=== PATIENT | female | born 1930 | race Caucasian/White ===

== ENCOUNTER 2017-06-15 00:10 | Inpatient (IN) | payer MEDICARE, OTHER ==
[2017-06-15] VITALS (23 sets, daily range): BP systolic 95–126; BP diastolic 43–71; PULSE 103–191; RESP 14–16; TEMP 97.8–99.4; O2SAT 94–100
[~2017-06-15] VITALS: Ht 177.8 cm; Wt 102.0 kg
[~2017-06-15 00:10] MED LIST: BUME1TAB PO; GABA100C4 PO; LANO0.2510 PO; LOVA40TA PO; POTA-243 PO; TAB-TAB PO; WARF5TAB PO
[2017-06-15] MEDS ORDERED: LEVOFLOXACIN 750 MG PREMIX INJ 150 ML IV ONE (00:30)
[2017-06-15] MEDS ORDERED: SODIUM CHLOR 0.9% 1000 ML INJ 1,000 ML IV SCH (00:30)
[2017-06-15] MEDS ORDERED: SODIUM CHLORIDE 0.9% FLUSH 5 ML FLUSH IV FLUSH PRN (00:30)
[2017-06-15] MEDS ORDERED: AZTREONAM INJ 2,000 MG in SODIUM CHLORIDE 0.9% INJ 100 ML IV ONE (00:30)
[2017-06-15] MEDS ORDERED: metroNIDAZOLE 500 MG INJ 100 ML IV ONE (00:30)
[2017-06-15] MEDS ORDERED: SODIUM CHLORID 0.9% 500 ML INJ 500 ML IV ONE (00:30)
[2017-06-15] MEDS ORDERED: DILTIAZEM HCL 25 MG/5 ML VIAL IV PUSH ONE (00:30)
[2017-06-15] MEDS ORDERED: SODIUM CHLORIDE 0.9% FLUSH 10 ML FLUSH IVF PRN ×3 (00:30→11:15)
[2017-06-15 00:51] LABS: AUTOMATED NEUTROPHIL # 11.2 TH/MM3 (1.8-7.7); BASOPHIL # 0.1 TH/MM3 (0-0.2); BASOPHIL % 0.4 % (0.0-2.0); EOSINOPHIL % 0.1 % (0.0-4.0); HEMATOCRIT 42.6 % (35.0-46.0); HEMO FLAGS DIFF FINAL; LYMPH % 6.1 % (9.0-44.0); LYMPHOCYTE # 0.8 TH/MM3 (1.0-4.8); MEAN CELL VOLUME 92.4 FL (80.0-100.0); MEAN CORPUSCULAR HEMOGLOBIN 28.9 PG (27.0-34.0); MEAN CORPUSCULAR HGB CONC 31.3 % (32.0-36.0); MONO % 11.2 % (0.0-8.0); NEUT % 82.2 % (16.0-70.0); PLATELET COUNT 238 TH/MM3 (150-450); RED BLOOD COUNT 4.61 MIL/MM3 (4.00-5.30); RED CELL DISTRIBUTION WIDTH 14.8 % (11.6-17.2); WHITE BLOOD COUNT 13.7 TH/MM3 (4.0-11.0)
[2017-06-15 01:01] LABS: APTT (PATIENT) 24.5 SEC (24.3-30.1); INTERNATIONAL NORMALIZED RATIO 1.2 RATIO; PROTHROMBIN TIME - PATIENT 12.8 SEC (9.8-11.6)
--- NOTE | 2017-06-15 01:05 | RADRPT ---
EXAM DATE/TIME: 06/15/2017 00:43 [place] COMPARISON: No previous studies available for comparison. INDICATIONS : Short of breath. MEDICAL HISTORY : None. SURGICAL HISTORY : CABG. ENCOUNTER: Initial ACUITY: 1 day PAIN SCORE: Non-responsive. LOCATION: Bilateral chest FINDINGS: A single portable frontal view of the chest shows an endotracheal tube with the tip 2 cm proximal to sury. The nasogastric tube in the fundus of the stomach. Bibasilar parenchymal consolidations with low lung volumes. Mild cardiomegaly. Prosthetic heart valve and median sternotomy wires. No discrete effusions. CONCLUSION: Cardiomegaly with bibasilar parenchymal consolidations in part likely due to atelectasis due to degre e of inspiration. I cannot exclude intraalveolar opacities such as early pulmonary edema. Blu Mayfield Jr., MD on June 15, 2017 at 1:02 Board Certified Radiologist. This report was verified electronically.
[2017-06-15 01:09] LABS: BLOOD, URINE NEG (NEG); COMMENT (UR) CULT NOT INDICATED; CULTURE IF INDICATED CULT NOT INDICATED; GLUCOSE,URINE NEG (NEG); HYALINE CAST, URINE 7 /lpf (RARE); KETONE, URINE NEG (NEG); MUCUS URINE FEW /lpf (OCC); NITRITE,URINE NEG (NEG); PH, URINE 5.5 (5.0-8.5); SQUAMOUS EPITHELIAL CELL URINE 1 /hpf (0-5); URINE COLOR YELLOW (YELLW/STRAW)
[2017-06-15] MEDS ORDERED: PROPOFOL 1000 MG/100 ML INJ 100 ML IV PRN (01:15)
[2017-06-15 01:16] LABS: BLOOD GAS BASE EXCESS 1.1 mmol/L (-2-2); BLOOD GAS CARBOXYHEMOGLOBIN 0.9 % (0-4); BLOOD GAS HCO3 25 mmol/L (22-26); BLOOD GAS METHEMOGLOBIN 0.7 % (0-2); BLOOD GAS O2 HGB SATURATION 98 % (90-100); BLOOD GAS PCO2 35 mmHg (38-42); BLOOD GAS PO2 429 mmHg (61-120); CRITICAL VALUE NO; OXYGEN DEVICE VENTILATOR; TEMP CORR TO 98.6
[2017-06-15 01:17] LABS: DRAW SITE RT RADIAL; FIO2 100 %; NUMBER OF ARTERIAL PUNCTURES 1; STAT YES; ULNAR PULSE PRESENT; VENT SETTINGS VAC/16/500/PEEP5
[2017-06-15 01:18] LABS: CALCIUM-PROTEIN CORRECTED 7.9 MG/DL (8.5-10.1); MAGNESIUM 2.4 MG/DL (1.5-2.5); TOTAL BILIRUBIN ADULT 0.6 MG/DL (0.2-1.0)
[2017-06-15 01:19] LABS: POTASSIUM 2.8 MEQ/L (3.5-5.1)
[2017-06-15] MEDS ORDERED: METO25TA3 PO (01:24)
[2017-06-15] MEDS ORDERED: JEVILIQ12 (01:24)
--- NOTE | 2017-06-15 01:39 | PD ---
HPI Chief Complaint: Respiratory Distress Time Seen by Provider: 00:23 Travel History International Travel<30 days: No Contact w/Intl Traveler<30days: No Traveled to known affect area: No History of Present Illness HPI 86-year-old female presents to the emergency department by EMS transport from [facility] for evaluation of respiratory distress. Patient was found by paramedics to be not responsive with low O2 saturations and poor ventilatory effort. Patient was assessed to need airway protection and respiratory support and was intubated in the field by paramedics. Patient was identified to have large amount of enteral tube feeding contents in the airway. Patient was suctioned numerous times. 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 Patient is currently on as needed Humalog sliding scale metoprolol DuoNeb treatments aspirin atorvastatin patient has been known as a high risk for aspiration. Patient reportedly today according to [facility] staff was having difficulty with breathing and then when the night nurse who had been caring for her return to work noted patient to be markedly more dyspneic and in respiratory distress. Patient reportedly has had no recent febrile illness. Unknown if patient received all of her daily medications. Per patient rehab records provided patient was hospitalized with an ischemic stroke, atrial fibrillation, started on Xarelto and subsequent small hemorrhagic stroke by MRI with discontinuation of Xarelto reportedly during admission from 05/01/17 to 06/01/17 at [facility]. [facility] Past Medical History Narrative Medical Atrial fibrillation CVA dyslipidemia hypertension CHF valvular heart disease cabg;no tobacco use; [facility] and nursing notes reviewed Neurologic: Yes (stroke with left sided weakness) ?: Not Past Surgical History Surgical History: Unable to Obtain Social History Alcohol Use: No Tobacco Use: No Substance Use: No Allergies-Medications (Allergen,Severity, Reaction): Coded Allergies: penicillin G (Unverified Allergy, Severe, 05/09/17) shellfish derived (Verified Allergy, Unknown, 06/15/17) Reported Meds & Prescriptions Reported Meds & Active Scripts Active Reported Jevity 1.5 Aden (Nutritional Supplements) 0.06 Gram-1.5 Kcal/Ml Liq Metoprolol Tartrate 25 Mg Tab 25 Mg PO BID Review of Systems ROS Limitations: Clinical Condition, Intubated, Other: (provided by rehabilitation facility medical records) Physical Exam Narrative GENERAL: Well-developed elderly female intubated and unresponsive except to painful stimuli left upper extremity and left lower extremity history of right hemiparesis status post CVA SKIN: Warm and dry. HEAD: Normocephalic. EYES: No scleral icterus. Pupils equal round reactive to light. No injection or drainage. NECK: Supple, trachea midline. No JVD or lymphadenopathy. CARDIOVASCULAR: Increased irregular irregular rate and rhythm without murmurs, gallops, or rubs. RESPIRATORY: Breath sounds equal bilaterally with ventilator assisted ventilations. No accessory muscle use. GASTROINTESTINAL: Abdomen soft, non-tender, nondistended. MUSCULOSKELETAL: No cyanosis, or edema. BACK: Nontender without obvious deformity. No CVA tenderness. Data Data Last Documented VS Vital Signs Date Time Temp Pulse Resp B/P (MAP) Pulse Ox O2 Delivery O2 Flow Rate FiO2 06/15/17 01:50 134 107/61 06/15/17 01:39 100 35 06/15/17 00:35 Ventilator 06/15/17 00:20 16 06/15/17 00:14 99.4 Orders Orders Complete Blood Count With Diff (06/15/17 00:24) Comprehensive Metabolic Panel (06/15/17:24) B-Type Natriuretic Peptide (06/15/17:24) Act Partial Throm Time (Ptt) (06/15/17:24) Prothrombin Time / Inr (Pt) (06/15/17 00:24) Magnesium (Mg) (06/15/17:24) Ckmb (Isoenzyme) Profile (06/15/17:24) Troponin I (06/15/17:24) Arterial Blood Gas (Abg) (06/15/17:24) Urinalysis - C+S If Indicated (06/15/17:24) Blood Culture (06/15/17:24) Iv Access Insert/Monitor (06/15/17:24) Electrocardiogram (06/15/17:24) Ecg Monitoring (06/15/17:24) Oximetry (06/15/17 00:24) Oxygen Administration (06/15/17:24) Chest, Single Ap (06/15/17:24) Sodium Chloride 0.9% Flush (Ns Flush) (06/15/17 00:30) Lactic Acid Sepsis Protocol (06/15/17 00:24) Sodium Chlorid 0.9% 500 Ml Inj (Ns 500 M (06/15/17 00:30) Sodium Chlor 0.9% 1000 Ml Inj (Ns 1000 M (06/15/17 00:30) Archana-Gastric Tube Insert/Mon (06/15/17 00:24) Place Ng Tube To Low Intermit (06/15/17 00:24) Urinary Catheter Insert/Apply (06/15/17 00:24) Aztreonam Inj (Azactam Inj) (06/15/17 00:30) Metronidazole 500 Mg Inj (Flagyl 500 Mg (06/15/17 00:30) Levofloxacin 750 Mg Premix Inj (Levaquin (06/15/17 00:30) Resp Ventilation- Volume (06/15/17 ) Blood Pressure (06/15/17 00:24) Vital Signs (06/15/17 00:24) Diltiazem Inj (Cardizem Inj) (06/15/17 00:30) Diltiazem Inj (Cardizem Inj) (06/15/17 00:30) Sodium Chloride 0.9% Flush (Ns Flush) (06/15/17 00:30) Propofol 1000 Mg/100 Ml Inj (Diprivan 10 (06/15/17 01:15) Neurological Rass Scale Q30MX2,Q2HX4,Q4H (06/15/17 01:09) Ct Brain W/O Iv Contrast(Rout) (06/15/17 ) Ct Abd/Pel W Iv Contrast(Rout) (06/15/17 ) Diltiazem Inj (Cardizem Inj) (06/15/17 02:00) Potassium Chlor 20 Meq Premix (Kcl 20 Me (06/15/17 02:00) Admit Order (Ed Use Only) (06/15/17 ) ^ Saline Lock (06/15/17 01:59) Resp Oxygen Akil C Titrat 1-4 L (06/15/17 ) Notify Dr: Other (06/15/17 01:59) Sodium Chloride 0.9% Flush (Ns Flush) (06/15/17 09:00) Sodium Chloride 0.9% Flush (Ns Flush) (06/15/17 02:00) Digoxin (06/15/17 00:40) Lipase (06/15/17 00:40) Ct Thorax/ Chest W Iv Contrast (06/15/17 ) Labs Laboratory Tests Test 06/15/17 00:30 06/15/17 00:40 06/15/17 00:50 06/15/17 00:55 Lactic Acid Level 1.9 mmol/L White Blood Count 13.7 TH/MM3 Red Blood Count 4.61 MIL/MM3 Hemoglobin 13.3 GM/DL Hematocrit 42.6 % Mean Corpuscular Volume 92.4 FL Mean Corpuscular Hemoglobin 28.9 PG Mean Corpuscular Hemoglobin Concent 31.3 % Red Cell Distribution Width 14.8 % Platelet Count 238 TH/MM3 Mean Platelet Volume 8.7 FL Neutrophils (%) (Auto) 82.2 % Lymphocytes (%) (Auto) 6.1 % Monocytes (%) (Auto) 11.2 % Eosinophils (%) (Auto) 0.1 % Basophils (%) (Auto) 0.4 % Neutrophils # (Auto) 11.2 TH/MM3 Lymphocytes # (Auto) 0.8 TH/MM3 Monocytes # (Auto) 1.5 TH/MM3 Eosinophils # (Auto) 0.0 TH/MM3 Basophils # (Auto) 0.1 TH/MM3 CBC Comment DIFF FINAL Differential Comment Prothrombin Time 12.8 SEC Prothromb Time International Ratio 1.2 RATIO Activated Partial Thromboplast Time 24.5 SEC Blood Urea Nitrogen 37 MG/DL Creatinine 0.79 MG/DL Random Glucose 117 MG/DL Total Protein 5.9 GM/DL Albumin 2.1 GM/DL Calcium Level 7.3 MG/DL Magnesium Level 2.4 MG/DL Alkaline Phosphatase 86 U/L Aspartate Amino Transf (AST/SGOT) 51 U/L Alanine Aminotransferase (ALT/SGPT) 33 U/L Total Bilirubin 0.6 MG/DL Sodium Level 154 MEQ/L Potassium Level 2.8 MEQ/L Chloride Level 118 MEQ/L Carbon Dioxide Level 29.0 MEQ/L Anion Gap 7 MEQ/L Estimat Glomerular Filtration Rate 69 ML/MIN Protein Corrected Calcium 7.9 MG/DL Total Creatine Kinase 54 U/L Troponin I 0.18 NG/ML B-Type Natriuretic Peptide 674 PG/ML Lipase 152 U/L Digoxin Level 0.1 NG/ML Blood Gas Puncture Site RT RADIAL Blood Gas Patient Temperature 98.6 Blood Gas HCO3 25 mmol/L Blood Gas Base Excess 1.1 mmol/L Blood Gas Oxygen Saturation 98 % Arterial Blood pH 7.46 Arterial Blood Partial Pressure CO2 35 mmHg Arterial Blood Partial Pressure O2 429 mmHg Arterial Blood Oxygen Content 19.0 Vol % Arterial Blood Carboxyhemoglobin 0.9 % Arterial Blood Methemoglobin 0.7 % Blood Gas Hemoglobin 13.0 G/DL Oxygen Delivery Device VENTILATOR Blood Gas Ventilator Setting VAC/16/500/PEEP5 Blood Gas Inspired Oxygen 100 % Urine Color YELLOW Urine Turbidity CLEAR Urine pH 5.5 Urine Specific [place] 1.018 Urine Protein TRACE mg/dL Urine Glucose (UA) NEG mg/dL Urine Ketones NEG mg/dL Urine Occult Blood NEG Urine Nitrite NEG Urine Bilirubin NEG Urine Urobilinogen LESS THAN 2.0 MG/DL Urine Leukocyte Esterase TRACE Urine RBC 3 /hpf Urine WBC 2 /hpf Urine Squamous Epithelial Cells 1 /hpf Urine Amorphous Sediment RARE Urine Hyaline Casts 7 /lpf Urine Mucus FEW /lpf Microscopic Urinalysis Comment CULT NOT INDICATED MDM Medical Decision Making Medical Screen Exam Complete: Yes Emergency Medical Condition: Yes Medical Record Reviewed: Yes Interpretation(s) Last Impressions Chest X-Ray 06/15/17 0024 Signed Impressions: Service Date/Time: May 00:43 - CONCLUSION: Cardiomegaly with bibasilar parenchymal consolidations in part likely due to atelectasis due to degree of inspiration. I cannot exclude intraalveolar opacities such as early pulmonary edema. Blu Mayfield Jr., MD CBC & BMP Diagram 06/15/17 00:40 Total Protein 5.9 L, Albumin 2.1 L, Calcium Level 7.3 *L, Magnesium Level 2.4, Alkaline Phosphatase 86, Aspartate Amino Transf (AST/SGOT) 51 H, Alanine Aminotransferase (ALT/SGPT) 33, Total Bilirubin 0.6 Vital Signs Date Time Temp Pulse Resp B/P (MAP) Pulse Ox O2 Delivery O2 Flow Rate FiO2 06/15/17 01:50 134 107/61 06/15/17 01:39 100 35 06/15/17 00:35 Ventilator 100 06/15/17 00:20 16 Ventilator 100 06/15/17 00:15 100 100 06/15/17 00:15 100 100 06/15/17 00:14 99.4 167 16 126/71 (89) 100 Differential Diagnosis Respiratory failure respiratory arrest aspiration pneumonitis pneumonia atrial fibrillation with RVR electrolyte disturbance anemia CVA Narrative Course Patient presents with IV access in place and oral intubation by EMS after being found unresponsive acute respiratory failure and ventilatory failure receiving tube feedings. To concern for aspiration as reportedly copious amounts of 2 feedings suction from patient's airway. Patient identified to be in atrial fibrillation with RVR and started on Cardizem infusion with Cardizem bolus 500 cc also normal saline. Patient started on ventilatory support assist control tidal volume 500 rate 16 fio2 100% peep 5 Patient found to be ongoing A. fib with RVR additional bolus administered and increase and Cardizem infusion ongoing IV fluid administration discontinued due to vascular congestion noted on chest x-ray Patient placed on propofol for agitation Patient's case discussed with director of bands for admission Critical Care Narrative Aggregate critical care time was 35 minutes. Time to perform other separately billable procedures was not included in the critical care time. My time did not include minutes spent treating any other patients simultaneously or on activities that did not directly contribute to the patient's treatment. The services I provided to this patient were to treat and/or prevent clinically significant deterioration that could result in: Arrhythmia, sepsis, I provided critical care services requiring my management, as noted below: Chart data review, documentation time, medication orders and management, vital sign assessments/reviewing monitor data, ordering and reviewing lab tests, ordering and interpreting/reviewing x-rays and diagnostic studies, care of the patient and discussion of the patient with the admitting physicians. Physician Communication Physician Communication discussed with Dr Johnston --will admit Diagnosis Primary Impression: Respiratory failure with hypoxia Qualified Codes: J96.01 - Acute respiratory failure with hypoxia Additional Impressions: Aspiration pneumonia Qualified Codes: J69.0 - Pneumonitis due to inhalation of food and vomit Atrial fibrillation with RVR Hypokalemia CHF (congestive heart failure) Admitting Information Admitting Physician Requests: Admit Michelle Castillo MD Jun 15, 2017 01:39
[2017-06-15] MEDS: DILTIAZEM INJ 125 MG in SODIUM CHLORIDE 0.9% INJ 100 ML IV PRN ×3 (01:50→17:36)
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
[2017-06-15] MEDS ORDERED: DILTIAZEM HCL 25 MG/5 ML VIAL IV ONE ×2 (02:00→02:15)
[2017-06-15] MEDS ORDERED: POTASSIUM CHLOR 20 MEQ PREMIX 100 ML IV SCH (02:00)
[2017-06-15 02:22] LABS: DIGOXIN 0.1 NG/ML (0.8-2.0)
[2017-06-15] MEDS ORDERED: SODIUM PHOSPHATE INJ 30 MMOL in SODIUM CHLOR 0.9% 250 ML INJ 240 ML IV PRN (03:00)
[2017-06-15] MEDS ORDERED: SODIUM CHLORIDE 0.9% FLUSH 10 ML FLUSH IV FLUSH PRN (03:00)
[2017-06-15] MEDS ORDERED: BISACODYL 10 MG SUPP RECTAL PRN (03:00)
[2017-06-15] MEDS ORDERED: POTASSIUM CHLOR 20 MEQ PREMIX 100 ML IV PRN ×2 (03:00)
[2017-06-15] MEDS ORDERED: RESP: ALBUTEROL 2.5 MG/3 ML NEB (PRN) INH (03:00)
[2017-06-15] MEDS ORDERED: MAGNESIUM OXIDE 400 MG TAB PO PRN (03:00)
[2017-06-15] MEDS ORDERED: MAGNESIUM SULFATE INJ 2 GM in SODIUM CHLORIDE 0.9% INJ 96 ML IV PRN (03:00)
[2017-06-15] MEDS ORDERED: ACETAMINOPHEN 325 MG TAB PO PRN (03:00)
[2017-06-15] MEDS ORDERED: LACTULOSE SYRUP 20 GM/30 ML CUP PO PRN (03:00)
[2017-06-15] MEDS ORDERED: CHLORHEXIDINE GLUCONATE 2 % 1 PACK (2 CLOTHS) TOP PRN (03:00)
[2017-06-15] MEDS ORDERED: POTASSIUM PHOSPHATE MONOBASIC 500 MG TAB PO/TUBE PRN (03:00)
[2017-06-15] MEDS ORDERED: MISCELLANEOUS NURSING INFORMATION XX SCH (03:00)
[2017-06-15] MEDS ORDERED: SENNOSIDES 8.6 MG TAB PO PRN (03:00)
[2017-06-15] MEDS ORDERED: POTASSIUM CHLOR 40 MEQ PREMIX 100 ML IV PRN (03:00)
[2017-06-15] MEDS ORDERED: MAGNESIUM HYDROXIDE SUSP 30 ML CUP PO PRN (03:00)
[2017-06-15] MEDS ORDERED: POTASSIUM PHOSPHATE MONOBASIC 500 MG TAB PO PRN (03:00)
[2017-06-15] MEDS ORDERED: Vancomycin Consult Pharmacy 1 EA OTHER SCH (03:00)
[2017-06-15] MEDS ORDERED: LEVOFLOXACIN 750 MG TAB PO SCH (03:00)
[2017-06-15] MEDS ORDERED: ONDANSETRON HCL 4 MG/2 ML VIAL IV PUSH PRN (03:00)
[2017-06-15] MEDS ORDERED: MAGNESIUM SULFATE INJ 4 GM in SODIUM CHLORIDE 0.9% INJ 92 ML IV PRN (03:00)
[2017-06-15] MEDS ORDERED: METOCLOPRAMIDE HCL 10 MG/2 ML VIAL IV PUSH SCH (03:00)
[2017-06-15] MEDS ORDERED: POTASSIUM PHOSPHATE INJ 30 MMOL in SODIUM CHLOR 0.9% 250 ML INJ 250 ML IV PRN (03:00)
[2017-06-15] MEDS ORDERED: POTASSIUM CHLORIDE 25 MEQ EFFERVESCENT TAB PO PRN (03:00)
[2017-06-15] MEDS ORDERED: metroNIDAZOLE 500 MG INJ 100 ML IV SCH (03:00)
[2017-06-15] MEDS: RESP: ALBUTEROL 2.5 MG/IPRATROPIUM 0.5 MG NEB (SCH) INH ×4 (03:20→21:56)
[2017-06-15] MEDS: CHLORHEXIDINE GLUCONATE 2 % 1 PACK (2 CLOTHS) TOP SCH (04:00)
[2017-06-15] MEDS ORDERED: VANCOMYCIN 1,500 MG/NS 500 ML IV ONE ×2 (04:00)
[2017-06-15] MEDS ORDERED: IOHEXOL 350 MG/ML 10 ML VIAL (for RAD DIAG) IVCONTRAST ONE (04:31)
--- NOTE | 2017-06-15 05:07 | RADRPT ---
EXAM DATE/TIME: 06/15/2017 04:26 [facility] COMPARISON: No previous studies available for comparison. INDICATIONS : Altered mental status. RADIATION DOSE: 50.18 CTDIvol (mGy) ; Tabletop CT Head MEDICAL HISTORY : Cardiovascular disease. Cerebrovascular disease. Hypertension. SURGICAL HISTORY : CABG ENCOUNTER: Initial ACUITY: 1 day PAIN SCALE: Non-responsive LOCATION: cranial TECHNIQUE: Multiple contiguous axial images were obtained of the head. Using automated exposure control and adj ustment of the mA and/or kV according to patient size, radiation dose was kept as low as reasonably a chievable to obtain optimal diagnostic quality images. DICOM format image data is available electro nically for review and comparison. FINDINGS: CEREBRUM: Atrophy. Periventricular low attenuation changes asymmetric involving the left cerebral hemisphere. A pat of encephalomalacia involving the right frontal lobe. The ventricles are normal for age. No evid ence of midline shift, mass lesion, hemorrhage or acute infarction. No extra-axial fluid collections are seen. POSTERIOR FOSSA: The cerebellum and brainstem are intact. The 4th ventricle is midline. The cerebellopontine angle i s unremarkable. EXTRACRANIAL: The visualized portion of the orbits is intact. SKULL: The calvaria is intact. No evidence of skull fracture. CONCLUSION: 1. No acute intracranial abnormality. 2. Chronic small vessel ischemic change more pronounced on the left. 3. Right frontal lobe encephalomalacia. 4. Atrophy Blu Mayfield Jr., MD on June 15, 2017 at 5:04 Board Certified Radiologist. This report was verified electronically.
--- NOTE | 2017-06-15 05:15 | RADRPT ---
EXAM DATE/TIME: 06/15/2017 04:30 [facility] COMPARISON: No previous studies available for comparison. INDICATIONS : Abdomen pain with vomiting. IV CONTRAST: 95 cc Omnipaque 350 (iohexol) IV ; Cumulative dose for multiple exams. ORAL CONTRAST: No oral contrast ingested. RADIATION DOSE: 18.53 CTDIvol (mGy) ; Combined studies - Thorax/Abdomen/Pelvis MEDICAL HISTORY : Cardiovascular disease. Cerebrovascular disease. Hypertension. SURGICAL HISTORY : CABG ENCOUNTER: Initial ACUITY: 1 day PAIN SCALE: Non-responsive LOCATION: abdomen TECHNIQUE: Volumetric scanning of the abdomen and pelvis was performed. Using automated exposure control and ad justment of the mA and/or kV according to patient size, radiation dose was kept as low as reasonably achievable to obtain optimal diagnostic quality images. DICOM format image data is available electro nically for review and comparison. FINDINGS: LOWER LUNGS: See the CT of the thorax dictated separately. LIVER: Homogeneous density. 2 small hepatic cysts observed. There is no dilation of the biliary tree. No s everal small rim calcified gallstones. The gallbladder is well distended but no gallbladder wall thic kening or pericholecystic fluid. The stones are within the fundus. SPLEEN: There is an abnormal appearance to the spleen. An area of poor enhancement is seen within the most ce phalad portion of the spleen. There is mild stranding of the adjacent fat. No discrete hematoma. PANCREAS: Within normal limits. KIDNEYS: Normal in size and shape. There is no mass, stone or hydronephrosis. Small right-sided cortical cyst s. ADRENAL GLANDS: There is a 1.7 cm right adrenal gland nodule. The left adrenal gland is unremarkable. I am unable to gain in accurate Hounsfield unit on the nodule due to streak artifact from contrast within the adjace nt IVC. VASCULAR: There is no aortic aneurysm. BOWEL/MESENTERY: Significant stool burden is seen throughout a mildly distended colon. The cecum reaches a maximum mirtha meter of 8 cm. Small bowel and stomach are unremarkable. The stomach is decompressed. A gastrostomy t ube is noted. No free air or free fluid. A few scattered colonic diverticuli. ABDOMINAL WALL: Within normal limits. RETROPERITONEUM: There is no lymphadenopathy. BLADDER: Totally decompressed and a Camilo balloon present. REPRODUCTIVE: Within normal limits. INGUINAL: There is no lymphadenopathy or hernia. MUSCULOSKELETAL: Within normal limits for patient age. CONCLUSION: 1. Area of poor enhancement involving the spleen as detailed above. Differential diagnostic considera tions would include an area of splenic infarction or in the right clinical setting splenic laceration . No intraperitoneal hematoma seen. 2. Constipation with distended colon. 3. Cholelithiasis. 4. 1.7 cm right adrenal gland nodule that cannot be further characterized on this study. Blu Mayfield Jr., MD on June 15, 2017 at 5:06 Board Certified Radiologist. This report was verified electronically.
--- NOTE | 2017-06-15 05:19 | RADRPT ---
EXAM DATE/TIME: 06/15/2017 04:30 [facility] COMPARISON: No previous studies available for comparison. INDICATIONS : Evaluate for pneumonia. IV CONTRAST: 95 cc Omnipaque 350 (iohexol) IV ; Cumulative dose for multiple exams. RADIATION DOSE: 18.53 CTDIvol (mGy) ; Combined studies - Thorax/Abdomen/Pelvis MEDICAL HISTORY : Cerebrovascular disease. Cardiovascular disease Hypertension. SURGICAL HISTORY : CABG ENCOUNTER: Initial ACUITY: 1 day PAIN SCALE: Non-responsive LOCATION: chest TECHNIQUE: Volumetric scanning of the chest was performed. Using automated exposure control and adjustment of t he mA and/or kV according to patient size, radiation dose was kept as low as reasonably achievable to obtain optimal diagnostic quality images. DICOM format image data is available electronically for review and comparison. Follow-up recommendations for detected pulmonary nodules are based at a minimum on nodule size and pa tient risk factors according to Fleischner Society Guidelines. FINDINGS: LUNGS: Bibasilar areas of consolidation. Remaining lungs are clear. Minimal linear atelectasis within the palma perior segment left lower lobe. Endotracheal tube observed. PLEURA: There is no pleural thickening or pleural effusion. MEDIASTINUM: The heart is significantly enlarged. 2 focal rounded areas of filling defect involving the right atri um measuring 1.9 and 1.7 cm respectively. No pericardial effusion. Streak artifact involving the tric uspid valve and mitral valve consistent with prostheses.. AXILLAE: Within normal limits. No lymphadenopathy. SKELETAL: Within normal limits for patient age. MISCELLANEOUS: See the CT of the abdomen and pelvis reported separately. CONCLUSION: 1. 2 focal rounded filling defects involving an enlarged right atrium. I'm concerned this represents mural thrombus. 2. Significant cardiomegaly. 3. Bibasilar infiltrates. Blu Mayfield Jr., MD on June 15, 2017 at 5:14 Board Certified Radiologist. This report was verified electronically.
[2017-06-15] MEDS ORDERED: DIGOXIN 0.5 MG/2 ML VIAL IV PUSH ONE (07:15)
[2017-06-15] MEDS ORDERED: CHLORHEXIDINE 0.12% (ORAL KIT) 15 ML CUP MT SCH (08:00)
[2017-06-15] MEDS: DIGOXIN 0.5 MG/2 ML VIAL IV PUSH SCH ×2 (08:00→13:07)
[2017-06-15] MEDS ORDERED: HEPARIN-D5W 25,000 U/250 ML 250 ML IV PRN (08:15)
[2017-06-15] MEDS: NYSTATIN SUSP 500,000 U/5 ML CUP OROPHARYNG SCH ×4 (08:17→22:24)
[2017-06-15] MEDS: metroNIDAZOLE 500 MG INJ 100 ML IV SCH ×2 (08:17→16:43)
[2017-06-15] MEDS: DIGOXIN 0.125 MG TAB OG-TUBE SCH (08:18)
[2017-06-15] MEDS: SODIUM CHLORIDE 0.9% FLUSH 10 ML FLUSH IV FLUSH SCH ×2 (08:20→22:24)
[2017-06-15 08:57] LABS: HEMATOCRIT 40.4 % (35.0-46.0); REVIEW FLAG FINAL
[2017-06-15] MEDS ORDERED: FAMOTIDINE 20 MG/2 ML VIAL IV PUSH SCH (09:00)
[2017-06-15] MEDS ORDERED: DOCUSATE SODIUM 50 MG/SENNA 8.6 MG TAB PO SCH (09:00)
[2017-06-15] MEDS ORDERED: SODIUM CHLORIDE 0.9% FLUSH 10 ML FLUSH IV FLUSH SCH (09:00)
--- NOTE | 2017-06-15 09:11 | MB ---
cc: ALEXIS PEDROZA DATE OF CONSULTATION 06/15/2017 DATE OF 1930 REASON FOR CONSULTATION Atrial fibrillation, recommendations regarding anticoagulation. HISTORY OF PRESENT ILLNESS The patient is intubated and sedated. History is obtained from her to some degree and from medical records, as well as from Dr. Marilee Johnston. The patient is a 86-year-old white female with a history of multiple medical problems including chronic atrial fibrillation, mitral valve disease status post mitral valve repair about two years ago, hypertension, hyperlipidemia, CVAs, who was brought to the hospital with increasing respiratory distress. She was subsequently intubated and placed on mechanical ventilation. Here in hospital, she has had elevated heart rates. According to the patient's , she has had no definite recent complaints of chest pain, dizziness or palpitations. PAST MEDICAL HISTORY 1. Chronic atrial fibrillation 2. Previous congestive heart failure due to her valvular heart disease. 3. 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 4. Essential tremor 5. Hyperlipidemia 6. Mitral regurgitation, severe, status post repair 05/13/15. 7. History of tricuspid regurgitation apparently also status post repair 05/13/15 CARDIAC MEDICATIONS At home: 1. Metoprolol 50 mg b.i.d. 2. Atorvastatin 40 mg q.h.s. 3. Aspirin 81 mg daily. ALLERGIES PENICILLIN AND SHELLFISH FAMILY HISTORY Noncontributory SOCIAL HISTORY The patient has never smoked cigarettes. There is no history of alcohol abuse. REVIEW OF SYSTEMS As in the history of present illness otherwise currently unobtainable. PHYSICAL EXAM VITAL SIGNS: Blood pressure 86/50 with a pulse of 160, respirations 20. GENERAL: She is a well-developed, well-nourished white female currently intubated and sedated. HEENT: On examination, jugular venous pressure is normal. NECK: Carotid pulses are 2+ bilaterally and without bruits. CHEST: Examination of the chest reveals clear lung cruz anteriorly. CARDIAC: On cardiac examination, she has a tachycardiac irregular rhythm without definite S3 or murmur. ABDOMEN: On abdominal examination, she has a soft abdomen. Bowel sounds are present. There is no definite hepatosplenomegaly. EXTREMITIES: Examination of extremities reveals no clubbing, cyanosis or edema. Chest x-ray shows cardiomegaly with bibasilar parenchymal consolidations in part due to atelectasis. LABORATORY DATA Includes WBC 13.7, hemoglobin 13.3, platelets 238. Potassium 2.8, BUN 37, creatinine 0.79, CK 54, troponin 0.18. Brain natriuretic peptide level is 674. EKG shows atrial fibrillation with a rapid ventricular response, diffuse nonspecific ST and T-wave abnormalities. IMPRESSION Hypotension, atrial fibrillation with a rapid ventricular response, respiratory failure in this 86-year-old white female with a history of chronic atrial fibrillation, history of CVAs, the most recent last month, history of mitral valve and tricuspid repair, hypertension, hyperlipidemia. At this time, her heart rates remain elevated. Her blood pressure is too low to initiate beta ruthann or calcium channel ruthann therapy. Overall, there is no definite evidence for acute coronary syndrome. I doubt the slightly elevated troponin level is due to unstable angina. Her heart catheterization about two years ago reportedly showed normal coronary arteries. Her respiratory failure may be multifactorial in origin, including congestive heart failure as well as aspiration. She did have an echo about a year ago showing normal left ventricular and valvular function. With respect to her thromboembolic risk, I would agree that it is high in light of her advanced age, history of strokes, history of congestive heart failure, hypertension. There is also worrisome findings suggestive of right atrial thrombus on her chest CT. Echo is pending. RECOMMENDATIONS 1. Agree with the approach of doing an MRI of her head and initiating Eliquis only if no active hemorrhaging is demonstrated. Eliquis is somewhat off label in this situation as she does have a history of valvular disease. However, according to the family, when she was on warfarin in the past, she had very poorly controlled INR's. 2. Agree with the digoxin; consider intravenous amiodarone for heart rate control. 3. We will try to review her recent [facility] records. MD BHAVIK Leo/MARIA TERESA /8:39 AM /8:52 AM POLLY
[2017-06-15] MEDS ORDERED: PHENYLEPHRINE HCL 10 MG/ML VIAL ONE (09:38)
[2017-06-15] MEDS ORDERED: TERBUTALINE INJ 1 MG/ML AMP SQ PRN ×2 (10:00→11:00)
[2017-06-15] MEDS ORDERED: PHENYLEPHRINE 40 MG in D5W 500 ML IV PRN (10:00)
[2017-06-15 10:12] LABS: HEMATOCRIT 40.4 % (35.0-46.0); MEAN CELL VOLUME 92.7 FL (80.0-100.0); MEAN CORPUSCULAR HEMOGLOBIN 29.8 PG (27.0-34.0); MEAN CORPUSCULAR HGB CONC 32.1 % (32.0-36.0); PLATELET COUNT 206 TH/MM3 (150-450); RED BLOOD COUNT 4.27 MIL/MM3 (4.00-5.30); REVIEW FLAG FINAL; WHITE BLOOD COUNT 12.3 TH/MM3 (4.0-11.0)
--- NOTE | 2017-06-15 11:09 | PD.PROCEDR ---
Central Line Procedure REASON FOR PROCEDURE Central venous access PROCEDURE PERFORMED Central line placement: Right IJ CONSENT Informed consent for procedure was obtained from Darin and son enzo. The risks and benefits of the procedure were discussed to include but limited to bleeding, clot formation, infection, and even . ANESTHESIA Local injection of 1% Lidocaine DESCRIPTION OF THE PROCEDURE The patient was placed in supine, mild Trendelenburg position. The area was exposed and cleansed with ChloraPrep, times two. Large sterile drape was used to cover the patient, with the site exposed, under sterile conditions including cap, face mask, sterile gown, and sterile gloves. On single attempt, the introducer needle was inserted with negative pressure in syringe and venous flash was obtained. The guide wire was then advanced without any restriction and the needle was removed. The dilator was used without any complications. Using Seldinger technique the 5 lm catheter was advanced over the guide wire to a depth of 16 centimeters. The guide wire was removed. All ports were aspirated with dark venous blood return and flushed easily with sterile saline. All ports were capped. Antibiotic disc was placed around central line at puncture site. The central line was secured to the skin with two interrupted 2.0 silk sutures. The area was bandaged with sterile see-through central line bandage. RADIOLOGICAL DATA Ultrasound guidance was used to locate right internal jugular vein. Doppler/ color flow was used to confirm venous flow. COMPLICATIONS: No apparent complications ESTIMATED BLOOD LOSS: Less than 1 cc. Harman Manning MD Jun 15, 2017 10:53
--- NOTE | 2017-06-15 11:09 | PD.PROCEDR ---
Procedure Note Procedure DATE: 06/15/2017 PROCEDURE: Left femoral arterial catheter placement INDICATION:hemodynamic access. Patient acutely hypotensive on vasopressors DETAILS OF PROCEDURE The patient was placed in supine position. The skin was cleansed with Chloraprep. Additional barrier precautions included large sterile drape, sterile gloves, sterile gown, face mask, and hat. 1% lidocaine was used for local anesthesia. Under direct ultrasound guidance and on the initial attempt, the left femoral artery was accessed with an introducer needle. The guide wire was advanced. Using Seldinger technique 20 gauge arterial catheter was placed. The guide wire was removed. The catheter was connected to a transducer line and flushed with saline. The video monitor displayed normal arterial wave forms. The catheter was secured with 2-0 silk. A sterile dressing with antibiotic disc was applied. Please note on initial attempt, the right femoral artery was accessed with an introducer needle and the guidewire was advanced. However upon removing the introducer needle, the end of the guidewire frayed was unable to place arterial catheter over the frayed guidewire. Procedure was stopped him a guidewire removed and direct pressure placed for 5 minutes. No gross hematoma noted. ESTIMATED BLOOD LOSS: minimal COMPLICATIONS: None Harman Manning MD Jun 15, 2017 10:55
[2017-06-15 11:32] LABS: BLOOD GAS BASE EXCESS -0.4 mmol/L (-2-2); BLOOD GAS CARBOXYHEMOGLOBIN 1.4 % (0-4); BLOOD GAS HCO3 23 mmol/L (22-26); BLOOD GAS METHEMOGLOBIN 0.9 % (0-2); BLOOD GAS O2 HGB SATURATION 96 % (90-100); BLOOD GAS OXYGEN CONTENT 16.6 Vol % (12.0-20.0); BLOOD GAS PCO2 32 mmHg (38-42); BLOOD GAS PO2 103 mmHg (61-120); BLOOD GAS TOTAL HGB 12.2 G/DL (12.0-16.0); TEMP CORR TO 98.6
[2017-06-15 11:33] LABS: CRITICAL VALUE NO; DRAW SITE ART LINE; FIO2 35 %; OXYGEN DEVICE VENTILATOR; STAT NO
--- NOTE | 2017-06-15 11:47 | RADRPT ---
EXAM DATE/TIME: 06/15/2017 11:14 [facility] COMPARISON: CHEST SINGLE AP, June 15, 2017, 0:43. INDICATIONS : Central line placement. MEDICAL HISTORY : Cerebrovascular disease. Cardiovascular disease. Hypertension. SURGICAL HISTORY : CABG. ENCOUNTER: Initial ACUITY: 1 day PAIN SCORE: Non-responsive. LOCATION: Bilateral chest FINDINGS: A single view of the chest demonstrates endotracheal tube tip in good position. NG tip in stomach. Ri ght central line in superior vena cava. Previous median sternotomy with mitral and pulmonic valve denise deonte. Global cardiomegaly. Basilar airspace disease. No pneumothorax. CONCLUSION: 1. Pacer right central line with tip in superior vena cava. No pneumothorax. Delonte Roland MD on June 15, 2017 at 11:44 Board Certified Radiologist. This report was verified electronically.
[2017-06-15 11:55] LABS: HEMATOCRIT 38.7 % (35.0-46.0); MEAN CELL VOLUME 92.2 FL (80.0-100.0); MEAN CORPUSCULAR HEMOGLOBIN 28.7 PG (27.0-34.0); MEAN CORPUSCULAR HGB CONC 31.1 % (32.0-36.0); PLATELET COUNT 246 TH/MM3 (150-450); RED CELL DISTRIBUTION WIDTH 14.7 % (11.6-17.2); REVIEW FLAG FINAL; WHITE BLOOD COUNT 15.1 TH/MM3 (4.0-11.0)
[2017-06-15 12:01] LABS: BICARBONATE 28.1 MEQ/L (21.0-32.0); MAGNESIUM 2.3 MG/DL (1.5-2.5)
[2017-06-15] MEDS: 1/2 NS + KCL 20 MEQ INJ 1,000 ML IV SCH (12:05)
[2017-06-15] MEDS: AZTREONAM INJ 2,000 MG in SODIUM CHLORIDE 0.9% INJ 100 ML IV SCH ×2 (12:08→17:36)
[2017-06-15 12:09] LABS: APTT (PATIENT) 27.5 SEC (24.3-30.1); INTERNATIONAL NORMALIZED RATIO 1.2 RATIO; PROTHROMBIN TIME - PATIENT 13.2 SEC (9.8-11.6)
[2017-06-15 12:10] LABS: FREE T4 1.82 NG/DL (0.76-1.46)
[2017-06-15] MEDS: PRAVASTATIN SOD 40 MG TAB OG-TUBE SCH (12:45)
[2017-06-15] MEDS: ESMOLOL DRIP INJ PREMIX 250 ML IV PRN ×2 (12:48→19:40)
[2017-06-15] MEDS: ARTIFICIAL TEARS OPTH SOLN 15 ML BTL EACH EYE SCH ×2 (13:06→22:00)
--- NOTE | 2017-06-15 14:21 | PD.CONS ---
Consult Service Palliative Care Consult Requested By Dr Johnston . Primary Care Physician Chema Soria MD Reason for Consultation a. To assist with evaluation and management of symptoms including: Dyspnea, dysphagia, pain b. To assist medical decision maker(s) with: better understanding of current medical conditions; weighing benefits/burdens of medical treatment options; making medical treatment decisions. HPI History of Present Illness 86-year-old patient presented to the ED 06/15/17, via EMS from her nursing facility, for respiratory distress. Patient was found to be nonresponsive with low O2 sats and poor ventilatory effort. She apparently was felt to need airway protection per EMS and was intubated in the field. Patient also reported to have a large amount of enteral tube feeding in the airway. Required repeated suctioning. Patient with known history left MCA stroke, right -sided residual deficits, A. fib RVR, hyperlipidemia, CHF, valvular heart disease. She is also reported to have UTIs, PEG tube dependent. Nursing staff at facility reported dyspnea, respiratory distress. No recent fevers reported. Per rehabilitation records patient had recent hospitalization with ischemic stroke and atrial fibrillation, had been started on Xarelto but then had a subsequent small hemorrhage per MRI thus Xarelto was discontinued during admission 05/01/17 through 06/01/17 at [facility]. * CXR in the ED= "Cardiomegaly with bibasilar parenchymal consolidations in part likely due to atelectasis due to degree of inspiration. I cannot exclude intraalveolar opacities such as early pulmonary edema." EKG noted for atrial fibrillation with RVR, started on Cardizem, IV fluids. On mechanical vent. Started on propofol for agitation. Lactic acid 1.9. WBC 13.7. BUN 37/ creatinine 0.79. Albumin 2.1 sodium 154, potassium 2.8. Admitted for further evaluation and management. UA negative. * Patient was planned for follow-up outpatient CT brain, had not yet obtained, CT brain here with no evidence of new hemorrhage finding, follow-up MRI to be obtained. Patient high risk for recurrent stroke/thromboembolism. 2-D echo pending. CT abdomen pelvis pending, some concern for splenic infarct. Villareal cultures pending. UA negativerecent treatment for UTI with Cipro 06/01 through . Broad-spectrum antibiotics continued vancomycin, Flagyl, Levaquin, aztreonam. Critical care notes discussion with patient regarding CODE STATUS, he elected to continue full code, was considering DNR status based on patient wishes however wishes to involve their adult children who are expected to arrive at a later time. He indicated that they had previously elected DNR after her first stroke but changed their mind when they saw some improvement. He reported lack of improvement with rehabilitation efforts, quality of life poor, primarily bed bound and with little communication ability, apparently the communication had gotten less over the prior weeks and days. * Cardiology consulted: Notes patient with no evidence for ACS, not likely elevated troponin level is secondary to unstable angina Catrina heart catheter about 2 years prior reported to show normal coronary arteries. Respiratory failure likely multifactorial including CHF and aspiration echo about one year ago showed normal left ventricular and valvular function. Also notes high thromboembolic risk, worrisome finding suggestive of right atrial thrombus in her chest CT, echo pending. Recommends proceed with MRI brain initiating eliquis if no active hemorrhage. Continue digoxin, consider amiodarone for rate control. Obtain recent [place] hospital records. * Palliative care was consulted to assist with clarification of goals of treatment Patient seen in room with nurse at bedside, as well as several family members. Met with family at length following physical exam. Patient is minimally responsive to exam, critically ill-appearing. Discussed with nurse, critical care. . Function/Cognitive Trajectory Patient with significant residual secondary to recent MCA stroke, most recently resided at [facility] dependent for care, dependent on tube feeding. Minimally communicative, minimally verbal. Nonambulatory. Prior to stroke in April of this year lived at home with fairly independent and semi-active. Review of Systems ROS Limitations: Clinical Condition, Intubated (intubated, sedated on mechanical vent) Respiratory: COMPLAINS OF: Shortness of breath (per EMS) Past Family Social History Coded Allergies: penicillin G (Unverified Allergy, Severe, 05/09/17) shellfish derived (Verified Allergy, Unknown, 06/15/17) Past Medical History Atrial fibrillation CVA Dyslipidemia Hypertension CHF Valvular heart disease Diabetes Nodular basal cell carcinoma face (May have underwent XRT?) . Past Surgical History Cardiac catheterization 09/11/14normal coronaries (Dr. Mahoney) Biopsy right denominational skin cancer Biopsy right nasal labial fold for basal cell carcinoma Bilateral cataract surgery section 3 Tonsillectomy Arthroscopy of knee Mitral valve replacement . Reported Medications Aspirin 81 mg daily Atorvastatin 40 mg by mouth daily Metoprolol 50 mg by mouth twice a day Cipro 500 mg per G-tube every 12 hours since 06/01/17 through 06/11/17 DuoNeb every 6 hours as needed Insulin sliding scale Nystatin 5 ML's 4 times a day started 06/02/17 Enteral feeds Jevity 1.5 55 mL per hour 20 hours . Current Medications Medications (Trade) Dose Ordered Sig/Kayla Route Start Time Stop Time Status Last Admin Diltiazem HCl 125 mg/Sodium Chloride 125 ml @ 5 mls/hr TITRATE PRN IV 06/15/17 00:30 06/15/17 10:53 Potassium Chloride 100 ml @ 50 mls/hr Q2H PRN IV 06/15/17 03:00 Potassium Chloride 100 ml @ 50 mls/hr Q2H PRN IV 06/15/17 03:00 (K-Lyte Cl Eff) 50 meq UNSCH PRN PO 06/15/17 03:00 Potassium Chloride 100 ml @ 25 mls/hr UNSCH PRN IV 06/15/17 03:00 Potassium Chloride 100 ml @ 50 mls/hr Q2H PRN IV 06/15/17 03:00 Magnesium Sulfate 4 gm/Sodium Chloride 100 ml @ 50 mls/hr UNSCH PRN IV 06/15/17 03:00 (Mag-Ox) 800 mg UNSCH PRN PO 06/15/17 03:00 Magnesium Sulfate 2 gm/Sodium Chloride 100 ml @ 50 mls/hr UNSCH PRN IV 06/15/17 03:00 (K-Phos) 2,000 mg Q4H PRN PO 06/15/17 03:00 Sodium Phosphate 30 mmol/Sodium Chloride 250 ml @ 42 mls/hr UNSCH PRN IV 06/15/17 03:00 (K-Phos) 2,000 mg UNSCH PRN PO/TUBE 06/15/17 03:00 Potassium Phosphate 30 mmol/ Sodium Chloride 260 ml @ 42 mls/hr UNSCH PRN IV 06/15/17 03:00 (Mycostatin Liq) 5 ml QID OROPHARYNG 06/15/17 09:00 06/15/17 13:06 Aztreonam 2000 mg/ Sodium Chloride 100 ml @ 200 mls/hr Q8H IV 06/15/17 10:00 06/15/17 12:08 Pharmacy Profile Note 0 ml @ 0 mls/hr UNSCH OTHER 06/15/17 03:00 Metronidazole 100 ml @ 100 mls/hr Q8H IV 06/15/17 09:00 06/15/17 08:17 (Levaquin) 750 mg Q24H PO 06/16/17 06:00 (NS Flush) 2 ml UNSCH PRN IV FLUSH 06/15/17 03:00 (NS Flush) 2 ml BID IV FLUSH 06/15/17 09:00 06/15/17 08:20 (Zofran Inj) 4 mg Q6H PRN IV PUSH 06/15/17 03:00 (Duoneb Neb) 1 ampule Q6HR NEB INH 06/15/17 04:00 06/15/17 08:37 (Albuterol Neb) 2.5 mg Q2HR NEB PRN INH 06/15/17 03:00 Miscellaneous Information 1 Q361D XX 06/15/17 03:00 06/15/17 03:00 (Chlorhexidine 2% Cloth) 3 pack Taper DAILY@04 TOP 06/15/17 04:00 06/11/18 03:59 06/15/17 04:00 (Chlorhexidine 2% Cloth) 3 pack UNSCH PRN TOP 06/15/17 03:00 (Milk Of Magnesia Liq) 30 ml Q12H PRN PO 06/15/17 03:00 (Senokot) 17.2 mg Q12H PRN PO 06/15/17 03:00 (Dulcolax Supp) 10 mg DAILY PRN RECTAL 06/15/17 03:00 (Lactulose Liq) 30 ml DAILY PRN PO 06/15/17 03:00 (Lanoxin Inj) 0.125 mg Q6H IV PUSH 06/15/17 08:00 06/15/17 14:01 06/15/17 13:07 (Lanoxin) 0.125 mg DAILY OG-TUBE 06/15/17 09:00 Heparin Sodium/ Dextrose 250 ml @ 14.31 mls/ hr TITRATE PRN IV 06/15/17 08:15 06/15/17 13:11 (Brethine Inj) 1 mg UNSCH PRN SQ 06/15/17 10:00 Vancomycin HCl 1500 mg/Sodium Chloride 515 ml @ 250 mls/hr Q24H IV 06/16/17 08:00 Miscellaneous Information SPECIFIC LAB TO BE DRAWN:VANCOMYCIN TROUGH DATE TO... ONCE ONCE .XX 06/18/17 07:45 06/18/17 07:46 Phenylephrine HCl 160 mg/Dextrose 500 ml @ 7.5 mls/hr TITRATE PRN IV 06/15/17 11:00 (Brethine Inj) 1 mg UNSCH PRN SQ 06/15/17 11:00 (Colace Liq) 100 mg Q12HR OG-TUBE 06/15/17 21:00 (Senna Liq) 8.8 mg BID OG-TUBE 06/15/17 21:00 (Miralax) 17 gm BID OG-TUBE 06/15/17 21:00 Potassium Chloride/Sodium Chloride 1,000 ml @ 84 mls/hr [id number] IV 06/15/17 11:15 06/15/17 12:05 Esmolol HCl/ Sodium Chloride 250 ml @ 23.85 mls/ hr TITRATE PRN IV 06/15/17 11:15 06/15/17 12:48 (NS Flush) DAILY IVF 06/16/17 09:00 (NS Flush) UNSCH PRN IVF 06/15/17 11:15 (Pravachol) 40 mg DAILY OG-TUBE 06/15/17 12:45 (Peridex 0.12% Liq) 15 ml BID@08,20 MT 06/15/17 20:00 Propofol 100 ml @ 2.385 mls/ hr TITRATE PRN IV 06/15/17 11:45 Fentanyl Citrate 250 ml @ 5 mls/hr TITRATE PRN IV 06/15/17 11:45 (Tylenol 650 Mg/ 20 ml Liq) 650 mg Q6H PRN OG-TUBE 06/15/17 11:45 (Prevacid Odt) 30 mg DAILY NG 06/16/17 09:00 (Tears Naturale Opth Soln) 1 drop Q8HR EACH EYE 06/15/17 14:00 Potassium Phosphate 15 mmol/ Sodium Chloride 155 ml @ 38.75 mls/ hr ONCE ONCE IV 06/15/17 15:00 06/15/17 18:59 Family History 2 sisters with colon cancer, no other cancers in the family. Substance Use Tobacco: Nonsmoker Alcohol: None Prescription med abuse: None Illicits: None . Psychosocial History , most recently resided at [facility] following month long hospital course at [facility]. Retired, has 3 adult children who live out of the area. Patient resides in [place] during the winter and [place] during the summer. 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 Retired since the . Spiritual/Cultural Factors Baptistsupported by adult specialist known to family, also appreciative of hospital relay man Living Will: Completed, but not made available Health Care Surrogate: Completed, but not made available Documented care wishes: Living will has standard inverted detail if terminal or end-stage or persistent vegetative condition would not want heroic or artificial measures including no artificial feeding and would want comfort measures only for a peaceful . Ethical and Legal Issues Patient currently intubated and unable to participate in medical decision making. Patient has living will which designates as primary healthcare surrogate, son as a secondary if unable to serve. I reviewed this document with the family on their iPad device however was unable available for print at this time. . Physical Exam Vital Signs Date Time Temp Pulse Resp B/P (MAP) Pulse Ox O2 Delivery O2 Flow Rate FiO2 06/15/17 12:48 151 110/54 06/15/17 12:20 100 35 06/15/17 10:53 144 123/66 06/15/17 09:38 163 72/53 06/15/17 08:35 100 35 06/15/17 05:38 99 35 06/15/17 05:31 06/15/17 04:55 98.6 170 16 110/52 (71) 100 06/15/17 04:10 100 100 06/15/17 03:21 100 35 06/15/17 03:16 124 120/74 06/15/17 02:22 124 16 98/55 (69) 97 Ventilator 06/15/17 02:15 148 16 101/55 (70) 97 Ventilator 06/15/17 01:50 134 107/61 06/15/17 01:39 100 35 06/15/17 00:35 Ventilator 100 06/15/17 00:20 16 Ventilator 100 06/15/17 00:15 100 100 06/15/17 00:15 100 100 06/15/17 00:14 99.4 167 16 126/71 (89) 100 06/15/17 06/16/17 19:00 07:00 Intake Total 600 ml Balance 600 ml Intake IV Total 600 ml Exam CONSTITUTIONAL/GENERAL: This is an adequately nourished patient, critically ill in ICU TUBES/LINES/DRAINS: ET tube, OG tube, PEG tube, Camilo catheter, bilateral wrist restraints, arterial line, central line SKIN: No jaundice, rashes, or lesions. Ecchymoses on upper extremities. No wounds seen anteriorly. Skin temperature appropriate. Not diaphoretic. HEAD: Atraumatic. Normocephalic. EYES: Does not open eyes, pupils 3 mm with sluggish reaction to light.No scleral icterus. No injection or drainage. Fundi not examined. ENT: Nose without bleeding or purulent drainage. Unable to visualize oropharynx due to ET tube, OG tube NECK: Trachea midline. Supple, nontender. No palpable thyroid enlargement or nodularity. CARDIOVASCULAR: Irregular rate and rhythm, atrial fibrillation observed on bedside monitor rate 110-140s . Pedal pulses are faint, feet are cold and delayed cap refill, bluish coloration to toes.. RESPIRATORY/CHEST: Symmetric, unlabored respirations on mech vent. some scattered rhonchi, decreased air movement GASTROINTESTINAL: Abdomen soft, obese, nondistended. No palpable masses. Bowel sounds hypoactive. OG to sx, mod amt brownish drainage. GENITOURINARY: Without palpable bladder distension. Camilo catheter in place. MUSCULOSKELETAL: Extremities without clubbing, cyanosis. + peripheral edema. No joint tenderness or effusion noted. + feet cool, blue NEUROLOGICAL: Sedated on mechanical vent, some withdrawal type movement to stimuli and feet, no movement on upper extremities to pain. No eye opening to stimuli. PSYCHIATRIC: No obvious anxiety/depression--limited assessment due to clinical condition, on some sedation. Diagnostic Tests Laboratory Laboratory Tests Test 06/15/17 00:30 06/15/17 00:40 06/15/17 00:50 06/15/17 00:55 Lactic Acid Level 1.9 mmol/L (0.4-2.0) White Blood Count 13.7 TH/MM3 (4.0-11.0) Red Blood Count 4.61 MIL/MM3 (4.00-5.30) Hemoglobin 13.3 GM/DL (11.6-15.3) Hematocrit 42.6 % (35.0-46.0) Mean Corpuscular Volume 92.4 FL (80.0-100.0) Mean Corpuscular Hemoglobin 28.9 PG (27.0-34.0) Mean Corpuscular Hemoglobin Concent 31.3 % (32.0-36.0) Red Cell Distribution Width 14.8 % (11.6-17.2) Platelet Count 238 TH/MM3 (150-450) Mean Platelet Volume 8.7 FL (7.0-11.0) Neutrophils (%) (Auto) 82.2 % (16.0-70.0) Lymphocytes (%) (Auto) 6.1 % (9.0-44.0) Monocytes (%) (Auto) 11.2 % (0.0-8.0) Eosinophils (%) (Auto) 0.1 % (0.0-4.0) Basophils (%) (Auto) 0.4 % (0.0-2.0) Neutrophils # (Auto) 11.2 TH/MM3 (1.8-7.7) Lymphocytes # (Auto) 0.8 TH/MM3 (1.0-4.8) Monocytes # (Auto) 1.5 TH/MM3 (0-0.9) Eosinophils # (Auto) 0.0 TH/MM3 (0-0.4) Basophils # (Auto) 0.1 TH/MM3 (0-0.2) CBC Comment DIFF FINAL Differential Comment Prothrombin Time 12.8 SEC (9.8-11.6) Prothromb Time International Ratio 1.2 RATIO Activated Partial Thromboplast Time 24.5 SEC (24.3-30.1) Blood Urea Nitrogen 37 MG/DL (7-18) Creatinine 0.79 MG/DL (0.50-1.00) Random Glucose 117 MG/DL (74-106) Total Protein 5.9 GM/DL (6.4-8.2) Albumin 2.1 GM/DL (3.4-5.0) Calcium Level 7.3 MG/DL (8.5-10.1) Magnesium Level 2.4 MG/DL (1.5-2.5) Alkaline Phosphatase 86 U/L (45-117) Aspartate Amino Transf (AST/SGOT) 51 U/L (15-37) Alanine Aminotransferase (ALT/SGPT) 33 U/L (10-53) Total Bilirubin 0.6 MG/DL (0.2-1.0) Sodium Level 154 MEQ/L (136-145) Potassium Level 2.8 MEQ/L (3.5-5.1) Chloride Level 118 MEQ/L (98-107) Carbon Dioxide Level 29.0 MEQ/L (21.0-32.0) Anion Gap 7 MEQ/L (5-15) Estimat Glomerular Filtration Rate 69 ML/MIN (>89) Protein Corrected Calcium 7.9 MG/DL (8.5-10.1) Total Creatine Kinase 54 U/L (26-192) Troponin I 0.18 NG/ML (0.02-0.05) B-Type Natriuretic Peptide 674 PG/ML (0-100) Lipase 152 U/L (73-393) Digoxin Level 0.1 NG/ML (0.8-2.0) Blood Gas Puncture Site RT RADIAL Blood Gas Patient Temperature 98.6 Blood Gas HCO3 25 mmol/L (22-26) Blood Gas Base Excess 1.1 mmol/L (-2-2) Blood Gas Oxygen Saturation 98 % (90-100) Arterial Blood pH 7.46 (7.380-7.420) Arterial Blood Partial Pressure CO2 35 mmHg (38-42) Arterial Blood Partial Pressure O2 429 mmHg (61-120) Arterial Blood Oxygen Content 19.0 Vol % (12.0-20.0) Arterial Blood Carboxyhemoglobin 0.9 % (0-4) Arterial Blood Methemoglobin 0.7 % (0-2) Blood Gas Hemoglobin 13.0 G/DL (12.0-16.0) Oxygen Delivery Device VENTILATOR Blood Gas Ventilator Setting VAC/16/500/PEEP5 Blood Gas Inspired Oxygen 100 % Urine Color YELLOW (YELLW/STRAW) Urine Turbidity CLEAR (CLEAR) Urine pH 5.5 (5.0-8.5) Urine Specific [place] 1.018 (1.002-1.035) Urine Protein TRACE mg/dL (NEG-TRACE) Urine Glucose (UA) NEG mg/dL (NEG) Urine Ketones NEG mg/dL (NEG) Urine Occult Blood NEG (NEG) Urine Nitrite NEG (NEG) Urine Bilirubin NEG (NEG) Urine Urobilinogen LESS THAN 2.0 MG/DL (LESS Urine Leukocyte Esterase TRACE (NEG) Urine RBC 3 /hpf (0-3) Urine WBC 2 /hpf (0-5) Urine Squamous Epithelial Cells 1 /hpf (0-5) Urine Amorphous Sediment RARE Urine Hyaline Casts 7 /lpf (RARE) Urine Mucus FEW /lpf (OCC) Microscopic Urinalysis Comment CULT NOT INDICATED Test 06/15/17 05:00 06/15/17 07:30 06/15/17 11:20 06/15/17 11:24 Nasal Screen MRSA (PCR) MRSA NOT DETECTED (NOT White Blood Count 12.3 TH/MM3 (4.0-11.0) 15.1 TH/MM3 (4.0-11.0) Red Blood Count 4.27 MIL/MM3 (4.00-5.30) 4.20 MIL/MM3 (4.00-5.30) Hemoglobin 12.4 GM/DL (11.6-15.3) 12.0 GM/DL (11.6-15.3) Hematocrit 40.4 % (35.0-46.0) 38.7 % (35.0-46.0) Mean Corpuscular Volume 92.7 FL (80.0-100.0) 92.2 FL (80.0-100.0) Mean Corpuscular Hemoglobin 29.8 PG (27.0-34.0) 28.7 PG (27.0-34.0) Mean Corpuscular Hemoglobin Concent 32.1 % (32.0-36.0) 31.1 % (32.0-36.0) Red Cell Distribution Width 15.0 % (11.6-17.2) 14.7 % (11.6-17.2) Platelet Count 206 TH/MM3 (150-450) 246 TH/MM3 (150-450) Mean Platelet Volume 9.2 FL (7.0-11.0) 8.6 FL (7.0-11.0) Troponin I 0.13 NG/ML (0.02-0.05) Prothrombin Time 13.2 SEC (9.8-11.6) Prothromb Time International Ratio 1.2 RATIO Activated Partial Thromboplast Time 27.5 SEC (24.3-30.1) Fibrinogen 420 mg/dL (227-377) Blood Urea Nitrogen 30 MG/DL (7-18) Creatinine 0.64 MG/DL (0.50-1.00) Random Glucose 122 MG/DL (74-106) Calcium Level 7.6 MG/DL (8.5-10.1) Phosphorus Level 2.2 MG/DL (2.5-4.9) Magnesium Level 2.3 MG/DL (1.5-2.5) Sodium Level 154 MEQ/L (136-145) Potassium Level 3.0 MEQ/L (3.5-5.1) Chloride Level 120 MEQ/L (98-107) Carbon Dioxide Level 28.1 MEQ/L (21.0-32.0) Anion Gap 6 MEQ/L (5-15) Estimat Glomerular Filtration Rate 88 ML/MIN (>89) Lactic Acid Level 1.5 mmol/L (0.4-2.0) Total Creatine Kinase 49 U/L (26-192) Free Thyroxine 1.82 NG/DL (0.76-1.46) Thyroid Stimulating Hormone 3rd Gen 0.546 uIU/ML (0.358-3.740) Blood Gas Puncture Site ART LINE Blood Gas Patient Temperature 98.6 Blood Gas HCO3 23 mmol/L (22-26) Blood Gas Base Excess -0.4 mmol/L (-2-2) Blood Gas Oxygen Saturation 96 % (90-100) Arterial Blood pH 7.47 (7.380-7.420) Arterial Blood Partial Pressure CO2 32 mmHg (38-42) Arterial Blood Partial Pressure O2 103 mmHg (61-120) Arterial Blood Oxygen Content 16.6 Vol % (12.0-20.0) Arterial Blood Carboxyhemoglobin 1.4 % (0-4) Arterial Blood Methemoglobin 0.9 % (0-2) Blood Gas Hemoglobin 12.2 G/DL (12.0-16.0) Oxygen Delivery Device VENTILATOR Blood Gas Ventilator Setting AC,16,450,PEEP5 Blood Gas Inspired Oxygen 35 % Test 06/15/17 13:20 Result Diagram: 06/15/17 1120 06/15/17 1120 Microbiology Microbiology Date/Time Source Procedure Growth Status 06/15/17 00:40 Blood Peripheral Aerobic Blood Culture Pending Received 06/15/17 00:40 Blood Peripheral Anaerobic Blood Culture Pending Received 06/15/17 00:25 Blood Peripheral Aerobic Blood Culture Pending Received 06/15/17 00:25 Blood Peripheral Anaerobic Blood Culture Pending Received Imaging Last Impressions Chest X-Ray 06/15/17 1105 Signed Impressions: Service Date/Time: May 11:14 - CONCLUSION: 1. Pacer right central line with tip in superior vena cava. No pneumothorax. Delonte Roland MD Head CT 06/15/17 0000 Signed Impressions: Service Date/Time: May 04:26 - CONCLUSION: 1. No acute intracranial abnormality. 2. Chronic small vessel ischemic change more pronounced on the left. 3. Right frontal lobe encephalomalacia. 4. Atrophy Blu Mayfield Jr., MD Chest CT 06/15/17 0000 Signed Impressions: Service Date/Time: May 04:30 - CONCLUSION: 1. 2 focal rounded filling defects involving an enlarged right atrium. I'm concerned this represents mural thrombus. 2. Significant cardiomegaly. 3. Bibasilar infiltrates. Blu Mayfield Jr., MD Abdomen/Pelvis CT 06/15/17 0000 Signed Impressions: Service Date/Time: May 04:30 - CONCLUSION: 1. Area of poor enhancement involving the spleen as detailed above. Differential diagnostic considerations would include an area of splenic infarction or in the right clinical setting splenic laceration. No intraperitoneal hematoma seen. 2. Constipation with distended colon. 3. Cholelithiasis. 4. 1.7 cm right adrenal gland nodule that cannot be further characterized on this study. Blu Mayfield Jr., MD Procedures 06/15/17 central line placement right IJ 06/05/17 femoral arterial line placement left . 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 Family Conference Time (mins): 45 (minutes) Family Conference Location: Consult Room Issues Discussed: Met with family, discussion included the following: * Palliative care role, purpose, approach * Additional medical, psychosocial, and spiritual history * Patients general health, functional status, and cognitive changes in the months leading up to the current hospitalization * Patient/family understanding of the current medical problems * Patient/family understanding of prognosis * Patients goals of care as best understood from advance directives and/or conversations and/or values * Current medical treatment options and benefits/burdens of those options * Legal decision makers/advance directives--have advance directives available for review on iPad device however unable to print these at this time * CODE STATUS-family considering DNR but for now full code * Likely scenarios comparing ongoing aggressive care with a transition to comfort measures only * Questions answered to the best of my ability * Palliative care contact information provided Met with family much review of conditions, prior hospitalization and functional status post stroke. She had not been doing very well in rehabilitation in terms of regaining functional status. Family is concerned that the patient will not recover to the level of functional status before most recent stroke, much review of critical condition which will certainly worsen underlying debilitated status for most recent CVA. Much review of ongoing risks related to critical illness in the ICU setting. Assessment and Plan Disease Oriented Problem List: (1) Hypokalemia (2) Aspiration pneumonia (3) Respiratory failure with hypoxia (4) History of stroke (5) Moderate protein malnutrition (6) Atrial fibrillation with RVR Symptom Scale: (1) Dyspnea (2) Encephalopathy (3) Pain (4) Dysphagia Pertinent Non-Medical Issues Psychosocial:, most recently resided at [facility] following month long hospital course at [facility]. Retired, has 3 adult children who live out of the area. Patient resides in [place] during the winter and [place] during the summer. 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 Retired since the . Spiritual:Yazdanism supported by adult specialist known to family, also appreciative of hospital relay man Legal:Patient currently intubated and unable to participate in medical decision making. Patient has living will which designates as primary healthcare surrogate, son as a secondary if unable to serve. I reviewed this document with the family on their iPad device however was unable available for print at this time. Ethical issues impacting care: Important Contacts Spouse Jorge Alberto Basilio [phone] Terrance Praful [phone] / [phone] . Prognosis This patient was admitted for acute respiratory distress, respiratory failure. She recently had prolonged hospitalization for significant MCA stroke with resulting deficits and dysphagia. She has had A. fib with RVR, which has been difficult to control in the ICU setting. She remains high risk for further complications and setbacks, and possible . She does survive current acute hospitalization she will likely remain dependent and require long-term care. Code Status: Full Code Plan * Legal decision maker:Patient currently intubated and unable to participate in medical decision making. Patient has living will which designates as primary healthcare surrogate, son as a secondary if unable to serve. I reviewed this document with the family on their iPad device however was unable available for print at this time. * Goals: For right now family wishes to continue aggressive treatments, considering DNR status. * CODE STATUS: Full code * SYMPTOMS: --Dyspnea-emergently intubated for respiratory distress by EMS; suspected aspiration pneumonia, currently breathing comfortable on mechanical vent, light sedation Diprivan-no recommendations at this time --Dysphagia-patient with recent MCA stroke, status post PEG placement at another facility, noted as aspiration risk per rehabilitation documentation. Suspected aspiration pneumonia. Currently with OG tube to suction, PEG clamped. Expected to remain at risk for aspiration secondary to dysphagia. --Pain-no reported pain syndromes per family, potential sources would include bedbound status, recent invasive procedures; currently appears comfortable will continue to evaluate --Encephalopathy-multifactorial: status post recent CVA, now with acute respiratory failure, A. fib RVR * Palliative care will continue to follow during hospital course as condition evolves, to assist patient/decision-maker with understanding of medical conditions, weighing benefits/burdens of treatment options, for clarification of goals of treatment. Additionally will assist with any symptoms of palliative concern Time Spent Total Floor Time (mins): 60 Thank you for the opportunity to participate in the care of Ms. Basilio. Attestation To help prompt me to consider important information that might be impacting today's encounter and assessment, information from prior notes written by myself or my colleagues may have been "brought forward" into today's note. My signature on this note, however, is an attestation that I personally performed the exam, history, and/or decision-making noted today, and, unless otherwise indicated, the interactions with patient, family, and staff as well as the review of records all occurred today. I also attest that the listed assessment and stated plan reflect my best clinical judgment today based on the combination of historical information, prior notes, and today's exam/ interactions. When time spent is documented, it refers only to time spent today by the signer, or if indicated, combined time spent today by collaborating physician/nurse practitioner. Rut Abel Jun 15, 2017 14:21
[2017-06-15] MEDS: PHENYLEPHRINE INJ 160 MG in DEXTROSE 5% IN WATE 500 ML INJ 484 ML IV PRN ×2 (14:54)
[2017-06-15] MEDS ORDERED: POTASSIUM PHOSPHATE INJ 15 MMOL in SODIUM CHLORIDE 0.9% INJ 150 ML IV ONE (15:00)
[2017-06-15] MEDS: POTASSIUM CHLOR 20 MEQ PREMIX 100 ML IV SCH ×2 (16:44→18:28)
--- NOTE | 2017-06-15 17:13 | EKG ---
Date Performed: 06/15/2017 Time Performed: 00:17:46 PTAGE: 86 years EKG: ATRIAL FIBRILLATION WITH RAPID VENTRICULAR RESPONSE WITH ABERRANT CONDUCTION OR VENTRICULAR PREMATURE COMPLEXES BORDERLINE RIGHT AXIS DEVIATION SEPTAL MYOCARDIAL INFARCTION ABNORMAL ECG Compar ed to prior tracing no significant change DOCTOR: Calderon Thornton Interpretating Date/Time 06/15/2017 17:12:15
--- NOTE | 2017-06-15 17:24 | ECHRPT ---
Indication: CONCLUSIONS The left ventricular systolic function is mildly reduced with an estimated ejection fraction in the range of 45- 50%. Normal left ventricular size. Wall thickness is normal. No regional wall motion abnormalities are present. The left atrial size is severely dilated. The right atrial size is severely dilated. Mitral valve annuloplasty ring is present. Moderate thickening of the mitral valve leaflets. Wdxd-ch-lourxalb mitral valve regurgitation. Diffuse calcification of the aortic valve. Ufoe-as-coyvgolc aortic valve regurgitation. No aortic valve stenosis. Aortic valve area is 1.4 cm. Aortic valve mean gradient is 9 mmHg. There is trace tricuspid valve regurgitation. The estimated pulmonary arterial pressure is 41.8 mmHg. The inferior vena cava is dilated. BP: / HR: Rhythm: Sinus MEASUREMENTS (Male / Female) Normal Values Technical Quality:Fair 2D ECHO LV Diastolic Diameter PLAX 5.2 cm 4.2 - 5.9 / 3.9 - 5.3 cm LV Systolic Diameter PLAX 4.0 cm IVS Diastolic Thickness 1.0 cm 0.6 - 1.0 / 0.6 - 0.9 cm LVPW Diastolic Thickness 1.0 cm 0.6 - 1.0 / 0.6 - 0.9 cm LV Relative Wall Thickness 0.4 RV Internal Dim ED PLAX 2.4 cm LVOT Diameter 1.9 cm LA Systolic Diameter LX 6.0 cm 3.0 - 4.0 / 2.7 - 3.8 cm LV Ejection Fraction MOD 4C 46.4 % LV Ejection Fraction 4C AL 46.8 % LA Volume Index 76.7 cm/m 16 - 28 cm/m M-MODE Aortic Root Diameter MM 2.9 cm LA Systolic Diameter MM 6.3 cm LA Ao Ratio MM 2.2 AV Cusp Separation MM 1.7 cm DOPPLER AV Peak Velocity 212.0 cm/s AV Peak Gradient 18.0 mmHg AV Mean Gradient 9.0 mmHg AV Velocity Time Integral 30.7 cm AI Peak Velocity 428.0 cm/s AI Peak Gradient 73.3 mmHg AI Pressure Half Time 249.0 ms LVOT Peak Velocity 95.7 cm/s LVOT Peak Gradient 3.7 mmHg LVOT Velocity Time Integral 14.8 cm AV Area Cont Eq vti 1.4 cm AV Area Cont Eq pk 1.3 cm MV Area PHT 5.5 cm TR Peak Velocity 282.0 cm/s TR Peak Gradient 31.8 mmHg Right Atrial Pressure 10.0 mmHg Pulmonary Artery Systolic Pressu 41.8 mmHg Right Ventricular Systolic Press 41.8 mmHg PV Peak Velocity 109.0 cm/s PV Peak Gradient 4.8 mmHg FINDINGS LEFT VENTRICLE The left ventricular systolic function is mildly reduced with an estimated ejection fraction in the range of 45- 50%. Normal left ventricular size. Wall thickness is normal. No regional wall motion abnormalities are present. RIGHT VENTRICLE Normal right ventricular size and systolic function. LEFT ATRIUM The left atrial size is severely dilated. RIGHT ATRIUM The right atrial size is severely dilated. ATRIAL SEPTUM Normal atrial septal thickness without atrial level shunting by limited color doppler interrogation. AORTA The aortic root and proximal ascending aorta are normal in size on limited imaging. MITRAL VALVE Mitral valve annuloplasty ring is present. Moderate thickening of the mitral valve leaflets. Bmia-lv-njukggfx mitral valve regurgitation. AORTIC VALVE Diffuse calcification of the aortic valve. Skpl-ix-okoyhhpa aortic valve regurgitation. No aortic valve stenosis. Aortic valve area is 1.4 cm. Aortic valve mean gradient is 9 mmHg. TRICUSPID VALVE There is trace tricuspid valve regurgitation. The estimated pulmonary arterial pressure is 41.8 mmHg. PULMONARY VALVE No pulmonary valve regurgitation or stenosis. VESSELS The inferior vena cava is dilated. PERICARDIUM No pericardial effusion. Siva Poole MD, FACC (Electronically Signed) Final Date:15 June 2017 17:23
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
[2017-06-15] MEDS: PROPOFOL 1000 MG/100 ML INJ 100 ML IV PRN (17:36)
--- NOTE | 2017-06-15 18:41 | MG ---
cc: LINDA DELA CRUZ MD Lab No: Date: 06/15/17 Age: 86 Sex: F Race: REQUESTING PHYSICIAN Dr. Manning. An EEG was obtained on this 86-year-old patient being evaluated for apparent left hemisphere stroke. The patient is sedated, intubated. MEDICATIONS Propofol Diltiazem Digoxin. Albuterol Vanco. Metronidazole. The EEG shows a mixture of rhythms including some alpha activity, some beta rhythms as well as theta and delta activity. There is probably some attenuation on the left hemisphere rhythms and probably slower rhythms on the left. There are no paroxysmal discharge. Hyperventilation was not performed. Photic stimulation disclosed no change. INTERPRETATION Abnormal EEG because of bilateral abnormalities including slowing and probable slower rhythms on the left with attenuation. The findings suggest bilateral abnormalities, possibly worse on the left. No ictal/paroxysmal discharge present. Linda Dela Cruz MD [facility] /6:20 PM /6:35 PM
--- NOTE | 2017-06-15 21:18 | RADRPT ---
EXAM DATE/TIME: 06/15/2017 20:50 [facility] COMPARISON: CT BRAIN W/O CONTRAST, June 15, 2017, 4:26. INDICATIONS : Stroke. MEDICAL HISTORY : None. SURGICAL HISTORY : section. Tonsillectomy. Heart valve replacement. G-tube placement. ENCOUNTER: Subsequent ACUITY: 1 day PAIN SCORE: Nonresponsive. LOCATION: cranial TECHNIQUE: Multiplanar, multisequence MRI of the brain was performed without contrast. FINDINGS: CEREBRUM: The ventricles are normal for age. No evidence of midline shift, mass lesion, hemorrhage or acute in farction. No extraaxial fluid collections are seen. The pituitary gland and suprasellar cistern are normal in configuration. Old right posterior frontal lobe infarct. WHITE MATTER: No significant signal abnormalities are seen in the white matter. POSTERIOR FOSSA: The cerebellum and brainstem are intact. The 4th ventricle is midline. The cerebellopontine angle is unremarkable. The cerebellar tonsils are normal in position. DIFFUSION IMAGING: Multiple areas of restricted diffusion are seen of the brain compatible with subacute infarcts. These measure approximately 17 x 52 mm in the left periventricular white matter, 19 x 32 mm of the left te mporal lobe, 16 mm of the left parietal lobe and a cluster of subcentimeter subcortical infarcts of t he right parietal lobe. There is an old infarct of the right frontal lobe. EXTRACRANIAL: The visualized portions of the orbits and paranasal sinuses are unremarkable. CONCLUSION: 1. Multiple subacute infarcts are demonstrated. Please see above. 2. There is an old infarct posteriorly of the right frontal lobe as well. 3. No mass, mass effect or midline shift. No bleed. Darin Preston MD on June 15, 2017 at 21:13 Board Certified Radiologist. This report was verified electronically.
[2017-06-15 21:51] LABS: APTT (PATIENT) 65.7 SEC (24.3-30.1)
[2017-06-15 22:16] LABS: HEMATOCRIT 36.9 % (35.0-46.0); REVIEW FLAG FINAL
[2017-06-15] MEDS: SENNOSIDES SYRUP 8.8 MG/5 ML CUP OG-TUBE SCH (22:24)
[2017-06-15] MEDS: DOCUSATE SODIUM 100 MG/10 ML UDC OG-TUBE SCH (22:24)
[2017-06-15] MEDS: POLYETHYLENE GLYCOL 17 GM PKG OG-TUBE SCH (22:24)
[2017-06-15] MEDS: CHLORHEXIDINE 0.12% (ORAL KIT) 15 ML CUP MT SCH (22:26)
[2017-06-16] VITALS (19 sets, daily range): BP systolic 88–116; BP diastolic 44–72; PULSE 72–110; RESP 14–16; TEMP 97.1–98.1; O2SAT 97–100
[2017-06-16] MEDS: ESMOLOL DRIP INJ PREMIX 250 ML IV PRN ×2 (00:30→14:38)
[2017-06-16] MEDS: 1/2 NS + KCL 20 MEQ INJ 1,000 ML IV SCH (00:31)
[2017-06-16] MEDS: metroNIDAZOLE 500 MG INJ 100 ML IV SCH ×3 (00:31→17:33)
[2017-06-16] MEDS: AZTREONAM INJ 2,000 MG in SODIUM CHLORIDE 0.9% INJ 100 ML IV SCH ×3 (01:58→17:55)
[2017-06-16] MEDS: PROPOFOL 1000 MG/100 ML INJ 100 ML IV PRN ×3 (01:58→17:58)
[2017-06-16] MEDS: RESP: ALBUTEROL 2.5 MG/IPRATROPIUM 0.5 MG NEB (SCH) INH ×4 (03:18→20:28)
[2017-06-16] MEDS: CHLORHEXIDINE GLUCONATE 2 % 1 PACK (2 CLOTHS) TOP SCH (04:00)
[2017-06-16 05:33] LABS: AUTOMATED NEUTROPHIL # 10.7 TH/MM3 (1.8-7.7); BASOPHIL # 0.1 TH/MM3 (0-0.2); BASOPHIL % 0.5 % (0.0-2.0); EOSINOPHIL # 0.6 TH/MM3 (0-0.4); EOSINOPHIL % 4.1 % (0.0-4.0); HEMATOCRIT 37.1 % (35.0-46.0); HEMO FLAGS DIFF FINAL; LYMPH % 8.7 % (9.0-44.0); LYMPHOCYTE # 1.2 TH/MM3 (1.0-4.8); MEAN CELL VOLUME 91.9 FL (80.0-100.0); MEAN CORPUSCULAR HEMOGLOBIN 29.1 PG (27.0-34.0); MEAN CORPUSCULAR HGB CONC 31.7 % (32.0-36.0); MONO % 9.5 % (0.0-8.0); NEUT % 77.2 % (16.0-70.0); PLATELET COUNT 251 TH/MM3 (150-450); RED BLOOD COUNT 4.04 MIL/MM3 (4.00-5.30); RED CELL DISTRIBUTION WIDTH 14.9 % (11.6-17.2); WHITE BLOOD COUNT 13.8 TH/MM3 (4.0-11.0)
[2017-06-16] MEDS: ARTIFICIAL TEARS OPTH SOLN 15 ML BTL EACH EYE SCH ×3 (05:38→20:17)
[2017-06-16 05:44] LABS: APTT (PATIENT) 144.5 SEC (24.3-30.1)
[2017-06-16 05:54] LABS: ANION GAP 8 MEQ/L (5-15); AST (GOT) 34 U/L (15-37); BICARBONATE 21.8 MEQ/L (21.0-32.0); BLOOD UREA NITROGEN 21 MG/DL (7-18); CHLORIDE 118 MEQ/L (98-107); GLOMERULAR FILTRATION RATE 148 ML/MIN (>89); POTASSIUM 3.3 MEQ/L (3.5-5.1); SODIUM (NA) 148 MEQ/L (136-145)
[2017-06-16 05:56] LABS: ALT (GPT) 24 U/L (10-53)
[2017-06-16 06:09] LABS: ALKALINE PHOSPHATASE 91 U/L (45-117); DIGOXIN 0.8 NG/ML (0.8-2.0); TOTAL BILIRUBIN ADULT 0.7 MG/DL (0.2-1.0)
[2017-06-16] MEDS: LEVOFLOXACIN 750 MG TAB PO SCH (06:14)
[2017-06-16] MEDS: POTASSIUM CHLOR 40 MEQ PREMIX 100 ML IV PRN (06:14)
--- NOTE | 2017-06-16 07:10 | RADRPT ---
EXAM DATE/TIME: 06/16/2017 04:23 [facility] COMPARISON: CHEST SINGLE AP, June 15, 2017, 11:14. INDICATIONS : Evaluate for respiratory failure. MEDICAL HISTORY : Cerebrovascular disease. Cardiovascular disease. Hypertension. SURGICAL HISTORY : CABG. ENCOUNTER: Subsequent ACUITY: 2 days PAIN SCORE: Non-responsive. LOCATION: chest FINDINGS: Endotracheal tube tip is at the level of the sury. Gastric tube tip and side-port project within t he stomach. Right internal jugular catheter tip in the distal superior vena cava. There is consolid ation in the left mid and lower lung with loss of delineation of the entire left hemidiaphragm, sligh tly more prominent than on prior exam. No focal infiltrates seen on the right. CONCLUSION: ET tube tip is at the level of the sury and needs to be withdrawn 2.5 cm. Blu Chilel MD on June 16, 2017 at 7:07 Board Certified Radiologist. This report was verified electronically.
[2017-06-16 08:34] LABS: APTT (PATIENT) 49.2 SEC (24.3-30.1)
[2017-06-16] MEDS: POTASSIUM CHLOR 40 MEQ PREMIX 100 ML IV ONE ×2 (09:00→09:34)
[2017-06-16] MEDS ORDERED: MINERAL OIL LIQUID 30 ML CUP PO ONE (09:00)
[2017-06-16] MEDS ORDERED: METHYLNALTREXONE BROMIDE 12 MG/0.6 ML VIAL SQ ONE (09:00)
--- NOTE | 2017-06-16 09:06 | PD.CARD.PN ---
Subjective Subjective Remarks Intubated. Sedated. Objective Medications Item Value Date Time Pravastatin Sodium 40 mg 06/15/17 1245 (Pravachol) DAILY/OG-TUBE Esmolol HCl/ 250 ml @ 23.85 mls/hr 06/15/17 1115 Sodium Chloride TITRATE PRN/IV 06/16/17 0030 Digoxin 0.125 mg 06/15/17 0900 (Lanoxin) DAILY/OG-TUBE Heparin Sodium/ 250 ml @ 14.31 mls/hr 06/15/17 0815 Dextrose TITRATE PRN/IV 06/15/17 1311 Diltiazem HCl 125 125 ml @ 5 mls/hr 06/15/17 0030 mg/Sodium Chloride TITRATE PRN/IV 06/15/17 1736 Vital Signs / I&O Vital Signs Date Time Temp Pulse Resp B/P (MAP) Pulse Ox O2 Delivery O2 Flow Rate FiO2 06/16/17 07:39 100 35 06/16/17 06:00 110 06/16/17 04:55 99 35 06/16/17 04:00 98.1 104 14 93/44 (60) 97 109/51 (70) 06/16/17 04:00 104 06/16/17 04:00 35 06/16/17 02:00 105 06/16/17 01:17 100 35 06/16/17 00:30 125 104/44 06/16/17 00:00 108 06/16/17 00:00 97.8 108 14 100 108/50 (69) 06/16/17 00:00 35 06/15/17 22:00 108 06/15/17 22:00 108 14 100 100/51 (67) 06/15/17 21:55 100 35 06/15/17 20:45 100 100 06/15/17 20:00 97.8 103 14 100 95/43 (60) 06/15/17 20:00 103 06/15/17 20:00 35 06/15/17 19:50 98 35 06/15/17 19:40 92 104/52 06/15/17 18:00 107 06/15/17 17:36 160 102/45 06/15/17 16:00 121 06/15/17 16:00 98.0 120 14 110/47 (68) 100 06/15/17 16:00 35 06/15/17 15:55 128 114/45 06/15/17 14:54 162 116/48 06/15/17 14:28 100 35 06/15/17 14:00 121 06/15/17 12:48 151 110/54 06/15/17 12:20 100 35 06/15/17 12:00 35 06/15/17 12:00 98.0 142 14 105/46 (65) 94 06/15/17 12:00 142 06/15/17 10:53 144 123/66 06/15/17 10:00 191 06/15/17 09:38 163 72/53 I/O 06/15/17 06/15/17 06/15/17 06/16/17 06/16/17 06/16/17 07:00 15:00 23:00 07:00 15:00 23:00 Intake Total 1700 ml 600 ml 1206 ml 1550 ml Output Total 1270 ml 550 ml Balance 1700 ml 600 ml -64 ml 1000 ml Intake IV Total 1700 ml 600 ml 1206 ml 1550 ml Output Urine Total 1250 ml 550 ml Gastric Drainage Total 20 ml # Bowel Movements 1 1 Physical Exam GENERAL: Well developed, well nourished. Intubated. Sedated. HEENT: Jugular venous pressure is normal. CHEST: Lungs clear to auscultation anteriorly. CARDIAC: Tachycardic irregular rhythm without S3 or murmur. ABDOMEN: Soft, nontender, no hepatosplenomegaly. Bowel sounds present. EXTREMITIES: SCD's in place. Laboratory Laboratory Tests Test 06/15/17 11:20 06/15/17 11:24 06/15/17 13:20 06/15/17 21:23 White Blood Count 15.1 TH/MM3 Red Blood Count 4.20 MIL/MM3 Hemoglobin 12.0 GM/DL Hematocrit 38.7 % Mean Corpuscular Volume 92.2 FL Mean Corpuscular Hemoglobin 28.7 PG Mean Corpuscular Hemoglobin Concent 31.1 % Red Cell Distribution Width 14.7 % Platelet Count 246 TH/MM3 Mean Platelet Volume 8.6 FL Prothrombin Time 13.2 SEC Prothromb Time International Ratio 1.2 RATIO Activated Partial Thromboplast Time 27.5 SEC 65.7 SEC Fibrinogen 420 mg/dL Blood Urea Nitrogen 30 MG/DL Creatinine 0.64 MG/DL Random Glucose 122 MG/DL Calcium Level 7.6 MG/DL Phosphorus Level 2.2 MG/DL Magnesium Level 2.3 MG/DL Sodium Level 154 MEQ/L Potassium Level 3.0 MEQ/L Chloride Level 120 MEQ/L Carbon Dioxide Level 28.1 MEQ/L Anion Gap 6 MEQ/L Estimat Glomerular Filtration Rate 88 ML/MIN Lactic Acid Level 1.5 mmol/L Total Creatine Kinase 49 U/L Free Thyroxine 1.82 NG/DL Thyroid Stimulating Hormone 3rd Gen 0.546 uIU/ML Blood Gas Puncture Site ART LINE Blood Gas Patient Temperature 98.6 Blood Gas HCO3 23 mmol/L Blood Gas Base Excess -0.4 mmol/L Blood Gas Oxygen Saturation 96 % Arterial Blood pH 7.47 Arterial Blood Partial Pressure CO2 32 mmHg Arterial Blood Partial Pressure O2 103 mmHg Arterial Blood Oxygen Content 16.6 Vol % Arterial Blood Carboxyhemoglobin 1.4 % Arterial Blood Methemoglobin 0.9 % Blood Gas Hemoglobin 12.2 G/DL Oxygen Delivery Device VENTILATOR Blood Gas Ventilator Setting AC,16,450,PEEP5 Blood Gas Inspired Oxygen 35 % Ammonia 27 MCMOL/L Troponin I 0.11 NG/ML Test 06/15/17 21:46 06/16/17 05:00 06/16/17 08:00 Hemoglobin 11.7 GM/DL 11.8 GM/DL Hematocrit 36.9 % 37.1 % Potassium Level 3.5 MEQ/L 3.3 MEQ/L Lactic Acid Level 1.0 mmol/L 1.0 mmol/L White Blood Count 13.8 TH/MM3 Red Blood Count 4.04 MIL/MM3 Mean Corpuscular Volume 91.9 FL Mean Corpuscular Hemoglobin 29.1 PG Mean Corpuscular Hemoglobin Concent 31.7 % Red Cell Distribution Width 14.9 % Platelet Count 251 TH/MM3 Mean Platelet Volume 8.4 FL Neutrophils (%) (Auto) 77.2 % Lymphocytes (%) (Auto) 8.7 % Monocytes (%) (Auto) 9.5 % Eosinophils (%) (Auto) 4.1 % Basophils (%) (Auto) 0.5 % Neutrophils # (Auto) 10.7 TH/MM3 Lymphocytes # (Auto) 1.2 TH/MM3 Monocytes # (Auto) 1.3 TH/MM3 Eosinophils # (Auto) 0.6 TH/MM3 Basophils # (Auto) 0.1 TH/MM3 CBC Comment DIFF FINAL Differential Comment Activated Partial Thromboplast Time 144.5 SEC 49.2 SEC Blood Urea Nitrogen 21 MG/DL Creatinine 0.41 MG/DL Random Glucose 106 MG/DL Total Protein 5.2 GM/DL Albumin 1.9 GM/DL Calcium Level 7.6 MG/DL Phosphorus Level 2.1 MG/DL Magnesium Level 2.0 MG/DL Alkaline Phosphatase 91 U/L Aspartate Amino Transf (AST/SGOT) 34 U/L Alanine Aminotransferase (ALT/SGPT) 24 U/L Total Bilirubin 0.7 MG/DL Sodium Level 148 MEQ/L Chloride Level 118 MEQ/L Carbon Dioxide Level 21.8 MEQ/L Anion Gap 8 MEQ/L Estimat Glomerular Filtration Rate 148 ML/MIN Digoxin Level 0.8 NG/ML Imaging Last 48 hours Impressions Chest X-Ray 06/16/17 0000 Signed Impressions: Service Date/Time: Friday, June 16, 2017 04:23 - CONCLUSION: ET tube tip is at the level of the sury and needs to be withdrawn 2.5 cm. Blu Chilel MD Chest X-Ray 06/15/17 1105 Signed Impressions: Service Date/Time: May 11:14 - CONCLUSION: 1. Pacer right central line with tip in superior vena cava. No pneumothorax. Delonte Roland MD Chest X-Ray 06/15/17 0024 Signed Impressions: Service Date/Time: May 00:43 - CONCLUSION: Cardiomegaly with bibasilar parenchymal consolidations in part likely due to atelectasis due to degree of inspiration. I cannot exclude intraalveolar opacities such as early pulmonary edema. Blu Mayfield Jr., MD Head CT 06/15/17 0000 Signed Impressions: Service Date/Time: May 04:26 - CONCLUSION: 1. No acute intracranial abnormality. 2. Chronic small vessel ischemic change more pronounced on the left. 3. Right frontal lobe encephalomalacia. 4. Atrophy Blu Mayfield Jr., MD Chest CT 06/15/17 0000 Signed Impressions: Service Date/Time: May 04:30 - CONCLUSION: 1. 2 focal rounded filling defects involving an enlarged right atrium. I'm concerned this represents mural thrombus. 2. Significant cardiomegaly. 3. Bibasilar infiltrates. Blu Mayfield Jr., MD Brain MRI 06/15/17 0000 Signed Impressions: Service Date/Time: May 20:50 - CONCLUSION: 1. Multiple subacute infarcts are demonstrated. Please see above. 2. There is an old infarct posteriorly of the right frontal lobe as well. 3. No mass, mass effect or midline shift. No bleed. Darin Preston MD Abdomen/Pelvis CT 06/15/17 0000 Signed Impressions: Service Date/Time: May 04:30 - CONCLUSION: 1. Area of poor enhancement involving the spleen as detailed above. Differential diagnostic considerations would include an area of splenic infarction or in the right clinical setting splenic laceration. No intraperitoneal hematoma seen. 2. Constipation with distended colon. 3. Cholelithiasis. 4. 1.7 cm right adrenal gland nodule that cannot be further characterized on this study. Blu Mayfield Jr., MD Assessment and Plan Problem List: (1) Chronic atrial fibrillation ICD Codes: I48.2 - Chronic atrial fibrillation Status: Chronic Plan: HR's overall better today, still mildly tachycardic. Thromboembolic risk is very high. Suspect her recent CVA's are cardioembolic in etiology. Patient also with evidence for thrombi in right atrium by chest CT. REC continue heparin drip; to eventually start Eliquis if no signs of bleeding on heparin. Patient apparently with labile INR's when on warfarin in the past continue IV Cardizem as BP's tolerate, continue digoxin will have coverage see patient PRN over the weekend (2) H/O mitral valve repair ICD Codes: Z98.890 - Other specified postprocedural states Status: Chronic Plan: Reportedly mild to moderate mitral regurgitation by echo yesterday. No mitral stenosis. (3) Respiratory failure with hypoxia ICD Codes: J96.91 - Respiratory failure, unspecified with hypoxia Status: Acute Plan: Possible component of CHF for her respiratory failure but likely more pulmonary in origin. EF reportedly 45-50% by echo yesterday. Rec continued ventilatory support, antibiotics. Code Status alternative code Problem Qualifiers (1) Respiratory failure with hypoxia: Qualified Codes: J96.01 - Acute respiratory failure with hypoxia Naseem Pierce MD Jun 16, 2017 09:06
--- NOTE | 2017-06-16 09:21 | HHI.CCPN ---
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 She was discharged from [facility] and transferred to [facility] and rehabilitation 06/01/17. She reportedly had rhonchi, cough, and respiratory distress early this morning and there was concern for aspiration. Chest x-ray had been obtained and there were small bibasilar densities that were felt to be consistent with atelectasis. When the night worker nurse came in she noted that patient had significantly worsening congestion and increased work of breathing. EVAC was summoned and when EVAC arrived she was reportedly GCS 7 ([id number]) and was intubated at the scene after administration of Ativan 4 mg IV and Etomidate 20 mg IV. Upon intubation EVAC reportedly suctioned out large amount of secretions that looked like Jevity tube feeds from the ETT. Jevity tube feeds were running via PEG and these were placed on hold per EVAC. Upon arrival she was in atrial fibrillation with RVR with rate in the 160s. She was given cardizem 20 mg IV and started on cardizem drip at 5 mg/hr. with white blood cell count 13.7. She was normotensive blood pressure 120-140 systolic. Temperature 99.4. She is hypernatremic with sodium of 154, potassium 2.8. Protein corrected calcium 7.9. Magnesium is normal. Troponin is 0.18, BNP 674. Lactic acid is 1.9 She received 2.5 L of fluid in the emergency department. Chest x-ray demonstrates endotracheal tube approximately 1.8 cm above the sury. OG tube is in place in the stomach. There is left basilar opacity, right basilar atelectasis. Patient is intubated and remainder review of systems cannot be obtained. Aztreonam, metronidazole, levofloxacin were ordered per ED. Blood cultures have been obtained. No noted diarrhea. Unknown if patient had experienced vomiting 06/15 : Discussed with Jorge Alberto at bedside. Request alternate CODE STATUS. ACLS drugs and intubation only. Currently on esmolol and Cardizem drips for rate control. Phenylephrine drip initiated due to hypotension. Patient does withdrawal to left upper extremity and actually made attempt to self extubate with left upper extremity while placing central line while hypotensive. Moving bilateral lower extremities spontaneously. Plan is MRI brain if able/stable overnight otherwise will repeat CT head in a.m. 06/16 Echocardiogram still not read as of 0. Heparin drip initiated due to likely mural thrombus and high risk of CVA. Initial CT brain 06/15 showed no signs of acute hemorrhage. Discussed and reviewed chart records with Dr. Johnston. Subjective 06/16: Afebrile. MRI brain results as below. Heparin drip currently on hold secondary to elevated PTT. Tube feeding to be initiated today. Remains on Cardizem, esmolol in phenylephrine drips Objective Vital Signs Date Time Temp Pulse Resp B/P (MAP) Pulse Ox O2 Delivery O2 Flow Rate FiO2 06/16/17 07:39 100 35 06/16/17 06:00 110 06/16/17 04:00 98.1 14 93/44 (60) 109/51 (70) 06/15/17 02:22 Ventilator Intake and Output 06/16/17 06/16/17 06/17/17 08:00 16:00 00:00 Intake Total 1550 ml Output Total 550 ml Balance 1000 ml Result Diagram: 06/16/17 0500 06/16/17 0500 Other Results Microbiology Date/Time Source Procedure Growth Status 06/15/17 00:40 Blood Peripheral Aerobic Blood Culture Pending Received 06/15/17 00:40 Blood Peripheral Anaerobic Blood Culture Pending Received 06/16/17 04:50 Stool Stool Stool Occult Blood (KAYLAN) - Final HEMOCCULT NEGATIVE Complete 06/16/17 03:45 Sputum Endotracheal Gram Stain Pending Received 06/16/17 03:45 Sputum Endotracheal Sputum Culture Pending Received Imaging Last Impressions Chest X-Ray 06/16/17 0000 Signed Impressions: Service Date/Time: Friday, June 16, 2017 04:23 - CONCLUSION: ET tube tip is at the level of the sury and needs to be withdrawn 2.5 cm. Blu Chilel MD Head CT 06/15/17 0000 Signed Impressions: Service Date/Time: May 04:26 - CONCLUSION: 1. No acute intracranial abnormality. 2. Chronic small vessel ischemic change more pronounced on the left. 3. Right frontal lobe encephalomalacia. 4. Atrophy Blu Mayfield Jr., MD Chest CT 06/15/17 0000 Signed Impressions: Service Date/Time: May 04:30 - CONCLUSION: 1. 2 focal rounded filling defects involving an enlarged right atrium. I'm concerned this represents mural thrombus. 2. Significant cardiomegaly. 3. Bibasilar infiltrates. Blu Mayfield Jr., MD Brain MRI 06/15/17 Signed Impressions: Service Date/Time: May 20:50 - CONCLUSION: 1. Multiple subacute infarcts are demonstrated. Please see above. 2. There is an old infarct posteriorly of the right frontal lobe as well. 3. No mass, mass effect or midline shift. No bleed. Darin Preston MD Abdomen/Pelvis CT 06/15/17 Signed Impressions: Service Date/Time: May 04:30 - CONCLUSION: 1. Area of poor enhancement involving the spleen as detailed above. Differential diagnostic considerations would include an area of splenic infarction or in the right clinical setting splenic laceration. No intraperitoneal hematoma seen. 2. Constipation with distended colon. 3. Cholelithiasis. 4. 1.7 cm right adrenal gland nodule that cannot be further characterized on this study. Blu Mayfield Jr., MD Objective Remarks GENERAL: 86-year-old female, critically ill currently orotracheally intubated SKIN: Warm and dry. Great toes bilaterally are currently dusky HEAD: Atraumatic. Normocephalic. EYES: Pupils round, 3 to 4 mm and sluggishly reactive bilaterally. No scleral icterus. No injection or drainage. ENT: No nasal bleeding or discharge. Mucous membranes moist and pink oropharynx without erythema. Thrush noted NECK: Trachea midline. No JVD. Right IJ 5 lm catheter is clean dry and intact CARDIOVASCULAR: Prior sternotomy scar noted. Well-healed. IRR. S1, S2 no S4. Without murmur RESPIRATORY: Coarse rhonchi appreciated bilaterally. Symmetrical excursion. GASTROINTESTINAL: Abdomen soft. PEG tube in place with no drainage. No appreciable tenderness. : Camilo in place with yellow urine output. MUSCULOSKELETAL: Right upper extremity edema noted NEUROLOGICAL: Spontaneous movement left upper extremity off sedation in attempt to self extubate on sedation vacation again today. Hand does move purposefully towards ET tube. Moving bilateral lower extremities left greater than right. Minimal movement right upper extremity with noxious stimulation. Positive gag. Positive corneal reflex. Urinary Catheter: Yes Assessment to: Continue Camilo insert reason: Prolonged Immobilization Vascular Central Line Catheter: Yes Assessment to: Continue Date of Insertion: Jun 15, 2017 Line: Central Venous Catheter Side: Right Location: Internal, Jugular A/P Assessment and Plan NEURO/Psych: Recent history of L MCA stroke 05/21/17 -left periventricular white matter, left temporal, left parietal and right parietal Residual R hemiparesis, dysphagia, inability to ambulate. R frontal encephalomalacia Patient had "small hemorrhagic conversion" noted on MRI at outside hospital. Neurology consulted on 06/[address] on 06/07 and if no worsening hemorrhage, can start Eliquis and d/c ASA. MRI brain 06/15 revealed old right frontal posterior infarct, subacute left parametric white matter 17 x 52 mm, left temporal 19 x 32 mm, left parietal 16 mm and cluster right parietal areas of subacute EEG 06/15 revealed bilateral abnormalities slowing rhythms more left. No ictal/ discharge is noted Currently on propofol at 25 mics grams per kilogram per minute/fentanyl drips 25 mics grams an hour for sedation/analgesia while intubated Goal of RA SS -2. Daily sedation vacation RESP: Acute respiratory failure Acute Aspiration Pneumonia PRVC 14/500/09/29/39 Ventilator bundle Albuterol/operative aerosols every 4 hours with albuterol aerosols every [address] thorax 06/15- bibasilar opacities. ?R atrial mural thrombus. Chest x-ray/ revealed need to retract ET tube 2 centimeters. Recheck chest x- ray in a.m. CV: Atrial fibrillation with [id number] ?Right Atrial thrombus - not documented on 2-D echocardiogram H/o mitral valve replacement Hyperlipidemia Started on cardizem drip in the ED and initially had improved rate control. Currently at 10 mg an hour Now persistent RVR in 160s. Adding digoxin with level currently 0.8 Added esmolol drip due to persistent tachycardia. Start on Cardizem 30 no grams 4 times a day and metoprolol 12.5 every 8 hours in attempt to wean off drip see below On phenylephrine drip 50 g per minute to maintain MAP greater than equal to 65 2-D echocardiogram revealed the left ventricular systolic function is mildly reduced with an estimated ejection fraction in the range of 45- 50%. Normal left ventricular size. Wall thickness is normal. No regional wall motion abnormalities are present. The left atrial size is severely dilated. The right atrial size is severely dilated. Mitral valve annuloplasty ring is present. Moderate thickening of the mitral valve leaflets. [id number] mitral valve regurgitation. Diffuse calcification of the aortic valve. Mild-to- moderate aortic valve regurgitation. No aortic valve stenosis. Aortic valve area is 1.4cm. Aortic valve mean gradient is 9 mmHg. There is trace tricuspid valve regurgitation. The estimated pulmonary arterial pressure is 41.8 mmHg. The inferior vena cava is dilated. Patient is known to Dr. Gama. Dr. Pierce covering and case was discussed with him. Hold ASA. Continue atorvastatin 40 mg by mouth daily for dyslipidemia GI: Constipation Cholelithiasis Splenic infarct Chronic moderate protein energy malnutrition Hypoalbuminemia Start trickle feeds vital 1.5 goal 45 cc an hour PEG in place. CT abd/pelvis revealed spleen abnormalities suggest splenic infarct. Laceration felt to be less likely. No hematoma. No recent mechanism for injury reported. Docusate sodium/Senokot/MiraLAX twice a day for bowel regimen Mineral oil, lactulose every 6-hours and Relistor will milligrams subcutaneous 1 today Check KUB FEN/RENAL: Acute hypernatremia Hypokalemia Hypophosphatemia Received 2.5 L NS in the ED. Currently on one quarter normal saline with 20 mEq KCl at 100 cc an hour Repeat potassium at 1600 PM. Magnesium currently normal ICU left leg protocol initiated. Receiving potassium phosphorus 30 mmol and KCl 40 mEq 1. ID: Aspiration pneumonia Thrush Blood cultures have been sent. Send. sputum cultures. Received aztreonam, metronidazole, levofloxacin in the ED 06/14. Vancomycin added due to MRSA risk ECF Has been on Nystatin for thrush since 06/02/17. We'll resume with stop date 5 days UA negative Blood cultures 2 pending Sputum pending HEME: Leukocytosis No acute evidence of bleeding. Initiating heparin anticoagulation due to Afib. Previously on Apixaban ENDO: Monitor bedside glucose and initiate insulin sliding scale if needed. TSH 0.546. T4 slightly elevated at 1.8 PROPH: Heparin drip will provide DVT prophylaxis. Lansoprazole for stress ulcer prophylaxis. ACCESS: Right IJ 5 lm catheter day #2 Discussed with Jorge Alberto and son Terrance. Alternate code status. Intubation and ACLS drugs only. No shock. No CPR. Harman Manning MD Jun 16, 2017 09:21
[2017-06-16] MEDS ORDERED: PILL SPLITTER OTHER PRN (09:30)
[2017-06-16] MEDS: DOCUSATE SODIUM 100 MG/10 ML UDC OG-TUBE SCH ×2 (09:35→20:16)
[2017-06-16] MEDS: CHLORHEXIDINE 0.12% (ORAL KIT) 15 ML CUP MT SCH ×2 (09:35→20:16)
[2017-06-16] MEDS: NYSTATIN SUSP 500,000 U/5 ML CUP OROPHARYNG SCH ×4 (09:35→20:17)
[2017-06-16] MEDS: LACTULOSE SYRUP 20 GM/30 ML CUP PO SCH ×4 (09:35→20:16)
[2017-06-16] MEDS: POLYETHYLENE GLYCOL 17 GM PKG OG-TUBE SCH ×2 (09:36→20:16)
[2017-06-16] MEDS: SENNOSIDES SYRUP 8.8 MG/5 ML CUP OG-TUBE SCH ×2 (09:36→20:17)
[2017-06-16] MEDS: PRAVASTATIN SOD 40 MG TAB OG-TUBE SCH (09:36)
[2017-06-16] MEDS: LANSOPRAZOLE SOLUTAB 30 MG TAB NG SCH (09:36)
[2017-06-16] MEDS: DIGOXIN 0.125 MG TAB OG-TUBE SCH (09:36)
[2017-06-16] MEDS ORDERED: GLUCAGON 1 MG/ML VIAL OTHER PRN (09:45)
[2017-06-16] MEDS ORDERED: DEXTROSE 50% IN WATER 50 ML VIAL(D50) IV PUSH PRN (09:45)
--- NOTE | 2017-06-16 10:27 | RADRPT ---
EXAM DATE/TIME: 06/16/2017 09:26 [place] COMPARISON: CT ABDOMEN & PELVIS W CONTRAST, June 15, 2017, 4:30. INDICATIONS : Constipation. MEDICAL HISTORY : Cerebrovascular disease. Cardiovascular disease. Hypertension. SURGICAL HISTORY : CABG. ENCOUNTER: Initial ACUITY: 2 days PAIN SCORE: Non-responsive. LOCATION: Bilateral abdomen FINDINGS: Nasogastric tube is in place in the stomach. There is evidence of prior median sternotomy with probab le mitral valve prosthesis in place and there is parenchymal consolidation infiltrate or atelectasis in left lower lobe retrocardiac region. Intra-abdominal contents are negative with air in the colon a nd no distention of colon or small bowel with a moderate amount of fecal material in the rectal sigmo id region. CONCLUSION: Benign abdomen. Nasogastric tube in the stomach. Shoaib Pastor MD on June 16, 2017 at 10:24 Board Certified Radiologist. This report was verified electronically.
[2017-06-16] MEDS: VANCOMYCIN INJ 1,500 MG in SODIUM CHLORID 0.9% 500 ML INJ 500 ML IV SCH (10:38)
[2017-06-16] MEDS: POTASSIUM CHLORIDE INJ 20 MEQ, SODIUM CHLORIDE 23.4% INJ 38.5 MEQ in WATER STERILE FOR ... IV SCH ×2 (10:38→20:41)
[2017-06-16] MEDS: SODIUM CHLORIDE 0.9% FLUSH 10 ML FLUSH IV FLUSH SCH ×2 (10:39→20:16)
[2017-06-16] MEDS: SODIUM CHLORIDE 0.9% FLUSH 10 ML FLUSH IVF SCH (10:39)
[2017-06-16] MEDS ORDERED: POTASSIUM PHOSPHATE INJ 30 MMOL in SODIUM CHLOR 0.9% 250 ML INJ 250 ML IV ONE (11:00)
[2017-06-16] MEDS: METOPROLOL TARTRATE 25 MG TAB PO SCH ×2 (11:15→17:54)
[2017-06-16] MEDS: DILTIAZEM INJ 125 MG in SODIUM CHLORIDE 0.9% INJ 100 ML IV PRN (11:16)
--- NOTE | 2017-06-16 11:50 | HHI.HCPN ---
Reason for visit a. To assist with evaluation and management of symptoms including: Dyspnea, dysphagia, pain b. To assist medical decision maker(s) with: better understanding of current medical conditions; weighing benefits/burdens of medical treatment options; making medical treatment decisions. Subjective/Interval History Patient seen today to follow-up on comfort, goals with family. Patient remains in the ICU, critically ill. Still on Cardizem, esmolol, phenylephrine drips. Lopressor via PEG has been added to assist with weaning off esmolol. Heart rate better controlled today low 100s to 90s. MRI completed yesterday notes multiple subacute, old infarcts no mass effect or mass identified. CXR today with some consolidation left mid and lower lobes. Tube feeds begun today. BUN trending down 21. WBC 13.8, remains on Vanco, Levaquin, aztreonam Blood culture 06/15= gram-positive cocci. Patient seen in room with , daughter, 1 son at bedside. They indicate they were able to speak with Dr. Manning earlier today and received update then. Again reviewed conditions, treatments in place or adjusted today, patient heart rate improved today overall condition remains guarded she still remains at risk for potential complications/setbacks. They confirm alternative CODE STATUS. Goals remain aggressive short of that to try to help her get through current acute illness. All questions answered, they are appreciative of update. They verify they have palliative contact information. d/w primary RN . Family/friend interactions *See above . Advance Directives Living Will: Completed, but not made available Health Care Surrogate: Completed, but not made available Advance Directive Specifics Documented care wishes: Living will has standard inverted detail if terminal or end-stage or persistent vegetative condition would not want heroic or artificial measures including no artificial feeding and would want comfort measures only for a peaceful . Objective Vital Signs Date Time Temp Pulse Resp B/P (MAP) Pulse Ox O2 Delivery O2 Flow Rate FiO2 06/16/17 11:16 96 115/69 06/16/17 08:00 97.6 92 14 116/62 (80) 98 06/16/17 08:00 95 06/16/17 07:39 100 35 06/16/17 06:00 110 06/16/17 04:55 99 35 06/16/17 04:00 98.1 104 14 93/44 (60) 97 109/51 (70) 06/16/17 04:00 104 06/16/17 04:00 35 06/16/17 02:00 105 06/16/17 01:17 100 35 06/16/17 00:30 125 104/44 06/16/17 00:00 108 06/16/17 00:00 97.8 108 14 100 108/50 (69) 06/16/17 00:00 35 06/15/17 22:00 108 06/15/17 22:00 108 14 100 100/51 (67) 06/15/17 21:55 100 35 06/15/17 20:45 100 100 06/15/17 20:00 97.8 103 14 100 95/43 (60) 06/15/17 20:00 103 06/15/17 20:00 35 06/15/17 19:50 98 35 06/15/17 19:40 92 104/52 06/15/17 18:00 107 06/15/17 17:36 160 102/45 06/15/17 16:00 121 06/15/17 16:00 98.0 120 14 110/47 (68) 100 06/15/17 16:00 35 06/15/17 15:55 128 114/45 06/15/17 14:54 162 116/48 06/15/17 14:28 100 35 06/15/17 14:00 121 06/15/17 12:48 151 110/54 06/15/17 12:20 100 35 06/15/17 12:00 35 06/15/17 12:00 98.0 142 14 105/46 (65) 94 06/15/17 12:00 142 Intake & Output 06/16/17 06/16/17 07:00 19:00 Intake Total 1800 ml 562 ml Output Total 550 ml Balance 1250 ml 562 ml Intake IV Total 1800 ml 562 ml Output Urine Total 550 ml # Bowel Movements 1 Physical Exam CONSTITUTIONAL/GENERAL: This is an adequately nourished patient, critically ill in ICU TUBES/LINES/DRAINS: ET tube, OG tube, PEG tube, Camilo catheter, bilateral wrist restraints, arterial line, central line, peripheral IVs upper extremities SKIN: No jaundice, rashes, or lesions. Ecchymoses on upper extremities. No wounds seen anteriorly. Skin temperature appropriate. Not diaphoretic. CARDIOVASCULAR: Irregular rate and rhythm, atrial fibrillation observed on bedside monitor rate 90-110s . Pedal pulses are faint, feet coloration normal in temperature warm her today. RESPIRATORY/CHEST: Symmetric, unlabored respirations on mech vent. some scattered rhonchi, decreased air movement GASTROINTESTINAL: Abdomen soft, obese, nondistended. No palpable masses. Bowel sounds hypoactive. OG clamped. Tube feeding in infusing via PEG. GENITOURINARY: Without palpable bladder distension. Camilo catheter in place clear dark yellow urine. MUSCULOSKELETAL: Extremities without clubbing, cyanosis. + peripheral edema. No joint tenderness or effusion noted. NEUROLOGICAL: Sedated on mechanical vent, some withdrawal type movement to stimuli and feet, no movement on upper extremities to pain. No eye opening to stimuli. PSYCHIATRIC: No obvious anxiety/depression--limited assessment due to clinical condition, on some sedation. Diagnostic Tests Laboratory Laboratory Tests Test 06/15/17 00:30 06/15/17 00:40 06/15/17 00:50 06/15/17 00:55 Lactic Acid Level 1.9 mmol/L (0.4-2.0) White Blood Count 13.7 TH/MM3 (4.0-11.0) Red Blood Count 4.61 MIL/MM3 (4.00-5.30) Hemoglobin 13.3 GM/DL (11.6-15.3) Hematocrit 42.6 % (35.0-46.0) Mean Corpuscular Volume 92.4 FL (80.0-100.0) Mean Corpuscular Hemoglobin 28.9 PG (27.0-34.0) Mean Corpuscular Hemoglobin Concent 31.3 % (32.0-36.0) Red Cell Distribution Width 14.8 % (11.6-17.2) Platelet Count 238 TH/MM3 (150-450) Mean Platelet Volume 8.7 FL (7.0-11.0) Neutrophils (%) (Auto) 82.2 % (16.0-70.0) Lymphocytes (%) (Auto) 6.1 % (9.0-44.0) Monocytes (%) (Auto) 11.2 % (0.0-8.0) Eosinophils (%) (Auto) 0.1 % (0.0-4.0) Basophils (%) (Auto) 0.4 % (0.0-2.0) Neutrophils # (Auto) 11.2 TH/MM3 (1.8-7.7) Lymphocytes # (Auto) 0.8 TH/MM3 (1.0-4.8) Monocytes # (Auto) 1.5 TH/MM3 (0-0.9) Eosinophils # (Auto) 0.0 TH/MM3 (0-0.4) Basophils # (Auto) 0.1 TH/MM3 (0-0.2) CBC Comment DIFF FINAL Differential Comment Prothrombin Time 12.8 SEC (9.8-11.6) Prothromb Time International Ratio 1.2 RATIO Activated Partial Thromboplast Time 24.5 SEC (24.3-30.1) Blood Urea Nitrogen 37 MG/DL (7-18) Creatinine 0.79 MG/DL (0.50-1.00) Random Glucose 117 MG/DL (74-106) Total Protein 5.9 GM/DL (6.4-8.2) Albumin 2.1 GM/DL (3.4-5.0) Calcium Level 7.3 MG/DL (8.5-10.1) Magnesium Level 2.4 MG/DL (1.5-2.5) Alkaline Phosphatase 86 U/L (45-117) Aspartate Amino Transf (AST/SGOT) 51 U/L (15-37) Alanine Aminotransferase (ALT/SGPT) 33 U/L (10-53) Total Bilirubin 0.6 MG/DL (0.2-1.0) Sodium Level 154 MEQ/L (136-145) Potassium Level 2.8 MEQ/L (3.5-5.1) Chloride Level 118 MEQ/L (98-107) Carbon Dioxide Level 29.0 MEQ/L (21.0-32.0) Anion Gap 7 MEQ/L (5-15) Estimat Glomerular Filtration Rate 69 ML/MIN (>89) Protein Corrected Calcium 7.9 MG/DL (8.5-10.1) Total Creatine Kinase 54 U/L (26-192) Troponin I 0.18 NG/ML (0.02-0.05) B-Type Natriuretic Peptide 674 PG/ML (0-100) Lipase 152 U/L (73-393) Digoxin Level 0.1 NG/ML (0.8-2.0) Blood Gas Puncture Site RT RADIAL Blood Gas Patient Temperature 98.6 Blood Gas HCO3 25 mmol/L (22-26) Blood Gas Base Excess 1.1 mmol/L (-2-2) Blood Gas Oxygen Saturation 98 % (90-100) Arterial Blood pH 7.46 (7.380-7.420) Arterial Blood Partial Pressure CO2 35 mmHg (38-42) Arterial Blood Partial Pressure O2 429 mmHg (61-120) Arterial Blood Oxygen Content 19.0 Vol % (12.0-20.0) Arterial Blood Carboxyhemoglobin 0.9 % (0-4) Arterial Blood Methemoglobin 0.7 % (0-2) Blood Gas Hemoglobin 13.0 G/DL (12.0-16.0) Oxygen Delivery Device VENTILATOR Blood Gas Ventilator Setting VAC/16/500/PEEP5 Blood Gas Inspired Oxygen 100 % Urine Color YELLOW (YELLW/STRAW) Urine Turbidity CLEAR (CLEAR) Urine pH 5.5 (5.0-8.5) Urine Specific Friona 1.018 (1.002-1.035) Urine Protein TRACE mg/dL (NEG-TRACE) Urine Glucose (UA) NEG mg/dL (NEG) Urine Ketones NEG mg/dL (NEG) Urine Occult Blood NEG (NEG) Urine Nitrite NEG (NEG) Urine Bilirubin NEG (NEG) Urine Urobilinogen LESS THAN 2.0 MG/DL (LESS Urine Leukocyte Esterase TRACE (NEG) Urine RBC 3 /hpf (0-3) Urine WBC 2 /hpf (0-5) Urine Squamous Epithelial Cells 1 /hpf (0-5) Urine Amorphous Sediment RARE Urine Hyaline Casts 7 /lpf (RARE) Urine Mucus FEW /lpf (OCC) Microscopic Urinalysis Comment CULT NOT INDICATED Test 06/15/17 05:00 06/15/17 07:30 06/15/17 11:20 06/15/17 11:24 Nasal Screen MRSA (PCR) MRSA NOT DETECTED (NOT White Blood Count 12.3 TH/MM3 (4.0-11.0) 15.1 TH/MM3 (4.0-11.0) Red Blood Count 4.27 MIL/MM3 (4.00-5.30) 4.20 MIL/MM3 (4.00-5.30) Hemoglobin 12.4 GM/DL (11.6-15.3) 12.0 GM/DL (11.6-15.3) Hematocrit 40.4 % (35.0-46.0) 38.7 % (35.0-46.0) Mean Corpuscular Volume 92.7 FL (80.0-100.0) 92.2 FL (80.0-100.0) Mean Corpuscular Hemoglobin 29.8 PG (27.0-34.0) 28.7 PG (27.0-34.0) Mean Corpuscular Hemoglobin Concent 32.1 % (32.0-36.0) 31.1 % (32.0-36.0) Red Cell Distribution Width 15.0 % (11.6-17.2) 14.7 % (11.6-17.2) Platelet Count 206 TH/MM3 (150-450) 246 TH/MM3 (150-450) Mean Platelet Volume 9.2 FL (7.0-11.0) 8.6 FL (7.0-11.0) Troponin I 0.13 NG/ML (0.02-0.05) Prothrombin Time 13.2 SEC (9.8-11.6) Prothromb Time International Ratio 1.2 RATIO Activated Partial Thromboplast Time 27.5 SEC (24.3-30.1) Fibrinogen 420 mg/dL (227-377) Blood Urea Nitrogen 30 MG/DL (7-18) Creatinine 0.64 MG/DL (0.50-1.00) Random Glucose 122 MG/DL (74-106) Calcium Level 7.6 MG/DL (8.5-10.1) Phosphorus Level 2.2 MG/DL (2.5-4.9) Magnesium Level 2.3 MG/DL (1.5-2.5) Sodium Level 154 MEQ/L (136-145) Potassium Level 3.0 MEQ/L (3.5-5.1) Chloride Level 120 MEQ/L (98-107) Carbon Dioxide Level 28.1 MEQ/L (21.0-32.0) Anion Gap 6 MEQ/L (5-15) Estimat Glomerular Filtration Rate 88 ML/MIN (>89) Lactic Acid Level 1.5 mmol/L (0.4-2.0) Total Creatine Kinase 49 U/L (26-192) Free Thyroxine 1.82 NG/DL (0.76-1.46) Thyroid Stimulating Hormone 3rd Gen 0.546 uIU/ML (0.358-3.740) Blood Gas Puncture Site ART LINE Blood Gas Patient Temperature 98.6 Blood Gas HCO3 23 mmol/L (22-26) Blood Gas Base Excess -0.4 mmol/L (-2-2) Blood Gas Oxygen Saturation 96 % (90-100) Arterial Blood pH 7.47 (7.380-7.420) Arterial Blood Partial Pressure CO2 32 mmHg (38-42) Arterial Blood Partial Pressure O2 103 mmHg (61-120) Arterial Blood Oxygen Content 16.6 Vol % (12.0-20.0) Arterial Blood Carboxyhemoglobin 1.4 % (0-4) Arterial Blood Methemoglobin 0.9 % (0-2) Blood Gas Hemoglobin 12.2 G/DL (12.0-16.0) Oxygen Delivery Device VENTILATOR Blood Gas Ventilator Setting AC,16,450,PEEP5 Blood Gas Inspired Oxygen 35 % Test 06/15/17 13:20 06/15/17 21:23 06/15/17 21:46 06/16/17 05:00 Ammonia 27 MCMOL/L (11-32) Troponin I 0.11 NG/ML (0.02-0.05) Activated Partial Thromboplast Time 65.7 SEC (24.3-30.1) 144.5 SEC (24.3-30.1) Hemoglobin 11.7 GM/DL (11.6-15.3) 11.8 GM/DL (11.6-15.3) Hematocrit 36.9 % (35.0-46.0) 37.1 % (35.0-46.0) Potassium Level 3.5 MEQ/L (3.5-5.1) 3.3 MEQ/L (3.5-5.1) Lactic Acid Level 1.0 mmol/L (0.4-2.0) 1.0 mmol/L (0.4-2.0) White Blood Count 13.8 TH/MM3 (4.0-11.0) Red Blood Count 4.04 MIL/MM3 (4.00-5.30) Mean Corpuscular Volume 91.9 FL (80.0-100.0) Mean Corpuscular Hemoglobin 29.1 PG (27.0-34.0) Mean Corpuscular Hemoglobin Concent 31.7 % (32.0-36.0) Red Cell Distribution Width 14.9 % (11.6-17.2) Platelet Count 251 TH/MM3 (150-450) Mean Platelet Volume 8.4 FL (7.0-11.0) Neutrophils (%) (Auto) 77.2 % (16.0-70.0) Lymphocytes (%) (Auto) 8.7 % (9.0-44.0) Monocytes (%) (Auto) 9.5 % (0.0-8.0) Eosinophils (%) (Auto) 4.1 % (0.0-4.0) Basophils (%) (Auto) 0.5 % (0.0-2.0) Neutrophils # (Auto) 10.7 TH/MM3 (1.8-7.7) Lymphocytes # (Auto) 1.2 TH/MM3 (1.0-4.8) Monocytes # (Auto) 1.3 TH/MM3 (0-0.9) Eosinophils # (Auto) 0.6 TH/MM3 (0-0.4) Basophils # (Auto) 0.1 TH/MM3 (0-0.2) CBC Comment DIFF FINAL Differential Comment Blood Urea Nitrogen 21 MG/DL (7-18) Creatinine 0.41 MG/DL (0.50-1.00) Random Glucose 106 MG/DL (74-106) Total Protein 5.2 GM/DL (6.4-8.2) Albumin 1.9 GM/DL (3.4-5.0) Calcium Level 7.6 MG/DL (8.5-10.1) Phosphorus Level 2.1 MG/DL (2.5-4.9) Magnesium Level 2.0 MG/DL (1.5-2.5) Alkaline Phosphatase 91 U/L (45-117) Aspartate Amino Transf (AST/SGOT) 34 U/L (15-37) Alanine Aminotransferase (ALT/SGPT) 24 U/L (10-53) Total Bilirubin 0.7 MG/DL (0.2-1.0) Sodium Level 148 MEQ/L (136-145) Chloride Level 118 MEQ/L (98-107) Carbon Dioxide Level 21.8 MEQ/L (21.0-32.0) Anion Gap 8 MEQ/L (5-15) Estimat Glomerular Filtration Rate 148 ML/MIN (>89) Digoxin Level 0.8 NG/ML (0.8-2.0) Test 06/16/17 08:00 Activated Partial Thromboplast Time 49.2 SEC (24.3-30.1) Result Diagram: 06/16/17 0500 06/16/17 0500 Microbiology Microbiology Date/Time Source Procedure Growth Status 06/15/17 00:40 Blood Peripheral Aerobic Blood Culture - Preliminary Gram Positive Cocci Resulted 06/15/17 00:40 Anaerobic Blood Culture - Preliminary Gram Positive Cocci Resulted 06/15/17 00:25 Blood Peripheral Aerobic Blood Culture - Preliminary Gram Positive Cocci Resulted 06/15/17 00:25 Anaerobic Blood Culture - Preliminary Gram Positive Cocci Resulted 06/16/17 04:50 Stool Stool Stool Occult Blood (KAYLAN) - Final HEMOCCULT NEGATIVE Complete 06/16/17 03:45 Sputum Endotracheal Gram Stain - Final Resulted 06/16/17 03:45 Sputum Endotracheal Sputum Culture Pending Resulted 06/16/17 03:30 Nasal Aspirate Influenza Types A,B Antigen (KAYLAN) - Final NEGATIVE FOR FLU A AND B ANTIGEN.... Complete Procedures 06/15/17 central line placement right IJ 06/05/17 femoral arterial line placement left . Assessment and Plan Disease Oriented Problem List: (1) Hypokalemia (2) Aspiration pneumonia (3) Respiratory failure with hypoxia (4) History of stroke (5) Moderate protein malnutrition (6) Atrial fibrillation with RVR Symptom Scale: (1) Dyspnea (2) Encephalopathy (3) Pain (4) Dysphagia Pertinent Non-Medical Issues Psychosocial:, most recently resided at [facility] following month long hospital course at [facility]. Retired, has 3 adult children who live out of the area. Patient resides in [place] during the winter and [place] during the summer. 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 Retired since the . Spiritual:Jainism supported by companion known to family, also appreciative of hospital electrolysist Legal:Patient currently intubated and unable to participate in medical decision making. Patient has living will which designates as primary healthcare surrogate, son as a secondary if unable to serve. I reviewed this document with the family on their iPad device however was unable available for print at this time. Ethical issues impacting care: Important Contacts Spouse Jorge Alberto Basilio [phone] Terrance Basilio [phone] / [phone] Son Jorge Alberto Basilio Daughter Sandhya . Prognosis This patient was admitted for acute respiratory distress, respiratory failure. She recently had prolonged hospitalization for significant MCA stroke with resulting deficits and dysphagia. She has had A. fib with RVR, which has been difficult to control in the ICU setting. She remains high risk for further complications and setbacks, and possible . She does survive current acute hospitalization she will likely remain dependent and require long-term care. Code Status: Alternative Code (intubation, acls drugs only) Plan * Legal decision maker:Patient currently intubated and unable to participate in medical decision making. Patient has living will which designates as primary healthcare surrogate, son as a secondary if unable to serve. I reviewed this document with the family on their iPad device however was unable available for print at this time. * Goals: For right now family wishes to continue aggressive treatments, short of alternative code (intubation and ACLS meds only). They are hopeful patient can recover from current acute illness. * CODE STATUS: alt code, intubation/acls drugs only * SYMPTOMS: --Dyspnea-emergently intubated for respiratory distress by EMS; suspected aspiration pneumonia, currently breathing comfortable on mechanical vent, light sedation Diprivan-no recommendations at this time --Dysphagia-patient with recent MCA stroke, status post PEG placement at another facility, noted as aspiration risk per rehabilitation documentation. + aspiration pneumonia. The G-tube clamped, tube feeding started via PEG. Expected to remain at risk for aspiration secondary to dysphagia. --Pain-no reported pain syndromes per family, potential sources would include bedbound status, recent invasive procedures; currently appears comfortable will continue to evaluate --Encephalopathy-multifactorial: status post recent CVA, now with acute respiratory failure, A. fib RVR * Palliative care will continue to follow during hospital course as condition evolves, to assist patient/decision-maker with understanding of medical conditions, weighing benefits/burdens of treatment options, for clarification of goals of treatment. Additionally will assist with any symptoms of palliative concern Attestation To help prompt me to consider important information that might be impacting today's encounter and assessment, information from prior notes written by myself or my colleagues may have been "brought forward" into today's note. My signature on this note, however, is an attestation that I personally performed the exam, history, and/or decision-making noted today, and, unless otherwise indicated, the interactions with patient, family, and staff as well as the review of records all occurred today. I also attest that the listed assessment and stated plan reflect my best clinical judgment today based on the combination of historical information, prior notes, and today's exam/ interactions. When time spent is documented, it refers only to time spent today by the signer, or if indicated, combined time spent today by collaborating physician/nurse practitioner. Rut Abel Jun 16, 2017 11:50
--- NOTE | 2017-06-16 11:53 | RADRPT ---
EXAM DATE/TIME: 06/16/2017 11:00 [facility] COMPARISON: No previous studies available for comparison. INDICATIONS : Right arm swelling. MEDICAL HISTORY : Stroke. Left sided weakness. Dyspnea. Right arm swelling. SURGICAL HISTORY : None. ENCOUNTER: Initial ACUITY: 1 day PAIN SCORE: Non-responsive LOCATION: Right arm. FINDINGS: There is spontaneous flow documented in the brachial, basilic, cephalic, axillary, and subclavian vei ns. The vessels are compressible and augmentation response is documented. No filling defects are se en. The flow is phasic with respiration. Direction of flow in the jugular vein is caudal. CONCLUSION: Normal examination. No evidence of DVT Shoaib Pastor MD on June 16, 2017 at 11:51 Board Certified Radiologist. This report was verified electronically.
[2017-06-16] MEDS: INSULIN NovoLIN REGULAR SUPPLEMENTAL SCALE SQ SCH ×3 (12:00→23:03)
[2017-06-16] MEDS: DILTIAZEM HCL 30 MG TAB PO SCH ×3 (12:07→22:58)
[2017-06-16] MEDS: HEPARIN-D5W 25,000 U/250 ML 250 ML IV PRN (13:41)
--- NOTE | 2017-06-16 13:54 | PD.ID.CON ---
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 aspiration. Her resp issues were getting progessively woprsde over a day and EVAC was summoned and she was intubated at the scene Upon intubation EVAC reportedly suctioned out large amount of secretions that looked like tube feeds from the ETT. Pt has low grade fevers on presentation; her BP was low and she was started on pressors, she also has Afib with RVR She was started on broad spectrum abx and her blood clx are growintg GPC @ 1 day in all 4 bottles, one set was identified as coagulase negatve staph AT present pt remains intubated and on vent and on low dose of neeosynephrine Pt is unable to provide history history was obtained form the chart nad nursing staff Review of Systems ROS Limitations: Clinical Condition, Intubated, Altered Mental Status Past Family Social History Allergies: Coded Allergies: penicillin G (Unverified Allergy, Severe, 05/09/17) shellfish derived (Verified Allergy, Unknown, 06/15/17) Past Medical History Acute ischemic left MCA stroke 05/21/17. Anticoagulation was held at admission. She experience hemorrhagic conversion. Was discharged on ASA. Hypertension Hyperlipidemia Shingles Recent UTI for which she has been on Cipro Severe mitral regurgitation now status post mitral valve replacement Chronic kidney disease Multiple Basal cell carcinoma of face Records outside hospital states she has a history of CHF, not otherwise specified Thrush Past Surgical History Cardiac catheterization 09/11/14normal coronaries (Dr. Mahoney) Biopsy right religious skin cancer Biopsy right nasal labial fold for basal cell carcinoma Bilateral cataract surgery section 3 Tonsillectomy Arthroscopy of knee Mitral valve replacement Active Ordered Medications Medications where reviewed in EMR Antibiotics Include: vanco azactam levaquine flagyl Family History Unable to obtain secondary to patient's clinical condition Social History She presents to [facility] from [facility] and [facility]. Unable to take any po. Unable to ambulate or stand for transfers. Physical Exam Vital Signs Vital Signs Date Time Temp Pulse Resp B/P (MAP) Pulse Ox O2 Delivery O2 Flow Rate FiO2 06/16/17 12:00 35 06/16/17 12:00 97.6 92 14 108/58 (75) 100 105/46 (65) 06/16/17 12:00 77 06/16/17 11:42 100 35 06/16/17 11:16 96 115/69 06/16/17 10:00 95 06/16/17 08:00 97.6 92 14 116/62 (80) 98 06/16/17 08:00 95 06/16/17 08:00 35 06/16/17 07:39 100 35 06/16/17 06:00 110 06/16/17 04:55 99 35 06/16/17 04:00 98.1 104 14 93/44 (60) 97 109/51 (70) 06/16/17 04:00 104 06/16/17 04:00 35 06/16/17 02:00 105 06/16/17 01:17 100 35 06/16/17 00:30 125 104/44 06/16/17 00:00 108 06/16/17 00:00 97.8 108 14 100 108/50 (69) 06/16/17 00:00 35 06/15/17 22:00 108 06/15/17 22:00 108 14 100 100/51 (67) 06/15/17 21:55 100 35 06/15/17 20:45 100 100 06/15/17 20:00 97.8 103 14 100 95/43 (60) 06/15/17 20:00 103 06/15/17 20:00 35 06/15/17 19:50 98 35 06/15/17 19:40 92 104/52 06/15/17 18:00 107 06/15/17 17:36 160 102/45 06/15/17 16:00 121 06/15/17 16:00 98.0 120 14 110/47 (68) 100 06/15/17 16:00 35 06/15/17 15:55 128 114/45 06/15/17 14:54 162 116/48 06/15/17 14:28 100 35 06/15/17 14:00 121 Physical Exam CONSTITUTIONAL/GENERAL: This is an adequately nourished patient, in no apparent distress. TUBES/LINES/DRAINS: SKIN: No jaundice, rashes, or lesions. Skin temperature appropriate. Not diaphoretic. HEAD: Atraumatic. Normocephalic. EYES: Pupils equal and round and reactive. No scleral icterus. No injection or drainage. Fundi not examined. ENT: Hearing not tested. Nose without bleeding or purulent drainage. Visible oral mucosae dryish without visible erythema, exudates, masses, or lesions. Dentition in fair condition Orally intubated NECK: Trachea midline. Supple, nontender. CARDIOVASCULAR: Irregular rate and rhythm without murmurs, gallops, or rubs. No JVD. Signs of poor perfusion with delayed refill RESPIRATORY/CHEST: Symmetric, unlabored respirations. Rhonchi to auscultation. Breath sounds equal bilaterally. No wheezes, rales, or rhonchi. GASTROINTESTINAL: Abdomen soft, no rewaction to plapation, moderately distended. No hepato-splenomegaly, or palpable masses. No guarding. Bowel sounds diminished PEG in place LUQ GENITOURINARY: Without palpable bladder distension. Camilo catheter in place with small amount of dark urine MUSCULOSKELETAL: Extremities without clubbing,, or edema. + cyanosis No joint tenderness or effusion noted. No calf tenderness. + mottling of feet LYMPHATICS: No palpable cervical or supraclavicular adenopathy. NEUROLOGICAL: Sedated, unresponsive PSYCHIATRIC: unable to assess Laboratory Laboratory Tests Test 06/15/17 21:23 06/15/17 21:46 06/16/17 05:00 06/16/17 08:00 Activated Partial Thromboplast Time 65.7 144.5 49.2 Hemoglobin 11.7 11.8 Hematocrit 36.9 37.1 Potassium Level 3.5 3.3 Lactic Acid Level 1.0 1.0 White Blood Count 13.8 Red Blood Count 4.04 Mean Corpuscular Volume 91.9 Mean Corpuscular Hemoglobin 29.1 Mean Corpuscular Hemoglobin Concent 31.7 Red Cell Distribution Width 14.9 Platelet Count 251 Mean Platelet Volume 8.4 Neutrophils (%) (Auto) 77.2 Lymphocytes (%) (Auto) 8.7 Monocytes (%) (Auto) 9.5 Eosinophils (%) (Auto) 4.1 Basophils (%) (Auto) 0.5 Neutrophils # (Auto) 10.7 Lymphocytes # (Auto) 1.2 Monocytes # (Auto) 1.3 Eosinophils # (Auto) 0.6 Basophils # (Auto) 0.1 CBC Comment DIFF FINAL Differential Comment Blood Urea Nitrogen 21 Creatinine 0.41 Random Glucose 106 Total Protein 5.2 Albumin 1.9 Calcium Level 7.6 Phosphorus Level 2.1 Magnesium Level 2.0 Alkaline Phosphatase 91 Aspartate Amino Transf (AST/SGOT) 34 Alanine Aminotransferase (ALT/SGPT) 24 Total Bilirubin 0.7 Sodium Level 148 Chloride Level 118 Carbon Dioxide Level 21.8 Anion Gap 8 Estimat Glomerular Filtration Rate 148 Digoxin Level 0.8 Date/Time Source Procedure Growth Status 06/16/17 12:48 Blood Peripheral Aerobic Blood Culture Pending Received 06/16/17 12:48 Blood Peripheral Anaerobic Blood Culture Pending Received 06/16/17 04:50 Stool Stool Stool Occult Blood (KAYLAN) - Final HEMOCCULT NEGATIVE Complete 06/16/17 03:45 Sputum Endotracheal Gram Stain - Final Resulted 06/16/17 03:45 Sputum Endotracheal Sputum Culture Pending Resulted Result Diagram: 06/16/17 0500 06/16/17 0500 Imaging Last Impressions Upper Extremity Ultrasound 06/16/17 0000 Signed Impressions: Service Date/Time: Friday, June 16, 2017 11:00 - CONCLUSION: Normal examination. No evidence of DVT Shoaib Pastor MD Chest X-Ray 06/16/17 0000 Signed Impressions: Service Date/Time: Friday, June 16, 2017 04:23 - CONCLUSION: ET tube tip is at the level of the sury and needs to be withdrawn 2.5 cm. Blu Chilel MD Abdomen X-Ray 06/16/17 0000 Signed Impressions: Service Date/Time: Friday, June 16, 2017 09:26 - CONCLUSION: Benign abdomen. Nasogastric tube in the stomach. Shoaib Pastor MD Head CT 06/15/17 0000 Signed Impressions: Service Date/Time: May 04:26 - CONCLUSION: 1. No acute intracranial abnormality. 2. Chronic small vessel ischemic change more pronounced on the left. 3. Right frontal lobe encephalomalacia. 4. Atrophy Blu Mayfield Jr., MD Chest CT 06/15/17 0000 Signed Impressions: Service Date/Time: May 04:30 - CONCLUSION: 1. 2 focal rounded filling defects involving an enlarged right atrium. I'm concerned this represents mural thrombus. 2. Significant cardiomegaly. 3. Bibasilar infiltrates. Blu Mayfield Jr., MD Brain MRI 06/15/17 0000 Signed Impressions: Service Date/Time: May 20:50 - CONCLUSION: 1. Multiple subacute infarcts are demonstrated. Please see above. 2. There is an old infarct posteriorly of the right frontal lobe as well. 3. No mass, mass effect or midline shift. No bleed. Darin Preston MD Abdomen/Pelvis CT 06/15/17 0000 Signed Impressions: Service Date/Time: May 04:30 - CONCLUSION: 1. Area of poor enhancement involving the spleen as detailed above. Differential diagnostic considerations would include an area of splenic infarction or in the right clinical setting splenic laceration. No intraperitoneal hematoma seen. 2. Constipation with distended colon. 3. Cholelithiasis. 4. 1.7 cm right adrenal gland nodule that cannot be further characterized on this study. Blu Mayfield Jr., MD Assessment and Plan Assessment and Plan Critically ill, unstable Acute VDRF ARF Aspiration pneumonia vs pneumonitis High grade presumably caog neg staph bacteremia in the settings of mitral valve replacement pcn ALLERGY CONT vancomycin cont azactam, levaquin, azithro fu blood clx untill final will need repat blood clx sputum clx 2 D echo Discussed Condition With Chantal Silva MD Jun 16, 2017 13:54
[2017-06-16 16:43] LABS: APTT (PATIENT) 63.9 SEC (24.3-30.1)
[2017-06-16 23:14] LABS: APTT (PATIENT) 72.3 SEC (24.3-30.1)
[2017-06-17] VITALS (18 sets, daily range): BP systolic 85–136; BP diastolic 42–72; PULSE 65–138; RESP 16–31; TEMP 97.2–98.7; O2SAT 88–100
[2017-06-17] MEDS: METOPROLOL TARTRATE 25 MG TAB PO SCH ×3 (00:20→17:06)
[2017-06-17] MEDS: metroNIDAZOLE 500 MG INJ 100 ML IV SCH ×3 (00:20→17:26)
[2017-06-17] MEDS: CHLORHEXIDINE GLUCONATE 2 % 1 PACK (2 CLOTHS) TOP SCH (00:28)
[2017-06-17] MEDS: PROPOFOL 1000 MG/100 ML INJ 100 ML IV PRN ×3 (01:15→18:35)
[2017-06-17] MEDS: AZTREONAM INJ 2,000 MG in SODIUM CHLORIDE 0.9% INJ 100 ML IV SCH ×3 (01:16→17:07)
[2017-06-17] MEDS: RESP: ALBUTEROL 2.5 MG/IPRATROPIUM 0.5 MG NEB (SCH) INH ×4 (03:37→19:59)
[2017-06-17] MEDS: DILTIAZEM HCL 30 MG TAB PO SCH ×3 (05:15→17:06)
[2017-06-17] MEDS: LEVOFLOXACIN 750 MG TAB PO SCH (05:15)
[2017-06-17] MEDS: ARTIFICIAL TEARS OPTH SOLN 15 ML BTL EACH EYE SCH ×3 (05:15→21:27)
[2017-06-17] MEDS: INSULIN NovoLIN REGULAR SUPPLEMENTAL SCALE SQ SCH ×3 (05:28→18:00)
[2017-06-17 05:56] LABS: AUTOMATED NEUTROPHIL # 10.9 TH/MM3 (1.8-7.7); BASOPHIL # 0.1 TH/MM3 (0-0.2); BASOPHIL % 0.4 % (0.0-2.0); EOSINOPHIL # 0.6 TH/MM3 (0-0.4); EOSINOPHIL % 4.1 % (0.0-4.0); HEMATOCRIT 38.7 % (35.0-46.0); HEMO FLAGS DIFF FINAL; LYMPH % 6.7 % (9.0-44.0); LYMPHOCYTE # 0.9 TH/MM3 (1.0-4.8); MEAN CELL VOLUME 91.8 FL (80.0-100.0); MEAN CORPUSCULAR HGB CONC 31.6 % (32.0-36.0); MONO % 7.6 % (0.0-8.0); NEUT % 81.2 % (16.0-70.0); PLATELET COUNT 220 TH/MM3 (150-450); RED BLOOD COUNT 4.22 MIL/MM3 (4.00-5.30); RED CELL DISTRIBUTION WIDTH 15.1 % (11.6-17.2); WHITE BLOOD COUNT 13.5 TH/MM3 (4.0-11.0)
[2017-06-17 05:58] LABS: ANION GAP 7 MEQ/L (5-15); AST (GOT) 29 U/L (15-37); BICARBONATE 20.6 MEQ/L (21.0-32.0); BLOOD UREA NITROGEN 24 MG/DL (7-18); CHLORIDE 117 MEQ/L (98-107); GLOMERULAR FILTRATION RATE 82 ML/MIN (>89); POTASSIUM 4.9 MEQ/L (3.5-5.1); SODIUM (NA) 145 MEQ/L (136-145)
[2017-06-17 06:12] LABS: ALT (GPT) 20 U/L (10-53)
[2017-06-17 06:19] LABS: ALKALINE PHOSPHATASE 96 U/L (45-117); TOTAL BILIRUBIN ADULT 0.5 MG/DL (0.2-1.0)
--- NOTE | 2017-06-17 06:38 | RADRPT ---
EXAM DATE/TIME: 06/17/2017 04:16 [place] COMPARISON: CHEST SINGLE AP, June 16, 2017, 4:23. INDICATIONS : Shortness of breath, possible pulmonary disease. MEDICAL HISTORY : Cerebrovascular disease. Cardiovascular disease. Hypertension. SURGICAL HISTORY : CABG. ENCOUNTER: Subsequent ACUITY: 3 days PAIN SCORE: Non-responsive. LOCATION: Bilateral chest FINDINGS: Patient is rotated towards the right. ET tube tip 2.4 cm above the sury. The right IJ catheter ti p in the mid superior vena cava. Gastric tube tip and side-port within the stomach. Persisting cons olidation left lower lung with loss of delineation left hemidiaphragm. Patchy infiltrate right infra hilar region stable from prior. CONCLUSION: Persistent left lower lung consolidation and patchy infiltrates in the medial right lower lung. Blu Chilel MD on June 17, 2017 at 6:25 Board Certified Radiologist. This report was verified electronically.
[2017-06-17] MEDS: POTASSIUM CHLORIDE INJ 20 MEQ, SODIUM CHLORIDE 23.4% INJ 38.5 MEQ in WATER STERILE FOR ... IV SCH ×3 (08:08→18:34)
[2017-06-17] MEDS: DIGOXIN 0.125 MG TAB OG-TUBE SCH (08:22)
[2017-06-17] MEDS: LANSOPRAZOLE SOLUTAB 30 MG TAB NG SCH (08:22)
[2017-06-17] MEDS: LACTULOSE SYRUP 20 GM/30 ML CUP PO SCH ×4 (08:23→20:19)
[2017-06-17] MEDS: SENNOSIDES SYRUP 8.8 MG/5 ML CUP OG-TUBE SCH ×2 (08:24→20:20)
[2017-06-17] MEDS: DOCUSATE SODIUM 100 MG/10 ML UDC OG-TUBE SCH ×2 (08:24→20:20)
[2017-06-17] MEDS: NYSTATIN SUSP 500,000 U/5 ML CUP OROPHARYNG SCH ×4 (08:24→20:19)
[2017-06-17] MEDS: POLYETHYLENE GLYCOL 17 GM PKG OG-TUBE SCH ×2 (08:24→20:20)
[2017-06-17] MEDS: VANCOMYCIN INJ 1,500 MG in SODIUM CHLORID 0.9% 500 ML INJ 500 ML IV SCH (08:24)
[2017-06-17] MEDS: PRAVASTATIN SOD 40 MG TAB OG-TUBE SCH (08:24)
[2017-06-17] MEDS: CHLORHEXIDINE 0.12% (ORAL KIT) 15 ML CUP MT SCH ×2 (08:25→20:19)
[2017-06-17] MEDS: SODIUM CHLORIDE 0.9% FLUSH 10 ML FLUSH IV FLUSH SCH ×2 (08:26→20:20)
[2017-06-17] MEDS: SODIUM CHLORIDE 0.9% FLUSH 10 ML FLUSH IVF SCH (08:51)
--- NOTE | 2017-06-17 09:50 | HHI.CCPN ---
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 She was discharged from [facility] and transferred to [facility] 06/01/17. She reportedly had rhonchi, cough, and respiratory distress early this morning and there was concern for aspiration. Chest x-ray had been obtained and there were small bibasilar densities that were felt to be consistent with atelectasis. When the overnight houseperson nurse came in she noted that patient had significantly worsening congestion and increased work of breathing. EVAC was summoned and when EVAC arrived she was reportedly GCS 7 ([id number]) and was intubated at the scene after administration of Ativan 4 mg IV and Etomidate 20 mg IV. Upon intubation EVAC reportedly suctioned out large amount of secretions that looked like Jevity tube feeds from the ETT. Jevity tube feeds were running via PEG and these were placed on hold per EVAC. Upon arrival she was in atrial fibrillation with RVR with rate in the 160s. She was given cardizem 20 mg IV and started on cardizem drip at 5 mg/hr. with white blood cell count 13.7. She was normotensive blood pressure 120-140 systolic. Temperature 99.4. She is hypernatremic with sodium of 154, potassium 2.8. Protein corrected calcium 7.9. Magnesium is normal. Troponin is 0.18, BNP 674. Lactic acid is 1.9 She received 2.5 L of fluid in the emergency department. Chest x-ray demonstrates endotracheal tube approximately 1.8 cm above the sury. OG tube is in place in the stomach. There is left basilar opacity, right basilar atelectasis. Patient is intubated and remainder review of systems cannot be obtained. Aztreonam, metronidazole, levofloxacin were ordered per ED. Blood cultures have been obtained. No noted diarrhea. Unknown if patient had experienced vomiting 06/15 : Discussed with Jorge Alberto at bedside. Request alternate CODE STATUS. ACLS drugs and intubation only. Currently on esmolol and Cardizem drips for rate control. Phenylephrine drip initiated due to hypotension. Patient does withdrawal to left upper extremity and actually made attempt to self extubate with left upper extremity while placing central line while hypotensive. Moving bilateral lower extremities spontaneously. Plan is MRI brain if able/stable overnight otherwise will repeat CT head in a.m. 06/16 Echocardiogram still not read as of 1719. Heparin drip initiated due to likely mural thrombus and high risk of CVA. Initial CT brain 06/15 showed no signs of acute hemorrhage. Discussed and reviewed chart records with Dr. Johnston. 06/16: Afebrile. MRI brain results as below. Heparin drip currently on hold secondary to elevated PTT. Tube feeding to be initiated today. Remains on Cardizem, esmolol in phenylephrine drips Subjective 06/17: Afebrile. Off the diltiazem, esmolol and phenylephrine drips. Currently on propofol drip at 20 mics grams per kilo per minute. Attempt sedation vacation today. No bowel movement. Tube feeds currently at 30 cc an hour Objective Vital Signs Date Time Temp Pulse Resp B/P (MAP) Pulse Ox O2 Delivery O2 Flow Rate FiO2 06/17/17 07:37 100 35 06/17/17 06:00 66 06/17/17 04:00 97.9 21 93/54 (67) 127/62 (83) 06/15/17 02:22 Ventilator Intake and Output 06/17/17 06/17/17 06/18/17 08:00 16:00 00:00 Output Total 500 ml Balance -500 ml Result Diagram: 06/17/17 0500 06/17/17 0500 Other Results Microbiology Date/Time Source Procedure Growth Status 06/16/17 12:48 Blood Peripheral Aerobic Blood Culture Pending Received 06/16/17 12:48 Blood Peripheral Anaerobic Blood Culture Pending Received 06/16/17 04:50 Stool Stool Stool Occult Blood (KAYLAN) - Final HEMOCCULT NEGATIVE Complete 06/16/17 03:45 Sputum Endotracheal Gram Stain - Final Resulted 06/16/17 03:45 Sputum Endotracheal Sputum Culture Pending Resulted Imaging Last Impressions Chest X-Ray 06/17/17 0600 Signed Impressions: Service Date/Time: Saturday, June 17, 2017 04:16 - CONCLUSION: Persistent left lower lung consolidation and patchy infiltrates in the medial right lower lung. Blu Chilel MD Upper Extremity Ultrasound 06/16/17 0000 Signed Impressions: Service Date/Time: Friday, June 16, 2017 11:00 - CONCLUSION: Normal examination. No evidence of DVT Shoaib Pastor MD Abdomen X-Ray 06/16/17 Signed Impressions: Service Date/Time: Friday, June 16, 2017 09:26 - CONCLUSION: Benign abdomen. Nasogastric tube in the stomach. Shoaib Pastor MD Head CT 06/15/17 Signed Impressions: Service Date/Time: May 04:26 - CONCLUSION: 1. No acute intracranial abnormality. 2. Chronic small vessel ischemic change more pronounced on the left. 3. Right frontal lobe encephalomalacia. 4. Atrophy Blu Mayfield Jr., MD Chest CT 06/15/17 Signed Impressions: Service Date/Time: May 04:30 - CONCLUSION: 1. 2 focal rounded filling defects involving an enlarged right atrium. I'm concerned this represents mural thrombus. 2. Significant cardiomegaly. 3. Bibasilar infiltrates. Blu Mayfield Jr., MD Brain MRI 06/15/17 Signed Impressions: Service Date/Time: May 20:50 - CONCLUSION: 1. Multiple subacute infarcts are demonstrated. Please see above. 2. There is an old infarct posteriorly of the right frontal lobe as well. 3. No mass, mass effect or midline shift. No bleed. Darin Preston MD Abdomen/Pelvis CT 06/15/17 Signed Impressions: Service Date/Time: May 04:30 - CONCLUSION: 1. Area of poor enhancement involving the spleen as detailed above. Differential diagnostic considerations would include an area of splenic infarction or in the right clinical setting splenic laceration. No intraperitoneal hematoma seen. 2. Constipation with distended colon. 3. Cholelithiasis. 4. 1.7 cm right adrenal gland nodule that cannot be further characterized on this study. Blu Mayfield Jr., MD Objective Remarks GENERAL: 86-year-old female, critically ill currently orotracheally intubated SKIN: Warm and dry. Great toes bilaterally are currently dusky HEAD: Atraumatic. Normocephalic. EYES: Pupils round, 3 to 4 mm and sluggishly reactive bilaterally. No scleral icterus. No injection or drainage. ENT: No nasal bleeding or discharge. Mucous membranes moist and pink oropharynx without erythema. Thrush noted NECK: Trachea midline. No JVD. Right IJ 5 lm catheter is clean dry and intact CARDIOVASCULAR: Prior sternotomy scar noted. Well-healed. Tachycardia, IR. S1 , S2 no S4. Without murmur RESPIRATORY: Coarse rhonchi appreciated bilaterally. Symmetrical excursion. GASTROINTESTINAL: Abdomen soft. PEG tube in place without erythema/skin breakdown. No tenderness to palpation : Camilo in place with yellow urine output. MUSCULOSKELETAL: Right upper extremity edema noted NEUROLOGICAL: Spontaneous movement left upper extremity off sedation in attempt to self extubate on sedation vacation again today. Hand does move purposefully towards ET tube. Moving bilateral lower extremities left greater than right. Minimal movement right upper extremity with noxious stimulation. Positive gag. Positive corneal reflex. Urinary Catheter: Yes Assessment to: Continue Camilo insert reason: Prolonged Immobilization Vascular Central Line Catheter: Yes Assessment to: Continue Date of Insertion: Jun 15, 2017 Line: Central Venous Catheter Side: Right Location: Internal, Jugular A/P Problem List: (1) Hypokalemia ICD Code: E87.6 - Hypokalemia Status: Acute (2) Aspiration pneumonia ICD Code: J69.0 - Pneumonitis due to inhalation of food and vomit Status: Acute (3) Respiratory failure with hypoxia ICD Code: J96.91 - Respiratory failure, unspecified with hypoxia Status: Acute (4) Dysphagia ICD Code: R13.10 - Dysphagia, unspecified Status: Chronic (5) Respiratory failure, acute ICD Code: J96.00 - Acute respiratory failure, unspecified whether with hypoxia or hypercapnia (6) History of stroke ICD Code: Z86.73 - Personal history of transient ischemic attack (TIA), and cerebral infarction without residual deficits (7) Moderate protein malnutrition ICD Code: E44.0 - Moderate protein-calorie malnutrition Status: Chronic Assessment and Plan NEURO/Psych: Recent history of L MCA stroke 05/21/17 -left periventricular white matter, left temporal, left parietal and right parietal Residual R hemiparesis, dysphagia, inability to ambulate. R frontal encephalomalacia Patient had "small hemorrhagic conversion" noted on MRI at outside hospital. Neurology consulted on 06/[address] on 06/07 and if no worsening hemorrhage, can start Eliquis and d/c ASA. MRI brain 06/15 revealed old right frontal posterior infarct, subacute left parametric white matter 17 x 52 mm, left temporal 19 x 32 mm, left parietal 16 mm and cluster right parietal areas of subacute EEG 06/15 revealed bilateral abnormalities slowing rhythms more left. No ictal/ discharge is noted Currently on propofol at 20 mics grams per kilogram per minute/fentanyl drips 100 mics grams an hour for sedation/analgesia while intubated Goal of RA SS -2. Daily sedation vacation RESP: Acute respiratory failure Acute Aspiration Pneumonia PRVC 14/500/09/29/39 Ventilator bundle Albuterol/operative aerosols every 4 hours with albuterol aerosols every 2 hours as needed Dyspnea CT thorax 06/15- bibasilar opacities. ?R atrial mural thrombus. Chest x-ray 06/17 revealed right greater than left lower lobe infiltrates. CV: Atrial fibrillation with [id number] ?Right Atrial thrombus - not documented on 2-D echocardiogram H/o mitral valve replacement Hyperlipidemia Start on diltiazem 30 mg 4 times a day and metoprolol 12.5 every 8 hours On digoxin 0.125 mg by PEG daily. Recheck digoxin level in AM. Will restart esmolol drip for heart rate continues to rise and increase Cardizem Currently off phenylephrine drip with goal maintain MAP greater than equal to 65 2-D echocardiogram revealed the left ventricular systolic function is mildly reduced with an estimated ejection fraction in the range of 45- 50%. Normal left ventricular size. Wall thickness is normal. No regional wall motion abnormalities are present. The left atrial size is severely dilated. The right atrial size is severely dilated. Mitral valve annuloplasty ring is present. Moderate thickening of the mitral valve leaflets. [id number] mitral valve regurgitation. Diffuse calcification of the aortic valve. Mild-to- moderate aortic valve regurgitation. No aortic valve stenosis. Aortic valve area is 1.4cm. Aortic valve mean gradient is 9 mmHg. There is trace tricuspid valve regurgitation. The estimated pulmonary arterial pressure is 41.8 mmHg. The inferior vena cava is dilated. Patient is known to Dr. Gama. Dr. Stan osorio and case was discussed with him. Hold ASA. Continue atorvastatin 40 mg by mouth daily for dyslipidemia GI: Constipation Cholelithiasis Splenic infarct Chronic moderate protein energy malnutrition Hypoalbuminemia Start trickle feeds vital 1.5 goal 45 cc an hour. Currently at 30 cc an hour PEG in place. CT abd/pelvis revealed spleen abnormalities suggest splenic infarct. Laceration felt to be less likely. No hematoma. No recent mechanism for injury reported. Docusate sodium/Senokot/MiraLAX twice a day and lactulose every 6 hours for bowel regimen Mag citrate 3 mg 1 now and and [id number] milligrams subcutaneous 1 today KUB 06/16 revealed benign abdomen FEN/RENAL: Currently on one quarter normal saline with 20 mEq KCl at 100 cc an hour Add free water 1 cc every 8 hours ICU electrolyte protocol initiated. ID: Aspiration pneumonia Thrush REM positive cocci bacteremia Blood cultures have been sent. Send. sputum cultures. Received aztreonam, metronidazole, levofloxacin in the ED 06/14. Vancomycin added due to MRSA risk ECF and current gram-positive cocci in blood Has been on Nystatin for thrush since 06/02/17. We'll resume with stop date 5 days UA negative Blood cultures 2 06/15 with gram-positive cocci. Repeat 06/16 pending Influenza negative Sputum 06/15 negative Infectious disease following HEME: Leukocytosis No acute evidence of bleeding. Continue heparin anticoagulation due to Afib. Previously on Apixaban ENDO: Monitor bedside glucose and initiate insulin sliding scale if needed. TSH 0.546. T4 slightly elevated at 1.8 PROPH: Heparin drip will provide DVT prophylaxis. Lansoprazole for stress ulcer prophylaxis. ACCESS: Right IJ 5 lm catheter day #3 Right femoral arterial line day #3 Discussed with Jorge Alberto and son Terrance plan of care 06/17. Continue Alternate code status. Intubation and ACLS drugs only. No shock. No CPR. Problem Qualifiers (1) Respiratory failure with hypoxia: Qualified Codes: J96.01 - Acute respiratory failure with hypoxia Harman Manning MD Jun 17, 2017 09:50
[2017-06-17] MEDS ORDERED: LACTATED RINGER'S 1000 ML INJ 1,000 ML IV ONE (10:00)
[2017-06-17] MEDS: ALBUMIN HUMAN 25% 25 GM/100 ML BAGP IV SCH ×2 (10:30→23:21)
[2017-06-17] MEDS ORDERED: MAGNESIUM CITRATE SOLN 300 ML BTL PO ONE (10:30)
[2017-06-17] MEDS ORDERED: METHYLNALTREXONE BROMIDE 12 MG/0.6 ML VIAL SQ ONE (10:30)
[2017-06-17] MEDS: HEPARIN-D5W 25,000 U/250 ML 250 ML IV PRN (13:39)
[2017-06-17] MEDS: FREE WATER G-TUBE SCH ×2 (14:00→21:27)
[2017-06-17 15:04] LABS: APTT (PATIENT) 71.7 SEC (24.3-30.1)
--- NOTE | 2017-06-17 21:53 | HHI.IDPN ---
Subjective Subjective Remarks delaeyed entry Pt was seen today around 1600 remains on vent more alert follows commands growing MRSA in sputum 2 D echo w/o vegetation Antibiotics vancomycin azacam levaquine flagyl Allergies: Coded Allergies: penicillin G (Unverified Allergy, Severe, 05/09/17) shellfish derived (Verified Allergy, Unknown, 06/15/17) Objective . Vital Signs Date Time Temp Pulse Resp B/P (MAP) Pulse Ox O2 Delivery O2 Flow Rate FiO2 06/17/17 20:00 99 35 06/17/17 18:00 135 06/17/17 17:47 99 35 06/17/17 16:00 138 06/17/17 16:00 98.7 138 31 97/62 (74) 116/72 (87) 06/17/17 16:00 35 06/17/17 15:38 35 06/17/17 15:34 100 35 06/17/17 15:32 100 35 06/17/17 14:00 96 06/17/17 12:00 98.0 113 23 85/54 (64) 100 133/65 (87) 06/17/17 12:00 113 06/17/17 12:00 35 06/17/17 10:00 131 06/17/17 08:00 35 06/17/17 08:00 115 06/17/17 08:00 97.7 115 17 101/42 (61) 98 97/47 (64) 06/17/17 07:37 100 35 06/17/17 06:00 66 06/17/17 04:00 65 06/17/17 04:00 35 06/17/17 04:00 97.9 99 21 93/54 (67) 88 127/62 (83) 06/17/17 03:37 99 35 06/17/17 02:00 86 06/17/17 01:26 100 35 06/17/17 00:00 35 06/17/17 00:00 98.3 89 16 90/45 (60) 99 06/17/17 00:00 89 06/16/17 22:35 100 35 06/16/17 22:00 92 06/17/17 06/17/17 06/18/17 15:00 23:00 07:00 Intake Total 1000 ml 777 ml Output Total 575 ml Balance 1000 ml 202 ml Intake IV Total 1000 ml Tube Feeding 417 ml Tube Irrigant 360 ml Output Urine Total 575 ml . Laboratory Tests Test 06/16/17 05:00 06/17/17 05:00 White Blood Count 13.8 TH/MM3 13.5 TH/MM3 Red Blood Count 4.04 MIL/MM3 4.22 MIL/MM3 Hemoglobin 11.8 GM/DL 12.2 GM/DL Hematocrit 37.1 % 38.7 % Mean Corpuscular Volume 91.9 FL 91.8 FL Mean Corpuscular Hemoglobin 29.1 PG 29.0 PG Mean Corpuscular Hemoglobin Concent 31.7 % 31.6 % Red Cell Distribution Width 14.9 % 15.1 % Platelet Count 251 TH/MM3 220 TH/MM3 Mean Platelet Volume 8.4 FL 9.2 FL Neutrophils (%) (Auto) 77.2 % 81.2 % Lymphocytes (%) (Auto) 8.7 % 6.7 % Monocytes (%) (Auto) 9.5 % 7.6 % Eosinophils (%) (Auto) 4.1 % 4.1 % Basophils (%) (Auto) 0.5 % 0.4 % Neutrophils # (Auto) 10.7 TH/MM3 10.9 TH/MM3 Lymphocytes # (Auto) 1.2 TH/MM3 0.9 TH/MM3 Monocytes # (Auto) 1.3 TH/MM3 1.0 TH/MM3 Eosinophils # (Auto) 0.6 TH/MM3 0.6 TH/MM3 Basophils # (Auto) 0.1 TH/MM3 0.1 TH/MM3 CBC Comment DIFF FINAL DIFF FINAL Differential Comment Laboratory Tests Test 06/16/17 05:00 06/16/17 22:00 06/17/17 05:00 Blood Urea Nitrogen 21 MG/DL 24 MG/DL Creatinine 0.41 MG/DL 0.68 MG/DL Random Glucose 106 MG/DL 135 MG/DL Total Protein 5.2 GM/DL 5.6 GM/DL Albumin 1.9 GM/DL 2.1 GM/DL Calcium Level 7.6 MG/DL 7.7 MG/DL Phosphorus Level 2.1 MG/DL 3.4 MG/DL Magnesium Level 2.0 MG/DL 2.0 MG/DL Alkaline Phosphatase 91 U/L 96 U/L Aspartate Amino Transf (AST/SGOT) 34 U/L 29 U/L Alanine Aminotransferase (ALT/SGPT) 24 U/L 20 U/L Total Bilirubin 0.7 MG/DL 0.5 MG/DL Sodium Level 148 MEQ/L 145 MEQ/L Potassium Level 3.3 MEQ/L 5.3 MEQ/L 4.9 MEQ/L Chloride Level 118 MEQ/L 117 MEQ/L Carbon Dioxide Level 21.8 MEQ/L 20.6 MEQ/L Anion Gap 8 MEQ/L 7 MEQ/L Estimat Glomerular Filtration Rate 148 ML/MIN 82 ML/MIN Lactic Acid Level 1.0 mmol/L Microbiology Date/Time Source Procedure Growth Status 06/16/17 12:48 Blood Peripheral Aerobic Blood Culture - Preliminary NO GROWTH IN 1 DAY Resulted 06/16/17 12:48 Blood Peripheral Anaerobic Blood Culture - Preliminary NO GROWTH IN 1 DAY Resulted 06/16/17 11:40 Blood Peripheral Aerobic Blood Culture - Preliminary NO GROWTH IN 1 DAY Resulted 06/16/17 11:40 Blood Peripheral Anaerobic Blood Culture - Preliminary NO GROWTH IN 1 DAY Resulted 06/15/17 00:40 Blood Peripheral Aerobic Blood Culture - Final Staph Sp Coagulase Negative Complete 06/15/17 00:40 Anaerobic Blood Culture - Final Staph Sp Coagulase Negative Complete 06/15/17 00:25 Blood Peripheral Aerobic Blood Culture - Final Staph Sp Coagulase Negative Complete 06/15/17 00:25 Anaerobic Blood Culture - Final Staph Sp Coagulase Negative Complete 06/16/17 04:50 Stool Stool Stool Occult Blood (KAYLAN) - Final HEMOCCULT NEGATIVE Complete 06/16/17 03:45 Sputum Endotracheal Gram Stain - Final Resulted 06/16/17 03:45 Sputum Culture - Preliminary S. Aureus Mrsa Resulted 06/16/17 03:30 Nasal Aspirate Influenza Types A,B Antigen (KAYLAN) - Final NEGATIVE FOR FLU A AND B ANTIGEN.... Complete Imaging Last Impressions Chest X-Ray 06/17/17 0600 Signed Impressions: Service Date/Time: Saturday, June 17, 2017 04:16 - CONCLUSION: Persistent left lower lung consolidation and patchy infiltrates in the medial right lower lung. Blu Chilel MD Upper Extremity Ultrasound 06/16/17 0000 Signed Impressions: Service Date/Time: Friday, June 16, 2017 11:00 - CONCLUSION: Normal examination. No evidence of DVT Shoaib Pastor MD Abdomen X-Ray 06/16/17 0000 Signed Impressions: Service Date/Time: Friday, June 16, 2017 09:26 - CONCLUSION: Benign abdomen. Nasogastric tube in the stomach. Shoaib Pastor MD Head CT 06/15/17 Signed Impressions: Service Date/Time: May 04:26 - CONCLUSION: 1. No acute intracranial abnormality. 2. Chronic small vessel ischemic change more pronounced on the left. 3. Right frontal lobe encephalomalacia. 4. Atrophy Blu Mayfield Jr., MD Chest CT 06/15/17 Signed Impressions: Service Date/Time: May 04:30 - CONCLUSION: 1. 2 focal rounded filling defects involving an enlarged right atrium. I'm concerned this represents mural thrombus. 2. Significant cardiomegaly. 3. Bibasilar infiltrates. Blu Mayfield Jr., MD Brain MRI 06/15/17 Signed Impressions: Service Date/Time: May 20:50 - CONCLUSION: 1. Multiple subacute infarcts are demonstrated. Please see above. 2. There is an old infarct posteriorly of the right frontal lobe as well. 3. No mass, mass effect or midline shift. No bleed. Darin Preston MD Abdomen/Pelvis CT 06/15/17 Signed Impressions: Service Date/Time: May 04:30 - CONCLUSION: 1. Area of poor enhancement involving the spleen as detailed above. Differential diagnostic considerations would include an area of splenic infarction or in the right clinical setting splenic laceration. No intraperitoneal hematoma seen. 2. Constipation with distended colon. 3. Cholelithiasis. 4. 1.7 cm right adrenal gland nodule that cannot be further characterized on this study. Blu Mayfield Jr., MD Physical Exam CONSTITUTIONAL/GENERAL: This is an adequately nourished patient, in no apparent distress. TUBES/LINES/DRAINS: SKIN: No jaundice, rashes, or lesions. Skin temperature appropriate. Not diaphoretic. EYES: Pupils equal and round and reactive. No scleral icterus. No injection or drainage. Fundi not examined. ENT: Hearing OK. Nose without bleeding or purulent drainage. Visible oral mucosae dryish without visible erythema, exudates, masses, or lesions. Dentition in fair condition Orally intubated CARDIOVASCULAR: Irregular rate and rhythm without murmurs, gallops, or rubs. No JVD. Signs of poor perfusion with delayed refill RESPIRATORY/CHEST: Symmetric, unlabored respirations. Rhonchi to auscultation. Breath sounds equal bilaterally. No wheezes, rales, or rhonchi. GASTROINTESTINAL: Abdomen soft, no re action to palpation, moderately distended. No hepato-splenomegaly, or palpable masses. No guarding. Bowel sounds diminished PEG in place LUQ GENITOURINARY: Without palpable bladder distension. Camilo catheter in place with small amount of dark urine MUSCULOSKELETAL: Extremities without clubbing,, or edema. + cyanosis No joint tenderness or effusion noted. No calf tenderness. + mottling of feet LYMPHATICS: No palpable cervical or supraclavicular adenopathy. NEUROLOGICAL: Sedated, + responsive PSYCHIATRIC: unable to assess Assessment & Plan Remarks Critically ill, unstable Acute VDRF ARF Aspiration pneumonia vs pneumonitis High grade presumably coag neg staph bacteremia in the settings of mitral valve repair with ring - however, different morphology is present 2 D echo negative - repeat BC negative so far pcn ALLERGY CONT dc vancomycin start zyvox po cont azactam, levaquin, flagyl fu blood clx untill final fu repeat blood clx sputum clx 2 D echo Chantal Garnica MD Jun 17, 2017 21:53
[2017-06-17] MEDS: LINEZOLID 600 MG PREMIX 300 ML IV SCH (22:21)
[2017-06-18] VITALS (18 sets, daily range): BP systolic 90–148; BP diastolic 31–98; PULSE 80–113; RESP 14–23; TEMP 96.5–97.1; O2SAT 94–100
[2017-06-18] MEDS: DILTIAZEM HCL 30 MG TAB PO SCH ×4 (00:21→17:28)
[2017-06-18] MEDS: INSULIN NovoLIN REGULAR SUPPLEMENTAL SCALE SQ SCH ×4 (00:22→18:00)
[2017-06-18] MEDS: PROPOFOL 1000 MG/100 ML INJ 100 ML IV PRN ×4 (00:52→18:56)
[2017-06-18] MEDS: metroNIDAZOLE 500 MG INJ 100 ML IV SCH ×2 (00:53→08:22)
[2017-06-18] MEDS ORDERED: DILTIAZEM HCL 25 MG/5 ML VIAL IV PUSH ONE (01:45)
[2017-06-18] MEDS: AZTREONAM INJ 2,000 MG in SODIUM CHLORIDE 0.9% INJ 100 ML IV SCH ×3 (02:13→18:00)
[2017-06-18] MEDS: METOPROLOL TARTRATE 25 MG TAB PO SCH ×3 (02:35→17:28)
[2017-06-18] MEDS: RESP: ALBUTEROL 2.5 MG/IPRATROPIUM 0.5 MG NEB (SCH) INH ×4 (02:43→22:38)
[2017-06-18 03:39] LABS: APTT (PATIENT) 83.3 SEC (24.3-30.1); AUTOMATED NEUTROPHIL # 10.6 TH/MM3 (1.8-7.7); BASOPHIL % 0.2 % (0.0-2.0); EOSINOPHIL # 0.3 TH/MM3 (0-0.4); EOSINOPHIL % 2.4 % (0.0-4.0); HEMATOCRIT 33.5 % (35.0-46.0); HEMO FLAGS DIFF FINAL; LYMPH % 5.5 % (9.0-44.0); LYMPHOCYTE # 0.7 TH/MM3 (1.0-4.8); MEAN CELL VOLUME 91.3 FL (80.0-100.0); MEAN CORPUSCULAR HEMOGLOBIN 28.3 PG (27.0-34.0); MONO % 6.2 % (0.0-8.0); NEUT % 85.7 % (16.0-70.0); PLATELET COUNT 221 TH/MM3 (150-450); RED BLOOD COUNT 3.67 MIL/MM3 (4.00-5.30); WHITE BLOOD COUNT 12.4 TH/MM3 (4.0-11.0)
[2017-06-18 03:52] LABS: BICARBONATE 18.1 MEQ/L (21.0-32.0); POTASSIUM 4.1 MEQ/L (3.5-5.1)
[2017-06-18 03:58] LABS: CALCIUM-PROTEIN CORRECTED 8.3 MG/DL (8.5-10.1); TOTAL BILIRUBIN ADULT 0.5 MG/DL (0.2-1.0)
[2017-06-18] MEDS: CHLORHEXIDINE GLUCONATE 2 % 1 PACK (2 CLOTHS) TOP SCH (04:00)
[2017-06-18] MEDS ORDERED: SODIUM PHOSPHATE INJ 30 MMOL in SODIUM CHLOR 0.9% 250 ML INJ 250 ML IV ONE ×2 (04:15→08:00)
[2017-06-18] MEDS: ARTIFICIAL TEARS OPTH SOLN 15 ML BTL EACH EYE SCH ×3 (05:37→22:05)
[2017-06-18] MEDS: FREE WATER G-TUBE SCH ×3 (05:37→22:06)
[2017-06-18] MEDS: LEVOFLOXACIN 750 MG TAB PO SCH (05:37)
--- NOTE | 2017-06-18 05:37 | RADRPT ---
EXAM DATE/TIME: 06/18/2017 04:46 [place] COMPARISON: ABDOMEN KUB ONLY, June 16, 2017, 9:26. INDICATIONS : Abdominal pain. MEDICAL HISTORY : Cerebrovascular disease. Cardiovascular disease. Hypertension. SURGICAL HISTORY : CABG. ENCOUNTER: Subsequent ACUITY: 4 - 6 days PAIN SCORE: Non-responsive. LOCATION: Bilateral Abdomen FINDINGS: There is a prominent amount of gas throughout the colon with the cecum measuring 11.5 cm in width. N o gas-distended loops of small bowel seen. There is some stool seen in the rectum. CONCLUSION: Interval development of gaseous distention of the colon. Blu Chilel MD on June 18, 2017 at 5:33 Board Certified Radiologist. This report was verified electronically.
[2017-06-18 06:17] LABS: BLOOD GAS BASE EXCESS -9.8 mmol/L (-2-2); BLOOD GAS CARBOXYHEMOGLOBIN 1.2 % (0-4); BLOOD GAS HCO3 14 mmol/L (22-26); BLOOD GAS METHEMOGLOBIN 1.1 % (0-2); BLOOD GAS O2 HGB SATURATION 95 % (90-100); BLOOD GAS OXYGEN CONTENT 14.4 Vol % (12.0-20.0); BLOOD GAS PCO2 23 mmHg (38-42); BLOOD GAS PO2 91 mmHg (61-120); BLOOD GAS TOTAL HGB 10.7 G/DL (12.0-16.0); TEMP CORR TO 98.6
[2017-06-18 06:20] LABS: CRITICAL VALUE YES; OXYGEN DEVICE VENT
[2017-06-18 06:21] LABS: DRAW SITE ART LINE; FIO2 35 %; STAT YES; VENT SETTINGS COMMENTS
--- NOTE | 2017-06-18 06:43 | HHI.CCPN ---
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 She was discharged from [facility] and transferred to [facility] and rehabilitation 06/01/17. She reportedly had rhonchi, cough, and respiratory distress early this morning and there was concern for aspiration. Chest x-ray had been obtained and there were small bibasilar densities that were felt to be consistent with atelectasis. When the restaurant shift leader nurse came in she noted that patient had significantly worsening congestion and increased work of breathing. EVAC was summoned and when EVAC arrived she was reportedly GCS 7 ([id number]) and was intubated at the scene after administration of Ativan 4 mg IV and Etomidate 20 mg IV. Upon intubation EVAC reportedly suctioned out large amount of secretions that looked like Jevity tube feeds from the ETT. Jevity tube feeds were running via PEG and these were placed on hold per EVAC. Upon arrival she was in atrial fibrillation with RVR with rate in the 160s. She was given cardizem 20 mg IV and started on cardizem drip at 5 mg/hr. with white blood cell count 13.7. She was normotensive blood pressure 120-140 systolic. Temperature 99.4. She is hypernatremic with sodium of 154, potassium 2.8. Protein corrected calcium 7.9. Magnesium is normal. Troponin is 0.18, BNP 674. Lactic acid is 1.9 She received 2.5 L of fluid in the emergency department. Chest x-ray demonstrates endotracheal tube approximately 1.8 cm above the sury. OG tube is in place in the stomach. There is left basilar opacity, right basilar atelectasis. Patient is intubated and remainder review of systems cannot be obtained. Aztreonam, metronidazole, levofloxacin were ordered per ED. Blood cultures have been obtained. No noted diarrhea. Unknown if patient had experienced vomiting 06/15 : Discussed with Jorge Alberto at bedside. Request alternate CODE STATUS. ACLS drugs and intubation only. Currently on esmolol and Cardizem drips for rate control. Phenylephrine drip initiated due to hypotension. Patient does withdrawal to left upper extremity and actually made attempt to self extubate with left upper extremity while placing central line while hypotensive. Moving bilateral lower extremities spontaneously. Plan is MRI brain if able/stable overnight otherwise will repeat CT head in a.m. 06/16 Echocardiogram still not read as of 1719. Heparin drip initiated due to likely mural thrombus and high risk of CVA. Initial CT brain 06/15 showed no signs of acute hemorrhage. Discussed and reviewed chart records with Dr. Johnston. 06/16: Afebrile. MRI brain results as below. Heparin drip currently on hold secondary to elevated PTT. Tube feeding to be initiated today. Remains on Cardizem, esmolol in phenylephrine drips Subjective 06/17: Afebrile. Off the diltiazem, esmolol and phenylephrine drips. Currently on propofol drip at 20 mics grams per kilo per minute. Attempt sedation vacation today. No bowel movement. Tube feeds currently at 30 cc an hour Objective Vital Signs Date Time Temp Pulse Resp B/P (MAP) Pulse Ox O2 Delivery O2 Flow Rate FiO2 06/18/17 04:03 99 35 06/18/17 04:00 90 06/18/17 04:00 96.7 22 97/62 (74) 148/75 (99) 06/15/17 02:22 Ventilator Intake and Output 06/18/17 06/18/17 06/19/17 08:00 16:00 00:00 Intake Total 400 ml Balance 400 ml Result Diagram: 06/18/17 0230 06/18/17 0230 Other Results Microbiology Date/Time Source Procedure Growth Status 06/16/17 04:50 Stool Stool Stool Occult Blood (KAYLAN) - Final HEMOCCULT NEGATIVE Complete 06/16/17 03:30 Nasal Aspirate Influenza Types A,B Antigen (KAYLAN) - Final NEGATIVE FOR FLU A AND B ANTIGEN.... Complete Laboratory Tests Test 06/18/17 05:59 Blood Gas Puncture Site ART LINE Blood Gas Patient Temperature 98.6 Blood Gas HCO3 14 mmol/L (22-26) Blood Gas Base Excess -9.8 mmol/L (-2-2) Blood Gas Oxygen Saturation 95 % (90-100) Arterial Blood pH 7.40 (7.380-7.420) Arterial Blood Partial Pressure CO2 23 mmHg (38-42) Arterial Blood Partial Pressure O2 91 mmHg (61-120) Arterial Blood Oxygen Content 14.4 Vol % (12.0-20.0) Arterial Blood Carboxyhemoglobin 1.2 % (0-4) Arterial Blood Methemoglobin 1.1 % (0-2) Blood Gas Hemoglobin 10.7 G/DL (12.0-16.0) Oxygen Delivery Device VENT Blood Gas Ventilator Setting COMMENTS Blood Gas Inspired Oxygen 35 % Imaging Last Impressions Chest X-Ray 06/17/17 0600 Signed Impressions: Service Date/Time: Saturday, June 17, 2017 04:16 - CONCLUSION: Persistent left lower lung consolidation and patchy infiltrates in the medial right lower lung. Blu Chilel MD Upper Extremity Ultrasound 06/16/17 0000 Signed Impressions: Service Date/Time: Friday, June 16, 2017 11:00 - CONCLUSION: Normal examination. No evidence of DVT Shoaib Pastor MD Abdomen X-Ray 06/16/17 0000 Signed Impressions: Service Date/Time: Friday, June 16, 2017 09:26 - CONCLUSION: Benign abdomen. Nasogastric tube in the stomach. Shoaib Pastor MD Head CT 06/15/17 0000 Signed Impressions: Service Date/Time: May 04:26 - CONCLUSION: 1. No acute intracranial abnormality. 2. Chronic small vessel ischemic change more pronounced on the left. 3. Right frontal lobe encephalomalacia. 4. Atrophy Blu Mayfield Jr., MD Chest CT 06/15/17 0000 Signed Impressions: Service Date/Time: May 04:30 - CONCLUSION: 1. 2 focal rounded filling defects involving an enlarged right atrium. I'm concerned this represents mural thrombus. 2. Significant cardiomegaly. 3. Bibasilar infiltrates. Blu Mayfield Jr., MD Brain MRI 06/15/17 0000 Signed Impressions: Service Date/Time: May 20:50 - CONCLUSION: 1. Multiple subacute infarcts are demonstrated. Please see above. 2. There is an old infarct posteriorly of the right frontal lobe as well. 3. No mass, mass effect or midline shift. No bleed. Darin Preston MD Abdomen/Pelvis CT 06/15/17 0000 Signed Impressions: Service Date/Time: May 04:30 - CONCLUSION: 1. Area of poor enhancement involving the spleen as detailed above. Differential diagnostic considerations would include an area of splenic infarction or in the right clinical setting splenic laceration. No intraperitoneal hematoma seen. 2. Constipation with distended colon. 3. Cholelithiasis. 4. 1.7 cm right adrenal gland nodule that cannot be further characterized on this study. Blu Mayfield Jr., MD Objective Remarks GENERAL: 86-year-old female, critically ill currently orotracheally intubated SKIN: Warm and dry. Great toes bilaterally are currently dusky HEAD: Atraumatic. Normocephalic. EYES: Pupils round, 3 to 4 mm and sluggishly reactive bilaterally. No scleral icterus. No injection or drainage. ENT: No nasal bleeding or discharge. Mucous membranes moist and pink oropharynx without erythema. Thrush noted NECK: Trachea midline. No JVD. Right IJ 5 lm catheter is clean dry and intact CARDIOVASCULAR: Prior sternotomy scar noted. Well-healed. Tachycardia, IR. S1 , S2 no S4. Without murmur RESPIRATORY: Coarse rhonchi appreciated bilaterally. Symmetrical excursion. GASTROINTESTINAL: Abdomen soft. PEG tube in place without erythema/skin breakdown. No tenderness to palpation : Camilo in place with yellow urine output. MUSCULOSKELETAL: Right upper extremity edema noted NEUROLOGICAL: Spontaneous movement left upper extremity off sedation in attempt to self extubate on sedation vacation again today. Hand does move purposefully towards ET tube. Moving bilateral lower extremities left greater than right. Minimal movement right upper extremity with noxious stimulation. Positive gag. Positive corneal reflex. Date of Insertion: Jun 15, 2017 Line: Central Venous Catheter Side: Right Location: Internal, Jugular A/P Problem List: (1) Hypokalemia ICD Code: E87.6 - Hypokalemia Status: Acute (2) Aspiration pneumonia ICD Code: J69.0 - Pneumonitis due to inhalation of food and vomit Status: Acute (3) Respiratory failure with hypoxia ICD Code: J96.91 - Respiratory failure, unspecified with hypoxia Status: Acute (4) Dysphagia ICD Code: R13.10 - Dysphagia, unspecified Status: Chronic (5) Respiratory failure, acute ICD Code: J96.00 - Acute respiratory failure, unspecified whether with hypoxia or hypercapnia (6) History of stroke ICD Code: Z86.73 - Personal history of transient ischemic attack (TIA), and cerebral infarction without residual deficits (7) Moderate protein malnutrition ICD Code: E44.0 - Moderate protein-calorie malnutrition Status: Chronic Assessment and Plan NEURO/Psych: Recent history of L MCA stroke 05/21/17 -left periventricular white matter, left temporal, left parietal and right parietal Residual R hemiparesis, dysphagia, inability to ambulate. R frontal encephalomalacia Patient had "small hemorrhagic conversion" noted on MRI at outside hospital. Neurology consulted on 06/[address] on 06/07 and if no worsening hemorrhage, can start Eliquis and d/c ASA. MRI brain 06/15 revealed old right frontal posterior infarct, subacute left parametric white matter 17 x 52 mm, left temporal 19 x 32 mm, left parietal 16 mm and cluster right parietal areas of subacute EEG 06/15 revealed bilateral abnormalities slowing rhythms more left. No ictal/ discharge is noted Currently on propofol at 20 mics grams per kilogram per minute/fentanyl drips 100 mics grams an hour for sedation/analgesia while intubated Goal of RA SS -2. Daily sedation vacation RESP: Acute respiratory failure Acute Aspiration Pneumonia PRVC 14/500/09/29/39 Ventilator bundle Albuterol/operative aerosols every 4 hours with albuterol aerosols every 2 hours as needed Dyspnea CT thorax 06/15- bibasilar opacities. ?R atrial mural thrombus. Chest x-ray 06/17 revealed right greater than left lower lobe infiltrates. CV: Atrial fibrillation with [id number] ?Right Atrial thrombus - not documented on 2-D echocardiogram H/o mitral valve replacement Hyperlipidemia Start on diltiazem 30 mg 4 times a day and metoprolol 12.5 every 8 hours On digoxin 0.125 mg by PEG daily. Recheck digoxin level in AM. Will restart esmolol drip for heart rate continues to rise and increase Cardizem Currently off phenylephrine drip with goal maintain MAP greater than equal to 65 2-D echocardiogram revealed the left ventricular systolic function is mildly reduced with an estimated ejection fraction in the range of 45- 50%. Normal left ventricular size. Wall thickness is normal. No regional wall motion abnormalities are present. The left atrial size is severely dilated. The right atrial size is severely dilated. Mitral valve annuloplasty ring is present. Moderate thickening of the mitral valve leaflets. [id number] mitral valve regurgitation. Diffuse calcification of the aortic valve. Mild-to- moderate aortic valve regurgitation. No aortic valve stenosis. Aortic valve area is 1.4cm. Aortic valve mean gradient is 9 mmHg. There is trace tricuspid valve regurgitation. The estimated pulmonary arterial pressure is 41.8 mmHg. The inferior vena cava is dilated. Patient is known to Dr. Gama. Dr. Stan osorio and case was discussed with him. Hold ASA. Continue atorvastatin 40 mg by mouth daily for dyslipidemia GI: Constipation Cholelithiasis Splenic infarct Chronic moderate protein energy malnutrition Hypoalbuminemia Start trickle feeds vital 1.5 goal 45 cc an hour. Currently at 30 cc an hour PEG in place. CT abd/pelvis revealed spleen abnormalities suggest splenic infarct. Laceration felt to be less likely. No hematoma. No recent mechanism for injury reported. Docusate sodium/Senokot/MiraLAX twice a day and lactulose every 6 hours for bowel regimen Mag citrate 3 mg 1 now and and [id number] milligrams subcutaneous 1 today KUB 06/16 revealed benign abdomen FEN/RENAL: Currently on one quarter normal saline with 20 mEq KCl at 100 cc an hour Add free water 1 cc every 8 hours ICU electrolyte protocol initiated. ID: Aspiration pneumonia Thrush REM positive cocci bacteremia Blood cultures have been sent. Send. sputum cultures. Received aztreonam, metronidazole, levofloxacin in the ED 06/14. Vancomycin added due to MRSA risk ECF and current gram-positive cocci in blood Has been on Nystatin for thrush since 06/02/17. We'll resume with stop date 5 days UA negative Blood cultures 2 06/15 with gram-positive cocci. Repeat 06/16 pending Influenza negative Sputum 06/15 negative Infectious disease following HEME: Leukocytosis No acute evidence of bleeding. Continue heparin anticoagulation due to Afib. Previously on Apixaban ENDO: Monitor bedside glucose and initiate insulin sliding scale if needed. TSH 0.546. T4 slightly elevated at 1.8 PROPH: Heparin drip will provide DVT prophylaxis. Lansoprazole for stress ulcer prophylaxis. ACCESS: Right IJ 5 lm catheter day #3 Right femoral arterial line day #3 Discussed with Jorge Alberto and son Terrance plan of care 06/17. Continue Alternate code status. Intubation and ACLS drugs only. No shock. No CPR. Problem Qualifiers (1) Respiratory failure with hypoxia: Qualified Codes: J96.01 - Acute respiratory failure with hypoxia Harman Manning MD Jun 18, 2017 06:43
[2017-06-18] MEDS: PANTOPRAZOLE SODIUM 40 MG VIAL IV PUSH SCH ×2 (06:53→17:28)
[2017-06-18] MEDS ORDERED: PHARMACY ORDERED LAB ONE (07:45)
[2017-06-18] MEDS ORDERED: LACTATED RINGER'S 1000 ML INJ 1,000 ML IV ONE (08:00)
--- NOTE | 2017-06-18 08:11 | HHI.CCPN ---
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 She was discharged from [facility] and transferred to [facility] 06/01/17. She reportedly had rhonchi, cough, and respiratory distress early this morning and there was concern for aspiration. Chest x-ray had been obtained and there were small bibasilar densities that were felt to be consistent with atelectasis. When the night clerk auditor nurse came in she noted that patient had significantly worsening congestion and increased work of breathing. EVAC was summoned and when EVAC arrived she was reportedly GCS 7 ([id number]) and was intubated at the scene after administration of Ativan 4 mg IV and Etomidate 20 mg IV. Upon intubation EVAC reportedly suctioned out large amount of secretions that looked like Jevity tube feeds from the ETT. Jevity tube feeds were running via PEG and these were placed on hold per EVAC. Upon arrival she was in atrial fibrillation with RVR with rate in the 160s. She was given cardizem 20 mg IV and started on cardizem drip at 5 mg/hr. with white blood cell count 13.7. She was normotensive blood pressure 120-140 systolic. Temperature 99.4. She is hypernatremic with sodium of 154, potassium 2.8. Protein corrected calcium 7.9. Magnesium is normal. Troponin is 0.18, BNP 674. Lactic acid is 1.9 She received 2.5 L of fluid in the emergency department. Chest x-ray demonstrates endotracheal tube approximately 1.8 cm above the sury. OG tube is in place in the stomach. There is left basilar opacity, right basilar atelectasis. Patient is intubated and remainder review of systems cannot be obtained. Aztreonam, metronidazole, levofloxacin were ordered per ED. Blood cultures have been obtained. No noted diarrhea. Unknown if patient had experienced vomiting 06/15 : Discussed with Jorge Alberto at bedside. Request alternate CODE STATUS. ACLS drugs and intubation only. Currently on esmolol and Cardizem drips for rate control. Phenylephrine drip initiated due to hypotension. Patient does withdrawal to left upper extremity and actually made attempt to self extubate with left upper extremity while placing central line while hypotensive. Moving bilateral lower extremities spontaneously. Plan is MRI brain if able/stable overnight otherwise will repeat CT head in a.m. 06/16 Echocardiogram still not read as of 1719. Heparin drip initiated due to likely mural thrombus and high risk of CVA. Initial CT brain 06/15 showed no signs of acute hemorrhage. Discussed and reviewed chart records with Dr. Johnston. 06/16: Afebrile. MRI brain results as below. Heparin drip currently on hold secondary to elevated PTT. Tube feeding to be initiated today. Remains on Cardizem, esmolol in phenylephrine drips 06/17: Afebrile. Off the diltiazem, esmolol and phenylephrine drips. Currently on propofol drip at 20 mics grams per kilo per minute. Attempt sedation vacation today. No bowel movement. Tube feeds currently at 30 cc an hour Subjective 06/18: Afebrile. A. fib with RVR overnight restarted on diltiazem drip currently at 5 mg an hour. Per report 1 large bloody bowel movement currently brown in color. KUB revealed abdominal distention with cecum at 11.[address] evidence/pelvis pending. Heparin discontinued. Noted thrombus in right atrium. On echocardiogram. Not on vasopressors. Objective Vital Signs Date Time Temp Pulse Resp B/P (MAP) Pulse Ox O2 Delivery O2 Flow Rate FiO2 06/18/17 06:00 88 06/18/17 04:03 99 35 06/18/17 04:00 96.7 22 97/62 (74) 148/75 (99) 06/15/17 02:22 Ventilator Intake and Output 06/18/17 06/18/17 06/19/17 08:00 16:00 00:00 Intake Total 1135 ml Output Total 600 ml Balance 535 ml Result Diagram: 06/18/17 0230 06/18/17 0230 Other Results Microbiology Date/Time Source Procedure Growth Status 06/16/17 12:48 Blood Peripheral Aerobic Blood Culture - Preliminary NO GROWTH IN 1 DAY Resulted 06/16/17 12:48 Blood Peripheral Anaerobic Blood Culture - Preliminary NO GROWTH IN 1 DAY Resulted 06/16/17 04:50 Stool Stool Stool Occult Blood (KAYLAN) - Final HEMOCCULT NEGATIVE Complete 06/16/17 03:45 Sputum Endotracheal Gram Stain - Final Resulted 06/16/17 03:45 Sputum Culture - Preliminary S. Aureus Mrsa Resulted Imaging Last Impressions Abdomen X-Ray 06/18/17 0000 Signed Impressions: Service Date/Time: Sunday, June 18, 2017 04:46 - CONCLUSION: Interval development of gaseous distention of the colon. Blu Chilel MD Chest X-Ray 06/17/17 0600 Signed Impressions: Service Date/Time: Saturday, June 17, 2017 04:16 - CONCLUSION: Persistent left lower lung consolidation and patchy infiltrates in the medial right lower lung. Blu Chilel MD Upper Extremity Ultrasound 06/16/17 0000 Signed Impressions: Service Date/Time: Friday, June 16, 2017 11:00 - CONCLUSION: Normal examination. No evidence of DVT Shoaib Pastor MD Head CT 06/15/17 0000 Signed Impressions: Service Date/Time: May 04:26 - CONCLUSION: 1. No acute intracranial abnormality. 2. Chronic small vessel ischemic change more pronounced on the left. 3. Right frontal lobe encephalomalacia. 4. Atrophy Blu Mayfield Jr., MD Chest CT 06/15/17 0000 Signed Impressions: Service Date/Time: May 04:30 - CONCLUSION: 1. 2 focal rounded filling defects involving an enlarged right atrium. I'm concerned this represents mural thrombus. 2. Significant cardiomegaly. 3. Bibasilar infiltrates. Blu Mayfield Jr., MD Brain MRI 06/15/17 0000 Signed Impressions: Service Date/Time: May 20:50 - CONCLUSION: 1. Multiple subacute infarcts are demonstrated. Please see above. 2. There is an old infarct posteriorly of the right frontal lobe as well. 3. No mass, mass effect or midline shift. No bleed. Darin Preston MD Abdomen/Pelvis CT 06/15/17 0000 Signed Impressions: Service Date/Time: May 04:30 - CONCLUSION: 1. Area of poor enhancement involving the spleen as detailed above. Differential diagnostic considerations would include an area of splenic infarction or in the right clinical setting splenic laceration. No intraperitoneal hematoma seen. 2. Constipation with distended colon. 3. Cholelithiasis. 4. 1.7 cm right adrenal gland nodule that cannot be further characterized on this study. Blu Mayfield Jr., MD Objective Remarks GENERAL: 86-year-old female, critically ill currently orotracheally intubated SKIN: Warm and dry. Great toes bilaterally are currently dusky HEAD: Atraumatic. Normocephalic. EYES: Pupils round, 3 to 4 mm and sluggishly reactive bilaterally. No scleral icterus. No injection or drainage. ENT: No nasal bleeding or discharge. Mucous membranes moist and pink oropharynx without erythema. Thrush noted NECK: Trachea midline. No JVD. Right IJ 5 lm catheter is clean dry and intact CARDIOVASCULAR: Prior sternotomy scar noted. Well-healed. Tachycardia, IR. S1 , S2 no S4. Without murmur RESPIRATORY: Coarse rhonchi appreciated bilaterally. Symmetrical excursion. GASTROINTESTINAL: Abdomen more formed today. Hyperactive bowel sounds are appreciated. No high-pitched sounds appreciated. PEG tube in place without erythema/skin breakdown currently drainage of gastric contents : Camilo in place with yellow urine output. MUSCULOSKELETAL: Right upper extremity edema noted NEUROLOGICAL: No facial droop noted. Again squeezes with left hand to command. Moving bilateral lower extremities left greater than right. Minimal movement right upper extremity with noxious stimulation. Positive gag. Positive corneal reflex. Urinary Catheter: Yes Assessment to: Continue Camilo insert reason: Prolonged Immobilization Vascular Central Line Catheter: Yes Assessment to: Continue Date of Insertion: Jun 15, 2017 Line: Central Venous Catheter Side: Right Location: Internal, Jugular A/P Problem List: (1) Hypokalemia ICD Code: E87.6 - Hypokalemia Status: Acute (2) Aspiration pneumonia ICD Code: J69.0 - Pneumonitis due to inhalation of food and vomit Status: Acute (3) Respiratory failure with hypoxia ICD Code: J96.91 - Respiratory failure, unspecified with hypoxia Status: Acute (4) Dysphagia ICD Code: R13.10 - Dysphagia, unspecified Status: Chronic (5) Respiratory failure, acute ICD Code: J96.00 - Acute respiratory failure, unspecified whether with hypoxia or hypercapnia (6) History of stroke ICD Code: Z86.73 - Personal history of transient ischemic attack (TIA), and cerebral infarction without residual deficits (7) Moderate protein malnutrition ICD Code: E44.0 - Moderate protein-calorie malnutrition Status: Chronic Assessment and Plan NEURO/Psych: Recent history of L MCA stroke 05/21/17 -left periventricular white matter, left temporal, left parietal and right parietal Residual R hemiparesis, dysphagia, inability to ambulate. R frontal encephalomalacia Patient had "small hemorrhagic conversion" noted on MRI at outside hospital. Neurology consulted on 06/[address] on 06/07 and if no worsening hemorrhage, can start Eliquis and d/c ASA. MRI brain 06/15 revealed old right frontal posterior infarct, subacute left parametric white matter 17 x 52 mm, left temporal 19 x 32 mm, left parietal 16 mm and cluster right parietal areas of subacute EEG 06/15 revealed bilateral abnormalities slowing rhythms more left. No ictal/ discharge is noted Currently on propofol at 25 mics grams per kilogram per minute Goal of RA SS -2. Daily sedation vacation RESP: Acute respiratory failure Acute Aspiration Pneumonia [facility] /09/29/34 Ventilator bundle Albuterol/ipratropium aerosols every 4 hours with albuterol aerosols every 2 hours as needed Dyspnea CT thorax 06/15- bibasilar opacities. ?R atrial mural thrombus. Chest x-ray 06/17 revealed right greater than left lower lobe infiltrates. CV: Atrial fibrillation with [id number] ?Right Atrial thrombus - not documented on 2-D echocardiogram H/o mitral valve replacement Hyperlipidemia Yesterday initiated on diltiazem 30 mg 4 times a day and metoprolol 12.5 every 8 hours On digoxin 0.125 mg by PEG daily. Recheck digoxin level in AM. Currently 1.0 Currently on diltiazem drip at 5 mg an hour due to nothing by mouth status. Switch digoxin 0.125 mg IV daily. 2-D echocardiogram revealed the left ventricular systolic function is mildly reduced with an estimated ejection fraction in the range of 45- 50%. Normal left ventricular size. Wall thickness is normal. No regional wall motion abnormalities are present. The left atrial size is severely dilated. The right atrial size is severely dilated. Mitral valve annuloplasty ring is present. Moderate thickening of the mitral valve leaflets. [id number] mitral valve regurgitation. Diffuse calcification of the aortic valve. Mild-to- moderate aortic valve regurgitation. No aortic valve stenosis. Aortic valve area is 1.4cm. Aortic valve mean gradient is 9 mmHg. There is trace tricuspid valve regurgitation. The estimated pulmonary arterial pressure is 41.8 mmHg. Echocardiogram 06/18 revealed 1.35 x 1.38 cm right atrial thrombus/mass Holding heparin drip currently secondary to possible GI bleed last need for colonoscopy Hold ASA. Continue atorvastatin 40 mg by mouth daily for dyslipidemia when able to take medications by PEG GI: Constipation Cholelithiasis Splenic infarct Chronic moderate protein energy malnutrition Hypoalbuminemia Start trickle feeds vital 1.5 goal 45 cc an hour. Currently at 30 cc an hour PEG in place. CT abd/pelvis revealed spleen abnormalities suggest splenic infarct. Laceration felt to be less likely. No hematoma. No recent mechanism for injury reported. Docusate sodium/Senokot/MiraLAX twice a day and lactulose every 6 hours for bowel regimen KUB 06/18 revealed gaseous distention of the colon cecum 11.[address] abdomen/pelvis pending Plan for GI consult for possible decompression of the colon FEN/RENAL: Hypophosphatemia Switch to D5 1 half normal saline with 20 kcl at 100 cc an hour hOlding free water every 8 hours ICU electrolyte protocol initiated. 30 mmol sodium phosphate IV 1 now. Recheck in a.m. ID: Aspiration pneumonia Thrush Coag negative staph bacteremia MRSA sputum positive Blood cultures have been sent. Send. sputum cultures. Received aztreonam, metronidazole, levofloxacin in the ED 06/14. Vancomycin added due to MRSA risk ECF and current gram-positive cocci in blood Has been on Nystatin for thrush since 06/02/17. We'll resume with stop date 5 days UA negative Blood cultures 2 06/15 with CONS. Repeat 06/16 no growth Influenza negative Sputum 06/16 MRSA Infectious disease following Preliminary read of echocardiogram revealed no vegetation on mitral valve HEME: Leukocytosis Normocytic anemia Possible melanotic stool this a.m. but currently brown Hemoglobin 06/16 negative. Currently holding heparin anticoagulation due to Afib. Previously on Apixaban ENDO: Monitor bedside glucose and initiate insulin sliding scale if needed. TSH 0.546. T4 slightly elevated at 1.8 PROPH: Heparin drip will provide DVT prophylaxis when able to resume currently on hold Pantoprazole 40 mg IV twice a day for stress ulcer prophylaxis. ACCESS: Right IJ 5 lm catheter day #4 Right femoral arterial line day #4 Discussed with son Terrance plan of care 06/18. Continue Alternate code status. Intubation and ACLS drugs only. No shock. No CPR. Problem Qualifiers (1) Respiratory failure with hypoxia: Qualified Codes: J96.01 - Acute respiratory failure with hypoxia Harman Manning MD Jun 18, 2017 08:11
[2017-06-18] MEDS: SENNOSIDES SYRUP 8.8 MG/5 ML CUP OG-TUBE SCH ×2 (09:00→21:00)
[2017-06-18] MEDS: DOCUSATE SODIUM 100 MG/10 ML UDC OG-TUBE SCH (09:00)
[2017-06-18] MEDS ORDERED: SODIUM BICARBONATE 8.4% INJ 150 MEQ in DEXTROSE 5% IN WATE 1000ML INJ 1,000 ML IV SCH ×2 (09:00)
[2017-06-18] MEDS: PRAVASTATIN SOD 40 MG TAB OG-TUBE SCH (09:00)
[2017-06-18] MEDS: POLYETHYLENE GLYCOL 17 GM PKG OG-TUBE SCH (09:00)
[2017-06-18] MEDS: LACTULOSE SYRUP 20 GM/30 ML CUP PO SCH ×2 (09:00→12:18)
[2017-06-18] MEDS: NYSTATIN SUSP 500,000 U/5 ML CUP OROPHARYNG SCH ×4 (09:00→22:05)
[2017-06-18] MEDS: DILTIAZEM INJ 125 MG in SODIUM CHLORIDE 0.9% INJ 100 ML IV PRN ×2 (09:39→18:55)
[2017-06-18] MEDS: SODIUM CHLORIDE 0.9% FLUSH 10 ML FLUSH IV FLUSH SCH ×2 (09:40→22:03)
[2017-06-18] MEDS: SODIUM CHLORIDE 0.9% FLUSH 10 ML FLUSH IVF SCH (09:40)
[2017-06-18] MEDS: DIGOXIN 0.5 MG/2 ML VIAL IV PUSH SCH (09:53)
[2017-06-18] MEDS ORDERED: IOHEXOL 350 MG/ML 10 ML VIAL (for RAD DIAG) IV PUSH ONE (09:54)
[2017-06-18 10:04] LABS: BLOOD GAS BASE EXCESS -9.9 mmol/L (-2-2); BLOOD GAS CARBOXYHEMOGLOBIN 1.1 % (0-4); BLOOD GAS HCO3 14 mmol/L (22-26); BLOOD GAS METHEMOGLOBIN 1.1 % (0-2); BLOOD GAS O2 HGB SATURATION 98 % (90-100); BLOOD GAS OXYGEN CONTENT 14.6 Vol % (12.0-20.0); BLOOD GAS PCO2 24 mmHg (38-42); BLOOD GAS PO2 271 mmHg (61-120); BLOOD GAS TOTAL HGB 10.1 G/DL (12.0-16.0); TEMP CORR TO 98.6
[2017-06-18 10:05] LABS: CRITICAL VALUE YES; DRAW SITE ART LINE; FIO2 100 %; OXYGEN DEVICE VENTILATOR; STAT NO; VENT SETTINGS PRVC/14/500/IT 1.0
--- NOTE | 2017-06-18 11:09 | RADRPT ---
EXAM DATE/TIME: 06/18/2017 10:29 [place] COMPARISON: CT THORAX W CONTRAST, June 15, 2017, 4:30. CT ABDOMEN & PELVIS W CONTRAST, June 15, 2017, 4:30. INDICATIONS : Abdomen pain. IV CONTRAST: 100 cc Omnipaque 350 (iohexol) IV ORAL CONTRAST: No oral contrast ingested. RADIATION DOSE: 9.96 CTDIvol (mGy) MEDICAL HISTORY : Stroke. SURGICAL HISTORY : None. ENCOUNTER: Initial ACUITY: 1 day PAIN SCALE: 5/10 LOCATION: Bilateral abdomen. TECHNIQUE: Volumetric scanning of the abdomen and pelvis was performed. Using automated exposure control and ad justment of the mA and/or kV according to patient size, radiation dose was kept as low as reasonably achievable to obtain optimal diagnostic quality images. DICOM format image data is available electro nically for review and comparison. FINDINGS: LOWER LUNGS: The heart is enlarged with prior tricuspid and mitral valvar placement. There are 2 nodular mass like areas within the right atrium measuring up to 2.1 cm, stable from the prior study. Trace bilateral p leural fluid is present with volume loss in both lower lobes. LIVER: Liver demonstrates a morphology suspicious for cirrhosis with caudate lobe hypertrophy. There are 2 l ow-density lesions in the liver measuring up to 16 mm and both have density measurements characterist ic of cysts. Multiple stones in the gallbladder. No gallbladder wall thickening is present. There is no dilation of the biliary tree. SPLEEN: The spleen is normal in size but there are areas of hypoenhancement that are somewhat wedge-shaped at the superior aspect. PANCREAS: Within normal limits. KIDNEYS: Normal in size and shape. There are low density lesions within the kidneys measuring up to 2 cm and the right kidney. These have density measurements consistent with cysts. Some of the subcentimeter le sions are too small to characterize. There is an area of hypoenhancement in the lower pole the right kidney. No hydronephrosis is present. ADRENAL GLANDS: There is a stable right adrenal gland mass measuring 14 mm with Hounsfield measurements of 45. Left a drenal gland is normal. VASCULAR: There is no aortic aneurysm. There is moderate atherosclerotic disease of the aorta. A left groin a f emoral arterial line is present. BOWEL/MESENTERY: Gastric tube is present within the distal gastric body. Small bowel and colon demonstrate no acute fi nding. There is a small amount of fluid throughout the small intestine. There is small volume of free fluid in the abdomen and pelvis. There is no free intraperitoneal air. ABDOMINAL WALL: There is anasarca. RETROPERITONEUM: There is no lymphadenopathy. BLADDER: Urinary bladder is decompressed with a Camilo catheter present. REPRODUCTIVE: Within normal limits. INGUINAL: There is no lymphadenopathy or hernia. MUSCULOSKELETAL: There are degenerative changes of the spine but no acute abnormality is seen. CONCLUSION: 1. Persistent wedge-shaped areas of hypoenhancement within the spleen likely representing infarcts. T here is questionable area of hypoenhancement the lower pole the right kidney as well which could also represent infarct. Suggest attention to these a followup imaging. 2. There is a small volume of free fluid in the abdomen and pelvis along with a trace bilateral pleur al fluid effusions and anasarca. 3. Cardiomegaly with 2 stable nodular areas in the right atrium representing either thrombus or mass. These measure up to 2 cm. 4. Otherwise, as above. Darin Pederson MD on June 18, 2017 at 10:57 Board Certified Radiologist. This report was verified electronically.
[2017-06-18] MEDS: ALBUMIN HUMAN 25% 25 GM/100 ML BAGP IV SCH ×2 (11:58→23:26)
[2017-06-18] MEDS: LINEZOLID 600 MG PREMIX 300 ML IV SCH (11:59)
[2017-06-18 12:31] LABS: AMYLASE 14 U/L (25-115)
[2017-06-18 13:09] LABS: AUTOMATED NEUTROPHIL # 8.4 TH/MM3 (1.8-7.7); BASOPHIL % 0.2 % (0.0-2.0); EOSINOPHIL # 0.4 TH/MM3 (0-0.4); EOSINOPHIL % 3.6 % (0.0-4.0); HEMATOCRIT 29.5 % (35.0-46.0); HEMO FLAGS DIFF FINAL; LYMPH % 5.9 % (9.0-44.0); LYMPHOCYTE # 0.6 TH/MM3 (1.0-4.8); MEAN CELL VOLUME 90.4 FL (80.0-100.0); MEAN CORPUSCULAR HGB CONC 32.1 % (32.0-36.0); MONO % 5.4 % (0.0-8.0); NEUT % 84.9 % (16.0-70.0); PLATELET COUNT 182 TH/MM3 (150-450); RED BLOOD COUNT 3.26 MIL/MM3 (4.00-5.30); RED CELL DISTRIBUTION WIDTH 14.6 % (11.6-17.2); WHITE BLOOD COUNT 9.9 TH/MM3 (4.0-11.0)
--- NOTE | 2017-06-18 13:11 | HHI.IDPN ---
Subjective Subjective Remarks events noted + GI bleeding today remains on vent more + blood clx (staph epi) Antibiotics vancomycin azacam levaquine flagyl Allergies: Coded Allergies: penicillin G (Unverified Allergy, Severe, 05/09/17) shellfish derived (Verified Allergy, Unknown, 06/15/17) Objective . Vital Signs Date Time Temp Pulse Resp B/P (MAP) Pulse Ox O2 Delivery O2 Flow Rate FiO2 06/18/17 11:12 100 100 06/18/17 09:45 100 50 06/18/17 09:39 96 126/63 06/18/17 06:00 88 06/18/17 04:03 99 35 06/18/17 04:00 90 06/18/17 04:00 35 06/18/17 04:00 96.7 90 22 97/62 (74) 94 148/75 (99) 06/18/17 02:00 113 06/18/17 01:50 143 113/58 06/18/17 00:05 100 35 06/18/17 00:00 97.1 113 23 100 143/68 (93) 06/18/17 00:00 35 06/18/17 00:00 113 06/17/17 22:00 130 06/17/17 20:00 99 35 06/17/17 20:00 138 06/17/17 20:00 97.2 138 20 130/49 (76) 99 136/67 (90) 06/17/17 20:00 35 06/17/17 18:00 135 06/17/17 17:47 99 35 06/17/17 16:00 138 06/17/17 16:00 98.7 138 31 97/62 (74) 116/72 (87) 06/17/17 16:00 35 06/17/17 15:38 35 06/17/17 15:34 100 35 06/17/17 15:32 100 35 06/17/17 14:00 96 06/18/17 06/18/17 06/19/17 15:00 23:00 07:00 Intake Total 1925 ml Balance 1925 ml Intake IV Total 1925 ml . Laboratory Tests Test 06/17/17 05:00 06/18/17 02:30 White Blood Count 13.5 TH/MM3 12.4 TH/MM3 Red Blood Count 4.22 MIL/MM3 3.67 MIL/MM3 Hemoglobin 12.2 GM/DL 10.4 GM/DL Hematocrit 38.7 % 33.5 % Mean Corpuscular Volume 91.8 FL 91.3 FL Mean Corpuscular Hemoglobin 29.0 PG 28.3 PG Mean Corpuscular Hemoglobin Concent 31.6 % 31.0 % Red Cell Distribution Width 15.1 % 15.0 % Platelet Count 220 TH/MM3 221 TH/MM3 Mean Platelet Volume 9.2 FL 8.9 FL Neutrophils (%) (Auto) 81.2 % 85.7 % Lymphocytes (%) (Auto) 6.7 % 5.5 % Monocytes (%) (Auto) 7.6 % 6.2 % Eosinophils (%) (Auto) 4.1 % 2.4 % Basophils (%) (Auto) 0.4 % 0.2 % Neutrophils # (Auto) 10.9 TH/MM3 10.6 TH/MM3 Lymphocytes # (Auto) 0.9 TH/MM3 0.7 TH/MM3 Monocytes # (Auto) 1.0 TH/MM3 0.8 TH/MM3 Eosinophils # (Auto) 0.6 TH/MM3 0.3 TH/MM3 Basophils # (Auto) 0.1 TH/MM3 0.0 TH/MM3 CBC Comment DIFF FINAL DIFF FINAL Differential Comment Laboratory Tests Test 06/16/17 22:00 06/17/17 05:00 06/18/17 02:30 06/18/17 12:43 Potassium Level 5.3 MEQ/L 4.9 MEQ/L 4.1 MEQ/L Blood Urea Nitrogen 24 MG/DL 17 MG/DL Creatinine 0.68 MG/DL 0.57 MG/DL Random Glucose 135 MG/DL 144 MG/DL Total Protein 5.6 GM/DL 5.5 GM/DL Albumin 2.1 GM/DL 2.6 GM/DL Calcium Level 7.7 MG/DL 7.4 MG/DL Phosphorus Level 3.4 MG/DL 1.8 MG/DL Magnesium Level 2.0 MG/DL 2.0 MG/DL Alkaline Phosphatase 96 U/L 80 U/L Aspartate Amino Transf (AST/SGOT) 29 U/L 19 U/L Alanine Aminotransferase (ALT/SGPT) 20 U/L 17 U/L Total Bilirubin 0.5 MG/DL 0.5 MG/DL Sodium Level 145 MEQ/L 141 MEQ/L Chloride Level 117 MEQ/L 114 MEQ/L Carbon Dioxide Level 20.6 MEQ/L 18.1 MEQ/L Anion Gap 7 MEQ/L 9 MEQ/L Estimat Glomerular Filtration Rate 82 ML/MIN 101 ML/MIN Protein Corrected Calcium 8.3 MG/DL Amylase Level 14 U/L Lipase 65 U/L Microbiology Date/Time Source Procedure Growth Status 06/16/17 12:48 Blood Peripheral Aerobic Blood Culture - Preliminary NO GROWTH IN 2 DAYS Resulted 06/16/17 12:48 Blood Peripheral Anaerobic Blood Culture - Preliminary NO GROWTH IN 2 DAYS Resulted 06/16/17 11:40 Blood Peripheral Aerobic Blood Culture - Preliminary Staphylococcus Epidermidis Resulted 06/16/17 11:40 Blood Peripheral Anaerobic Blood Culture - Preliminary NO GROWTH IN 2 DAYS Resulted 06/18/17 04:06 Stool Stool Stool Occult Blood (KAYLAN) - Final HEMOCCULT POSITIVE Complete 06/16/17 04:50 Stool Stool Stool Occult Blood (KAYLAN) - Final HEMOCCULT NEGATIVE Complete 06/16/17 03:45 Sputum Endotracheal Gram Stain - Final Complete 06/16/17 03:45 Sputum Culture - Final S. Aureus Mrsa Complete 06/16/17 03:30 Nasal Aspirate Influenza Types A,B Antigen (KAYLAN) - Final NEGATIVE FOR FLU A AND B ANTIGEN.... Complete Imaging Last Impressions Abdomen/Pelvis CT 06/18/17 0000 Signed Impressions: Service Date/Time: Sunday, June 18, 2017 10:29 - CONCLUSION: 1. Persistent wedge-shaped areas of hypoenhancement within the spleen likely representing infarcts. There is questionable area of hypoenhancement the lower pole the right kidney as well which could also represent infarct. Suggest attention to these a followup imaging. 2. There is a small volume of free fluid in the abdomen and pelvis along with a trace bilateral pleural fluid effusions and anasarca. 3. Cardiomegaly with 2 stable nodular areas in the right atrium representing either thrombus or mass. These measure up to 2 cm. 4. Otherwise, as above. Darin Pederson MD Abdomen X-Ray 06/18/17 0000 Signed Impressions: Service Date/Time: Sunday, June 18, 2017 04:46 - CONCLUSION: Interval development of gaseous distention of the colon. Blu Chilel MD Chest X-Ray 06/17/17 0600 Signed Impressions: Service Date/Time: Saturday, June 17, 2017 04:16 - CONCLUSION: Persistent left lower lung consolidation and patchy infiltrates in the medial right lower lung. Blu Chilel MD Upper Extremity Ultrasound 06/16/17 0000 Signed Impressions: Service Date/Time: Friday, June 16, 2017 11:00 - CONCLUSION: Normal examination. No evidence of DVT Shoaib Pastor MD Head CT 06/15/17 0000 Signed Impressions: Service Date/Time: May 04:26 - CONCLUSION: 1. No acute intracranial abnormality. 2. Chronic small vessel ischemic change more pronounced on the left. 3. Right frontal lobe encephalomalacia. 4. Atrophy Blu Mayfield Jr., MD Chest CT 06/15/17 Signed Impressions: Service Date/Time: May 04:30 - CONCLUSION: 1. 2 focal rounded filling defects involving an enlarged right atrium. I'm concerned this represents mural thrombus. 2. Significant cardiomegaly. 3. Bibasilar infiltrates. Blu Mayfield Jr., MD Brain MRI 06/15/17 Signed Impressions: Service Date/Time: May 20:50 - CONCLUSION: 1. Multiple subacute infarcts are demonstrated. Please see above. 2. There is an old infarct posteriorly of the right frontal lobe as well. 3. No mass, mass effect or midline shift. No bleed. Darin Preston MD Physical Exam CONSTITUTIONAL/GENERAL: This is an adequately nourished patient, in no apparent distress. TUBES/LINES/DRAINS: SKIN: No jaundice, rashes, or lesions. Skin temperature appropriate. Not diaphoretic. EYES: Pupils equal and round and reactive. No scleral icterus. No injection or drainage. Fundi not examined. ENT: Visible oral mucosae moist Dentition in fair condition Orally intubated CARDIOVASCULAR: Irregular rate and rhythm without murmurs, gallops, or rubs. No JVD. Signs of poor perfusion with delayed refill RESPIRATORY/CHEST: Symmetric, unlabored respirations. Rhonchi to auscultation. Breath sounds equal bilaterally. No wheezes, rales, or rhonchi. GASTROINTESTINAL: Abdomen soft, no re action to palpation, moderately distended. . Bowel sounds diminished PEG in place LUQ GENITOURINARY: Without palpable bladder distension. Camilo catheter in place with cloudy chyna urine MUSCULOSKELETAL: Extremities without clubbing,, or edema. + cyanosis No joint tenderness or effusion noted. No calf tenderness. + mottling of feet LYMPHATICS: No palpable cervical or supraclavicular adenopathy. NEUROLOGICAL: Sedated, unresponsive PSYCHIATRIC: unable to assess Assessment & Plan Remarks Critically ill, unstable Acute VDRF ARF- resolved Aspiration pneumonia vs pneumonitis High grade presumably coag neg staph bacteremia in the settings of mitral valve repair with ring - however, different morphology is present - splenic infacts is a concern for underlying L sided endocarditis 2 D echo negative - repeat BC negative so far pcn ALLERGY CONT start vancomycin dc zyvox po cont azactam for now : dc if urine negative dc levaquin, flagyl again repeat blood clx fu repeat blood clx chk urine clx consider ALVIN if she is a candidate: will need ALVIN for abx treatment decisions (duration and nephrotoxicity is a concern) If confirmed or highly probable endocarditis will have to use PVE Rx (vanc+ gent + rif) kayley rodriguez @ b/s Chantal [address]rell Dr, RN, MD Jun 18, 2017 13:11
[2017-06-18 13:15] LABS: APTT (PATIENT) 60.2 SEC (24.3-30.1); INTERNATIONAL NORMALIZED RATIO 1.2 RATIO; PROTHROMBIN TIME - PATIENT 13.6 SEC (9.8-11.6)
[2017-06-18] MEDS ORDERED: Vancomycin Consult Pharmacy 1 EA OTHER PRN (13:15)
--- NOTE | 2017-06-18 14:35 | ECHRPT ---
Indication: vegetation CONCLUSIONS Limited echo, please see full echo 06-15-17 There is an apparent thrombus noted in the right atrial cavity. (1.5cm x 1.5cm), much better visual ized this study but probably present prior study as well. The right atrial size is severely dilated. No obvoius vegetation seen. LVEF estimated at 40-45%% BP: 148 / 75 HR: 99 Rhythm: Sinus Technical Quality:Good FINDINGS RIGHT ATRIUM There is an apparent thrombus noted in the right atrial cavity. (1.5cm x 1.5cm) The right atrial size is severely dilated. Robin Gama MD (Electronically Signed) Final Date:18 June 2017 14:34
[2017-06-18] MEDS: CHLORHEXIDINE 0.12% (ORAL KIT) 15 ML CUP MT SCH ×2 (14:40→22:03)
[2017-06-18] MEDS: VANCOMYCIN 1,500 MG/NS 500 ML IV SCH ×2 (15:36)
[2017-06-18 16:55] LABS: BLOOD, URINE MOD (NEG); GLUCOSE,URINE NEG (NEG); KETONE, URINE NEG (NEG); MUCUS URINE FEW /lpf (OCC); NITRITE,URINE NEG (NEG); URINE COLOR YELLOW (YELLW/STRAW)
[2017-06-18 16:58] LABS: COMMENT (UR) CATH-CULTURE IND; CULTURE IF INDICATED CATH CULTURE IND
[2017-06-18] MEDS: D5-1/2 NS + KCL 20 MEQ INJ 1,000 ML IV SCH (18:00)
--- NOTE | 2017-06-18 18:27 | PD.CONS ---
HPI History of Present Illness This is a 86 year old female with was sent to ED by [facility] from [facility] with respiratory distress and GCS 7. Patient was intubated at the scene by [facility]. 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 GI was consulted due to 1 large bloody bowel movement overnight. RN reports no blood noted in stool today and stool is currently brown in color. Hemoccult positive stools. Patient is on Heparin drip for mural thrombus and high risk for CVA. (Hillary Lynn) PFSH Past Medical History Atrial fibrillation CVA Dyslipidemia Hypertension CHF Valvular heart disease Diabetes Nodular basal cell carcinoma face Past Surgical History Cardiac catheterization 09/11/14normal coronaries (Dr. Mahoney) Biopsy right gnosticism skin cancer Biopsy right nasal labial fold for basal cell carcinoma Bilateral cataract surgery section 3 Tonsillectomy Arthroscopy of knee Mitral valve replacement (Hillary Lynn) Coded Allergies: penicillin G (Unverified Allergy, Severe, 05/09/17) shellfish derived (Verified Allergy, Unknown, 06/15/17) Medications Current Medications Medications (Trade) Dose Ordered Sig/Kayla Route PRN Reason Start Time Stop Time Status Last Admin Dose Admin Diltiazem HCl 125 mg/Sodium Chloride 125 ml @ 5 mls/hr TITRATE PRN IV tachycardia 06/15/17 00:30 06/18/17 09:39 Potassium Chloride 100 ml @ 50 mls/hr Q2H PRN IV For Potassium 2.8 - 3.2 mEq/L 06/15/17 03:00 Potassium Chloride 100 ml @ 50 mls/hr Q2H PRN IV For Potassium 2.8 - 3.2 mEq/L 06/15/17 03:00 Potassium Bicarb/ Potassium Chloride (K-Lyte Cl Eff) 50 meq UNSCH PRN PO For Potassium 3.3 - 3.5 mEq/L 06/15/17 03:00 Potassium Chloride 100 ml @ 25 mls/hr UNSCH PRN IV For Potassium 3.3 - 3.5 mEq/L 06/15/17 03:00 06/16/17 06:14 Potassium Chloride 100 ml @ 50 mls/hr Q2H PRN IV For Potassium 3.3 - 3.5 mEq/L 06/15/17 03:00 Magnesium Sulfate 4 gm/Sodium Chloride 100 ml @ 50 mls/hr UNSCH PRN IV For Magnesium 0.9 - 1.1 mg/dL 06/15/17 03:00 Magnesium Oxide (Mag-Ox) 800 mg UNSCH PRN PO For Magnesium 1.2 - 1.6 mg/dL 06/15/17 03:00 Magnesium Sulfate 2 gm/Sodium Chloride 100 ml @ 50 mls/hr UNSCH PRN IV For Magnesium 1.2 - 1.6 mg/dL 06/15/17 03:00 Potassium Phosphate (K-Phos) 2,000 mg Q4H PRN PO For Phosphorus < 2.5 mg/dL 06/15/17 03:00 Sodium Phosphate 30 mmol/Sodium Chloride 250 ml @ 42 mls/hr UNSCH PRN IV For Phosphorus < 2.5 mg/dL 06/15/17 03:00 Potassium Phosphate (K-Phos) 2,000 mg UNSCH PRN PO/TUBE SEE LABEL COMMENTS 06/15/17 03:00 Potassium Phosphate 30 mmol/ Sodium Chloride 260 ml @ 42 mls/hr UNSCH PRN IV SEE LABEL COMMENTS 06/15/17 03:00 Nystatin (Mycostatin Liq) 5 ml QID OROPHARYNG 06/15/17 09:00 06/20/17 08:59 06/18/17 17:28 Aztreonam 2000 mg/ Sodium Chloride 100 ml @ 200 mls/hr Q8H IV 06/15/17 10:00 06/18/17 12:17 Sodium Chloride (NS Flush) 2 ml UNSCH PRN IV FLUSH FLUSH AFTER USING IV ACCESS 06/15/17 03:00 Sodium Chloride (NS Flush) 2 ml BID IV FLUSH 06/15/17 09:00 06/18/17 09:40 Ondansetron HCl (Zofran Inj) 4 mg Q6H PRN IV PUSH NAUSEA OR VOMITING 06/15/17 03:00 Albuterol Sulfate (Albuterol Neb) 2.5 mg Q2HR NEB PRN INH SOB/WHEEZING 06/15/17 03:00 Miscellaneous Information 1 Q361D XX 06/15/17 03:00 06/15/17 03:00 Chlorhexidine Gluconate (Chlorhexidine 2% Cloth) 3 pack Taper DAILY@04 TOP 06/15/17 04:00 06/11/18 03:59 06/18/17 04:00 Chlorhexidine Gluconate (Chlorhexidine 2% Cloth) 3 pack UNSCH PRN TOP HYGIENIC CARE 06/15/17 03:00 Magnesium Hydroxide (Milk Of Magnesia Liq) 30 ml Q12H PRN PO MILD - MODERATE CONSTIPATION 06/15/17 03:00 Sennosides (Senokot) 17.2 mg Q12H PRN PO MODERATE - SEVERE CONSTIPATION 06/15/17 03:00 Bisacodyl (Dulcolax Supp) 10 mg DAILY PRN RECTAL SEVERE CONSITIPATION 06/15/17 03:00 Lactulose (Lactulose Liq) 30 ml DAILY PRN PO SEVERE CONSITIPATION 06/15/17 03:00 Phenylephrine HCl 160 mg/Dextrose 500 ml @ 7.5 mls/hr TITRATE PRN IV Blood pressure management 06/15/17 11:00 06/15/17 14:54 Terbutaline Sulfate (Brethine Inj) 1 mg UNSCH PRN SQ For Extravasation 06/15/17 11:00 Sennosides (Senna Liq) 8.8 mg BID OG-TUBE 06/15/17 21:00 06/17/17 20:20 Esmolol HCl/ Sodium Chloride 250 ml @ 23.85 mls/ hr TITRATE PRN IV Blood Pressure Management 06/15/17 11:15 06/16/17 14:38 Sodium Chloride (NS Flush) DAILY IVF 06/16/17 09:00 06/18/17 09:40 Sodium Chloride (NS Flush) UNSCH PRN IVF SEE PROTOCOL 06/15/17 11:15 Pravastatin Sodium (Pravachol) 40 mg DAILY OG-TUBE 06/15/17 12:45 06/17/17 08:24 Chlorhexidine Gluconate (Peridex 0.12% Liq) 15 ml BID@08,20 MT 06/15/17 20:00 06/18/17 14:40 Propofol 100 ml @ 2.385 mls/ hr TITRATE PRN IV SEDATION 06/15/17 11:45 06/18/17 12:30 Fentanyl Citrate 250 ml @ 5 mls/hr TITRATE PRN IV SEDATION 06/15/17 11:45 Acetaminophen (Tylenol 650 Mg/ 20 ml Liq) 650 mg Q6H PRN OG-TUBE fever 06/15/17 11:45 Artificial Tears (Tears Naturale Opth Soln) 1 drop Q8HR EACH EYE 06/15/17 14:00 06/18/17 14:40 Diltiazem HCl (Cardizem) 30 mg Q6HR PO 06/16/17 12:00 06/18/17 17:28 Metoprolol Tartrate (Lopressor) 12.5 mg Q8H PO 06/16/17 10:00 06/18/17 17:28 Miscellaneous (Pill Splitter) 1 ea UNSCH PRN OTHER SEE LABEL COMMENTS 06/16/17 09:30 Dextrose (D50w (Vial) Inj) 50 ml UNSCH PRN IV PUSH HYPOGLYCEMIA-SEE COMMENTS 06/16/17 09:45 Glucagon (Glucagon Inj) 1 mg UNSCH PRN OTHER HYPOGLYCEMIA-SEE COMMENTS 06/16/17 09:45 Insulin Human Regular (NovoLIN R SUPPLEMENTAL SCALE) 1 Q6HR SQ 06/16/17 12:00 06/18/17 00:22 Albumin Human (Albumin 25% Inj) 25 gm Q12H IV 06/17/17 11:00 06/18/17 23:01 06/18/17 11:58 Water (Free Water) VOLUME: 100 ML Q8HR G-TUBE 06/17/17 14:00 06/18/17 05:37 Pantoprazole Sodium (Protonix Inj) 40 mg Q12H IV PUSH 06/18/17 06:00 06/18/17 17:28 Albuterol/ Ipratropium (Duoneb Neb) 1 ampule Q6HR NEB INH 06/18/17 10:00 06/18/17 16:00 Potassium Chloride/Dextrose/ Sod Cl 1,000 ml @ 100 mls/hr Q10H IV 06/18/17 08:00 Digoxin (Lanoxin Inj) 0.125 mg DAILY IV PUSH 06/18/17 09:00 06/18/17 09:53 Sodium Bicarbonate 150 meq/Dextrose 1,150 ml @ 75 mls/hr [id number] IV 06/18/17 09:00 06/19/17 00:19 06/18/17 09:37 Pharmacy Profile Note 0 ml @ 0 mls/hr UNSCH PRN OTHER ADJUST FOR CREATININE CLRNCE 06/18/17 13:15 Vancomycin HCl 1500 mg/Sodium Chloride 515 ml @ 257.5 mls/ hr Q24H IV 06/18/17 15:00 06/18/17 15:36 Miscellaneous Information SPECIFIC LAB TO BE ... ONCE ONCE .XX 06/20/17 14:45 06/20/17 14:46 Heparin Sodium/ Dextrose 250 ml @ 16.65 mls/ hr TITRATE PRN IV Coagulation management 06/18/17 16:32 Family History 2 sisters with colon cancer Social History Unable to assess (Hillary Lynn) Review of Systems ROS Unable to assess (Hillary Lynn) GI Exam Vitals I&O Vital Signs Date Time Temp Pulse Resp B/P (MAP) Pulse Ox O2 Delivery O2 Flow Rate FiO2 06/18/17 16:11 100 45 06/18/17 16:00 45 06/18/17 12:00 45 06/18/17 12:00 106 06/18/17 11:12 100 100 06/18/17 10:00 103 06/18/17 09:45 100 50 06/18/17 09:39 96 126/63 06/18/17 08:00 97 06/18/17 08:00 45 06/18/17 06:00 88 06/18/17 04:03 99 35 06/18/17 04:00 90 06/18/17 04:00 35 06/18/17 04:00 96.7 90 22 97/62 (74) 94 148/75 (99) 06/18/17 02:00 113 06/18/17 01:50 143 113/58 06/18/17 00:05 100 35 06/18/17 00:00 97.1 113 23 100 143/68 (93) 06/18/17 00:00 35 06/18/17 00:00 113 06/17/17 22:00 130 06/17/17 20:00 99 35 06/17/17 20:00 138 06/17/17 20:00 97.2 138 20 130/49 (76) 99 136/67 (90) 06/17/17 20:00 35 I/O 06/17/17 06/17/17 06/17/17 06/18/17 06/18/17 06/18/17 07:00 15:00 23:00 07:00 15:00 23:00 Intake Total 1000 ml 977 ml 1522 ml 2398.0 ml Output Total 500 ml 575 ml 600 ml Balance -500 ml 1000 ml 402 ml 922 ml 2398.0 ml Intake IV Total 1000 ml 200 ml 787 ml 2398.0 ml Tube Feeding 417 ml 485 ml Tube Irrigant 360 ml Other 250 ml Output Urine Total 400 ml 575 ml 400 ml Gastric Drainage Total 100 ml 200 ml # Bowel Movements 1 1 Imaging Last Impressions Abdomen/Pelvis CT 06/18/17 0000 Signed Impressions: Service Date/Time: Sunday, June 18, 2017 10:29 - CONCLUSION: 1. Persistent wedge-shaped areas of hypoenhancement within the spleen likely representing infarcts. There is questionable area of hypoenhancement the lower pole the right kidney as well which could also represent infarct. Suggest attention to these a followup imaging. 2. There is a small volume of free fluid in the abdomen and pelvis along with a trace bilateral pleural fluid effusions and anasarca. 3. Cardiomegaly with 2 stable nodular areas in the right atrium representing either thrombus or mass. These measure up to 2 cm. 4. Otherwise, as above. Darin Pederson MD Abdomen X-Ray 06/18/17 0000 Signed Impressions: Service Date/Time: Sunday, June 18, 2017 04:46 - CONCLUSION: Interval development of gaseous distention of the colon. Blu Chilel MD Chest X-Ray 06/17/17 0600 Signed Impressions: Service Date/Time: Saturday, June 17, 2017 04:16 - CONCLUSION: Persistent left lower lung consolidation and patchy infiltrates in the medial right lower lung. Blu Chilel MD Upper Extremity Ultrasound 06/16/17 0000 Signed Impressions: Service Date/Time: Friday, June 16, 2017 11:00 - CONCLUSION: Normal examination. No evidence of DVT Shoaib Pastor MD Head CT 06/15/17 0000 Signed Impressions: Service Date/Time: May 04:26 - CONCLUSION: 1. No acute intracranial abnormality. 2. Chronic small vessel ischemic change more pronounced on the left. 3. Right frontal lobe encephalomalacia. 4. Atrophy Blu Mayfield Jr., MD Chest CT 06/15/17 0000 Signed Impressions: Service Date/Time: May 04:30 - CONCLUSION: 1. 2 focal rounded filling defects involving an enlarged right atrium. I'm concerned this represents mural thrombus. 2. Significant cardiomegaly. 3. Bibasilar infiltrates. Blu Mayfield Jr., MD Brain MRI 06/15/17 0000 Signed Impressions: Service Date/Time: May 20:50 - CONCLUSION: 1. Multiple subacute infarcts are demonstrated. Please see above. 2. There is an old infarct posteriorly of the right frontal lobe as well. 3. No mass, mass effect or midline shift. No bleed. Darin Preston MD Laboratory Test 06/18/17 02:30 06/18/17 05:59 06/18/17 10:00 06/18/17 12:43 White Blood Count 12.4 TH/MM3 9.9 TH/MM3 Red Blood Count 3.67 MIL/MM3 3.26 MIL/MM3 Hemoglobin 10.4 GM/DL 9.5 GM/DL Hematocrit 33.5 % 29.5 % Mean Corpuscular Volume 91.3 FL 90.4 FL Mean Corpuscular Hemoglobin 28.3 PG 29.0 PG Mean Corpuscular Hemoglobin Concent 31.0 % 32.1 % Red Cell Distribution Width 15.0 % 14.6 % Platelet Count 221 TH/MM3 182 TH/MM3 Mean Platelet Volume 8.9 FL 8.3 FL Neutrophils (%) (Auto) 85.7 % 84.9 % Lymphocytes (%) (Auto) 5.5 % 5.9 % Monocytes (%) (Auto) 6.2 % 5.4 % Eosinophils (%) (Auto) 2.4 % 3.6 % Basophils (%) (Auto) 0.2 % 0.2 % Neutrophils # (Auto) 10.6 TH/MM3 8.4 TH/MM3 Lymphocytes # (Auto) 0.7 TH/MM3 0.6 TH/MM3 Monocytes # (Auto) 0.8 TH/MM3 0.5 TH/MM3 Eosinophils # (Auto) 0.3 TH/MM3 0.4 TH/MM3 Basophils # (Auto) 0.0 TH/MM3 0.0 TH/MM3 CBC Comment DIFF FINAL DIFF FINAL Differential Comment Activated Partial Thromboplast Time 83.3 SEC 60.2 SEC Blood Urea Nitrogen 17 MG/DL Creatinine 0.57 MG/DL Random Glucose 144 MG/DL Total Protein 5.5 GM/DL Albumin 2.6 GM/DL Calcium Level 7.4 MG/DL Phosphorus Level 1.8 MG/DL Magnesium Level 2.0 MG/DL Alkaline Phosphatase 80 U/L Aspartate Amino Transf (AST/SGOT) 19 U/L Alanine Aminotransferase (ALT/SGPT) 17 U/L Total Bilirubin 0.5 MG/DL Sodium Level 141 MEQ/L Potassium Level 4.1 MEQ/L Chloride Level 114 MEQ/L Carbon Dioxide Level 18.1 MEQ/L Anion Gap 9 MEQ/L Estimat Glomerular Filtration Rate 101 ML/MIN Protein Corrected Calcium 8.3 MG/DL Amylase Level 14 U/L Lipase 65 U/L Blood Gas Puncture Site ART LINE ART LINE Blood Gas Patient Temperature 98.6 98.6 Blood Gas HCO3 14 mmol/L 14 mmol/L Blood Gas Base Excess -9.8 mmol/L -9.9 mmol/L Blood Gas Oxygen Saturation 95 % 98 % Arterial Blood pH 7.40 7.39 Arterial Blood Partial Pressure CO2 23 mmHg 24 mmHg Arterial Blood Partial Pressure O2 91 mmHg 271 mmHg Arterial Blood Oxygen Content 14.4 Vol % 14.6 Vol % Arterial Blood Carboxyhemoglobin 1.2 % 1.1 % Arterial Blood Methemoglobin 1.1 % 1.1 % Blood Gas Hemoglobin 10.7 G/DL 10.1 G/DL Oxygen Delivery Device VENT VENTILATOR Blood Gas Ventilator Setting COMMENTS [facility]/14/500/IT 1.0 Blood Gas Inspired Oxygen 35 % 100 % Prothrombin Time 13.6 SEC Prothromb Time International Ratio 1.2 RATIO Fibrinogen 365 mg/dL Lactic Acid Level 0.7 mmol/L Test 06/18/17 16:00 Urine Color YELLOW Urine Turbidity HAZY Urine pH 5.0 Urine Specific [place] 1.029 Urine Protein NEG mg/dL Urine Glucose (UA) NEG mg/dL Urine Ketones NEG mg/dL Urine Occult Blood MOD Urine Nitrite NEG Urine Bilirubin NEG Urine Urobilinogen LESS THAN 2.0 MG/DL Urine Leukocyte Esterase MOD Urine RBC 15 /hpf Urine WBC 16 /hpf Urine Mucus FEW /lpf Microscopic Urinalysis Comment CATH-CULTURE IND Date/Time Source Procedure Growth Status 06/18/17 12:50 Blood Peripheral Aerobic Blood Culture Pending Received 06/18/17 12:50 Blood Peripheral Anaerobic Blood Culture Pending Received 06/18/17 04:06 Stool Stool Stool Occult Blood (KAYLAN) - Final HEMOCCULT POSITIVE Complete 06/16/17 03:45 Sputum Endotracheal Gram Stain - Final Complete 06/16/17 03:45 Sputum Culture - Final S. Aureus Mrsa Complete 06/18/17 16:00 Urine Catheterized Urine Urine Culture Pending Received Physical Examination HEENT: Normocephalic; atraumatic; no jaundice. NECK: Neck is supple CHEST: Coarse rhonchi CARDIAC: Tachycardia, Irregular ABDOMEN: Obese, mild distention, no guarding; bowel sounds hypoactive. PEG tube in place, C/D/I. EXTREMITIES: No clubbing, cyanosis, or edema. SKIN: Normal; no rash; no jaundice. (Hillary Lynn) Assessment and Plan Plan ASSESSMENT: - Lower GIB. One episode of bright red blood noted in stool with Hemoccult positive results. Today stool has been brown with no blood noted. HH 9.5/29.5. No active bleeding noted. - Abdominal distention. KUB (06/18/17)--There is a prominent amount of gas throughout the colon with the cecum measuring 11.5 cm in width. No gas- distended loops of small bowel seen. There is some stool seen in the rectum. CT Abdomen (06/18/17)--1. Persistent wedge-shaped areas of hypoenhancement within the spleen likely representing infarcts. There is questionable area of hypoenhancement the lower pole the right kidney as well which could also represent infarct. Suggest attention to these a followup imaging. 2. There is a small volume of free fluid in the abdomen and pelvis along with a trace bilateral pleural fluid effusions and anasarca. 3. Cardiomegaly with 2 stable nodular areas in the right atrium representing either thrombus or mass. These measure up to 2 cm. 4. Otherwise, as above. - History of stroke, L MCA (05/21/17). Has right sided hemiparesis and dysphagia. PEG tube at 30 cc/hr. - A fib with RVR. Right atrial thrombus? On heparin gtt. PLAN: - Consider colonoscopy for decompression and evaluation of lower GIB - Notify GI of active bleeding - Monitor HH, transfuse as necessary - Supportive care - Further recommendations to follow based on results of above. Patient seen and examined by Dr. Arredondo and myself and this note is written on his behalf. (Hillary Lynn) Physician Comments Patient seen and examined Agree with above Continue with current supportive care And monitor labs Patient had a huge bowel movement earlier in the day and her abdomen is now soft We will proceed with a colonoscopy tomorrow and we will give her an extra dose of laxative to complete her prep (Ashish Arredondo MD) Hillary Lynn Jun 18, 2017 18:27 Ashish Arredondo MD Jun 18, 2017 22:11
[2017-06-18] MEDS ORDERED: NOREPINEPHRINE-DEXTROSE DRIP 0 ML IV ONE (21:03)
[2017-06-18] MEDS: PHENYLEPHRINE INJ 160 MG in DEXTROSE 5% IN WATE 500 ML INJ 484 ML IV PRN ×2 (21:16)
[2017-06-18 21:55] LABS: HEMATOCRIT 31.3 % (35.0-46.0); REVIEW FLAG FINAL
--- NOTE | 2017-06-18 22:10 | HHI.PR ---
Addendum to Inpatient Note Addendum Reason: Additional Documentation Additional Information I will be off June [address] Quiros is covering for me Chantal Garnica MD Jun 18, 2017 22:10
[2017-06-18] MEDS ORDERED: MAGNESIUM CITRATE SOLN 300 ML BTL PO ONE (22:15)
[2017-06-18 22:50] LABS: APTT (PATIENT) 67.4 SEC (24.3-30.1)
[2017-06-19] VITALS (20 sets, daily range): BP systolic 82–131; BP diastolic 44–78; PULSE 71–100; RESP 14–16; TEMP 97.8–98.2; O2SAT 99–100
[2017-06-19] MEDS: DILTIAZEM HCL 30 MG TAB PO SCH ×2 (01:04→06:00)
[2017-06-19] MEDS: METOPROLOL TARTRATE 25 MG TAB PO SCH (02:00)
[2017-06-19] MEDS: AZTREONAM INJ 2,000 MG in SODIUM CHLORIDE 0.9% INJ 100 ML IV SCH ×4 (02:04→20:12)
[2017-06-19] MEDS: CHLORHEXIDINE GLUCONATE 2 % 1 PACK (2 CLOTHS) TOP SCH (04:00)
[2017-06-19] MEDS: D5-1/2 NS + KCL 20 MEQ INJ 1,000 ML IV SCH ×2 (04:00→16:42)
[2017-06-19] MEDS: RESP: ALBUTEROL 2.5 MG/IPRATROPIUM 0.5 MG NEB (SCH) INH ×4 (04:52→21:24)
[2017-06-19 05:00] LABS: AUTOMATED NEUTROPHIL # 10.5 TH/MM3 (1.8-7.7); BASOPHIL % 0.3 % (0.0-2.0); EOSINOPHIL # 0.5 TH/MM3 (0-0.4); EOSINOPHIL % 4.2 % (0.0-4.0); HEMATOCRIT 30.2 % (35.0-46.0); HEMO FLAGS DIFF FINAL; LYMPH % 5.3 % (9.0-44.0); LYMPHOCYTE # 0.7 TH/MM3 (1.0-4.8); MEAN CELL VOLUME 89.6 FL (80.0-100.0); MEAN CORPUSCULAR HEMOGLOBIN 29.4 PG (27.0-34.0); MEAN CORPUSCULAR HGB CONC 32.9 % (32.0-36.0); MONO % 7.2 % (0.0-8.0); PLATELET COUNT 231 TH/MM3 (150-450); RED BLOOD COUNT 3.37 MIL/MM3 (4.00-5.30); RED CELL DISTRIBUTION WIDTH 14.8 % (11.6-17.2); WHITE BLOOD COUNT 12.7 TH/MM3 (4.0-11.0)
[2017-06-19 05:30] LABS: ALT (GPT) 21 U/L (10-53); ANION GAP 10 MEQ/L (5-15); AST (GOT) 35 U/L (15-37); BICARBONATE 21.2 MEQ/L (21.0-32.0); BLOOD UREA NITROGEN 11 MG/DL (7-18); CHLORIDE 113 MEQ/L (98-107); GLOMERULAR FILTRATION RATE 152 ML/MIN (>89); MAGNESIUM 2.2 MG/DL (1.5-2.5); POTASSIUM 3.3 MEQ/L (3.5-5.1); SODIUM (NA) 144 MEQ/L (136-145)
--- NOTE | 2017-06-19 05:34 | RADRPT ---
EXAM DATE/TIME: 06/19/2017 02:49 [facility] COMPARISON: CHEST SINGLE AP, June 17, 2017, 4:16. INDICATIONS : Shortness of breath, possible pulmonary disease. MEDICAL HISTORY : Cerebrovascular disease. Cardiovascular disease. Hypertension. SURGICAL HISTORY : CABG. ENCOUNTER: Subsequent ACUITY: 1 week PAIN SCORE: Non-responsive. LOCATION: Bilateral chest FINDINGS: A single view of the chest demonstrates endotracheal tube in good position. Right central line is in superior vena cava. Basilar airspace disease and pleural effusions unchanged from June 17. Previ ous median sternotomy and mitral and tricuspid valve surgery. CONCLUSION: 1. Support apparatus in good position. Stable basilar airspace disease and effusions. Delonte Roland MD on June 19, 2017 at 5:32 Board Certified Radiologist. This report was verified electronically.
--- NOTE | 2017-06-19 05:37 | RADRPT ---
EXAM DATE/TIME: 06/19/2017 02:56 [facility] COMPARISON: ABDOMEN KUB ONLY, June 18, 2017, 4:46. INDICATIONS : Abdominal pain. MEDICAL HISTORY : Cerebrovascular disease. Cardiovascular disease. Hypertension. SURGICAL HISTORY : CABG. ENCOUNTER: Subsequent ACUITY: 1 week PAIN SCORE: Non-responsive. LOCATION: Bilateral abdomen FINDINGS: Gaseous distention of the cecum is stable to slightly improved from June 18. Gaseous distention of the remainder of the colon is also slightly improved. No free air. No acute bony abnormalities. CONCLUSION: 1. Stable to slight improvement in gaseous distention of the colon. Delonte Roland MD on June 19, 2017 at 5:33 Board Certified Radiologist. This report was verified electronically.
[2017-06-19 05:43] LABS: ALKALINE PHOSPHATASE 72 U/L (45-117); DIGOXIN 0.7 NG/ML (0.8-2.0); TOTAL BILIRUBIN ADULT 0.5 MG/DL (0.2-1.0)
[2017-06-19] MEDS: INSULIN NovoLIN REGULAR SUPPLEMENTAL SCALE SQ SCH ×4 (06:00→18:00)
[2017-06-19] MEDS: ARTIFICIAL TEARS OPTH SOLN 15 ML BTL EACH EYE SCH ×3 (06:15→22:06)
[2017-06-19] MEDS: PANTOPRAZOLE SODIUM 40 MG VIAL IV PUSH SCH ×2 (06:15→16:14)
[2017-06-19] MEDS: POTASSIUM CHLOR 40 MEQ PREMIX 100 ML IV PRN (06:16)
[2017-06-19] MEDS: FREE WATER G-TUBE SCH ×3 (06:18→22:00)
--- NOTE | 2017-06-19 07:20 | HHI.CCPN ---
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 She was discharged from [facility] and transferred to [facility] and rehabilitation 06/01/17. She reportedly had rhonchi, cough, and respiratory distress early this morning and there was concern for aspiration. Chest x-ray had been obtained and there were small bibasilar densities that were felt to be consistent with atelectasis. When the head bookkeeper nurse came in she noted that patient had significantly worsening congestion and increased work of breathing. EVAC was summoned and when EVAC arrived she was reportedly GCS 7 ([id number]) and was intubated at the scene after administration of Ativan 4 mg IV and Etomidate 20 mg IV. Upon intubation EVAC reportedly suctioned out large amount of secretions that looked like Jevity tube feeds from the ETT. Jevity tube feeds were running via PEG and these were placed on hold per EVAC. Upon arrival she was in atrial fibrillation with RVR with rate in the 160s. She was given cardizem 20 mg IV and started on cardizem drip at 5 mg/hr. with white blood cell count 13.7. She was normotensive blood pressure 120-140 systolic. Temperature 99.4. She is hypernatremic with sodium of 154, potassium 2.8. Protein corrected calcium 7.9. Magnesium is normal. Troponin is 0.18, BNP 674. Lactic acid is 1.9 She received 2.5 L of fluid in the emergency department. Chest x-ray demonstrates endotracheal tube approximately 1.8 cm above the sury. OG tube is in place in the stomach. There is left basilar opacity, right basilar atelectasis. Patient is intubated and remainder review of systems cannot be obtained. Aztreonam, metronidazole, levofloxacin were ordered per ED. Blood cultures have been obtained. No noted diarrhea. Unknown if patient had experienced vomiting 06/15 : Discussed with Jorge Alberto at bedside. Request alternate CODE STATUS. ACLS drugs and intubation only. Currently on esmolol and Cardizem drips for rate control. Phenylephrine drip initiated due to hypotension. Patient does withdrawal to left upper extremity and actually made attempt to self extubate with left upper extremity while placing central line while hypotensive. Moving bilateral lower extremities spontaneously. Plan is MRI brain if able/stable overnight otherwise will repeat CT head in a.m. 06/16 Echocardiogram still not read as of 1719. Heparin drip initiated due to likely mural thrombus and high risk of CVA. Initial CT brain 06/15 showed no signs of acute hemorrhage. Discussed and reviewed chart records with Dr. Johnston. 06/16: Afebrile. MRI brain results as below. Heparin drip currently on hold secondary to elevated PTT. Tube feeding to be initiated today. Remains on Cardizem, esmolol in phenylephrine drips 06/17: Afebrile. Off the diltiazem, esmolol and phenylephrine drips. Currently on propofol drip at 20 mics grams per kilo per minute. Attempt sedation vacation today. No bowel movement. Tube feeds currently at 30 cc an hour Subjective 06/18: Afebrile. A. fib with RVR overnight restarted on diltiazem drip currently at 5 mg an hour. Per report 1 large bloody bowel movement currently brown in color. KUB revealed abdominal distention with cecum at 11.[address] evidence/pelvis pending. Heparin discontinued. Noted thrombus in right atrium. On echocardiogram. Not on vasopressors. 06/19 PAtient is sedated with Diprivan, Neosyn started overnight for hypotension and Cardizem drip stopped. Off Heparin drip for Colonoscopy today. Afebrile. Objective Vital Signs Date Time Temp Pulse Resp B/P (MAP) Pulse Ox O2 Delivery O2 Flow Rate FiO2 06/19/17 06:00 82 06/19/17 04:52 100 45 06/19/17 04:00 97.2 16 123/74 (90) Intake and Output 06/19/17 06/19/17 06/20/17 08:00 16:00 00:00 Intake Total 1225 ml Output Total 1200 ml Balance 25 ml Result Diagram: 06/19/17 0440 06/19/17 0440 Other Results Laboratory Tests Test 06/18/17 10:00 06/18/17 12:43 06/18/17 16:00 06/18/17 20:35 Blood Gas Puncture Site ART LINE Blood Gas Patient Temperature 98.6 Blood Gas HCO3 14 mmol/L Blood Gas Base Excess -9.9 mmol/L Blood Gas Oxygen Saturation 98 % Arterial Blood pH 7.39 Arterial Blood Partial Pressure CO2 24 mmHg Arterial Blood Partial Pressure O2 271 mmHg Arterial Blood Oxygen Content 14.6 Vol % Arterial Blood Carboxyhemoglobin 1.1 % Arterial Blood Methemoglobin 1.1 % Blood Gas Hemoglobin 10.1 G/DL Oxygen Delivery Device VENTILATOR Blood Gas Ventilator Setting [facility]/14/500/IT 1.0 Blood Gas Inspired Oxygen 100 % White Blood Count 9.9 TH/MM3 Red Blood Count 3.26 MIL/MM3 Hemoglobin 9.5 GM/DL 9.9 GM/DL Hematocrit 29.5 % 31.3 % Mean Corpuscular Volume 90.4 FL Mean Corpuscular Hemoglobin 29.0 PG Mean Corpuscular Hemoglobin Concent 32.1 % Red Cell Distribution Width 14.6 % Platelet Count 182 TH/MM3 Mean Platelet Volume 8.3 FL Neutrophils (%) (Auto) 84.9 % Lymphocytes (%) (Auto) 5.9 % Monocytes (%) (Auto) 5.4 % Eosinophils (%) (Auto) 3.6 % Basophils (%) (Auto) 0.2 % Neutrophils # (Auto) 8.4 TH/MM3 Lymphocytes # (Auto) 0.6 TH/MM3 Monocytes # (Auto) 0.5 TH/MM3 Eosinophils # (Auto) 0.4 TH/MM3 Basophils # (Auto) 0.0 TH/MM3 CBC Comment DIFF FINAL Differential Comment Prothrombin Time 13.6 SEC Prothromb Time International Ratio 1.2 RATIO Activated Partial Thromboplast Time 60.2 SEC Fibrinogen 365 mg/dL Lactic Acid Level 0.7 mmol/L 0.8 mmol/L Urine Color YELLOW Urine Turbidity HAZY Urine pH 5.0 Urine Specific [place] 1.029 Urine Protein NEG mg/dL Urine Glucose (UA) NEG mg/dL Urine Ketones NEG mg/dL Urine Occult Blood MOD Urine Nitrite NEG Urine Bilirubin NEG Urine Urobilinogen LESS THAN 2.0 MG/DL Urine Leukocyte Esterase MOD Urine RBC 15 /hpf Urine WBC 16 /hpf Urine Mucus FEW /lpf Microscopic Urinalysis Comment CATH-CULTURE IND Test 06/18/17 22:30 06/19/17 04:40 Activated Partial Thromboplast Time 67.4 SEC White Blood Count 12.7 TH/MM3 Red Blood Count 3.37 MIL/MM3 Hemoglobin 9.9 GM/DL Hematocrit 30.2 % Mean Corpuscular Volume 89.6 FL Mean Corpuscular Hemoglobin 29.4 PG Mean Corpuscular Hemoglobin Concent 32.9 % Red Cell Distribution Width 14.8 % Platelet Count 231 TH/MM3 Mean Platelet Volume 8.7 FL Neutrophils (%) (Auto) 83.0 % Lymphocytes (%) (Auto) 5.3 % Monocytes (%) (Auto) 7.2 % Eosinophils (%) (Auto) 4.2 % Basophils (%) (Auto) 0.3 % Neutrophils # (Auto) 10.5 TH/MM3 Lymphocytes # (Auto) 0.7 TH/MM3 Monocytes # (Auto) 0.9 TH/MM3 Eosinophils # (Auto) 0.5 TH/MM3 Basophils # (Auto) 0.0 TH/MM3 CBC Comment DIFF FINAL Differential Comment Blood Urea Nitrogen 11 MG/DL Creatinine 0.40 MG/DL Random Glucose 104 MG/DL Total Protein 5.3 GM/DL Albumin 2.9 GM/DL Calcium Level 7.6 MG/DL Phosphorus Level 2.5 MG/DL Magnesium Level 2.2 MG/DL Alkaline Phosphatase 72 U/L Aspartate Amino Transf (AST/SGOT) 35 U/L Alanine Aminotransferase (ALT/SGPT) 21 U/L Total Bilirubin 0.5 MG/DL Sodium Level 144 MEQ/L Potassium Level 3.3 MEQ/L Chloride Level 113 MEQ/L Carbon Dioxide Level 21.2 MEQ/L Anion Gap 10 MEQ/L Estimat Glomerular Filtration Rate 152 ML/MIN Lactic Acid Level 0.9 mmol/L Digoxin Level 0.7 NG/ML Imaging Last Impressions Chest X-Ray 06/19/17 06 Signed Impressions: Service Date/Time: Monday, June 19, 2017 02:49 - CONCLUSION: 1. Support apparatus in good position. Stable basilar airspace disease and effusions. Delonte Roland MD Abdomen X-Ray 06/19/17 0600 Signed Impressions: Service Date/Time: Monday, June 19, 2017 02:56 - CONCLUSION: 1. Stable to slight improvement in gaseous distention of the colon. Delonte Roland MD Abdomen/Pelvis CT 06/18/17 0000 Signed Impressions: Service Date/Time: Sunday, June 18, 2017 10:29 - CONCLUSION: 1. Persistent wedge-shaped areas of hypoenhancement within the spleen likely representing infarcts. There is questionable area of hypoenhancement the lower pole the right kidney as well which could also represent infarct. Suggest attention to these a followup imaging. 2. There is a small volume of free fluid in the abdomen and pelvis along with a trace bilateral pleural fluid effusions and anasarca. 3. Cardiomegaly with 2 stable nodular areas in the right atrium representing either thrombus or mass. These measure up to 2 cm. 4. Otherwise, as above. Darin Pederson MD Upper Extremity Ultrasound 06/16/17 Signed Impressions: Service Date/Time: Friday, June 16, 2017 11:00 - CONCLUSION: Normal examination. No evidence of DVT Shoaib Pastor MD Head CT 06/15/17 Signed Impressions: Service Date/Time: May 04:26 - CONCLUSION: 1. No acute intracranial abnormality. 2. Chronic small vessel ischemic change more pronounced on the left. 3. Right frontal lobe encephalomalacia. 4. Atrophy Blu Mayfield Jr., MD Chest CT 06/15/17 Signed Impressions: Service Date/Time: May 04:30 - CONCLUSION: 1. 2 focal rounded filling defects involving an enlarged right atrium. I'm concerned this represents mural thrombus. 2. Significant cardiomegaly. 3. Bibasilar infiltrates. Blu Mayfield Jr., MD Brain MRI 06/15/17 Signed Impressions: Service Date/Time: May 20:50 - CONCLUSION: 1. Multiple subacute infarcts are demonstrated. Please see above. 2. There is an old infarct posteriorly of the right frontal lobe as well. 3. No mass, mass effect or midline shift. No bleed. Darin Preston MD Objective Remarks GENERAL: 86-year-old female, critically ill currently orotracheally intubated SKIN: Warm and dry. Great toes bilaterally are currently dusky HEAD: Atraumatic. Normocephalic. EYES: Pupils round, 3 to 4 mm and sluggishly reactive bilaterally. No scleral icterus. No injection or drainage. ENT: No nasal bleeding or discharge. Mucous membranes moist and pink oropharynx without erythema. Thrush noted NECK: Trachea midline. No JVD. Right IJ 5 lm catheter is clean dry and intact CARDIOVASCULAR: Prior sternotomy scar noted. Well-healed. Tachycardia, IR. S1 , S2 no S4. Without murmur RESPIRATORY: Coarse rhonchi appreciated bilaterally. Symmetrical excursion. GASTROINTESTINAL: Abdomen more formed today. Hyperactive bowel sounds are appreciated. No high-pitched sounds appreciated. PEG tube in place without erythema/skin breakdown currently drainage of gastric contents : Camilo in place with yellow urine output. MUSCULOSKELETAL: Right upper extremity edema noted NEUROLOGICAL: No facial droop noted. Again squeezes with left hand to command. Moving bilateral lower extremities left greater than right. Minimal movement right upper extremity with noxious stimulation. Positive gag. Positive corneal reflex. Date of Insertion: Jun 15, 2017 Line: Central Venous Catheter Side: Right Location: Internal, Jugular A/P Problem List: (1) Hypokalemia ICD Code: E87.6 - Hypokalemia Status: Acute (2) Aspiration pneumonia ICD Code: J69.0 - Pneumonitis due to inhalation of food and vomit Status: Acute (3) Respiratory failure with hypoxia ICD Code: J96.91 - Respiratory failure, unspecified with hypoxia Status: Acute (4) Dysphagia ICD Code: R13.10 - Dysphagia, unspecified Status: Chronic (5) Respiratory failure, acute ICD Code: J96.00 - Acute respiratory failure, unspecified whether with hypoxia or hypercapnia (6) History of stroke ICD Code: Z86.73 - Personal history of transient ischemic attack (TIA), and cerebral infarction without residual deficits (7) Moderate protein malnutrition ICD Code: E44.0 - Moderate protein-calorie malnutrition Status: Chronic Assessment and Plan NEURO/Psych: Recent history of L MCA stroke 05/21/17 -left periventricular white matter, left temporal, left parietal and right parietal Residual R hemiparesis, dysphagia, inability to ambulate. R frontal encephalomalacia Patient had "small hemorrhagic conversion" noted on MRI at outside hospital. Neurology consulted on 06/[address] on 06/07 and if no worsening hemorrhage, can start Eliquis and d/c ASA. MRI brain 06/15 revealed old right frontal posterior infarct, subacute left parametric white matter 17 x 52 mm, left temporal 19 x 32 mm, left parietal 16 mm and cluster right parietal areas of subacute EEG 06/15 revealed bilateral abnormalities slowing rhythms more left. No ictal/ discharge is noted Currently on propofol at30 mics grams per kilogram per minute Goal of RA SS -2. Daily sedation vacation RESP: Acute respiratory failure Acute Aspiration Pneumonia PRVC 14/09/29/44 Continue with vent support keep sat >92% Ventilator bundle. Check ABG Albuterol/ipratropium aerosols every 4 hours with albuterol aerosols every 2 hours as needed Dyspnea CXR today-Stable basilar airspace disease and effusions CT thorax 06/15- bibasilar opacities. ?R atrial mural thrombus. CV: Atrial fibrillation with [id number] ?Right Atrial thrombus - not documented on 2-D echocardiogram H/o mitral valve replacement Hyperlipidemia Wean off Neosyn keep MAP>65mmHg. Off Cardizem drip. Hold Lopressor and Cardizem On digoxin 0.125 mg by PEG daily. Digoxin level 0.7 this morning. 2-D echo: EF45- 50%. Normal left ventricular size. Wall thickness is normal. No regional wall motion abnormalities are present. The left atrial size is severely dilated. The right atrial size is severely dilated. Mitral valve annuloplasty ring is present. Moderate thickening of the mitral valve leaflets. [id number] mitral valve regurgitation. Diffuse calcification of the aortic valve. [id number] aortic valve regurgitation. No aortic valve stenosis. Aortic valve area is 1.4cm. Aortic valve mean gradient is 9 mmHg. There is trace TR. The estimated pulmonary arterial pressure is 41.8 mmHg. Echo 06/18 revealed 1.35 x 1.38 cm right atrial thrombus/mass Heparin drip currently on hold secondary to possible GI bleed. ASA on hold. For Colonoscopy today Continue atorvastatin 40 mg by mouth daily for dyslipidemia when able to take medications by PEG GI: Constipation Cholelithiasis Splenic infarct Chronic moderate protein energy malnutrition Hypoalbuminemia TF on hold (vital 1.5 goal 45 cc an hour) PEG in place. CT abd/pelvis revealed spleen abnormalities suggest splenic infarct. Laceration felt to be less likely. No hematoma. No recent mechanism for injury reported. Docusate sodium/Senokot/MiraLAX twice a day and lactulose every 6 hours for bowel regimen KUB 06/18 revealed gaseous distention of the colon cecum 11.5 cm FEN/RENAL: D51/2with 20 kcl at 75 cc an hour Monitor renal function, I/O's, electrolytes replacement per protocol. On Free water 100ml Q8 ID: Aspiration pneumonia Thrush Coag negative staph bacteremia MRSA sputum positive Continue abx per ID ( Nikky Camposam) monitor for signs of infections ( Fever, WBC) Might need ALVIN per ID Influenza negative Sputum 06/16 MRSA Infectious disease following HEME: Leukocytosis Normocytic anemia Monitor CBC, for colonoscopy today Currently holding heparin anticoagulation due to Afib. Previously on Apixaban ENDO: SSI with accuchecks TSH 0.546. T4 slightly elevated at 1.8 PROPH: Heparin drip will provide DVT prophylaxis when able to resume currently on hold Pantoprazole 40 mg IV twice a day for stress ulcer prophylaxis. ACCESS: Right IJ 5 lm catheter Right femoral arterial line Palliative care is following Continue Alternate code status. Intubation and ACLS drugs only. No shock. No CPR. CCT 30 mins Problem Qualifiers (1) Respiratory failure with hypoxia: Qualified Codes: J96.01 - Acute respiratory failure with hypoxia Marsha Bach MD Jun 19, 2017 07:20
--- NOTE | 2017-06-19 07:39 | PD.CARD.PN ---
Subjective Subjective Remarks Intubated. Sedated. Objective Medications Item Value Date Time Digoxin 0.125 mg 06/18/17 0900 (Lanoxin Inj) DAILY/IV PUSH 06/18/17 0953 Pravastatin Sodium 40 mg 06/15/17 1245 (Pravachol) DAILY/OG-TUBE Phenylephrine HCl 500 ml @ 7.5 mls/hr 06/15/17 1100 160 mg/Dextrose TITRATE PRN/IV 06/18/17 2116 Vital Signs / I&O Vital Signs Date Time Temp Pulse Resp B/P (MAP) Pulse Ox O2 Delivery O2 Flow Rate FiO2 06/19/17 06:00 82 06/19/17 04:52 100 45 06/19/17 04:00 35 06/19/17 04:00 85 06/19/17 04:00 97.2 85 16 123/74 (90) 100 06/19/17 02:12 100 45 06/19/17 02:00 72 06/19/17 00:00 96.1 83 16 90/75 (80) 100 06/19/17 00:00 83 06/19/17 00:00 35 06/18/17 22:38 100 45 06/18/17 22:00 80 06/18/17 21:16 93 77/36 06/18/17 20:00 94.3 87 14 105/53 (70) 100 06/18/17 20:00 87 06/18/17 20:00 35 06/18/17 18:55 99 103/53 06/18/17 18:00 95 06/18/17 16:11 100 45 06/18/17 16:00 92 18 100/51 (67) 100 06/18/17 16:00 45 06/18/17 16:00 92 06/18/17 14:00 100 06/18/17 12:00 45 06/18/17 12:00 102 18 114/58 (76) 100 06/18/17 12:00 106 06/18/17 11:12 100 100 06/18/17 10:00 103 06/18/17 09:45 100 50 06/18/17 09:39 96 126/63 06/18/17 08:00 97 06/18/17 08:00 45 06/18/17 08:00 96.5 97 18 90/31 (50) 100 127/98 (108) I/O 06/18/17 06/18/17 06/18/17 06/19/17 06/19/17 06/19/17 07:00 15:00 23:00 07:00 15:00 23:00 Intake Total 1522 ml 2398.0 ml 1225 ml Output Total 600 ml 2100 ml 1200 ml Balance 922 ml 2398.0 ml -2100 ml 25 ml Intake IV Total 787 ml 2398.0 ml 1025 ml Tube Feeding 485 ml Other 250 ml 200 ml Output Urine Total 400 ml 1150 ml 400 ml Stool Total 950 ml 800 ml Gastric Drainage Total 200 ml # Bowel Movements 1 5 Physical Exam GENERAL: Well developed, well nourished. Intubated. Sedated. HEENT: Jugular venous pressure is normal. CHEST: Lungs clear to auscultation anteriorly. CARDIAC: Irregular rhythm without S3 or murmur. ABDOMEN: Soft, nontender, no hepatosplenomegaly. Bowel sounds present. EXTREMITIES: Trace edema. Laboratory Laboratory Tests Test 06/18/17 10:00 06/18/17 12:43 06/18/17 16:00 06/18/17 20:35 Blood Gas Puncture Site ART LINE Blood Gas Patient Temperature 98.6 Blood Gas HCO3 14 mmol/L Blood Gas Base Excess -9.9 mmol/L Blood Gas Oxygen Saturation 98 % Arterial Blood pH 7.39 Arterial Blood Partial Pressure CO2 24 mmHg Arterial Blood Partial Pressure O2 271 mmHg Arterial Blood Oxygen Content 14.6 Vol % Arterial Blood Carboxyhemoglobin 1.1 % Arterial Blood Methemoglobin 1.1 % Blood Gas Hemoglobin 10.1 G/DL Oxygen Delivery Device VENTILATOR Blood Gas Ventilator Setting [facility]/14/500/IT 1.0 Blood Gas Inspired Oxygen 100 % White Blood Count 9.9 TH/MM3 Red Blood Count 3.26 MIL/MM3 Hemoglobin 9.5 GM/DL 9.9 GM/DL Hematocrit 29.5 % 31.3 % Mean Corpuscular Volume 90.4 FL Mean Corpuscular Hemoglobin 29.0 PG Mean Corpuscular Hemoglobin Concent 32.1 % Red Cell Distribution Width 14.6 % Platelet Count 182 TH/MM3 Mean Platelet Volume 8.3 FL Neutrophils (%) (Auto) 84.9 % Lymphocytes (%) (Auto) 5.9 % Monocytes (%) (Auto) 5.4 % Eosinophils (%) (Auto) 3.6 % Basophils (%) (Auto) 0.2 % Neutrophils # (Auto) 8.4 TH/MM3 Lymphocytes # (Auto) 0.6 TH/MM3 Monocytes # (Auto) 0.5 TH/MM3 Eosinophils # (Auto) 0.4 TH/MM3 Basophils # (Auto) 0.0 TH/MM3 CBC Comment DIFF FINAL Differential Comment Prothrombin Time 13.6 SEC Prothromb Time International Ratio 1.2 RATIO Activated Partial Thromboplast Time 60.2 SEC Fibrinogen 365 mg/dL Lactic Acid Level 0.7 mmol/L 0.8 mmol/L Urine Color YELLOW Urine Turbidity HAZY Urine pH 5.0 Urine Specific [place] 1.029 Urine Protein NEG mg/dL Urine Glucose (UA) NEG mg/dL Urine Ketones NEG mg/dL Urine Occult Blood MOD Urine Nitrite NEG Urine Bilirubin NEG Urine Urobilinogen LESS THAN 2.0 MG/DL Urine Leukocyte Esterase MOD Urine RBC 15 /hpf Urine WBC 16 /hpf Urine Mucus FEW /lpf Microscopic Urinalysis Comment CATH-CULTURE IND Test 06/18/17 22:30 06/19/17 04:40 Activated Partial Thromboplast Time 67.4 SEC White Blood Count 12.7 TH/MM3 Red Blood Count 3.37 MIL/MM3 Hemoglobin 9.9 GM/DL Hematocrit 30.2 % Mean Corpuscular Volume 89.6 FL Mean Corpuscular Hemoglobin 29.4 PG Mean Corpuscular Hemoglobin Concent 32.9 % Red Cell Distribution Width 14.8 % Platelet Count 231 TH/MM3 Mean Platelet Volume 8.7 FL Neutrophils (%) (Auto) 83.0 % Lymphocytes (%) (Auto) 5.3 % Monocytes (%) (Auto) 7.2 % Eosinophils (%) (Auto) 4.2 % Basophils (%) (Auto) 0.3 % Neutrophils # (Auto) 10.5 TH/MM3 Lymphocytes # (Auto) 0.7 TH/MM3 Monocytes # (Auto) 0.9 TH/MM3 Eosinophils # (Auto) 0.5 TH/MM3 Basophils # (Auto) 0.0 TH/MM3 CBC Comment DIFF FINAL Differential Comment Blood Urea Nitrogen 11 MG/DL Creatinine 0.40 MG/DL Random Glucose 104 MG/DL Total Protein 5.3 GM/DL Albumin 2.9 GM/DL Calcium Level 7.6 MG/DL Phosphorus Level 2.5 MG/DL Magnesium Level 2.2 MG/DL Alkaline Phosphatase 72 U/L Aspartate Amino Transf (AST/SGOT) 35 U/L Alanine Aminotransferase (ALT/SGPT) 21 U/L Total Bilirubin 0.5 MG/DL Sodium Level 144 MEQ/L Potassium Level 3.3 MEQ/L Chloride Level 113 MEQ/L Carbon Dioxide Level 21.2 MEQ/L Anion Gap 10 MEQ/L Estimat Glomerular Filtration Rate 152 ML/MIN Lactic Acid Level 0.9 mmol/L Digoxin Level 0.7 NG/ML Assessment and Plan Problem List: (1) Chronic atrial fibrillation ICD Codes: I48.2 - Chronic atrial fibrillation Status: Chronic Plan: HR's overall under control. Now off diltiazem drip. Now off heparin drip due to possible GI bleeding. Thromboembolic risk is very high. Suspect her recent CVA's are cardioembolic in etiology. Patient also with evidence for thrombi in right atrium by chest CT. REC continue IV digoxin when possible resume anticoagulation (2) H/O mitral valve repair ICD Codes: Z98.890 - Other specified postprocedural states Status: Chronic Plan: Reportedly mild to moderate mitral regurgitation by echo yesterday. No mitral stenosis. (3) Respiratory failure with hypoxia ICD Codes: J96.91 - Respiratory failure, unspecified with hypoxia Status: Acute Plan: Possible component of CHF for her respiratory failure but likely more pulmonary in origin. EF reportedly 45-50% by echo. Rec continued ventilatory support, antibiotics. Code Status alternative code Problem Qualifiers (1) Respiratory failure with hypoxia: Qualified Codes: J96.01 - Acute respiratory failure with hypoxia Naseem Pierce MD Jun 19, 2017 07:39
[2017-06-19] MEDS: PROPOFOL 1000 MG/100 ML INJ 100 ML IV PRN ×4 (08:17→23:21)
[2017-06-19] MEDS: CHLORHEXIDINE 0.12% (ORAL KIT) 15 ML CUP MT SCH ×2 (08:17→20:13)
[2017-06-19] MEDS ORDERED: MAGNESIUM CITRATE SOLN 300 ML BTL PEG ONE (08:45)
[2017-06-19] MEDS ORDERED: metroNIDAZOLE 500 MG TAB PO SCH (08:45)
[2017-06-19] MEDS: PRAVASTATIN SOD 40 MG TAB OG-TUBE SCH (08:52)
[2017-06-19] MEDS: SODIUM CHLORIDE 0.9% FLUSH 10 ML FLUSH IV FLUSH SCH ×2 (08:52→22:06)
[2017-06-19] MEDS: SODIUM CHLORIDE 0.9% FLUSH 10 ML FLUSH IVF SCH (08:52)
[2017-06-19] MEDS: DIGOXIN 0.5 MG/2 ML VIAL IV PUSH SCH (08:52)
[2017-06-19] MEDS: NYSTATIN SUSP 500,000 U/5 ML CUP OROPHARYNG SCH ×4 (08:52→22:06)
[2017-06-19] MEDS: SENNOSIDES SYRUP 8.8 MG/5 ML CUP OG-TUBE SCH ×2 (08:52→22:06)
[2017-06-19] MEDS ORDERED: METRONIDAZOLE 500 MG/100 ML ISONTONIC SOLN IV SCH (09:00)
[2017-06-19] MEDS ORDERED: FREE WATER ONE (09:00)
[2017-06-19] MEDS: METRONIDAZOLE 500 MG/100 ML ISONTONIC SOLN IV SCH ×2 (10:06→16:14)
[2017-06-19] MEDS ORDERED: PROPOFOL 200 MG/20 ML AMP IV ONE ×2 (10:25→10:35)
--- NOTE | 2017-06-19 11:48 | HHI.GIFU ---
Subjective Remarks Resting in bed. Sedated on vent. Had additional magnesium citrate with 1L of fluid via peg today. Still passing light brownish colored liquid stool, although no bleeding. Objective Vitals I&O Vital Signs Date Time Temp Pulse Resp B/P (MAP) Pulse Ox O2 Delivery O2 Flow Rate FiO2 06/19/17 09:00 86 75/54 06/19/17 07:35 100 45 06/19/17 06:00 82 06/19/17 04:52 100 45 06/19/17 04:00 35 06/19/17 04:00 85 06/19/17 04:00 97.2 85 16 123/74 (90) 100 06/19/17 02:12 100 45 06/19/17 02:00 72 06/19/17 00:00 96.1 83 16 90/75 (80) 100 06/19/17 00:00 83 06/19/17 00:00 35 06/18/17 22:38 100 45 06/18/17 22:00 80 06/18/17 21:16 93 77/36 06/18/17 20:00 94.3 87 14 105/53 (70) 100 06/18/17 20:00 87 06/18/17 20:00 35 06/18/17 18:55 99 103/53 06/18/17 18:00 95 06/18/17 16:11 100 45 06/18/17 16:00 92 18 100/51 (67) 100 06/18/17 16:00 45 06/18/17 16:00 92 06/18/17 14:00 100 06/18/17 12:00 45 06/18/17 12:00 102 18 114/58 (76) 100 06/18/17 12:00 106 I/O 06/18/17 06/18/17 06/18/17 06/19/17 06/19/17 06/19/17 06:59 14:59 22:59 06:59 14:59 22:59 Intake Total 1435 ml 2485.0 ml 1225 ml 1610 ml Output Total 600 ml 2100 ml 1200 ml 600 ml Balance 835 ml 2485.0 ml -2100 ml 25 ml 1010 ml Intake IV Total 700 ml 2485.0 ml 1025 ml 310 ml Tube Feeding 485 ml Tube Irrigant 650 ml Other 250 ml 200 ml 650 ml Output Urine Total 400 ml 1150 ml 400 ml Stool Total 950 ml 800 ml 600 ml Gastric Drainage Total 200 ml # Bowel Movements 1 5 Laboratory Laboratory Tests Test 06/18/17 12:43 06/18/17 16:00 06/18/17 20:35 06/18/17 22:30 White Blood Count 9.9 Red Blood Count 3.26 Hemoglobin 9.5 9.9 Hematocrit 29.5 31.3 Mean Corpuscular Volume 90.4 Mean Corpuscular Hemoglobin 29.0 Mean Corpuscular Hemoglobin Concent 32.1 Red Cell Distribution Width 14.6 Platelet Count 182 Mean Platelet Volume 8.3 Neutrophils (%) (Auto) 84.9 Lymphocytes (%) (Auto) 5.9 Monocytes (%) (Auto) 5.4 Eosinophils (%) (Auto) 3.6 Basophils (%) (Auto) 0.2 Neutrophils # (Auto) 8.4 Lymphocytes # (Auto) 0.6 Monocytes # (Auto) 0.5 Eosinophils # (Auto) 0.4 Basophils # (Auto) 0.0 CBC Comment DIFF FINAL Differential Comment Prothrombin Time 13.6 Prothromb Time International Ratio 1.2 Activated Partial Thromboplast Time 60.2 67.4 Fibrinogen 365 Lactic Acid Level 0.7 0.8 Urine Color YELLOW Urine Turbidity HAZY Urine pH 5.0 Urine Specific [place] 1.029 Urine Protein NEG Urine Glucose (UA) NEG Urine Ketones NEG Urine Occult Blood MOD Urine Nitrite NEG Urine Bilirubin NEG Urine Urobilinogen LESS THAN 2.0 Urine Leukocyte Esterase MOD Urine RBC 15 Urine WBC 16 Urine Mucus FEW Microscopic Urinalysis Comment CATH-CULTURE IND Test 06/19/17 04:40 White Blood Count 12.7 Red Blood Count 3.37 Hemoglobin 9.9 Hematocrit 30.2 Mean Corpuscular Volume 89.6 Mean Corpuscular Hemoglobin 29.4 Mean Corpuscular Hemoglobin Concent 32.9 Red Cell Distribution Width 14.8 Platelet Count 231 Mean Platelet Volume 8.7 Neutrophils (%) (Auto) 83.0 Lymphocytes (%) (Auto) 5.3 Monocytes (%) (Auto) 7.2 Eosinophils (%) (Auto) 4.2 Basophils (%) (Auto) 0.3 Neutrophils # (Auto) 10.5 Lymphocytes # (Auto) 0.7 Monocytes # (Auto) 0.9 Eosinophils # (Auto) 0.5 Basophils # (Auto) 0.0 CBC Comment DIFF FINAL Differential Comment Blood Urea Nitrogen 11 Creatinine 0.40 Random Glucose 104 Total Protein 5.3 Albumin 2.9 Calcium Level 7.6 Phosphorus Level 2.5 Magnesium Level 2.2 Alkaline Phosphatase 72 Aspartate Amino Transf (AST/SGOT) 35 Alanine Aminotransferase (ALT/SGPT) 21 Total Bilirubin 0.5 Sodium Level 144 Potassium Level 3.3 Chloride Level 113 Carbon Dioxide Level 21.2 Anion Gap 10 Estimat Glomerular Filtration Rate 152 Lactic Acid Level 0.9 Digoxin Level 0.7 Date/Time Source Procedure Growth Status 06/19/17 04:40 Blood Peripheral Aerobic Blood Culture Pending Received 06/19/17 04:40 Blood Peripheral Anaerobic Blood Culture Pending Received 06/18/17 04:06 Stool Stool Stool Occult Blood (KAYLAN) - Final HEMOCCULT POSITIVE Complete 06/16/17 03:45 Sputum Endotracheal Gram Stain - Final Complete 06/16/17 03:45 Sputum Culture - Final S. Aureus Mrsa Complete 06/18/17 16:00 Urine Catheterized Urine Urine Culture Pending Received Imaging Last Impressions Chest X-Ray 06/19/17 0600 Signed Impressions: Service Date/Time: Monday, June 19, 2017 02:49 - CONCLUSION: 1. Support apparatus in good position. Stable basilar airspace disease and effusions. Delonte Roland MD Abdomen X-Ray 06/19/17 0600 Signed Impressions: Service Date/Time: Monday, June 19, 2017 02:56 - CONCLUSION: 1. Stable to slight improvement in gaseous distention of the colon. Delonte Roland MD Abdomen/Pelvis CT 06/18/17 0000 Signed Impressions: Service Date/Time: Sunday, June 18, 2017 10:29 - CONCLUSION: 1. Persistent wedge-shaped areas of hypoenhancement within the spleen likely representing infarcts. There is questionable area of hypoenhancement the lower pole the right kidney as well which could also represent infarct. Suggest attention to these a followup imaging. 2. There is a small volume of free fluid in the abdomen and pelvis along with a trace bilateral pleural fluid effusions and anasarca. 3. Cardiomegaly with 2 stable nodular areas in the right atrium representing either thrombus or mass. These measure up to 2 cm. 4. Otherwise, as above. Darin Pederson MD Upper Extremity Ultrasound 06/16/17 0000 Signed Impressions: Service Date/Time: Friday, June 16, 2017 11:00 - CONCLUSION: Normal examination. No evidence of DVT Shoaib Pastor MD Head CT 06/15/17 0000 Signed Impressions: Service Date/Time: May 04:26 - CONCLUSION: 1. No acute intracranial abnormality. 2. Chronic small vessel ischemic change more pronounced on the left. 3. Right frontal lobe encephalomalacia. 4. Atrophy Blu Mayfield Jr., MD Chest CT 06/15/17 Signed Impressions: Service Date/Time: May 04:30 - CONCLUSION: 1. 2 focal rounded filling defects involving an enlarged right atrium. I'm concerned this represents mural thrombus. 2. Significant cardiomegaly. 3. Bibasilar infiltrates. Blu Mayfield Jr., MD Brain MRI 06/15/17 0000 Signed Impressions: Service Date/Time: May 20:50 - CONCLUSION: 1. Multiple subacute infarcts are demonstrated. Please see above. 2. There is an old infarct posteriorly of the right frontal lobe as well. 3. No mass, mass effect or midline shift. No bleed. Darin Preston MD Physical Exam HEENT: Normocephalic; atraumatic; no jaundice. CHEST: OETT to vent. Diminished. CARDIAC: Irregular, rate controlled ABDOMEN: Soft, obese, nondistended, nontender; no hepatosplenomegaly; bowel sounds are present in all four quadrants. PEG tube clamped. Rectal bag with liquid light brown stool EXTREMITIES: Generalized edema. 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 Assessment and Plan Plan ASSESSMENT: - Lower GIB. One episode of bright red blood noted in stool with Hemoccult positive results night before last, no further active bleeding noted. Heparin gtt was stopped and plan is for colonoscopy today. She received additional bottle of magnesium citrate with 1L water and is passing light brown colored stool. HH 9.06/24.2. PPI - Anemia, blood loss. .2. - Abdominal distention.CT Abdomen (06/18/17)--1. Persistent wedge-shaped areas of hypoenhancement within the spleen likely representing infarcts. There is questionable area of hypoenhancement the lower pole the right kidney as well which could also represent infarct. Suggest attention to these a followup imaging. 2. There is a small volume of free fluid in the abdomen and pelvis along with a trace bilateral pleural fluid effusions and anasarca. 3. Cardiomegaly with 2 stable nodular areas in the right atrium representing either thrombus or mass. These measure up to 2 cm. 4. Otherwise, as above. KUB (06/19/17)----> Stable to slight improvement in gaseous distention of colon. Pt is obese, mildly distended. + BM. Senna obese, but her abdomen is soft, mildly distended. (+) BM. - Respiratory failure. Vent per CCM - Severe sepsis/septic shock. On vasopressors. Bacteremia with staphylococcus epidermidis, MRSA pneumonia, probable aspiration, possible bacterial endocarditis. ID following, recommends considering ALVIN when more stable. Vanco, Azactam, Flagyl - Afib with RVR and possible right atrial thrombus. Heparin gtt on hold until colonoscopy to see if this can be restarted. - History of stroke, L MCA (05/21/17). Has right sided hemiparesis and dysphagia. S/P PEG. PLAN: - Plan for colonoscopy today - Obtain consents - NPO - PPI - Will need good bowel regimen after procedure - Notify GI of active bleeding - Monitor HH - Transfuse as necessary - Abx per ID - Supportive care - Further recommendations to follow based on results of above. - Patient seen and examined by Dr. Sanchez and myself and this note is written on his behalf. Marjorie Roque Jun 19, 2017 11:48
--- NOTE | 2017-06-19 14:43 | HHI.GIFU ---
Subjective Remarks Patient platelet, intubated, no sign of active bleed, still having loose brown stool doctor's Jose Luis would like us to perform upper endoscopy and colonoscopy instead of the colonoscopy to make sure there is Objective Vitals I&O Vital Signs Date Time Temp Pulse Resp B/P (MAP) Pulse Ox O2 Delivery O2 Flow Rate FiO2 06/19/17 11:55 99 45 06/19/17 10:00 82 06/19/17 09:00 86 75/54 06/19/17 08:00 35 06/19/17 08:00 72 06/19/17 08:00 97.8 72 14 88/78 (81) 100 06/19/17 07:35 100 45 06/19/17 06:00 82 06/19/17 04:52 100 45 06/19/17 04:00 35 06/19/17 04:00 85 06/19/17 04:00 97.2 85 16 123/74 (90) 100 06/19/17 02:12 100 45 06/19/17 02:00 72 06/19/17 00:00 96.1 83 16 90/75 (80) 100 06/19/17 00:00 83 06/19/17 00:00 35 06/18/17 22:38 100 45 06/18/17 22:00 80 06/18/17 21:16 93 77/36 06/18/17 20:00 94.3 87 14 105/53 (70) 100 06/18/17 20:00 87 06/18/17 20:00 35 06/18/17 18:55 99 103/53 06/18/17 18:00 95 06/18/17 16:11 100 45 06/18/17 16:00 92 18 100/51 (67) 100 06/18/17 16:00 45 06/18/17 16:00 92 I/O 06/18/17 06/18/17 06/18/17 06/19/17 06/19/17 06/19/17 07:00 15:00 23:00 07:00 15:00 23:00 Intake Total 1522 ml 2398.0 ml 1225 ml 1610 ml Output Total 600 ml 2100 ml 1200 ml 600 ml Balance 922 ml 2398.0 ml -2100 ml 25 ml 1010 ml Intake IV Total 787 ml 2398.0 ml 1025 ml 310 ml Tube Feeding 485 ml Tube Irrigant 650 ml Other 250 ml 200 ml 650 ml Output Urine Total 400 ml 1150 ml 400 ml Stool Total 950 ml 800 ml 600 ml Gastric Drainage Total 200 ml # Bowel Movements 1 5 Laboratory Laboratory Tests Test 06/18/17 16:00 06/18/17 20:35 06/18/17 22:30 06/19/17 04:40 Urine Color YELLOW Urine Turbidity HAZY Urine pH 5.0 Urine Specific [place] 1.029 Urine Protein NEG Urine Glucose (UA) NEG Urine Ketones NEG Urine Occult Blood MOD Urine Nitrite NEG Urine Bilirubin NEG Urine Urobilinogen LESS THAN 2.0 Urine Leukocyte Esterase MOD Urine RBC 15 Urine WBC 16 Urine Mucus FEW Microscopic Urinalysis Comment CATH-CULTURE IND Hemoglobin 9.9 9.9 Hematocrit 31.3 30.2 Lactic Acid Level 0.8 0.9 Activated Partial Thromboplast Time 67.4 White Blood Count 12.7 Red Blood Count 3.37 Mean Corpuscular Volume 89.6 Mean Corpuscular Hemoglobin 29.4 Mean Corpuscular Hemoglobin Concent 32.9 Red Cell Distribution Width 14.8 Platelet Count 231 Mean Platelet Volume 8.7 Neutrophils (%) (Auto) 83.0 Lymphocytes (%) (Auto) 5.3 Monocytes (%) (Auto) 7.2 Eosinophils (%) (Auto) 4.2 Basophils (%) (Auto) 0.3 Neutrophils # (Auto) 10.5 Lymphocytes # (Auto) 0.7 Monocytes # (Auto) 0.9 Eosinophils # (Auto) 0.5 Basophils # (Auto) 0.0 CBC Comment DIFF FINAL Differential Comment Blood Urea Nitrogen 11 Creatinine 0.40 Random Glucose 104 Total Protein 5.3 Albumin 2.9 Calcium Level 7.6 Phosphorus Level 2.5 Magnesium Level 2.2 Alkaline Phosphatase 72 Aspartate Amino Transf (AST/SGOT) 35 Alanine Aminotransferase (ALT/SGPT) 21 Total Bilirubin 0.5 Sodium Level 144 Potassium Level 3.3 Chloride Level 113 Carbon Dioxide Level 21.2 Anion Gap 10 Estimat Glomerular Filtration Rate 152 Digoxin Level 0.7 Date/Time Source Procedure Growth Status 06/19/17 04:40 Blood Peripheral Aerobic Blood Culture Pending Received 06/19/17 04:40 Blood Peripheral Anaerobic Blood Culture Pending Received 06/18/17 04:06 Stool Stool Stool Occult Blood (KAYLAN) - Final HEMOCCULT POSITIVE Complete 06/16/17 03:45 Sputum Endotracheal Gram Stain - Final Complete 06/16/17 03:45 Sputum Culture - Final S. Aureus Mrsa Complete 06/18/17 16:00 Urine Catheterized Urine Urine Culture - Preliminary NO GROWTH IN 24 HOURS. Resulted Physical Exam HEENT: Normocephalic; atraumatic; no jaundice. CHEST: OETT to vent. Diminished. CARDIAC: Irregular, rate controlled ABDOMEN: Soft, obese, nondistended, nontender; no hepatosplenomegaly; bowel sounds are present in all four quadrants. PEG tube clamped. Rectal bag with liquid light brown stool EXTREMITIES: Generalized edema. 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 Patient has rectal bag Assessment and Plan Plan ASSESSMENT: - Lower GIB. One episode of bright red blood noted in stool with Hemoccult positive results night before last, no further active bleeding noted. Heparin gtt was stopped and plan is for colonoscopy today. She received additional bottle of magnesium citrate with 1L water and is passing light brown colored stool. HH 9.9/30.2. PPI - Anemia, blood loss. .30.2. - Abdominal distention.CT Abdomen (06/18/17)--1. Persistent wedge-shaped areas of hypoenhancement within the spleen likely representing infarcts. There is questionable area of hypoenhancement the lower pole the right kidney as well which could also represent infarct. Suggest attention to these a followup imaging. 2. There is a small volume of free fluid in the abdomen and pelvis along with a trace bilateral pleural fluid effusions and anasarca. 3. Cardiomegaly with 2 stable nodular areas in the right atrium representing either thrombus or mass. These measure up to 2 cm. 4. Otherwise, as above. KUB (06/19/17)----> Stable to slight improvement in gaseous distention of colon. Pt is obese, mildly distended. + BM. Senna obese, but her abdomen is soft, mildly distended. (+) BM. - Respiratory failure. Vent per CCM - Severe sepsis/septic shock. On vasopressors. Bacteremia with staphylococcus epidermidis, MRSA pneumonia, probable aspiration, possible bacterial endocarditis. ID following, recommends considering ALVIN when more stable. Vanco, Azactam, Flagyl - Afib with RVR and possible right atrial thrombus. Heparin gtt on hold until colonoscopy to see if this can be restarted. - History of stroke, L MCA (05/21/17). Has right sided hemiparesis and dysphagia. S/P PEG. 06/19/2017 patient still intubated and sedated, received extra citrate today because her stool was an thick, an upper endoscopy per as scheduled show small ulceration around the PEG tube and mild esophagitis, biopsy was not done since the patient is going to be on anticoagulation, colonoscopy showed significant amount of stool throughout the colon, this may interfere with the vision of small lesion, I did not see any colitis, there was 1 cm polyp removed by snare from the ascending colon but not retrieved because the stool patient also has diverticular disease in the sigmoid stool was brown and no active bleeding PLAN: - His through the PEG tube - PPI - Will need good bowel regimen after procedure - Notify GI of active bleeding - Monitor HH - Transfuse as necessary - Abx per ID - Supportive care - Further recommendations to follow based on results of above. Patient will need colonoscopy as an outpatient when she is better Eve Sanchez MD Jun 19, 2017 14:43
--- NOTE | 2017-06-19 14:47 | PD.PROCEDR ---
GI Procedure PROCEDURE PERFORMED Upper endoscopy Colonoscopy with snare polypectomy INDICATION FOR PROCEDURE Anemia Rectal bleeding PROCEDURE: The procedure, risks and benefits were discussed with Ms. Basilio and informed consent was obtained. Anesthesia sedated her with Diprivan. She was placed in the left lateral decubitus position. EGD: The Pentax videoscope was introduced through the oropharynx and advanced to the second portion of the duodenum under direct visualization. Retroflexion was performed in the stomach. FINDINGS: Mild esophagitis in the distal esophagus Small ulceration next to the PEG tube site no active bleeding Biopsy was not done since the patient is on anticoagulation Colonoscopy: The Pentax videoscope was introduced through the rectum and advanced to []. Retroflexion was performed in the rectum. Colonic prep was suboptimal but I was not large lesion except 1 polyp that removed by snare FINDINGS: Diverticular disease in the sigmoid 1 polyp removed by snare Stool throughout the colon that may interfere with the provisional small lesion No colitis no ischemia, no active bleeding and no sign of recent bleed Internal hemorrhoid ESTIMATED BLOOD LOSS: None SPECIMENS REMOVED: None COMPLICATIONS: None IMPRESSION: Mild esophagitis Small ulcer next to the PEG tube Colon polyp Diverticulosis No active bleed PLAN: Diet as tolerated Continue PPI Colonoscopy as an outpatient when the patient more alert or inpatient if there is more active bleeding with longer prep Eve Sanchez MD Jun 19, 2017 14:47
[2017-06-19] MEDS: VANCOMYCIN 1,500 MG/NS 500 ML IV SCH ×2 (14:59)
[2017-06-19] MEDS: HEPARIN-D5W 25,000 U/250 ML 250 ML IV PRN (16:16)
--- NOTE | 2017-06-19 17:41 | HHI.HCPN ---
Reason for visit a. To assist with evaluation and management of symptoms including: Dyspnea, dysphagia, pain b. To assist medical decision maker(s) with: better understanding of current medical conditions; weighing benefits/burdens of medical treatment options; making medical treatment decisions. Subjective/Interval History Patient remains in the ICU, critically ill. Patient was restarted on Cardizem over the weekend for atrial fibrillation with RVR. Neosyn started overnight for hypotension and Cardizem drip stopped this AM. Per nursing report, patient had a large bloddy bowel movement. KUB revealed abdominal distention with cecum measuring 11.[address] abdomen/pelvis revealed persistent wedge-shaped areas of hypoenhancement within the spleen likely representing infarcts; questionable areas of hypoenhancement in the right kidney as well. There is a small volume of free fluid in the abdomen and pelvis along with trace bilateral pleural effusions and anasarca. Cardiomegaly with 2 stable nodular areas in the right atrium, measuring up to 2 cm, representing either thrombus or mass. Heparin was discontinued. WBC: 12.7, hemoglobin 9.9, hematocrit 30.2, platelets 231, neutrophils 83.0% Plan for colonoscopy/EGD today 06/19/17 . Family/friend interactions Met with patient's , 2 adult children and granddaughter in family conference room. Update provided on patient's clinical condition; family verbalizing understanding that the patient remains critically ill. Awaiting results from GI workup. They would like to see how the patient does in the next few days before making any changes in medical goals of care. . Advance Directives Living Will: Completed, but not made available Health Care Surrogate: Completed, but not made available Advance Directive Specifics Health Care Surrogate(s): Patient's is designated as the health care surrogate. . Documented care wishes: Living will has standard inverted detail if terminal or end-stage or persistent vegetative condition would not want heroic or artificial measures including no artificial feeding and would want comfort measures only for a peaceful . . Objective Vital Signs Date Time Temp Pulse Resp B/P (MAP) Pulse Ox O2 Delivery O2 Flow Rate FiO2 06/19/17 15:38 100 45 06/19/17 14:00 80 06/19/17 12:00 35 06/19/17 12:00 71 06/19/17 12:00 98.2 71 14 82/44 (57) 99 131/63 (85) 06/19/17 11:55 99 45 06/19/17 10:00 82 06/19/17 09:00 86 75/54 06/19/17 08:00 35 06/19/17 08:00 72 06/19/17 08:00 97.8 72 14 88/78 (81) 100 06/19/17 07:35 100 45 06/19/17 06:00 82 06/19/17 04:52 100 45 06/19/17 04:00 35 06/19/17 04:00 85 06/19/17 04:00 97.2 85 16 123/74 (90) 100 06/19/17 02:12 100 45 06/19/17 02:00 72 06/19/17 00:00 96.1 83 16 90/75 (80) 100 06/19/17 00:00 83 06/19/17 00:00 35 06/18/17 22:38 100 45 06/18/17 22:00 80 06/18/17 21:16 93 77/36 06/18/17 20:00 94.3 87 14 105/53 (70) 100 06/18/17 20:00 87 06/18/17 20:00 35 06/18/17 18:55 99 103/53 06/18/17 18:00 95 Intake & Output 06/19/17 06/19/17 07:00 19:00 Intake Total 1225 ml 1660 ml Output Total 1200 ml 600 ml Balance 25 ml 1060 ml Intake IV Total 1025 ml 310 ml Tube Irrigant 650 ml Other 200 ml 700 ml Output Urine Total 400 ml Stool Total 800 ml 600 ml . Physical Exam CONSTITUTIONAL/GENERAL: This is an adequately nourished patient, critically ill in ICU TUBES/LINES/DRAINS: ET tube, OG tube, PEG tube, Camilo catheter, bilateral wrist restraints, arterial line, central line, peripheral IVs upper extremities, bear hugger warming blanket SKIN: Generalized pallor Ecchymoses on upper extremities. CARDIOVASCULAR: Irregular rate and rhythm. Trace edema and feet bilaterally RESPIRATORY/CHEST: Symmetric, unlabored respirations on mechanical ventilation. Scattered rhonchi, diminished air movement air movement. GASTROINTESTINAL: Abdomen soft, obese, nondistended. No palpable masses. GENITOURINARY: Without palpable bladder distension. Camilo catheter in place clear dark yellow urine. MUSCULOSKELETAL: Extremities without clubbing, cyanosis. + peripheral edema. NEUROLOGICAL: Sedated on mechanical vent. No eye opening to stimuli. PSYCHIATRIC: No obvious anxiety/depression--limited assessment due to clinical condition, on some sedation. Diagnostic Tests Laboratory Laboratory Tests Test 06/16/17 22:00 06/17/17 05:00 06/17/17 13:00 06/18/17 02:30 Activated Partial Thromboplast Time 72.3 SEC (24.3-30.1) 71.7 SEC (24.3-30.1) 83.3 SEC (24.3-30.1) Potassium Level 5.3 MEQ/L (3.5-5.1) 4.9 MEQ/L (3.5-5.1) 4.1 MEQ/L (3.5-5.1) White Blood Count 13.5 TH/MM3 (4.0-11.0) 12.4 TH/MM3 (4.0-11.0) Red Blood Count 4.22 MIL/MM3 (4.00-5.30) 3.67 MIL/MM3 (4.00-5.30) Hemoglobin 12.2 GM/DL (11.6-15.3) 10.4 GM/DL (11.6-15.3) Hematocrit 38.7 % (35.0-46.0) 33.5 % (35.0-46.0) Mean Corpuscular Volume 91.8 FL (80.0-100.0) 91.3 FL (80.0-100.0) Mean Corpuscular Hemoglobin 29.0 PG (27.0-34.0) 28.3 PG (27.0-34.0) Mean Corpuscular Hemoglobin Concent 31.6 % (32.0-36.0) 31.0 % (32.0-36.0) Red Cell Distribution Width 15.1 % (11.6-17.2) 15.0 % (11.6-17.2) Platelet Count 220 TH/MM3 (150-450) 221 TH/MM3 (150-450) Mean Platelet Volume 9.2 FL (7.0-11.0) 8.9 FL (7.0-11.0) Neutrophils (%) (Auto) 81.2 % (16.0-70.0) 85.7 % (16.0-70.0) Lymphocytes (%) (Auto) 6.7 % (9.0-44.0) 5.5 % (9.0-44.0) Monocytes (%) (Auto) 7.6 % (0.0-8.0) 6.2 % (0.0-8.0) Eosinophils (%) (Auto) 4.1 % (0.0-4.0) 2.4 % (0.0-4.0) Basophils (%) (Auto) 0.4 % (0.0-2.0) 0.2 % (0.0-2.0) Neutrophils # (Auto) 10.9 TH/MM3 (1.8-7.7) 10.6 TH/MM3 (1.8-7.7) Lymphocytes # (Auto) 0.9 TH/MM3 (1.0-4.8) 0.7 TH/MM3 (1.0-4.8) Monocytes # (Auto) 1.0 TH/MM3 (0-0.9) 0.8 TH/MM3 (0-0.9) Eosinophils # (Auto) 0.6 TH/MM3 (0-0.4) 0.3 TH/MM3 (0-0.4) Basophils # (Auto) 0.1 TH/MM3 (0-0.2) 0.0 TH/MM3 (0-0.2) CBC Comment DIFF FINAL DIFF FINAL Differential Comment Blood Urea Nitrogen 24 MG/DL (7-18) 17 MG/DL (7-18) Creatinine 0.68 MG/DL (0.50-1.00) 0.57 MG/DL (0.50-1.00) Random Glucose 135 MG/DL (74-106) 144 MG/DL (74-106) Total Protein 5.6 GM/DL (6.4-8.2) 5.5 GM/DL (6.4-8.2) Albumin 2.1 GM/DL (3.4-5.0) 2.6 GM/DL (3.4-5.0) Calcium Level 7.7 MG/DL (8.5-10.1) 7.4 MG/DL (8.5-10.1) Phosphorus Level 3.4 MG/DL (2.5-4.9) 1.8 MG/DL (2.5-4.9) Magnesium Level 2.0 MG/DL (1.5-2.5) 2.0 MG/DL (1.5-2.5) Alkaline Phosphatase 96 U/L (45-117) 80 U/L (45-117) Aspartate Amino Transf (AST/SGOT) 29 U/L (15-37) 19 U/L (15-37) Alanine Aminotransferase (ALT/SGPT) 20 U/L (10-53) 17 U/L (10-53) Total Bilirubin 0.5 MG/DL (0.2-1.0) 0.5 MG/DL (0.2-1.0) Sodium Level 145 MEQ/L (136-145) 141 MEQ/L (136-145) Chloride Level 117 MEQ/L (98-107) 114 MEQ/L (98-107) Carbon Dioxide Level 20.6 MEQ/L (21.0-32.0) 18.1 MEQ/L (21.0-32.0) Anion Gap 7 MEQ/L (5-15) 9 MEQ/L (5-15) Estimat Glomerular Filtration Rate 82 ML/MIN (>89) 101 ML/MIN (>89) Digoxin Level 1.0 NG/ML (0.8-2.0) Protein Corrected Calcium 8.3 MG/DL (8.5-10.1) Amylase Level 14 U/L (25-115) Lipase 65 U/L (73-393) Vancomycin Level Trough 17.0 MCG/ML (5.0-10.0) Test 06/18/17 05:59 06/18/17 10:00 06/18/17 12:43 06/18/17 16:00 Blood Gas Puncture Site ART LINE ART LINE Blood Gas Patient Temperature 98.6 98.6 Blood Gas HCO3 14 mmol/L (22-26) 14 mmol/L (22-26) Blood Gas Base Excess -9.8 mmol/L (-2-2) -9.9 mmol/L (-2-2) Blood Gas Oxygen Saturation 95 % (90-100) 98 % (90-100) Arterial Blood pH 7.40 (7.380-7.420) 7.39 (7.380-7.420) Arterial Blood Partial Pressure CO2 23 mmHg (38-42) 24 mmHg (38-42) Arterial Blood Partial Pressure O2 91 mmHg (61-120) 271 mmHg (61-120) Arterial Blood Oxygen Content 14.4 Vol % (12.0-20.0) 14.6 Vol % (12.0-20.0) Arterial Blood Carboxyhemoglobin 1.2 % (0-4) 1.1 % (0-4) Arterial Blood Methemoglobin 1.1 % (0-2) 1.1 % (0-2) Blood Gas Hemoglobin 10.7 G/DL (12.0-16.0) 10.1 G/DL (12.0-16.0) Oxygen Delivery Device VENT VENTILATOR Blood Gas Ventilator Setting COMMENTS [facility]/500/IT 1.0 Blood Gas Inspired Oxygen 35 % 100 % White Blood Count 9.9 TH/MM3 (4.0-11.0) Red Blood Count 3.26 MIL/MM3 (4.00-5.30) Hemoglobin 9.5 GM/DL (11.6-15.3) Hematocrit 29.5 % (35.0-46.0) Mean Corpuscular Volume 90.4 FL (80.0-100.0) Mean Corpuscular Hemoglobin 29.0 PG (27.0-34.0) Mean Corpuscular Hemoglobin Concent 32.1 % (32.0-36.0) Red Cell Distribution Width 14.6 % (11.6-17.2) Platelet Count 182 TH/MM3 (150-450) Mean Platelet Volume 8.3 FL (7.0-11.0) Neutrophils (%) (Auto) 84.9 % (16.0-70.0) Lymphocytes (%) (Auto) 5.9 % (9.0-44.0) Monocytes (%) (Auto) 5.4 % (0.0-8.0) Eosinophils (%) (Auto) 3.6 % (0.0-4.0) Basophils (%) (Auto) 0.2 % (0.0-2.0) Neutrophils # (Auto) 8.4 TH/MM3 (1.8-7.7) Lymphocytes # (Auto) 0.6 TH/MM3 (1.0-4.8) Monocytes # (Auto) 0.5 TH/MM3 (0-0.9) Eosinophils # (Auto) 0.4 TH/MM3 (0-0.4) Basophils # (Auto) 0.0 TH/MM3 (0-0.2) CBC Comment DIFF FINAL Differential Comment Prothrombin Time 13.6 SEC (9.8-11.6) Prothromb Time International Ratio 1.2 RATIO Activated Partial Thromboplast Time 60.2 SEC (24.3-30.1) Fibrinogen 365 mg/dL (227-377) Lactic Acid Level 0.7 mmol/L (0.4-2.0) Urine Color YELLOW (YELLW/STRAW) Urine Turbidity HAZY (CLEAR) Urine pH 5.0 (5.0-8.5) Urine Specific [place] 1.029 (1.002-1.035) Urine Protein NEG mg/dL (NEG-TRACE) Urine Glucose (UA) NEG mg/dL (NEG) Urine Ketones NEG mg/dL (NEG) Urine Occult Blood MOD (NEG) Urine Nitrite NEG (NEG) Urine Bilirubin NEG (NEG) Urine Urobilinogen LESS THAN 2.0 MG/DL (LESS Urine Leukocyte Esterase MOD (NEG) Urine RBC 15 /hpf (0-3) Urine WBC 16 /hpf (0-5) Urine Mucus FEW /lpf (OCC) Microscopic Urinalysis Comment CATH-CULTURE IND Test 06/18/17 20:35 06/18/17 22:30 06/19/17 04:40 Hemoglobin 9.9 GM/DL (11.6-15.3) 9.9 GM/DL (11.6-15.3) Hematocrit 31.3 % (35.0-46.0) 30.2 % (35.0-46.0) Lactic Acid Level 0.8 mmol/L (0.4-2.0) 0.9 mmol/L (0.4-2.0) Activated Partial Thromboplast Time 67.4 SEC (24.3-30.1) White Blood Count 12.7 TH/MM3 (4.0-11.0) Red Blood Count 3.37 MIL/MM3 (4.00-5.30) Mean Corpuscular Volume 89.6 FL (80.0-100.0) Mean Corpuscular Hemoglobin 29.4 PG (27.0-34.0) Mean Corpuscular Hemoglobin Concent 32.9 % (32.0-36.0) Red Cell Distribution Width 14.8 % (11.6-17.2) Platelet Count 231 TH/MM3 (150-450) Mean Platelet Volume 8.7 FL (7.0-11.0) Neutrophils (%) (Auto) 83.0 % (16.0-70.0) Lymphocytes (%) (Auto) 5.3 % (9.0-44.0) Monocytes (%) (Auto) 7.2 % (0.0-8.0) Eosinophils (%) (Auto) 4.2 % (0.0-4.0) Basophils (%) (Auto) 0.3 % (0.0-2.0) Neutrophils # (Auto) 10.5 TH/MM3 (1.8-7.7) Lymphocytes # (Auto) 0.7 TH/MM3 (1.0-4.8) Monocytes # (Auto) 0.9 TH/MM3 (0-0.9) Eosinophils # (Auto) 0.5 TH/MM3 (0-0.4) Basophils # (Auto) 0.0 TH/MM3 (0-0.2) CBC Comment DIFF FINAL Differential Comment Blood Urea Nitrogen 11 MG/DL (7-18) Creatinine 0.40 MG/DL (0.50-1.00) Random Glucose 104 MG/DL (74-106) Total Protein 5.3 GM/DL (6.4-8.2) Albumin 2.9 GM/DL (3.4-5.0) Calcium Level 7.6 MG/DL (8.5-10.1) Phosphorus Level 2.5 MG/DL (2.5-4.9) Magnesium Level 2.2 MG/DL (1.5-2.5) Alkaline Phosphatase 72 U/L (45-117) Aspartate Amino Transf (AST/SGOT) 35 U/L (15-37) Alanine Aminotransferase (ALT/SGPT) 21 U/L (10-53) Total Bilirubin 0.5 MG/DL (0.2-1.0) Sodium Level 144 MEQ/L (136-145) Potassium Level 3.3 MEQ/L (3.5-5.1) Chloride Level 113 MEQ/L (98-107) Carbon Dioxide Level 21.2 MEQ/L (21.0-32.0) Anion Gap 10 MEQ/L (5-15) Estimat Glomerular Filtration Rate 152 ML/MIN (>89) Digoxin Level 0.7 NG/ML (0.8-2.0) . Result Diagram: 06/19/1743906/19/17439 Microbiology Microbiology Date/Time Source Procedure Growth Status 06/19/17 04:40 Blood Peripheral Aerobic Blood Culture Pending Received 06/19/17 04:40 Blood Peripheral Anaerobic Blood Culture Pending Received 06/18/17 12:50 Blood Peripheral Aerobic Blood Culture - Preliminary NO GROWTH IN 1 DAY Resulted 06/18/17 12:50 Blood Peripheral Anaerobic Blood Culture - Preliminary NO GROWTH IN 1 DAY Resulted 06/18/17 04:06 Stool Stool Stool Occult Blood (KAYLAN) - Final HEMOCCULT POSITIVE Complete 06/18/17 16:00 Urine Catheterized Urine Urine Culture - Preliminary NO GROWTH IN 24 HOURS. Resulted . Imaging Last 72 hours Impressions Chest X-Ray 06/19/17 0600 Signed Impressions: Service Date/Time: Monday, June 19, 2017 02:49 - CONCLUSION: 1. Support apparatus in good position. Stable basilar airspace disease and effusions. Delonte Roland MD Abdomen X-Ray 06/19/17 0600 Signed Impressions: Service Date/Time: Monday, June 19, 2017 02:56 - CONCLUSION: 1. Stable to slight improvement in gaseous distention of the colon. Delonte Roland MD Abdomen/Pelvis CT 06/18/17 0000 Signed Impressions: Service Date/Time: Sunday, June 18, 2017 10:29 - CONCLUSION: 1. Persistent wedge-shaped areas of hypoenhancement within the spleen likely representing infarcts. There is questionable area of hypoenhancement the lower pole the right kidney as well which could also represent infarct. Suggest attention to these a followup imaging. 2. There is a small volume of free fluid in the abdomen and pelvis along with a trace bilateral pleural fluid effusions and anasarca. 3. Cardiomegaly with 2 stable nodular areas in the right atrium representing either thrombus or mass. These measure up to 2 cm. 4. Otherwise, as above. Darin Pederson MD Abdomen X-Ray 06/18/17 0000 Signed Impressions: Service Date/Time: Sunday, June 18, 2017 04:46 - CONCLUSION: Interval development of gaseous distention of the colon. Blu Chilel MD Chest X-Ray 06/17/17 0600 Signed Impressions: Service Date/Time: Saturday, June 17, 2017 04:16 - CONCLUSION: Persistent left lower lung consolidation and patchy infiltrates in the medial right lower lung. Blu Chilel MD . Procedures 06/15/17 central line placement right IJ 06/05/17 femoral arterial line placement left . Assessment and Plan Disease Oriented Problem List: (1) Hypokalemia (2) Aspiration pneumonia (3) Respiratory failure with hypoxia (4) History of stroke (5) Moderate protein malnutrition (6) Atrial fibrillation with RVR Symptom Scale: (1) Dyspnea (2) Encephalopathy (3) Pain (4) Dysphagia Pertinent Non-Medical Issues Psychosocial:, most recently resided at [facility] and rehabilitation following month long hospital course at [facility]. Retired, has 3 adult children who live out of the area. Patient resides in [place] during the winter and [place] during the summer. 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 Retired since the . Spiritual:Quaker supported by oleomargarine maker known to family, also appreciative of hospital civil design technician Legal:Patient currently intubated and unable to participate in medical decision making. Patient has living will which designates as primary healthcare surrogate, son as a secondary if unable to serve. I reviewed this document with the family on their iPad device however was unable available for print at this time. Ethical issues impacting care: Important Contacts Spouse Jorge Alberto Basilio [phone] Terrance Basilio [phone] / [phone] Son Jorge Alberto Basilio Daughter Sandhya . Prognosis This patient was admitted for acute respiratory distress, respiratory failure. She recently had prolonged hospitalization for significant MCA stroke with resulting deficits and dysphagia. She has had A. fib with RVR, which has been difficult to control in the ICU setting. She remains high risk for further complications and setbacks, and possible . She does survive current acute hospitalization she will likely remain dependent and require long-term care. Code Status: Alternative Code (intubation) Plan * Legal decision maker: Patient has living will which designates as primary healthcare surrogate, son as a secondary if unable to serve. I reviewed this document with the family on their iPad device however was unable available for print at this time. * Goals: For right now family wishes to continue aggressive treatments, short of alternative code (intubation only). Although they verbalized understanding that the patient is critically ill, they are hopeful she can recover and would like to give her until the end of the week before considering any changes in medical treatment goals. * Discussed patient with bedside nurse (Ana M) and Dr. Bach. * CODE STATUS: Alternate code-intubation only. Patient's previous alternate CODE STATUS included intubation and ACLS medications. After reviewing the process of cardiopulmonary resuscitation with the patient's family, they request the patient be INTUBATION ONLY. * SYMPTOMS: --Dyspnea-emergently intubated for respiratory distress by EMS; MRSA pneumonia. Sedated on Diprivan-no recommendations at this time --Dysphagia-patient with recent MCA stroke, status post PEG placement at another facility, noted as aspiration risk per rehabilitation documentation. + aspiration pneumonia. Expected to remain at risk for aspiration secondary to dysphagia. --Pain- Patient currently sedated on Diprivan and Fentanyl. No reported pain syndromes per family, potential sources would include bedbound status, recent invasive procedures; currently appears comfortable will continue to evaluate --Encephalopathy-multifactorial: status post recent CVA, now with acute respiratory failure, A. fib RVR, severe sepsis with septic shock * Palliative care will continue to follow during hospital course as condition evolves, to assist patient/decision-maker with understanding of medical conditions, weighing benefits/burdens of treatment options, for clarification of goals of treatment. Additionally will assist with any symptoms of palliative concern Attestation To help prompt me to consider important information that might be impacting today's encounter and assessment, information from prior notes written by myself or my colleagues may have been "brought forward" into today's note. My signature on this note, however, is an attestation that I personally performed the exam, history, and/or decision-making noted today, and, unless otherwise indicated, the interactions with patient, family, and staff as well as the review of records all occurred today. I also attest that the listed assessment and stated plan reflect my best clinical judgment today based on the combination of historical information, prior notes, and today's exam/ interactions. When time spent is documented, it refers only to time spent today by the signer, or if indicated, combined time spent today by collaborating physician/nurse practitioner. . Evette Garcia Jun 19, 2017 5:41 pm
[2017-06-19 17:43] LABS: APTT (PATIENT) 35.1 SEC (24.3-30.1)
[2017-06-20] VITALS (18 sets, daily range): BP systolic 69–148; BP diastolic 47–69; PULSE 91–122; RESP 14–21; TEMP 97.7–99.5; O2SAT 97–100
[2017-06-20] MEDS: METRONIDAZOLE 500 MG/100 ML ISONTONIC SOLN IV SCH ×3 (00:57→17:35)
[2017-06-20 02:38] LABS: APTT (PATIENT) GREATER THAN 277.5 SEC (24.3-30.1)
[2017-06-20] MEDS: AZTREONAM INJ 2,000 MG in SODIUM CHLORIDE 0.9% INJ 100 ML IV SCH ×4 (02:51→19:12)
[2017-06-20] MEDS: RESP: ALBUTEROL 2.5 MG/IPRATROPIUM 0.5 MG NEB (SCH) INH ×4 (03:23→21:07)
[2017-06-20] MEDS: CHLORHEXIDINE GLUCONATE 2 % 1 PACK (2 CLOTHS) TOP SCH (03:35)
[2017-06-20] MEDS: PROPOFOL 1000 MG/100 ML INJ 100 ML IV PRN (03:35)
[2017-06-20 04:42] LABS: AUTOMATED NEUTROPHIL # 7.9 TH/MM3 (1.8-7.7); BASOPHIL # 0.1 TH/MM3 (0-0.2); BASOPHIL % 0.6 % (0.0-2.0); EOSINOPHIL # 0.7 TH/MM3 (0-0.4); EOSINOPHIL % 6.5 % (0.0-4.0); HEMATOCRIT 32.1 % (35.0-46.0); LYMPHOCYTE # 1.2 TH/MM3 (1.0-4.8); MEAN CELL VOLUME 90.2 FL (80.0-100.0); MEAN CORPUSCULAR HEMOGLOBIN 29.8 PG (27.0-34.0); MONO % 9.8 % (0.0-8.0); NEUT % 72.1 % (16.0-70.0); PLATELET COUNT 278 TH/MM3 (150-450); RED BLOOD COUNT 3.56 MIL/MM3 (4.00-5.30); RED CELL DISTRIBUTION WIDTH 14.8 % (11.6-17.2)
[2017-06-20 04:45] LABS: HEMO FLAGS AUTO DIFF
[2017-06-20 04:55] LABS: APTT (PATIENT) 132.6 SEC (24.3-30.1)
[2017-06-20 05:08] LABS: BICARBONATE 22.2 MEQ/L (21.0-32.0); MAGNESIUM 2.3 MG/DL (1.5-2.5); POTASSIUM 3.4 MEQ/L (3.5-5.1)
[2017-06-20 05:27] LABS: SCAN/DIFF AUTO DIFF CONFIRMED
[2017-06-20 05:33] LABS: BLOOD GAS BASE EXCESS -6.5 mmol/L (-2-2); BLOOD GAS CARBOXYHEMOGLOBIN 1.3 % (0-4); BLOOD GAS HCO3 17 mmol/L (22-26); BLOOD GAS O2 HGB SATURATION 94 % (90-100); BLOOD GAS OXYGEN CONTENT 13.7 Vol % (12.0-20.0); BLOOD GAS PCO2 22 mmHg (38-42); BLOOD GAS PO2 76 mmHg (61-120); BLOOD GAS TOTAL HGB 10.3 G/DL (12.0-16.0); TEMP CORR TO 98.6
[2017-06-20 05:37] LABS: CRITICAL VALUE YES; OXYGEN DEVICE VENTILATOR
[2017-06-20 05:38] LABS: DRAW SITE ART LINE; STAT NO; VENT SETTINGS PRVCAC
[2017-06-20] MEDS: INSULIN NovoLIN REGULAR SUPPLEMENTAL SCALE SQ SCH ×4 (06:00→18:00)
[2017-06-20] MEDS: FREE WATER G-TUBE SCH ×4 (06:00→22:00)
[2017-06-20] MEDS: D5-1/2 NS + KCL 20 MEQ INJ 1,000 ML IV SCH (06:09)
[2017-06-20] MEDS: ARTIFICIAL TEARS OPTH SOLN 15 ML BTL EACH EYE SCH ×3 (06:09→22:30)
[2017-06-20] MEDS: PANTOPRAZOLE SODIUM 40 MG VIAL IV PUSH SCH ×2 (06:10→18:28)
[2017-06-20 06:47] LABS: APTT (PATIENT) 51.2 SEC (24.3-30.1)
--- NOTE | 2017-06-20 07:23 | HHI.CCPN ---
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 She was discharged from [facility] and transferred to [facility] and rehabilitation 06/01/17. She reportedly had rhonchi, cough, and respiratory distress early this morning and there was concern for aspiration. Chest x-ray had been obtained and there were small bibasilar densities that were felt to be consistent with atelectasis. When the film processing shift supervisor nurse came in she noted that patient had significantly worsening congestion and increased work of breathing. EVAC was summoned and when EVAC arrived she was reportedly GCS 7 ([id number]) and was intubated at the scene after administration of Ativan 4 mg IV and Etomidate 20 mg IV. Upon intubation EVAC reportedly suctioned out large amount of secretions that looked like Jevity tube feeds from the ETT. Jevity tube feeds were running via PEG and these were placed on hold per EVAC. Upon arrival she was in atrial fibrillation with RVR with rate in the 160s. She was given cardizem 20 mg IV and started on cardizem drip at 5 mg/hr. with white blood cell count 13.7. She was normotensive blood pressure 120-140 systolic. Temperature 99.4. She is hypernatremic with sodium of 154, potassium 2.8. Protein corrected calcium 7.9. Magnesium is normal. Troponin is 0.18, BNP 674. Lactic acid is 1.9 She received 2.5 L of fluid in the emergency department. Chest x-ray demonstrates endotracheal tube approximately 1.8 cm above the sury. OG tube is in place in the stomach. There is left basilar opacity, right basilar atelectasis. Patient is intubated and remainder review of systems cannot be obtained. Aztreonam, metronidazole, levofloxacin were ordered per ED. Blood cultures have been obtained. No noted diarrhea. Unknown if patient had experienced vomiting 06/15 : Discussed with Jorge Alberto at bedside. Request alternate CODE STATUS. ACLS drugs and intubation only. Currently on esmolol and Cardizem drips for rate control. Phenylephrine drip initiated due to hypotension. Patient does withdrawal to left upper extremity and actually made attempt to self extubate with left upper extremity while placing central line while hypotensive. Moving bilateral lower extremities spontaneously. Plan is MRI brain if able/stable overnight otherwise will repeat CT head in a.m. 06/16 Echocardiogram still not read as of 1719. Heparin drip initiated due to likely mural thrombus and high risk of CVA. Initial CT brain 06/15 showed no signs of acute hemorrhage. Discussed and reviewed chart records with Dr. Johnston. 06/16: Afebrile. MRI brain results as below. Heparin drip currently on hold secondary to elevated PTT. Tube feeding to be initiated today. Remains on Cardizem, esmolol in phenylephrine drips 06/17: Afebrile. Off the diltiazem, esmolol and phenylephrine drips. Currently on propofol drip at 20 mics grams per kilo per minute. Attempt sedation vacation today. No bowel movement. Tube feeds currently at 30 cc an hour Subjective 06/18: Afebrile. A. fib with RVR overnight restarted on diltiazem drip currently at 5 mg an hour. Per report 1 large bloody bowel movement currently brown in color. KUB revealed abdominal distention with cecum at 11.[address] evidence/pelvis pending. Heparin discontinued. Noted thrombus in right atrium. On echocardiogram. Not on vasopressors. 06/19 PAtient is sedated with Diprivan, Neosyn started overnight for hypotension and Cardizem drip stopped. Off Heparin drip for Colonoscopy today. Afebrile. 06/20 No events overnight. Sedated with Diprivan and intubated. On Neosyn 50 mics. Afebrile. s/p EGD and colonoscopy yesterday with no signs of bleeding. Back on Heparin drip. Objective Vital Signs Date Time Temp Pulse Resp B/P (MAP) Pulse Ox O2 Delivery O2 Flow Rate FiO2 06/20/17 06:00 100 06/20/17 04:00 96.6 15 91/66 (74) 99 134/62 (86) 06/20/17 04:00 45 Intake and Output 06/20/17 06/20/17 06/21/17 08:00 16:00 00:00 Intake Total 1500 ml Output Total 2000 ml Balance -500 ml Result Diagram: 06/20/17 0415 06/20/17 0415 Other Results Laboratory Tests Test 06/19/17 16:20 06/20/17 02:00 06/20/17 04:15 06/20/17 05:25 Activated Partial Thromboplast Time 35.1 SEC GREATER THAN 277.5 SEC 132.6 SEC White Blood Count 11.0 TH/MM3 Red Blood Count 3.56 MIL/MM3 Hemoglobin 10.6 GM/DL Hematocrit 32.1 % Mean Corpuscular Volume 90.2 FL Mean Corpuscular Hemoglobin 29.8 PG Mean Corpuscular Hemoglobin Concent 33.0 % Red Cell Distribution Width 14.8 % Platelet Count 278 TH/MM3 Mean Platelet Volume 7.7 FL Neutrophils (%) (Auto) 72.1 % Lymphocytes (%) (Auto) 11.0 % Monocytes (%) (Auto) 9.8 % Eosinophils (%) (Auto) 6.5 % Basophils (%) (Auto) 0.6 % Neutrophils # (Auto) 7.9 TH/MM3 Lymphocytes # (Auto) 1.2 TH/MM3 Monocytes # (Auto) 1.1 TH/MM3 Eosinophils # (Auto) 0.7 TH/MM3 Basophils # (Auto) 0.1 TH/MM3 CBC Comment AUTO DIFF Differential Comment AUTO DIFF CONFIRMED Blood Urea Nitrogen 8 MG/DL Creatinine 0.38 MG/DL Random Glucose 108 MG/DL Calcium Level 7.5 MG/DL Phosphorus Level 2.2 MG/DL Magnesium Level 2.3 MG/DL Sodium Level 147 MEQ/L Potassium Level 3.4 MEQ/L Chloride Level 118 MEQ/L Carbon Dioxide Level 22.2 MEQ/L Anion Gap 7 MEQ/L Estimat Glomerular Filtration Rate 161 ML/MIN Blood Gas Puncture Site ART LINE Blood Gas Patient Temperature 98.6 Blood Gas HCO3 17 mmol/L Blood Gas Base Excess -6.5 mmol/L Blood Gas Oxygen Saturation 94 % Arterial Blood pH 7.48 Arterial Blood Partial Pressure CO2 22 mmHg Arterial Blood Partial Pressure O2 76 mmHg Arterial Blood Oxygen Content 13.7 Vol % Arterial Blood Carboxyhemoglobin 1.3 % Arterial Blood Methemoglobin 1.0 % Blood Gas Hemoglobin 10.3 G/DL Oxygen Delivery Device VENTILATOR Blood Gas Ventilator Setting PRVCAC Test 06/20/17 06:15 Activated Partial Thromboplast Time 51.2 SEC Imaging Last Impressions Chest X-Ray 06/19/17 0600 Signed Impressions: Service Date/Time: Monday, June 19, 2017 02:49 - CONCLUSION: 1. Support apparatus in good position. Stable basilar airspace disease and effusions. Delonte Roland MD Abdomen X-Ray 06/19/17 0600 Signed Impressions: Service Date/Time: Monday, June 19, 2017 02:56 - CONCLUSION: 1. Stable to slight improvement in gaseous distention of the colon. Delonte Roland MD Abdomen/Pelvis CT 06/18/17 0000 Signed Impressions: Service Date/Time: Sunday, June 18, 2017 10:29 - CONCLUSION: 1. Persistent wedge-shaped areas of hypoenhancement within the spleen likely representing infarcts. There is questionable area of hypoenhancement the lower pole the right kidney as well which could also represent infarct. Suggest attention to these a followup imaging. 2. There is a small volume of free fluid in the abdomen and pelvis along with a trace bilateral pleural fluid effusions and anasarca. 3. Cardiomegaly with 2 stable nodular areas in the right atrium representing either thrombus or mass. These measure up to 2 cm. 4. Otherwise, as above. Darin Pederson MD Upper Extremity Ultrasound 06/16/17 0000 Signed Impressions: Service Date/Time: Friday, June 16, 2017 11:00 - CONCLUSION: Normal examination. No evidence of DVT Shoaib Pastor MD Head CT 06/15/17 0000 Signed Impressions: Service Date/Time: May 04:26 - CONCLUSION: 1. No acute intracranial abnormality. 2. Chronic small vessel ischemic change more pronounced on the left. 3. Right frontal lobe encephalomalacia. 4. Atrophy Blu Mayfield Jr., MD Chest CT 06/15/17 0000 Signed Impressions: Service Date/Time: May 04:30 - CONCLUSION: 1. 2 focal rounded filling defects involving an enlarged right atrium. I'm concerned this represents mural thrombus. 2. Significant cardiomegaly. 3. Bibasilar infiltrates. Blu Mayfield Jr., MD Brain MRI 06/15/17 0000 Signed Impressions: Service Date/Time: May 20:50 - CONCLUSION: 1. Multiple subacute infarcts are demonstrated. Please see above. 2. There is an old infarct posteriorly of the right frontal lobe as well. 3. No mass, mass effect or midline shift. No bleed. Darin Preston MD Objective Remarks GENERAL: 86-year-old female, critically ill currently orotracheally intubated SKIN: Warm and dry. Great toes bilaterally are currently dusky HEAD: Atraumatic. Normocephalic. EYES: Pupils round, 3 to 4 mm and sluggishly reactive bilaterally. No scleral icterus. No injection or drainage. ENT: No nasal bleeding or discharge. Mucous membranes moist and pink oropharynx without erythema. Thrush noted NECK: Trachea midline. No JVD. Right IJ 5 lm catheter is clean dry and intact CARDIOVASCULAR: Prior sternotomy scar noted. Well-healed. Tachycardia, IR. S1 , S2 no S4. Without murmur RESPIRATORY: Coarse rhonchi appreciated bilaterally. Symmetrical excursion. GASTROINTESTINAL: Abdomen more formed today. Hyperactive bowel sounds are appreciated. No high-pitched sounds appreciated. PEG tube in place without erythema/skin breakdown currently drainage of gastric contents : Camilo in place with yellow urine output. MUSCULOSKELETAL: Right upper extremity edema noted NEUROLOGICAL: No facial droop noted. Again squeezes with left hand to command. Moving bilateral lower extremities left greater than right. Minimal movement right upper extremity with noxious stimulation. Positive gag. Positive corneal reflex. Date of Insertion: Jun 15, 2017 Line: Central Venous Catheter Side: Right Location: Internal, Jugular A/P Problem List: (1) Hypokalemia ICD Code: E87.6 - Hypokalemia Status: Acute (2) Aspiration pneumonia ICD Code: J69.0 - Pneumonitis due to inhalation of food and vomit Status: Acute (3) Respiratory failure with hypoxia ICD Code: J96.91 - Respiratory failure, unspecified with hypoxia Status: Acute (4) Dysphagia ICD Code: R13.10 - Dysphagia, unspecified Status: Chronic (5) Respiratory failure, acute ICD Code: J96.00 - Acute respiratory failure, unspecified whether with hypoxia or hypercapnia (6) History of stroke ICD Code: Z86.73 - Personal history of transient ischemic attack (TIA), and cerebral infarction without residual deficits (7) Moderate protein malnutrition ICD Code: E44.0 - Moderate protein-calorie malnutrition Status: Chronic Assessment and Plan NEURO/Psych: Recent history of L MCA stroke 05/21/17 -left periventricular white matter, left temporal, left parietal and right parietal Residual R hemiparesis, dysphagia, inability to ambulate. R frontal encephalomalacia Patient had "small hemorrhagic conversion" noted on MRI at outside hospital. Neurology consulted on 06/[address] on 06/07 and if no worsening hemorrhage, can start Eliquis and d/c ASA. MRI brain 06/15 revealed old right frontal posterior infarct, subacute left parametric white matter 17 x 52 mm, left temporal 19 x 32 mm, left parietal 16 mm and cluster right parietal areas of subacute EEG 06/15 revealed bilateral abnormalities slowing rhythms more left. No ictal/ discharge is noted Currently on propofol at 40 mics grams per kilogram per minute Goal of RA SS -2. Daily sedation vacation RESP: Acute respiratory failure Acute Aspiration Pneumonia PRVC 14/500/09/29/44 Continue with vent support keep sat >92% Ventilator bundle. Decrease RR 10. SBT trials as julia. Albuterol/ipratropium aerosols every 4 hours with albuterol aerosols every 2 hours as needed Dyspnea CXR 06/19 Stable basilar airspace disease and effusions CT thorax 06/15- bibasilar opacities. ?R atrial mural thrombus. CV: Atrial fibrillation with [id number] ?Right Atrial thrombus - not documented on 2-D echocardiogram H/o mitral valve replacement Hyperlipidemia Wean off Neosyn keep MAP>65mmHg. Hold Lopressor and Cardizem On digoxin 0.125 mg by PEG daily. Digoxin level 0.7 06/19, Pravachol 40mg daily 2-D echo: EF45- 50%. Normal left ventricular size. Wall thickness is normal. No regional wall motion abnormalities are present. The left atrial size is severely dilated. The right atrial size is severely dilated. Mitral valve annuloplasty ring is present. Moderate thickening of the mitral valve leaflets. [id number] mitral valve regurgitation. Diffuse calcification of the aortic valve. [id number] aortic valve regurgitation. No aortic valve stenosis. Aortic valve area is 1.4cm. Aortic valve mean gradient is 9 mmHg. There is trace TR. The estimated pulmonary arterial pressure is 41.8 mmHg. Echo 06/18 revealed 1.35 x 1.38 cm right atrial thrombus/mass Continue with Heparin drip-monitor PTT GI: Constipation Cholelithiasis Splenic infarct Chronic moderate protein energy malnutrition Hypoalbuminemia Resume TF (vital 1.5 goal 45 cc an hour) via PEG tube s/p EGD and colonoscopy 06/18: Mild gastritis, small ulceration next to PEG tube site with no evidence of bleeding, colon polyp and Diverticulosis. CT abd/pelvis revealed spleen abnormalities suggest splenic infarct. Laceration felt to be less likely. No hematoma. No recent mechanism for injury reported. Docusate sodium/Senokot/MiraLAX twice a day and lactulose every 6 hours for bowel regimen KUB 06/18 revealed gaseous distention of the colon cecum 11.5 cm FEN/RENAL: Monitor renal function, I/O's, electrolytes replacement per protocol. Change Free water 250 ml Q8 ID: Aspiration pneumonia Thrush Coag negative staph bacteremia MRSA sputum positive Continue abx per ID ( Vanco, Azactam, Flagyl) monitor for signs of infections ( Fever, WBC) Might need ALVIN per ID Influenza negative 06/19 BC: NGTD Sputum 06/16 MRSA, 06/15 BC: Coag negative staph Infectious disease following HEME: Leukocytosis Normocytic anemia Monitor CBC, coags- on heparin drip Previously on Apixaban ENDO: SSI with accuchecks TSH 0.546. T4 slightly elevated at 1.8 PROPH: Heparin drip will provide DVT prophylaxis Pantoprazole 40 mg IV twice a day for stress ulcer prophylaxis. ACCESS: Right IJ 5 lm catheter Right femoral arterial line Palliative care is following Continue Alternate code status. Intubation and ACLS drugs only. No shock. No CPR. CCT 30 mins Problem Qualifiers (1) Respiratory failure with hypoxia: Qualified Codes: J96.01 - Acute respiratory failure with hypoxia Marsha Bach MD Jun 20, 2017 07:23
--- NOTE | 2017-06-20 07:28 | HHI.IDPN ---
Note Infectious Disease Note ID COVERAGE FOR DR HARRISON Vital Signs Date Time Temp Pulse Resp B/P (MAP) Pulse Ox O2 Delivery O2 Flow Rate FiO2 06/19/17 07:35 100 45 06/19/17 06:00 82 06/19/17 04:52 100 45 06/19/17 04:00 35 06/19/17 04:00 85 06/19/17 04:00 97.2 85 16 123/74 (90) 100 06/19/17 02:12 100 45 06/19/17 02:00 72 06/19/17 00:00 96.1 83 16 90/75 (80) 100 06/19/17 00:00 83 06/19/17 00:00 35 06/18/17 22:38 100 45 06/18/17 22:00 80 06/18/17 21:16 93 77/36 06/18/17 20:00 94.3 87 14 105/53 (70) 100 06/18/17 20:00 87 06/18/17 20:00 35 06/18/17 18:55 99 103/53 06/18/17 18:00 95 06/18/17 16:11 100 45 06/18/17 16:00 92 18 100/51 (67) 100 06/18/17 16:00 45 06/18/17 16:00 92 06/18/17 14:00 100 06/18/17 12:00 45 06/18/17 12:00 102 18 114/58 (76) 100 06/18/17 12:00 106 06/18/17 11:12 100 100 06/18/17 10:00 103 06/18/17 09:45 100 50 06/18/17 09:39 96 126/63 Laboratory Tests Test 06/18/17 10:00 06/18/17 12:43 06/18/17 16:00 06/18/17 20:35 Blood Gas Puncture Site ART LINE Blood Gas Patient Temperature 98.6 Blood Gas HCO3 14 mmol/L Blood Gas Base Excess -9.9 mmol/L Blood Gas Oxygen Saturation 98 % Arterial Blood pH 7.39 Arterial Blood Partial Pressure CO2 24 mmHg Arterial Blood Partial Pressure O2 271 mmHg Arterial Blood Oxygen Content 14.6 Vol % Arterial Blood Carboxyhemoglobin 1.1 % Arterial Blood Methemoglobin 1.1 % Blood Gas Hemoglobin 10.1 G/DL Oxygen Delivery Device VENTILATOR Blood Gas Ventilator Setting [facility]//500/IT 1.0 Blood Gas Inspired Oxygen 100 % White Blood Count 9.9 TH/MM3 Red Blood Count 3.26 MIL/MM3 Hemoglobin 9.5 GM/DL 9.9 GM/DL Hematocrit 29.5 % 31.3 % Mean Corpuscular Volume 90.4 FL Mean Corpuscular Hemoglobin 29.0 PG Mean Corpuscular Hemoglobin Concent 32.1 % Red Cell Distribution Width 14.6 % Platelet Count 182 TH/MM3 Mean Platelet Volume 8.3 FL Neutrophils (%) (Auto) 84.9 % Lymphocytes (%) (Auto) 5.9 % Monocytes (%) (Auto) 5.4 % Eosinophils (%) (Auto) 3.6 % Basophils (%) (Auto) 0.2 % Neutrophils # (Auto) 8.4 TH/MM3 Lymphocytes # (Auto) 0.6 TH/MM3 Monocytes # (Auto) 0.5 TH/MM3 Eosinophils # (Auto) 0.4 TH/MM3 Basophils # (Auto) 0.0 TH/MM3 CBC Comment DIFF FINAL Differential Comment Prothrombin Time 13.6 SEC Prothromb Time International Ratio 1.2 RATIO Activated Partial Thromboplast Time 60.2 SEC Fibrinogen 365 mg/dL Lactic Acid Level 0.7 mmol/L 0.8 mmol/L Urine Color YELLOW Urine Turbidity HAZY Urine pH 5.0 Urine Specific [place] 1.029 Urine Protein NEG mg/dL Urine Glucose (UA) NEG mg/dL Urine Ketones NEG mg/dL Urine Occult Blood MOD Urine Nitrite NEG Urine Bilirubin NEG Urine Urobilinogen LESS THAN 2.0 MG/DL Urine Leukocyte Esterase MOD Urine RBC 15 /hpf Urine WBC 16 /hpf Urine Mucus FEW /lpf Microscopic Urinalysis Comment CATH-CULTURE IND Test 06/18/17 22:30 06/19/17 04:40 Activated Partial Thromboplast Time 67.4 SEC White Blood Count 12.7 TH/MM3 Red Blood Count 3.37 MIL/MM3 Hemoglobin 9.9 GM/DL Hematocrit 30.2 % Mean Corpuscular Volume 89.6 FL Mean Corpuscular Hemoglobin 29.4 PG Mean Corpuscular Hemoglobin Concent 32.9 % Red Cell Distribution Width 14.8 % Platelet Count 231 TH/MM3 Mean Platelet Volume 8.7 FL Neutrophils (%) (Auto) 83.0 % Lymphocytes (%) (Auto) 5.3 % Monocytes (%) (Auto) 7.2 % Eosinophils (%) (Auto) 4.2 % Basophils (%) (Auto) 0.3 % Neutrophils # (Auto) 10.5 TH/MM3 Lymphocytes # (Auto) 0.7 TH/MM3 Monocytes # (Auto) 0.9 TH/MM3 Eosinophils # (Auto) 0.5 TH/MM3 Basophils # (Auto) 0.0 TH/MM3 CBC Comment DIFF FINAL Differential Comment Blood Urea Nitrogen 11 MG/DL Creatinine 0.40 MG/DL Random Glucose 104 MG/DL Total Protein 5.3 GM/DL Albumin 2.9 GM/DL Calcium Level 7.6 MG/DL Phosphorus Level 2.5 MG/DL Magnesium Level 2.2 MG/DL Alkaline Phosphatase 72 U/L Aspartate Amino Transf (AST/SGOT) 35 U/L Alanine Aminotransferase (ALT/SGPT) 21 U/L Total Bilirubin 0.5 MG/DL Sodium Level 144 MEQ/L Potassium Level 3.3 MEQ/L Chloride Level 113 MEQ/L Carbon Dioxide Level 21.2 MEQ/L Anion Gap 10 MEQ/L Estimat Glomerular Filtration Rate 152 ML/MIN Lactic Acid Level 0.9 mmol/L Digoxin Level 0.7 NG/ML Laboratory Tests Test 06/18/17 02:30 06/18/17 12:43 06/18/17 20:35 06/19/17 04:40 White Blood Count 12.4 TH/MM3 9.9 TH/MM3 12.7 TH/MM3 Red Blood Count 3.67 MIL/MM3 3.26 MIL/MM3 3.37 MIL/MM3 Hemoglobin 10.4 GM/DL 9.5 GM/DL 9.9 GM/DL 9.9 GM/DL Hematocrit 33.5 % 29.5 % 31.3 % 30.2 % Mean Corpuscular Volume 91.3 FL 90.4 FL 89.6 FL Mean Corpuscular Hemoglobin 28.3 PG 29.0 PG 29.4 PG Mean Corpuscular Hemoglobin Concent 31.0 % 32.1 % 32.9 % Red Cell Distribution Width 15.0 % 14.6 % 14.8 % Platelet Count 221 TH/MM3 182 TH/MM3 231 TH/MM3 Mean Platelet Volume 8.9 FL 8.3 FL 8.7 FL Neutrophils (%) (Auto) 85.7 % 84.9 % 83.0 % Lymphocytes (%) (Auto) 5.5 % 5.9 % 5.3 % Monocytes (%) (Auto) 6.2 % 5.4 % 7.2 % Eosinophils (%) (Auto) 2.4 % 3.6 % 4.2 % Basophils (%) (Auto) 0.2 % 0.2 % 0.3 % Neutrophils # (Auto) 10.6 TH/MM3 8.4 TH/MM3 10.5 TH/MM3 Lymphocytes # (Auto) 0.7 TH/MM3 0.6 TH/MM3 0.7 TH/MM3 Monocytes # (Auto) 0.8 TH/MM3 0.5 TH/MM3 0.9 TH/MM3 Eosinophils # (Auto) 0.3 TH/MM3 0.4 TH/MM3 0.5 TH/MM3 Basophils # (Auto) 0.0 TH/MM3 0.0 TH/MM3 0.0 TH/MM3 CBC Comment DIFF FINAL DIFF FINAL DIFF FINAL Differential Comment Laboratory Tests Test 06/18/17 02:30 06/18/17 12:43 06/18/17 20:35 06/19/17 04:40 Blood Urea Nitrogen 17 MG/DL 11 MG/DL Creatinine 0.57 MG/DL 0.40 MG/DL Random Glucose 144 MG/DL 104 MG/DL Total Protein 5.5 GM/DL 5.3 GM/DL Albumin 2.6 GM/DL 2.9 GM/DL Calcium Level 7.4 MG/DL 7.6 MG/DL Phosphorus Level 1.8 MG/DL 2.5 MG/DL Magnesium Level 2.0 MG/DL 2.2 MG/DL Alkaline Phosphatase 80 U/L 72 U/L Aspartate Amino Transf (AST/SGOT) 19 U/L 35 U/L Alanine Aminotransferase (ALT/SGPT) 17 U/L 21 U/L Total Bilirubin 0.5 MG/DL 0.5 MG/DL Sodium Level 141 MEQ/L 144 MEQ/L Potassium Level 4.1 MEQ/L 3.3 MEQ/L Chloride Level 114 MEQ/L 113 MEQ/L Carbon Dioxide Level 18.1 MEQ/L 21.2 MEQ/L Anion Gap 9 MEQ/L 10 MEQ/L Estimat Glomerular Filtration Rate 101 ML/MIN 152 ML/MIN Protein Corrected Calcium 8.3 MG/DL Amylase Level 14 U/L Lipase 65 U/L Lactic Acid Level 0.7 mmol/L 0.8 mmol/L 0.9 mmol/L Microbiology Date/Time Source Procedure Growth Status 06/19/17 04:40 Blood Peripheral Aerobic Blood Culture Pending Received 06/19/17 04:40 Blood Peripheral Anaerobic Blood Culture Pending Received 06/18/17 12:50 Blood Peripheral Aerobic Blood Culture Pending Received 06/18/17 12:50 Blood Peripheral Anaerobic Blood Culture Pending Received 06/16/17 12:48 Blood Peripheral Aerobic Blood Culture - Preliminary NO GROWTH IN 2 DAYS Resulted 06/16/17 12:48 Blood Peripheral Anaerobic Blood Culture - Preliminary NO GROWTH IN 2 DAYS Resulted 06/16/17 11:40 Blood Peripheral Aerobic Blood Culture - Preliminary Staphylococcus Epidermidis Resulted 06/16/17 11:40 Blood Peripheral Anaerobic Blood Culture - Preliminary NO GROWTH IN 2 DAYS Resulted 06/18/17 04:06 Stool Stool Stool Occult Blood (KAYLAN) - Final HEMOCCULT POSITIVE Complete 06/18/17 16:00 Urine Catheterized Urine Urine Culture Pending Received RADIOLOGY DATA - REVIEWED Subjective : patient is critically ill . Patient is on a ventilator Patient is sedated patient is on vasopressors Passing bright red blood per rectum I kayley RN PHYSICAL EXAM : VITALS SIGNS ARE NOTED / REVIEWED GENERAL: vented . intubated SKIN: Warm and dry. HEAD: Normocephalic. EYES: No scleral icterus. No injection or drainage. NECK: ETT . Supple, No tenderness . No swelling CARDIOVASCULAR: Regular rate and rhythm without murmurs, gallops, or rubs. RESPIRATORY: Transmitted upper airway sounds . Rales are heard . GASTROINTESTINAL: Abdomen is Slightly distended , Bowel sounds are diminished MUSCULOSKELETAL: edema is present bilateral lower extremity . : pulliam cath with clear urine NEURO: Sedated on the ventilator . CLINICAL IMPRESSION : Severe sepsis with septic shock MRSA Pneumonia Probable Aspiration pneumonia Bacteremia due to Staphylococcus epidermidis Splenic infarcts Possible Bacterial Endocarditis Acute VDRF Acute GI Bleed RECOMMENDATIONS : Continue present antibiotics - IV vancomycin and iv Azactam , IV Flagyl Continue supportive measures Consider ALVIN when the patient is more stable Will follow Radha Kelly MD Jun 20, 2017 07:28
[2017-06-20] MEDS: SENNOSIDES SYRUP 8.8 MG/5 ML CUP OG-TUBE SCH ×2 (07:39→20:12)
[2017-06-20] MEDS: PRAVASTATIN SOD 40 MG TAB OG-TUBE SCH (07:39)
[2017-06-20] MEDS: DIGOXIN 0.5 MG/2 ML VIAL IV PUSH SCH (07:40)
--- NOTE | 2017-06-20 07:42 | PD.CARD.PN ---
Subjective Subjective Remarks Intubated. Sedated. Objective Medications Item Value Date Time Heparin Sodium/ 250 ml @ 16.65 mls/hr 06/18/17 1632 Dextrose TITRATE PRN/IV 06/19/17 1616 Digoxin 0.125 mg 06/18/17 0900 (Lanoxin Inj) DAILY/IV PUSH Pravastatin Sodium 40 mg 06/15/17 1245 (Pravachol) DAILY/OG-TUBE 06/19/17 0852 Phenylephrine HCl 500 ml @ 7.5 mls/hr 06/15/17 1100 160 mg/Dextrose TITRATE PRN/IV 06/18/17 2116 Vital Signs / I&O Vital Signs Date Time Temp Pulse Resp B/P (MAP) Pulse Ox O2 Delivery O2 Flow Rate FiO2 06/20/17 06:00 100 06/20/17 04:00 96.6 94 15 91/66 (74) 99 134/62 (86) 06/20/17 04:00 94 06/20/17 04:00 45 06/20/17 03:24 100 45 06/20/17 02:00 92 06/20/17 00:00 97.7 94 14 88/47 (61) 100 120/53 (75) 06/20/17 00:00 94 06/20/17 00:00 45 06/19/17 23:50 100 45 06/19/17 23:00 97.9 100 14 87/63 (71) 100 118/60 (79) 06/19/17 22:00 84 06/19/17 20:00 96.6 90 14 91/53 (66) 100 120/54 (76) 06/19/17 20:00 90 06/19/17 20:00 45 06/19/17 19:28 99 45 06/19/17 18:00 80 06/19/17 16:00 35 06/19/17 16:00 90 06/19/17 16:00 98.0 90 14 94/45 (61) 100 113/49 (70) 06/19/17 15:38 100 45 06/19/17 14:00 80 06/19/17 12:00 35 06/19/17 12:00 71 06/19/17 12:00 98.2 71 14 82/44 (57) 99 131/63 (85) 06/19/17 11:55 99 45 06/19/17 10:00 82 06/19/17 09:00 86 75/54 06/19/17 08:00 35 06/19/17 08:00 72 06/19/17 08:00 97.8 72 14 88/78 (81) 100 I/O 06/19/17 06/19/17 06/19/17 06/20/17 06/20/17 06/20/17 07:00 15:00 23:00 07:00 15:00 23:00 Intake Total 1225 ml 1765 ml 1886 ml 1600 ml Output Total 1200 ml 600 ml 1950 ml 2000 ml Balance 25 ml 1165 ml -64 ml -400 ml Intake IV Total 1025 ml 415 ml 1886 ml 1300 ml Tube Irrigant 650 ml Other 200 ml 700 ml 300 ml Output Urine Total 400 ml 1650 ml 2000 ml Stool Total 800 ml 600 ml 300 ml # Bowel Movements 3 Physical Exam GENERAL: Well developed, well nourished. Intubated. Sedated. HEENT: Jugular venous pressure is normal. CHEST: Lungs clear to auscultation anteriorly. CARDIAC: Irregular rhythm without S3 or murmur. ABDOMEN: Soft, nontender, no hepatosplenomegaly. Bowel sounds present. EXTREMITIES: 1+ pretibial edema. Laboratory Laboratory Tests Test 06/19/17 16:20 06/20/17 02:00 06/20/17 04:15 06/20/17 05:25 Activated Partial Thromboplast Time 35.1 SEC GREATER THAN 277.5 SEC 132.6 SEC White Blood Count 11.0 TH/MM3 Red Blood Count 3.56 MIL/MM3 Hemoglobin 10.6 GM/DL Hematocrit 32.1 % Mean Corpuscular Volume 90.2 FL Mean Corpuscular Hemoglobin 29.8 PG Mean Corpuscular Hemoglobin Concent 33.0 % Red Cell Distribution Width 14.8 % Platelet Count 278 TH/MM3 Mean Platelet Volume 7.7 FL Neutrophils (%) (Auto) 72.1 % Lymphocytes (%) (Auto) 11.0 % Monocytes (%) (Auto) 9.8 % Eosinophils (%) (Auto) 6.5 % Basophils (%) (Auto) 0.6 % Neutrophils # (Auto) 7.9 TH/MM3 Lymphocytes # (Auto) 1.2 TH/MM3 Monocytes # (Auto) 1.1 TH/MM3 Eosinophils # (Auto) 0.7 TH/MM3 Basophils # (Auto) 0.1 TH/MM3 CBC Comment AUTO DIFF Differential Comment AUTO DIFF CONFIRMED Blood Urea Nitrogen 8 MG/DL Creatinine 0.38 MG/DL Random Glucose 108 MG/DL Calcium Level 7.5 MG/DL Phosphorus Level 2.2 MG/DL Magnesium Level 2.3 MG/DL Sodium Level 147 MEQ/L Potassium Level 3.4 MEQ/L Chloride Level 118 MEQ/L Carbon Dioxide Level 22.2 MEQ/L Anion Gap 7 MEQ/L Estimat Glomerular Filtration Rate 161 ML/MIN Blood Gas Puncture Site ART LINE Blood Gas Patient Temperature 98.6 Blood Gas HCO3 17 mmol/L Blood Gas Base Excess -6.5 mmol/L Blood Gas Oxygen Saturation 94 % Arterial Blood pH 7.48 Arterial Blood Partial Pressure CO2 22 mmHg Arterial Blood Partial Pressure O2 76 mmHg Arterial Blood Oxygen Content 13.7 Vol % Arterial Blood Carboxyhemoglobin 1.3 % Arterial Blood Methemoglobin 1.0 % Blood Gas Hemoglobin 10.3 G/DL Oxygen Delivery Device VENTILATOR Blood Gas Ventilator Setting PRVCAC Test 06/20/17 06:15 Activated Partial Thromboplast Time 51.2 SEC Imaging Last 48 hours Impressions Chest X-Ray 06/19/17599 Signed Impressions: Service Date/Time: Monday, June 19, 2017 02:49 - CONCLUSION: 1. Support apparatus in good position. Stable basilar airspace disease and effusions. Delonte Roland MD Abdomen X-Ray 06/19/17599 Signed Impressions: Service Date/Time: Monday, June 19, 2017 02:56 - CONCLUSION: 1. Stable to slight improvement in gaseous distention of the colon. Delonte Roland MD Assessment and Plan Problem List: (1) Chronic atrial fibrillation ICD Codes: I48.2 - Chronic atrial fibrillation Status: Chronic Plan: HR's overall under good control on IV digoxin. Back on heparin drip. Thromboembolic risk is very high. Suspect her recent CVA's are cardioembolic in etiology. Patient also with evidence for thrombi in right atrium by chest CT. REC continue IV digoxin, heparin consider starting Eliquis will f/u as needed; the patient can f/u with Dr. Gama after discharge (2) H/O mitral valve repair ICD Codes: Z98.890 - Other specified postprocedural states Status: Chronic Plan: Reportedly mild to moderate mitral regurgitation by echo this admission. No mitral stenosis. (3) Respiratory failure with hypoxia ICD Codes: J96.91 - Respiratory failure, unspecified with hypoxia Status: Acute Plan: Possible component of CHF for her respiratory failure but likely more pulmonary in origin. EF reportedly 45-50% by echo. Rec continued ventilatory support, antibiotics. Code Status alternative code Problem Qualifiers (1) Respiratory failure with hypoxia: Qualified Codes: J96.01 - Acute respiratory failure with hypoxia Naseem Pierce MD Jun 20, 2017 07:42
[2017-06-20] MEDS: SODIUM CHLORIDE 0.9% FLUSH 10 ML FLUSH IVF SCH (09:32)
[2017-06-20] MEDS: SODIUM CHLORIDE 0.9% FLUSH 10 ML FLUSH IV FLUSH SCH ×2 (09:32→20:12)
[2017-06-20] MEDS: CHLORHEXIDINE 0.12% (ORAL KIT) 15 ML CUP MT SCH ×2 (09:32→20:00)
--- NOTE | 2017-06-20 09:32 | HHI.GIFU ---
Subjective Remarks Resting in bed. Nurse decreasing sedation, still with eyes closed, not following commands. No active bleeding. Daughter at bedside. (RoqueMarjorie alcazar DORYS) Objective Vitals I&O Vital Signs Date Time Temp Pulse Resp B/P (MAP) Pulse Ox O2 Delivery O2 Flow Rate FiO2 06/20/17 07:36 100 45 06/20/17 06:00 100 06/20/17 04:00 96.6 94 15 91/66 (74) 99 134/62 (86) 06/20/17 04:00 94 06/20/17 04:00 45 06/20/17 03:24 100 45 06/20/17 02:00 92 06/20/17 00:00 97.7 94 14 88/47 (61) 100 120/53 (75) 06/20/17 00:00 94 06/20/17 00:00 45 06/19/17 23:50 100 45 06/19/17 23:00 97.9 100 14 87/63 (71) 100 118/60 (79) 06/19/17 22:00 84 06/19/17 20:00 96.6 90 14 91/53 (66) 100 120/54 (76) 06/19/17 20:00 90 06/19/17 20:00 45 06/19/17 19:28 99 45 06/19/17 18:00 80 06/19/17 16:00 35 06/19/17 16:00 90 06/19/17 16:00 98.0 90 14 94/45 (61) 100 113/49 (70) 06/19/17 15:38 100 45 06/19/17 14:00 80 06/19/17 12:00 35 06/19/17 12:00 71 06/19/17 12:00 98.2 71 14 82/44 (57) 99 131/63 (85) 06/19/17 11:55 99 45 06/19/17 10:00 82 I/O 06/19/17 06/19/17 06/19/17 06/20/17 06/20/17 06/20/17 07:00 15:00 23:00 07:00 15:00 23:00 Intake Total 1225 ml 1765 ml 1886 ml 1600 ml 62 ml Output Total 1200 ml 600 ml 1950 ml 2000 ml Balance 25 ml 1165 ml -64 ml -400 ml 62 ml Intake IV Total 1025 ml 415 ml 1886 ml 1300 ml 62 ml Tube Irrigant 650 ml Other 200 ml 700 ml 300 ml Output Urine Total 400 ml 1650 ml 2000 ml Stool Total 800 ml 600 ml 300 ml # Bowel Movements 3 Laboratory Laboratory Tests Test 06/19/17 16:20 06/20/17 02:00 06/20/17 04:15 06/20/17 05:25 Activated Partial Thromboplast Time 35.1 GREATER THAN 277.5 132.6 White Blood Count 11.0 Red Blood Count 3.56 Hemoglobin 10.6 Hematocrit 32.1 Mean Corpuscular Volume 90.2 Mean Corpuscular Hemoglobin 29.8 Mean Corpuscular Hemoglobin Concent 33.0 Red Cell Distribution Width 14.8 Platelet Count 278 Mean Platelet Volume 7.7 Neutrophils (%) (Auto) 72.1 Lymphocytes (%) (Auto) 11.0 Monocytes (%) (Auto) 9.8 Eosinophils (%) (Auto) 6.5 Basophils (%) (Auto) 0.6 Neutrophils # (Auto) 7.9 Lymphocytes # (Auto) 1.2 Monocytes # (Auto) 1.1 Eosinophils # (Auto) 0.7 Basophils # (Auto) 0.1 CBC Comment AUTO DIFF Differential Comment AUTO DIFF CONFIRMED Blood Urea Nitrogen 8 Creatinine 0.38 Random Glucose 108 Calcium Level 7.5 Phosphorus Level 2.2 Magnesium Level 2.3 Sodium Level 147 Potassium Level 3.4 Chloride Level 118 Carbon Dioxide Level 22.2 Anion Gap 7 Estimat Glomerular Filtration Rate 161 Blood Gas Puncture Site ART LINE Blood Gas Patient Temperature 98.6 Blood Gas HCO3 17 Blood Gas Base Excess -6.5 Blood Gas Oxygen Saturation 94 Arterial Blood pH 7.48 Arterial Blood Partial Pressure CO2 22 Arterial Blood Partial Pressure O2 76 Arterial Blood Oxygen Content 13.7 Arterial Blood Carboxyhemoglobin 1.3 Arterial Blood Methemoglobin 1.0 Blood Gas Hemoglobin 10.3 Oxygen Delivery Device VENTILATOR Blood Gas Ventilator Setting PRVCAC Test 06/20/17 06:15 Activated Partial Thromboplast Time 51.2 Date/Time Source Procedure Growth Status 06/19/17 04:40 Blood Peripheral Aerobic Blood Culture Pending Received 06/19/17 04:40 Blood Peripheral Anaerobic Blood Culture Pending Received 06/18/17 04:06 Stool Stool Stool Occult Blood (KAYLAN) - Final HEMOCCULT POSITIVE Complete 06/16/17 03:45 Sputum Endotracheal Gram Stain - Final Complete 06/16/17 03:45 Sputum Culture - Final S. Aureus Mrsa Complete 06/18/17 16:00 Urine Catheterized Urine Urine Culture - Preliminary NO GROWTH IN 24 HOURS. Resulted Imaging Last Impressions Chest X-Ray 06/19/17 0600 Signed Impressions: Service Date/Time: Monday, June 19, 2017 02:49 - CONCLUSION: 1. Support apparatus in good position. Stable basilar airspace disease and effusions. Delonte Roland MD Abdomen X-Ray 06/19/17 0600 Signed Impressions: Service Date/Time: Monday, June 19, 2017 02:56 - CONCLUSION: 1. Stable to slight improvement in gaseous distention of the colon. Delonte Roland MD Abdomen/Pelvis CT 06/18/17 0000 Signed Impressions: Service Date/Time: Sunday, June 18, 2017 10:29 - CONCLUSION: 1. Persistent wedge-shaped areas of hypoenhancement within the spleen likely representing infarcts. There is questionable area of hypoenhancement the lower pole the right kidney as well which could also represent infarct. Suggest attention to these a followup imaging. 2. There is a small volume of free fluid in the abdomen and pelvis along with a trace bilateral pleural fluid effusions and anasarca. 3. Cardiomegaly with 2 stable nodular areas in the right atrium representing either thrombus or mass. These measure up to 2 cm. 4. Otherwise, as above. Darin Pederson MD Upper Extremity Ultrasound 06/16/17 0000 Signed Impressions: Service Date/Time: Friday, June 16, 2017 11:00 - CONCLUSION: Normal examination. No evidence of DVT Shoaib Pastor MD Head CT 06/15/17 0000 Signed Impressions: Service Date/Time: May 04:26 - CONCLUSION: 1. No acute intracranial abnormality. 2. Chronic small vessel ischemic change more pronounced on the left. 3. Right frontal lobe encephalomalacia. 4. Atrophy Blu Mayfield Jr., MD Chest CT 06/15/17 0000 Signed Impressions: Service Date/Time: May 04:30 - CONCLUSION: 1. 2 focal rounded filling defects involving an enlarged right atrium. I'm concerned this represents mural thrombus. 2. Significant cardiomegaly. 3. Bibasilar infiltrates. Blu Mayfield Jr., MD Brain MRI 06/15/17 0000 Signed Impressions: Service Date/Time: May 20:50 - CONCLUSION: 1. Multiple subacute infarcts are demonstrated. Please see above. 2. There is an old infarct posteriorly of the right frontal lobe as well. 3. No mass, mass effect or midline shift. No bleed. Darin Preston MD Physical Exam HEENT: Normocephalic; atraumatic; CHEST: OETT to vent. Diminished. CARDIAC: Irregular, rate controlled ABDOMEN: Soft, obese, nondistended, nontender; no hepatosplenomegaly; bowel sounds are present in all four quadrants. PEG tube site without redness or swellingRectal bag with liquid light brown stool EXTREMITIES: Generalized edema. SKIN: Multiple ecchymotic areas [employer]: Sedated on vent. (Marjorie Roque) Assessment and Plan Plan ASSESSMENT: - Lower GIB. One episode of bright red blood noted in stool with Hemoccult positive results (06/17/24), no further active bleeding noted. S/P EGD/Colonoscopy (06/19/17)----> Mild esophagitis, Small ulcer next to the PEG tube, Colon polyp, Diverticulosis, No active bleed. Protonix. HH 10.6/32.1. - Anemia, blood loss. 10.6/32.1. - Abdominal distention.CT Abdomen (06/18/17)--1. Persistent wedge-shaped areas of hypoenhancement within the spleen likely representing infarcts. There is questionable area of hypoenhancement the lower pole the right kidney as well which could also represent infarct. Suggest attention to these a followup imaging. 2. There is a small volume of free fluid in the abdomen and pelvis along with a trace bilateral pleural fluid effusions and anasarca. 3. Cardiomegaly with 2 stable nodular areas in the right atrium representing either thrombus or mass. These measure up to 2 cm. 4. Otherwise, as above. KUB (06/19/17)----> Stable to slight improvement in gaseous distention of colon. Pt is obese, mildly distended. + BM. Senna. Add Miralax. - Respiratory failure. Vent per [facility] - Severe sepsis/septic shock. On vasopressors. Bacteremia with staphylococcus epidermidis, MRSA pneumonia, probable aspiration, possible bacterial endocarditis. ID following, recommends considering ALVIN when more stable. Vanco, Azactam, Flagyl - Afib with RVR and possible right atrial thrombus. 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 S/P PEG. PLAN: - Vital 1.5 at 55cc/hr - PPI - Senna - Add Miralax - Abx per ID - Monitor HH - Transfuse as necessary - Notify GI of active bleeding - Abx per ID - Supportive care - Further recommendations to follow based on results of abov - Okay to resume anticoagulation from GI standpoint - Colonoscopy as an outpatient when the patient more alert or inpatient if there is more active bleeding with longer prep - Pt seen and examined by Dr. Sanchez and myself and this note is written on his behalf (Marjorie Roque) Plan Patient was seen and examined, agree with above-noted, no active bleeding at this time, okay to restart anticoagulation we will follow up as needed (Eve Sanchez MD) Marjorie Roque Jun 20, 2017 09:32 Eve Sanchez MD Jun 20, 2017 15:38
[2017-06-20 10:49] LABS: APTT (PATIENT) 107.4 SEC (24.3-30.1)
[2017-06-20] MEDS: POLYETHYLENE GLYCOL 17 GM PKG PO SCH (10:54)
[2017-06-20 12:29] LABS: APTT (PATIENT) 48.6 SEC (24.3-30.1)
[2017-06-20] MEDS: HEPARIN-D5W 25,000 U/250 ML 250 ML IV PRN (13:41)
--- NOTE | 2017-06-20 14:32 | HHI.HCPN ---
Reason for visit a. To assist with evaluation and management of symptoms including: Dyspnea, dysphagia, pain b. To assist medical decision maker(s) with: better understanding of current medical conditions; weighing benefits/burdens of medical treatment options; making medical treatment decisions. Subjective/Interval History Patient remains in the ICU, critically ill status post EGD and colonoscopy yesterday which showed mild esophagitis, small ulcer next to PEG tube, colon polyp, diverticulosis but no active bleeding. Patient has been weaned off of Neosyn and Cardizem drip. On Digoxin 0.125 mg by PEG daily, digoxin level @ 0.7 on 06/19/2017. Patient is back on heparin drip. 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 CT chest with possible thrombi in the right atrium. Blood work today: * WBC: 11.0, hemoglobin 10.6, hematocrit 32.1, platelets 270, neutrophils 72.1% * Sodium: 141 potassium 3.4, chloride 118, carbon dioxide 22.2, glucose 108, calcium 7.5, phosphorus 2.2, magnesium 2.3 * BUN: 8, creatinine 0.3, GFR 108 Per nursing report, patient has been off sedation since early this morning. Patient currently with no purposeful movement; withdraws to deep tactile stimuli. Bacteremia with Staphylococcus epidermis, MRSA pneumonia, probable aspiration, possible bacterial endocarditis. Infectious disease following. Patient remains on vancomycin, Azactam and Flagyl. Recommendations to consider ALVIN when stable. . Family/friend interactions Patient's and son were at bedside. Also present patient's nurse, Jaja. Family was updated on patient's current clinical condition. We discussed EGD/colonoscopy results from 2016 and that patient has been restarted on heparin drip. They verbalized understanding that the patient remains critically ill. She has been off sedation since this morning and remains relatively unresponsive. They remain cautiously optimistic; plan to readdress medical treatment goals at the end of this week. . Advance Directives Living Will: Completed, but not made available Health Care Surrogate: Completed, but not made available Advance Directive Specifics Health Care Surrogate(s): Patient's is designated as the health care surrogate. . Documented care wishes: Living will has standard inverted detail if terminal or end-stage or persistent vegetative condition would not want heroic or artificial measures including no artificial feeding and would want comfort measures only for a peaceful . . Objective Vital Signs Date Time Temp Pulse Resp B/P (MAP) Pulse Ox O2 Delivery O2 Flow Rate FiO2 06/20/17 12:00 45 06/20/17 12:00 104 06/20/17 12:00 99.4 91 17 69/47 (54) 100 121/55 (77) 06/20/17 10:00 113 06/20/17 09:55 97 45 06/20/17 08:00 97.7 92 17 99/57 (71) 100 130/56 (80) 06/20/17 08:00 92 06/20/17 08:00 45 06/20/17 07:36 100 45 06/20/17 06:00 100 06/20/17 04:00 96.6 94 15 91/66 (74) 99 134/62 (86) 06/20/17 04:00 94 06/20/17 04:00 45 06/20/17 03:24 100 45 06/20/17 02:00 92 06/20/17 00:00 97.7 94 14 88/47 (61) 100 120/53 (75) 06/20/17 00:00 94 06/20/17 00:00 45 06/19/17 23:50 100 45 06/19/17 23:00 97.9 100 14 87/63 (71) 100 118/60 (79) 06/19/17 22:00 84 06/19/17 20:00 96.6 90 14 91/53 (66) 100 120/54 (76) 06/19/17 20:00 90 06/19/17 20:00 45 06/19/17 19:28 99 45 06/19/17 18:00 80 06/19/17 16:00 35 06/19/17 16:00 90 06/19/17 16:00 98.0 90 14 94/45 (61) 100 113/49 (70) 06/19/17 15:38 100 45 Intake & Output 06/20/17 06/20/17 07:00 19:00 Intake Total 1600 ml 1084 ml Output Total 2000 ml Balance -400 ml 1084 ml Intake IV Total 1300 ml 1084 ml Other 300 ml Output Urine Total 2000 ml # Bowel Movements 3 Physical Exam CONSTITUTIONAL/GENERAL: This is an adequately nourished patient, critically ill in ICU TUBES/LINES/DRAINS: ET tube, OG tube, PEG tube, Camilo catheter, bilateral wrist restraints, central line, peripheral IVs upper extremities, bear hugger warming blanket SKIN: Generalized pallor Ecchymoses on upper extremities. Anasarca CARDIOVASCULAR: Irregular rate and rhythm. RESPIRATORY/CHEST: Symmetric, unlabored respirations on mechanical ventilation. Diminished air movement air movement. + Rales GASTROINTESTINAL: Abdomen soft, obese, nondistended. No palpable masses. GENITOURINARY: Without palpable bladder distension. Camilo catheter in place clear dark yellow urine. MUSCULOSKELETAL: Extremities without clubbing, cyanosis. + peripheral edema. NEUROLOGICAL: Sedation since this morning. No purposeful movement noted; withdraws to deep tactile stimuli. PSYCHIATRIC: No obvious anxiety/depression--limited assessment due to clinical condition, on some sedation. . Diagnostic Tests Laboratory Laboratory Tests Test 06/18/17 02:30 06/18/17 05:59 06/18/17 10:00 06/18/17 12:43 White Blood Count 12.4 TH/MM3 (4.0-11.0) 9.9 TH/MM3 (4.0-11.0) Red Blood Count 3.67 MIL/MM3 (4.00-5.30) 3.26 MIL/MM3 (4.00-5.30) Hemoglobin 10.4 GM/DL (11.6-15.3) 9.5 GM/DL (11.6-15.3) Hematocrit 33.5 % (35.0-46.0) 29.5 % (35.0-46.0) Mean Corpuscular Volume 91.3 FL (80.0-100.0) 90.4 FL (80.0-100.0) Mean Corpuscular Hemoglobin 28.3 PG (27.0-34.0) 29.0 PG (27.0-34.0) Mean Corpuscular Hemoglobin Concent 31.0 % (32.0-36.0) 32.1 % (32.0-36.0) Red Cell Distribution Width 15.0 % (11.6-17.2) 14.6 % (11.6-17.2) Platelet Count 221 TH/MM3 (150-450) 182 TH/MM3 (150-450) Mean Platelet Volume 8.9 FL (7.0-11.0) 8.3 FL (7.0-11.0) Neutrophils (%) (Auto) 85.7 % (16.0-70.0) 84.9 % (16.0-70.0) Lymphocytes (%) (Auto) 5.5 % (9.0-44.0) 5.9 % (9.0-44.0) Monocytes (%) (Auto) 6.2 % (0.0-8.0) 5.4 % (0.0-8.0) Eosinophils (%) (Auto) 2.4 % (0.0-4.0) 3.6 % (0.0-4.0) Basophils (%) (Auto) 0.2 % (0.0-2.0) 0.2 % (0.0-2.0) Neutrophils # (Auto) 10.6 TH/MM3 (1.8-7.7) 8.4 TH/MM3 (1.8-7.7) Lymphocytes # (Auto) 0.7 TH/MM3 (1.0-4.8) 0.6 TH/MM3 (1.0-4.8) Monocytes # (Auto) 0.8 TH/MM3 (0-0.9) 0.5 TH/MM3 (0-0.9) Eosinophils # (Auto) 0.3 TH/MM3 (0-0.4) 0.4 TH/MM3 (0-0.4) Basophils # (Auto) 0.0 TH/MM3 (0-0.2) 0.0 TH/MM3 (0-0.2) CBC Comment DIFF FINAL DIFF FINAL Differential Comment Activated Partial Thromboplast Time 83.3 SEC (24.3-30.1) 60.2 SEC (24.3-30.1) Blood Urea Nitrogen 17 MG/DL (7-18) Creatinine 0.57 MG/DL (0.50-1.00) Random Glucose 144 MG/DL (74-106) Total Protein 5.5 GM/DL (6.4-8.2) Albumin 2.6 GM/DL (3.4-5.0) Calcium Level 7.4 MG/DL (8.5-10.1) Phosphorus Level 1.8 MG/DL (2.5-4.9) Magnesium Level 2.0 MG/DL (1.5-2.5) Alkaline Phosphatase 80 U/L (45-117) Aspartate Amino Transf (AST/SGOT) 19 U/L (15-37) Alanine Aminotransferase (ALT/SGPT) 17 U/L (10-53) Total Bilirubin 0.5 MG/DL (0.2-1.0) Sodium Level 141 MEQ/L (136-145) Potassium Level 4.1 MEQ/L (3.5-5.1) Chloride Level 114 MEQ/L (98-107) Carbon Dioxide Level 18.1 MEQ/L (21.0-32.0) Anion Gap 9 MEQ/L (5-15) Estimat Glomerular Filtration Rate 101 ML/MIN (>89) Protein Corrected Calcium 8.3 MG/DL (8.5-10.1) Amylase Level 14 U/L (25-115) Lipase 65 U/L (73-393) Vancomycin Level Trough 17.0 MCG/ML (5.0-10.0) Blood Gas Puncture Site ART LINE ART LINE Blood Gas Patient Temperature 98.6 98.6 Blood Gas HCO3 14 mmol/L (22-26) 14 mmol/L (22-26) Blood Gas Base Excess -9.8 mmol/L (-2-2) -9.9 mmol/L (-2-2) Blood Gas Oxygen Saturation 95 % (90-100) 98 % (90-100) Arterial Blood pH 7.40 (7.380-7.420) 7.39 (7.380-7.420) Arterial Blood Partial Pressure CO2 23 mmHg (38-42) 24 mmHg (38-42) Arterial Blood Partial Pressure O2 91 mmHg (61-120) 271 mmHg (61-120) Arterial Blood Oxygen Content 14.4 Vol % (12.0-20.0) 14.6 Vol % (12.0-20.0) Arterial Blood Carboxyhemoglobin 1.2 % (0-4) 1.1 % (0-4) Arterial Blood Methemoglobin 1.1 % (0-2) 1.1 % (0-2) Blood Gas Hemoglobin 10.7 G/DL (12.0-16.0) 10.1 G/DL (12.0-16.0) Oxygen Delivery Device VENT VENTILATOR Blood Gas Ventilator Setting COMMENTS [facility]//IT 1.0 Blood Gas Inspired Oxygen 35 % 100 % Prothrombin Time 13.6 SEC (9.8-11.6) Prothromb Time International Ratio 1.2 RATIO Fibrinogen 365 mg/dL (227-377) Lactic Acid Level 0.7 mmol/L (0.4-2.0) Test 06/18/17 16:00 06/18/17 20:35 06/18/17 22:30 06/19/17 04:40 Urine Color YELLOW (YELLW/STRAW) Urine Turbidity HAZY (CLEAR) Urine pH 5.0 (5.0-8.5) Urine Specific [place] 1.029 (1.002-1.035) Urine Protein NEG mg/dL (NEG-TRACE) Urine Glucose (UA) NEG mg/dL (NEG) Urine Ketones NEG mg/dL (NEG) Urine Occult Blood MOD (NEG) Urine Nitrite NEG (NEG) Urine Bilirubin NEG (NEG) Urine Urobilinogen LESS THAN 2.0 MG/DL (LESS Urine Leukocyte Esterase MOD (NEG) Urine RBC 15 /hpf (0-3) Urine WBC 16 /hpf (0-5) Urine Mucus FEW /lpf (OCC) Microscopic Urinalysis Comment CATH-CULTURE IND Hemoglobin 9.9 GM/DL (11.6-15.3) 9.9 GM/DL (11.6-15.3) Hematocrit 31.3 % (35.0-46.0) 30.2 % (35.0-46.0) Lactic Acid Level 0.8 mmol/L (0.4-2.0) 0.9 mmol/L (0.4-2.0) Activated Partial Thromboplast Time 67.4 SEC (24.3-30.1) White Blood Count 12.7 TH/MM3 (4.0-11.0) Red Blood Count 3.37 MIL/MM3 (4.00-5.30) Mean Corpuscular Volume 89.6 FL (80.0-100.0) Mean Corpuscular Hemoglobin 29.4 PG (27.0-34.0) Mean Corpuscular Hemoglobin Concent 32.9 % (32.0-36.0) Red Cell Distribution Width 14.8 % (11.6-17.2) Platelet Count 231 TH/MM3 (150-450) Mean Platelet Volume 8.7 FL (7.0-11.0) Neutrophils (%) (Auto) 83.0 % (16.0-70.0) Lymphocytes (%) (Auto) 5.3 % (9.0-44.0) Monocytes (%) (Auto) 7.2 % (0.0-8.0) Eosinophils (%) (Auto) 4.2 % (0.0-4.0) Basophils (%) (Auto) 0.3 % (0.0-2.0) Neutrophils # (Auto) 10.5 TH/MM3 (1.8-7.7) Lymphocytes # (Auto) 0.7 TH/MM3 (1.0-4.8) Monocytes # (Auto) 0.9 TH/MM3 (0-0.9) Eosinophils # (Auto) 0.5 TH/MM3 (0-0.4) Basophils # (Auto) 0.0 TH/MM3 (0-0.2) CBC Comment DIFF FINAL Differential Comment Blood Urea Nitrogen 11 MG/DL (7-18) Creatinine 0.40 MG/DL (0.50-1.00) Random Glucose 104 MG/DL (74-106) Total Protein 5.3 GM/DL (6.4-8.2) Albumin 2.9 GM/DL (3.4-5.0) Calcium Level 7.6 MG/DL (8.5-10.1) Phosphorus Level 2.5 MG/DL (2.5-4.9) Magnesium Level 2.2 MG/DL (1.5-2.5) Alkaline Phosphatase 72 U/L (45-117) Aspartate Amino Transf (AST/SGOT) 35 U/L (15-37) Alanine Aminotransferase (ALT/SGPT) 21 U/L (10-53) Total Bilirubin 0.5 MG/DL (0.2-1.0) Sodium Level 144 MEQ/L (136-145) Potassium Level 3.3 MEQ/L (3.5-5.1) Chloride Level 113 MEQ/L (98-107) Carbon Dioxide Level 21.2 MEQ/L (21.0-32.0) Anion Gap 10 MEQ/L (5-15) Estimat Glomerular Filtration Rate 152 ML/MIN (>89) Digoxin Level 0.7 NG/ML (0.8-2.0) Test 06/19/17 16:20 06/20/17 02:00 06/20/17 04:15 06/20/17 05:25 Activated Partial Thromboplast Time 35.1 SEC (24.3-30.1) GREATER THAN 277.5 SEC 132.6 SEC (24.3-30.1) White Blood Count 11.0 TH/MM3 (4.0-11.0) Red Blood Count 3.56 MIL/MM3 (4.00-5.30) Hemoglobin 10.6 GM/DL (11.6-15.3) Hematocrit 32.1 % (35.0-46.0) Mean Corpuscular Volume 90.2 FL (80.0-100.0) Mean Corpuscular Hemoglobin 29.8 PG (27.0-34.0) Mean Corpuscular Hemoglobin Concent 33.0 % (32.0-36.0) Red Cell Distribution Width 14.8 % (11.6-17.2) Platelet Count 278 TH/MM3 (150-450) Mean Platelet Volume 7.7 FL (7.0-11.0) Neutrophils (%) (Auto) 72.1 % (16.0-70.0) Lymphocytes (%) (Auto) 11.0 % (9.0-44.0) Monocytes (%) (Auto) 9.8 % (0.0-8.0) Eosinophils (%) (Auto) 6.5 % (0.0-4.0) Basophils (%) (Auto) 0.6 % (0.0-2.0) Neutrophils # (Auto) 7.9 TH/MM3 (1.8-7.7) Lymphocytes # (Auto) 1.2 TH/MM3 (1.0-4.8) Monocytes # (Auto) 1.1 TH/MM3 (0-0.9) Eosinophils # (Auto) 0.7 TH/MM3 (0-0.4) Basophils # (Auto) 0.1 TH/MM3 (0-0.2) CBC Comment AUTO DIFF Differential Comment AUTO DIFF CONFIRMED Blood Urea Nitrogen 8 MG/DL (7-18) Creatinine 0.38 MG/DL (0.50-1.00) Random Glucose 108 MG/DL (74-106) Calcium Level 7.5 MG/DL (8.5-10.1) Phosphorus Level 2.2 MG/DL (2.5-4.9) Magnesium Level 2.3 MG/DL (1.5-2.5) Sodium Level 147 MEQ/L (136-145) Potassium Level 3.4 MEQ/L (3.5-5.1) Chloride Level 118 MEQ/L (98-107) Carbon Dioxide Level 22.2 MEQ/L (21.0-32.0) Anion Gap 7 MEQ/L (5-15) Estimat Glomerular Filtration Rate 161 ML/MIN (>89) Blood Gas Puncture Site ART LINE Blood Gas Patient Temperature 98.6 Blood Gas HCO3 17 mmol/L (22-26) Blood Gas Base Excess -6.5 mmol/L (-2-2) Blood Gas Oxygen Saturation 94 % (90-100) Arterial Blood pH 7.48 (7.380-7.420) Arterial Blood Partial Pressure CO2 22 mmHg (38-42) Arterial Blood Partial Pressure O2 76 mmHg (61-120) Arterial Blood Oxygen Content 13.7 Vol % (12.0-20.0) Arterial Blood Carboxyhemoglobin 1.3 % (0-4) Arterial Blood Methemoglobin 1.0 % (0-2) Blood Gas Hemoglobin 10.3 G/DL (12.0-16.0) Oxygen Delivery Device VENTILATOR Blood Gas Ventilator Setting PRVCAC Test 06/20/17 06:15 06/20/17 10:20 06/20/17 12:05 Activated Partial Thromboplast Time 51.2 SEC (24.3-30.1) 107.4 SEC (24.3-30.1) 48.6 SEC (24.3-30.1) . Result Diagram: 06/20/17 0415 06/20/17 0415 Microbiology Microbiology Date/Time Source Procedure Growth Status 06/19/17 04:40 Blood Peripheral Aerobic Blood Culture - Preliminary NO GROWTH IN 1 DAY Resulted 06/19/17 04:40 Blood Peripheral Anaerobic Blood Culture - Preliminary NO GROWTH IN 1 DAY Resulted 06/18/17 12:50 Blood Peripheral Aerobic Blood Culture - Preliminary NO GROWTH IN 2 DAYS Resulted 06/18/17 12:50 Blood Peripheral Anaerobic Blood Culture - Preliminary NO GROWTH IN 2 DAYS Resulted 06/18/17 04:06 Stool Stool Stool Occult Blood (KAYLAN) - Final HEMOCCULT POSITIVE Complete 06/18/17 16:00 Urine Catheterized Urine Urine Culture - Final NO GROWTH IN 48 HOURS. Complete . Procedures 06/15/17 central line placement right IJ 06/05/17 femoral arterial line placement left . Assessment and Plan Disease Oriented Problem List: (1) Hypokalemia (2) Aspiration pneumonia (3) Respiratory failure with hypoxia (4) History of stroke (5) Moderate protein malnutrition (6) Atrial fibrillation with RVR Symptom Scale: (1) Dyspnea (2) Encephalopathy (3) Pain (4) Dysphagia Pertinent Non-Medical Issues Psychosocial:, most recently resided at [facility] following month long hospital course at [facility]. Retired, has 3 adult children who live out of the area. Patient resides in [place] during the winter and [place] during the summer. 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 Retired since the . Spiritual:Confucianism supported by straw hat brim cutter operator known to family, also appreciative of hospital validation consultant Legal:Patient currently intubated and unable to participate in medical decision making. Patient has living will which designates as primary healthcare surrogate, son as a secondary if unable to serve. I reviewed this document with the family on their iPad device however was unable available for print at this time. Ethical issues impacting care: Important Contacts Spouse Jorge Alberto Basilio [phone] Terrance Praful [phone] / [phone] Son Jorge Alberto Basilio Daughter Sandhya . Prognosis This patient was admitted for acute respiratory distress, respiratory failure. She recently had prolonged hospitalization for significant MCA stroke with resulting deficits and dysphagia. She has had A. fib with RVR, which has been difficult to control in the ICU setting. She remains high risk for further complications and setbacks, and possible . She does survive current acute hospitalization she will likely remain dependent and require long-term care. Code Status: Alternative Code (intubation) Plan * Legal decision maker: Patient has living will which designates as primary healthcare surrogate, son as a secondary if unable to serve. I reviewed this document with the family on their iPad device however was unable available for print at this time. * Patient's and son were at bedside. Also present patient's nurse, Jaja. Family was updated on patient's current clinical condition. We discussed EGD/colonoscopy results from 2016 and that patient has been restarted on heparin drip. They verbalized understanding that the patient remains critically ill. She has been off sedation since this morning and remains relatively unresponsive. They remain cautiously optimistic; plan to readdress medical treatment goals at the end of this week. * Discussed patient with bedside nurse (Ana M). * CODE STATUS: Alternate code-intubation only. Patient's previous alternate CODE STATUS included intubation and ACLS medications. After reviewing the process of cardiopulmonary resuscitation with the patient's family on 06/19/2017, they request the patient be INTUBATION ONLY. * SYMPTOMS: --Dyspnea-emergently intubated for respiratory distress by EMS; MRSA pneumonia. Sedated on Diprivan-no recommendations at this time --Dysphagia-patient with recent MCA stroke, status post PEG placement at another facility, noted as aspiration risk per rehabilitation documentation. + aspiration pneumonia. Expected to remain at risk for aspiration secondary to dysphagia. --Pain- Patient has been off sedation since this morning and remains relatively unresponsive. Showing no non-verbal signs symptoms non-verbal pain on exam. No reported pain syndromes per family, potential sources would include bedbound status, recent invasive procedures; currently appears comfortable will continue to evaluate --Encephalopathy-multifactorial: status post recent CVA, now with acute respiratory failure, A. fib RVR, severe sepsis with septic shock. Patient remains relatively unresponsive off sedation since this morning. No purposeful movement; patient withdraws to deep stimuli. * Palliative care will continue to follow during hospital course as condition evolves, to assist patient/decision-maker with understanding of medical conditions, weighing benefits/burdens of treatment options, for clarification of goals of treatment. Additionally will assist with any symptoms of palliative concern Attestation To help prompt me to consider important information that might be impacting today's encounter and assessment, information from prior notes written by myself or my colleagues may have been "brought forward" into today's note. My signature on this note, however, is an attestation that I personally performed the exam, history, and/or decision-making noted today, and, unless otherwise indicated, the interactions with patient, family, and staff as well as the review of records all occurred today. I also attest that the listed assessment and stated plan reflect my best clinical judgment today based on the combination of historical information, prior notes, and today's exam/ interactions. When time spent is documented, it refers only to time spent today by the signer, or if indicated, combined time spent today by collaborating physician/nurse practitioner. . Evette Garcia Jun 20, 2017 2:32 pm
[2017-06-20] MEDS: DILTIAZEM HCL 60 MG TAB PO SCH ×2 (14:34→20:12)
[2017-06-20] MEDS ORDERED: PHARMACY ORDERED LAB ONE (14:45)
[2017-06-20] MEDS: VANCOMYCIN 1,500 MG/NS 500 ML IV SCH ×2 (15:23)
[2017-06-20 21:18] LABS: APTT (PATIENT) 71.6 SEC (24.3-30.1)
[2017-06-21] VITALS (19 sets, daily range): BP systolic 95–161; BP diastolic 50–77; PULSE 75–161; RESP 11–20; TEMP 97.3–100.1; O2SAT 92–100
[2017-06-21] MEDS: METRONIDAZOLE 500 MG/100 ML ISONTONIC SOLN IV SCH ×2 (02:11→08:31)
[2017-06-21] MEDS: AZTREONAM INJ 2,000 MG in SODIUM CHLORIDE 0.9% INJ 100 ML IV SCH ×2 (02:11→10:16)
[2017-06-21 03:39] LABS: AUTOMATED NEUTROPHIL # 5.6 TH/MM3 (1.8-7.7); BASOPHIL # 0.1 TH/MM3 (0-0.2); BASOPHIL % 0.7 % (0.0-2.0); EOSINOPHIL # 0.3 TH/MM3 (0-0.4); EOSINOPHIL % 3.4 % (0.0-4.0); HEMATOCRIT 30.7 % (35.0-46.0); LYMPH % 13.5 % (9.0-44.0); LYMPHOCYTE # 1.1 TH/MM3 (1.0-4.8); MEAN CELL VOLUME 90.9 FL (80.0-100.0); NEUT % 71.4 % (16.0-70.0); PLATELET COUNT 242 TH/MM3 (150-450); RED BLOOD COUNT 3.38 MIL/MM3 (4.00-5.30); WHITE BLOOD COUNT 7.8 TH/MM3 (4.0-11.0)
[2017-06-21] MEDS: DILTIAZEM HCL 60 MG TAB PO SCH ×2 (03:42→07:55)
[2017-06-21] MEDS: CHLORHEXIDINE GLUCONATE 2 % 1 PACK (2 CLOTHS) TOP SCH (03:42)
[2017-06-21 03:44] LABS: HEMO FLAGS AUTO DIFF
[2017-06-21 03:53] LABS: BICARBONATE 22.7 MEQ/L (21.0-32.0); MAGNESIUM 2.1 MG/DL (1.5-2.5); POTASSIUM 3.6 MEQ/L (3.5-5.1)
[2017-06-21] MEDS: RESP: ALBUTEROL 2.5 MG/IPRATROPIUM 0.5 MG NEB (SCH) INH ×4 (03:59→21:15)
[2017-06-21 04:04] LABS: APTT (PATIENT) 98.9 SEC (24.3-30.1)
[2017-06-21 04:58] LABS: BANDS 3 % (0-6); EOSINOPHILS 1 % (0-4); METAMYELOCYTES 1 % (0-1); MYELOCYTES 1 % (0-0); NEUTROPHIL # MANUAL DIFF 6.3 TH/MM3 (1.8-7.7); POLYS (SEG NEUTROPHILS) 75 % (16-70); PROMYELOCYTES 1 % (0-0); SCAN/DIFF FINAL DIFF MANUAL; WBC DIFF SAMPLE 100
[2017-06-21 04:59] LABS: OVALOCYTES 1+ (NORMAL); PLATELET ESTIMATE SMEAR NORMAL (NORMAL); PLATELET MORPHOLOGY NORMAL (NORMAL)
[2017-06-21 05:00] LABS: ACANTHOCYTES OCC (NORMAL)
[2017-06-21] MEDS: ARTIFICIAL TEARS OPTH SOLN 15 ML BTL EACH EYE SCH ×3 (05:46→19:54)
[2017-06-21] MEDS: INSULIN NovoLIN REGULAR SUPPLEMENTAL SCALE SQ SCH ×5 (05:46→23:22)
[2017-06-21] MEDS: FREE WATER G-TUBE SCH ×3 (05:46→19:54)
[2017-06-21] MEDS: PANTOPRAZOLE SODIUM 40 MG VIAL IV PUSH SCH ×2 (05:46→17:22)
--- NOTE | 2017-06-21 06:06 | RADRPT ---
EXAM DATE/TIME: 06/21/2017 04:41 [facility] COMPARISON: No previous studies available for comparison. INDICATIONS : Shortness of breath. MEDICAL HISTORY : Cerebrovascular disease. Cardiovascular disease. Hypertension. SURGICAL HISTORY : CABG. ENCOUNTER: Subsequent ACUITY: 1 week PAIN SCORE: Non-responsive. LOCATION: Bilateral chest FINDINGS: A single view of the chest demonstrates right central line in superior cava. Endotracheal tube in goo d position. Cardiomegaly. Previous median sternotomy. Basilar airspace disease slightly improved from June 19. CONCLUSION: 1. Cardiomegaly. Basilar airspace disease improved from June 19. Endotracheal tube and right stephanie tral line unchanged. Delonte Roland MD on June 21, 2017 at 5:59 Board Certified Radiologist. This report was verified electronically.
[2017-06-21 06:55] LABS: APTT (PATIENT) 49.5 SEC (24.3-30.1)
[2017-06-21] MEDS: DIGOXIN 0.5 MG/2 ML VIAL IV PUSH SCH (07:25)
[2017-06-21] MEDS: CHLORHEXIDINE 0.12% (ORAL KIT) 15 ML CUP MT SCH ×2 (07:31→19:53)
[2017-06-21] MEDS: PRAVASTATIN SOD 40 MG TAB OG-TUBE SCH (08:31)
[2017-06-21] MEDS: SENNOSIDES SYRUP 8.8 MG/5 ML CUP OG-TUBE SCH ×2 (08:31→19:53)
[2017-06-21] MEDS: POLYETHYLENE GLYCOL 17 GM PKG PO SCH (08:31)
[2017-06-21] MEDS: SODIUM CHLORIDE 0.9% FLUSH 10 ML FLUSH IV FLUSH SCH ×2 (08:32→19:53)
[2017-06-21] MEDS: ESMOLOL DRIP INJ PREMIX 250 ML IV PRN ×2 (10:12→17:21)
[2017-06-21] MEDS: SODIUM CHLORIDE 0.9% FLUSH 10 ML FLUSH IVF SCH (10:16)
[2017-06-21 13:06] LABS: APTT (PATIENT) 50.1 SEC (24.3-30.1)
[2017-06-21] MEDS ORDERED: DIGOXIN 0.5 MG/2 ML VIAL IV PUSH ONE (13:15)
[2017-06-21] MEDS ORDERED: POTASSIUM CHLOR 40 MEQ PREMIX 100 ML IV ONE (13:15)
--- NOTE | 2017-06-21 13:21 | HHI.CCPN ---
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 She was discharged from [facility] and transferred to [facility] 06/01/17. She reportedly had rhonchi, cough, and respiratory distress early this morning and there was concern for aspiration. Chest x-ray had been obtained and there were small bibasilar densities that were felt to be consistent with atelectasis. When the overnight cashier nurse came in she noted that patient had significantly worsening congestion and increased work of breathing. EVAC was summoned and when EVAC arrived she was reportedly GCS 7 ([id number]) and was intubated at the scene after administration of Ativan 4 mg IV and Etomidate 20 mg IV. Upon intubation EVAC reportedly suctioned out large amount of secretions that looked like Jevity tube feeds from the ETT. Jevity tube feeds were running via PEG and these were placed on hold per EVAC. Upon arrival she was in atrial fibrillation with RVR with rate in the 160s. She was given cardizem 20 mg IV and started on cardizem drip at 5 mg/hr. with white blood cell count 13.7. She was normotensive blood pressure 120-140 systolic. Temperature 99.4. She is hypernatremic with sodium of 154, potassium 2.8. Protein corrected calcium 7.9. Magnesium is normal. Troponin is 0.18, BNP 674. Lactic acid is 1.9 She received 2.5 L of fluid in the emergency department. Chest x-ray demonstrates endotracheal tube approximately 1.8 cm above the sury. OG tube is in place in the stomach. There is left basilar opacity, right basilar atelectasis. Patient is intubated and remainder review of systems cannot be obtained. Aztreonam, metronidazole, levofloxacin were ordered per ED. Blood cultures have been obtained. No noted diarrhea. Unknown if patient had experienced vomiting 06/15 : Discussed with Jorge Alberto at bedside. Request alternate CODE STATUS. ACLS drugs and intubation only. Currently on esmolol and Cardizem drips for rate control. Phenylephrine drip initiated due to hypotension. Patient does withdrawal to left upper extremity and actually made attempt to self extubate with left upper extremity while placing central line while hypotensive. Moving bilateral lower extremities spontaneously. Plan is MRI brain if able/stable overnight otherwise will repeat CT head in a.m. 06/16 Echocardiogram still not read as of 1719. Heparin drip initiated due to likely mural thrombus and high risk of CVA. Initial CT brain 06/15 showed no signs of acute hemorrhage. 06/16: Afebrile. MRI brain results as below. Heparin drip currently on hold secondary to elevated PTT. Tube feeding to be initiated today. Remains on Cardizem, esmolol in phenylephrine drips 06/17: Afebrile. Off the diltiazem, esmolol and phenylephrine drips. Currently on propofol drip at 20 mics grams per kilo per minute. Attempt sedation vacation today. No bowel movement. Tube feeds currently at 30 cc an hour 06/18: Afebrile. A. fib with RVR overnight restarted on diltiazem drip currently at 5 mg an hour. Per report 1 large bloody bowel movement currently brown in color. KUB revealed abdominal distention with cecum at 11.[address] evidence/pelvis pending. Heparin discontinued. Noted thrombus in right atrium. On echocardiogram. Not on vasopressors. 06/19 PAtient is sedated with Diprivan, Neosyn started overnight for hypotension and Cardizem drip stopped. Off Heparin drip for Colonoscopy today. Afebrile. 06/20 No events overnight. Sedated with Diprivan and intubated. On Neosyn 50 mics. Afebrile. s/p EGD and colonoscopy yesterday with no signs of bleeding. Back on Heparin drip. Subjective 06/21: Patient started on his knowledge of T2 tachycardia. Pulse 0.25 mg digoxin IV 1. Potassium is currently been replaced. Continues on heparin drip. No active bleeding. Objective Vital Signs Date Time Temp Pulse Resp B/P (MAP) Pulse Ox O2 Delivery O2 Flow Rate FiO2 06/21/17 12:00 45 06/21/17 12:00 98.8 133 20 95/57 (70) 100 Arterial Line Intake and Output 06/21/17 06/21/17 06/22/17 08:00 16:00 00:00 Intake Total 720 ml 100 ml Output Total 450 ml Balance 270 ml 100 ml Result Diagram: 06/21/17 0320 06/21/17 0320 Other Results Microbiology Date/Time Source Procedure Growth Status 06/19/17 04:40 Blood Peripheral Aerobic Blood Culture - Preliminary NO GROWTH IN 2 DAYS Resulted 06/19/17 04:40 Blood Peripheral Anaerobic Blood Culture - Preliminary NO GROWTH IN 2 DAYS Resulted 06/18/17 04:06 Stool Stool Stool Occult Blood (KAYLAN) - Final HEMOCCULT POSITIVE Complete 06/16/17 03:45 Sputum Endotracheal Gram Stain - Final Complete 06/16/17 03:45 Sputum Culture - Final S. Aureus Mrsa Complete 06/18/17 16:00 Urine Catheterized Urine Urine Culture - Final NO GROWTH IN 48 HOURS. Complete Imaging Last Impressions Chest X-Ray 06/21/17 0000 Signed Impressions: Service Date/Time: Wednesday, June 21, 2017 04:41 - CONCLUSION: 1. Cardiomegaly. Basilar airspace disease improved from June 19. Endotracheal tube and right central line unchanged. Delonte Roland MD Abdomen X-Ray 06/19/17 0600 Signed Impressions: Service Date/Time: Monday, June 19, 2017 02:56 - CONCLUSION: 1. Stable to slight improvement in gaseous distention of the colon. Delonte Roland MD Abdomen/Pelvis CT 06/18/17 0000 Signed Impressions: Service Date/Time: Sunday, June 18, 2017 10:29 - CONCLUSION: 1. Persistent wedge-shaped areas of hypoenhancement within the spleen likely representing infarcts. There is questionable area of hypoenhancement the lower pole the right kidney as well which could also represent infarct. Suggest attention to these a followup imaging. 2. There is a small volume of free fluid in the abdomen and pelvis along with a trace bilateral pleural fluid effusions and anasarca. 3. Cardiomegaly with 2 stable nodular areas in the right atrium representing either thrombus or mass. These measure up to 2 cm. 4. Otherwise, as above. Darin Pederson MD Upper Extremity Ultrasound 06/16/17 0000 Signed Impressions: Service Date/Time: Friday, June 16, 2017 11:00 - CONCLUSION: Normal examination. No evidence of DVT Shoaib Pastor MD Head CT 06/15/17 0000 Signed Impressions: Service Date/Time: May 04:26 - CONCLUSION: 1. No acute intracranial abnormality. 2. Chronic small vessel ischemic change more pronounced on the left. 3. Right frontal lobe encephalomalacia. 4. Atrophy Blu Mayfield Jr., MD Chest CT 06/15/17 0000 Signed Impressions: Service Date/Time: May 04:30 - CONCLUSION: 1. 2 focal rounded filling defects involving an enlarged right atrium. I'm concerned this represents mural thrombus. 2. Significant cardiomegaly. 3. Bibasilar infiltrates. Blu Mayfield Jr., MD Brain MRI 06/15/17 0000 Signed Impressions: Service Date/Time: May 20:50 - CONCLUSION: 1. Multiple subacute infarcts are demonstrated. Please see above. 2. There is an old infarct posteriorly of the right frontal lobe as well. 3. No mass, mass effect or midline shift. No bleed. Darin Preston MD Objective Remarks GENERAL: 86-year-old female, critically ill currently orotracheally intubated SKIN: Warm and dry. Great toes bilaterally are currently dusky. Right upper extremity with ecchymoses large HEAD: Atraumatic. Normocephalic. EYES: Pupils round, 3 to 4 mm and sluggishly reactive bilaterally. No scleral icterus. No injection or drainage. ENT: No nasal bleeding or discharge. Mucous membranes moist and pink oropharynx without erythema. Thrush noted NECK: Trachea midline. No JVD. Right IJ 5 lm catheter is clean dry and intact CARDIOVASCULAR: Prior sternotomy scar noted. Well-healed. Tachycardia, IR. S1 , S2 no S4. Without murmur RESPIRATORY: Coarse rhonchi appreciated bilaterally. Symmetrical excursion. GASTROINTESTINAL: Abdomen less distended. Hyperactive bowel sounds are appreciated. No high-pitched sounds appreciated. PEG tube in place without erythema/skin breakdown. Tolerating tube feeding : Camilo in place with yellow urine output. MUSCULOSKELETAL: Right upper extremity edema noted greater than left upper extremity NEUROLOGICAL: No facial droop noted. Positive gag. Positive corneal reflex. Withdrawing to pain. Upward toes Not following commands this AM. Date of Insertion: Jun 15, 2017 Line: Central Venous Catheter Side: Right Location: Internal, Jugular A/P Assessment and Plan NEURO/Psych: Recent history of L MCA stroke 05/21/17 -left periventricular white matter, left temporal, left parietal and right parietal Residual R hemiparesis, dysphagia, inability to ambulate. R frontal encephalomalacia Patient had "small hemorrhagic conversion" noted on MRI at outside hospital. Neurology consulted on 06/[address] on 06/07 and if no worsening hemorrhage, can start Eliquis and d/c ASA. MRI brain 06/15 revealed old right frontal posterior infarct, subacute left parametric white matter 17 x 52 mm, left temporal 19 x 32 mm, left parietal 16 mm and cluster right parietal areas of subacute EEG 06/15 revealed bilateral abnormalities slowing rhythms more left. No ictal/ discharge is noted Currently on insulin drip at 50 g per hour. Goal of RA SS -2. Daily sedation vacation RESP: Acute respiratory failure Acute Aspiration Pneumonia PRVC /09/29/44 Continue with vent support keep sat >92% Spontaneous breathing trials as indicated Albuterol/ipratropium aerosols every 6 hours with albuterol aerosols every 2 hours as needed Dyspnea CXR 06/19 Stable basilar airspace disease and effusions CT thorax 06/15- bibasilar opacities. ?R atrial mural thrombus. CV: Atrial fibrillation with [id number] 7 Right Atrial thrombus H/o mitral valve replacement Hyperlipidemia Currently on diltiazem at 60 mg every 6 hours and esmolol drip at 50 mcg/kg per minute for atrial fibrillation On digoxin 0.125 mg by PEG daily. Digoxin level 0.7 06/19, given additional 0.25 mg IV 1 now Pravastatin 40mg daily for dyslipidemia 2-D echo: EF45- 50%. Normal left ventricular size. Wall thickness is normal. No regional wall motion abnormalities are present. The left atrial size is severely dilated. The right atrial size is severely dilated. Mitral valve annuloplasty ring is present. Moderate thickening of the mitral valve leaflets. [id number] mitral valve regurgitation. Diffuse calcification of the aortic valve. [id number] aortic valve regurgitation. No aortic valve stenosis. Aortic valve area is 1.4cm. Aortic valve mean gradient is 9 mmHg. There is trace TR. The estimated pulmonary arterial pressure is 41.8 mmHg. Echo 06/18 revealed 1.35 x 1.38 cm right atrial thrombus/mass Continue with Heparin drip GI: Constipation Cholelithiasis Splenic infarct Chronic moderate protein energy malnutrition Hypoalbuminemia Diverticulosis Colonic polyp - pathology pending Resume TF (vital 1.5 goal 45 cc an hour) via PEG tube. Currently at 30 cc an hour s/p EGD and colonoscopy 06/18: Mild gastritis, small ulceration next to PEG tube site with no evidence of bleeding, colon polyp and Diverticulosis. CT abd/pelvis revealed spleen abnormalities suggest splenic infarct. Laceration felt to be less likely. No hematoma. No recent mechanism for injury reported. Docusate sodium/Senokot/twice daily and polyethylene glycol 17 g daily for bowel regimen KUB 06/18 revealed gaseous distention of the colon cecum 11.5 cm. Repeat KUB improved FEN/RENAL: Hypernatremia Monitor renal function, I/O's, electrolytes replacement per protocol. Change Free water 250 ml Q8 40 mEq potassium chloride IV 1 now. Repeat ID: Aspiration pneumonia Thrush Coag negative staph bacteremia MRSA sputum positive Continue abx per ID ( Vanco, Azactam, Flagyl) monitor for signs of infections ( Fever, WBC) Might need ALVIN per ID once clinically stable Influenza negative 06/19 BC: NGTD Sputum 06/16 MRSA, 06/15 BC: Coag negative staph Infectious disease following HEME: Leukocytosis Normocytic anemia Monitor CBC, coags- on heparin drip Previously on Apixaban Continue heparin drip for now until after ALVIN performed and transition back to factor Xa inhibitor ENDO: SSI with accuchecks TSH 0.546. T4 slightly elevated at 1.8 PROPH: Heparin drip will provide DVT prophylaxis Pantoprazole 40 mg IV twice a day for stress ulcer prophylaxis. ACCESS: Right IJ 5 lm catheter placed 06/15. Discontinued arterial line 06/21 Palliative care is following Continue Alternate code status. Intubation and ACLS drugs only. No shock. No CPR. CCT 30 mins Harman Manning MD Jun 21, 2017 13:21
--- NOTE | 2017-06-21 13:36 | HHI.HCPN ---
Reason for visit a. To assist with evaluation and management of symptoms including: Dyspnea, dysphagia, pain encephalopathy b. To assist medical decision maker(s) with: better understanding of current medical conditions; weighing benefits/burdens of medical treatment options; making medical treatment decisions. Subjective/Interval History Patient remains on mechanical ventilator in the intensive care unit. She was restarted on esmolol for rate control and received 0.25 mg of digoxin IV 1. On Fentanyl drip for pain. Patient remains on heparin drip with no active bleeding. Potassium is being replaced. Follow-up chest x-ray today shows cardiomegaly and basilar airspace disease improvement since 06/19/17. Blood work today 06/21/17: * WBC: 7.8, hemoglobin 10.1, hematocrit 30.7, platelets 242, neutrophils 71.4% * Sodium: 147, potassium 3.6, chloride 119, carbon dioxide 22.7, glucose 103, calcium 7.5, phosphorus 2.6, magnesium 2.1 * BUN: 8, creatinine 0.43, GFR 140 Bacteremia with Staphylococcus epidermis, MRSA pneumonia, probable aspiration, possible bacterial endocarditis. Discussed with infectious disease. Patient is likely not a candidate for ALVIN. Will continue vancomycin and Flagyl., Discontinue Azactam. Positive gag. Positive corneal reflex. Withdrawing to pain. Not following commands this AM. Neurology has been reconsulted; repeat MRI of the brain and EEG pending. . Family/friend interactions Met with patient's , 3 adult children and granddaughter to clarify medical treatment goals. Family is considering ongoing aggressive interventions with tracheostomy versus transitioning to comfort focused care. Patient remains critically ill and intubated, unable to wean from mechanical ventilator. Infectious disease and cardiology following. Neurology has been reconsulted; repeat MRI and EEG pending. Patient may survive this hospitalization, however her overall prognosis remains poor. Given the patient' s advanced age, multiple comorbid conditions including her recent CVA with no significant improvement in functional status and overall deconditioning, the patient remains high risk for ongoing setback/complications and 3 hospitalizations. Patient's children indicate she would not want to continue aggressive interventions, but the patient's is struggling with these decisions. . Advance Directives Living Will: Completed, but not made available Health Care Surrogate: Completed, but not made available Advance Directive Specifics Health Care Surrogate(s): Patient's is designated as the health care surrogate. . Documented care wishes: Living will has standard inverted detail if terminal or end-stage or persistent vegetative condition would not want heroic or artificial measures including no artificial feeding and would want comfort measures only for a peaceful . . Objective Vital Signs Date Time Temp Pulse Resp B/P (MAP) Pulse Ox O2 Delivery O2 Flow Rate FiO2 06/21/17 12:00 45 06/21/17 12:00 98.8 133 20 95/57 (70) 100 Arterial Line 06/21/17 12:00 133 06/21/17 11:28 99 45 06/21/17 10:12 79 116/44 06/21/17 10:00 45 06/21/17 10:00 117 06/21/17 08:00 99.0 124 19 144/65 (91) 99 06/21/17 08:00 45 06/21/17 08:00 124 06/21/17 07:28 100 45 06/21/17 06:00 127 06/21/17 04:00 45 06/21/17 04:00 161 06/21/17 04:00 98.4 161 18 116/69 (85) 100 161/77 (105) 06/21/17 03:59 100 45 06/21/17 02:00 120 06/21/17 01:50 100 45 06/21/17 00:00 45 06/21/17 00:00 98.8 117 18 146/69 (94) 100 06/21/17 00:00 117 06/20/17 22:47 100 45 06/20/17 22:00 99 06/20/17 20:00 122 06/20/17 20:00 45 06/20/17 20:00 99.7 122 21 115/58 (77) 100 148/69 (95) 06/20/17 20:00 100 45 06/20/17 18:00 97 06/20/17 16:00 91 06/20/17 16:00 45 06/20/17 16:00 99.5 112 21 118/48 (71) 100 132/58 (82) 06/20/17 15:27 100 45 06/20/17 14:04 100 45 06/20/17 14:00 120 Intake & Output 06/21/17 06/21/17 06:59 18:59 Intake Total 825 ml 100 ml Output Total 450 ml Balance 375 ml 100 ml Intake IV Total 105 ml 100 ml Tube Irrigant 220 ml Other 500 ml Output Urine Total 450 ml # Bowel Movements 2 . Physical Exam CONSTITUTIONAL/GENERAL: This is an adequately nourished patient, critically ill in ICU, intubated on mechanical ventilator. TUBES/LINES/DRAINS: ET tube, PEG tube, Camilo catheter, bilateral wrist restraints, central line, peripheral IVs upper extremities SKIN: Generalized pallor Ecchymoses on upper extremities. Anasarca, weeping CARDIOVASCULAR: Irregular rate and rhythm on esmolol drip. Prior sternotomy scar noted. No murmur RESPIRATORY/CHEST: Symmetric, unlabored respirations on mechanical ventilation. Coarse rhonchi appreciated bilaterally. GASTROINTESTINAL: Abdomen soft, obese, nondistended. PEG tube in place without erythema/skin breakdown. Tolerating tube feeding GENITOURINARY: Without palpable bladder distension. Camilo catheter in placee. MUSCULOSKELETAL: Extremities without clubbing, cyanosis. Upper extremities swollen, right >left. NEUROLOGICAL: No purposeful movement noted; patient withdraws to deep tactile stimuli. Positive gag. Positive corneal reflex. PSYCHIATRIC: No obvious anxiety/depression--limited assessment due to clinical condition, on some sedation. . . Diagnostic Tests Laboratory Laboratory Tests Test 06/18/17 16:00 06/18/17 20:35 06/18/17 22:30 06/19/17 04:40 Urine Color YELLOW (YELLW/STRAW) Urine Turbidity HAZY (CLEAR) Urine pH 5.0 (5.0-8.5) Urine Specific Steptoe 1.029 (1.002-1.035) Urine Protein NEG mg/dL (NEG-TRACE) Urine Glucose (UA) NEG mg/dL (NEG) Urine Ketones NEG mg/dL (NEG) Urine Occult Blood MOD (NEG) Urine Nitrite NEG (NEG) Urine Bilirubin NEG (NEG) Urine Urobilinogen LESS THAN 2.0 MG/DL (LESS Urine Leukocyte Esterase MOD (NEG) Urine RBC 15 /hpf (0-3) Urine WBC 16 /hpf (0-5) Urine Mucus FEW /lpf (OCC) Microscopic Urinalysis Comment CATH-CULTURE IND Hemoglobin 9.9 GM/DL (11.6-15.3) 9.9 GM/DL (11.6-15.3) Hematocrit 31.3 % (35.0-46.0) 30.2 % (35.0-46.0) Lactic Acid Level 0.8 mmol/L (0.4-2.0) 0.9 mmol/L (0.4-2.0) Activated Partial Thromboplast Time 67.4 SEC (24.3-30.1) White Blood Count 12.7 TH/MM3 (4.0-11.0) Red Blood Count 3.37 MIL/MM3 (4.00-5.30) Mean Corpuscular Volume 89.6 FL (80.0-100.0) Mean Corpuscular Hemoglobin 29.4 PG (27.0-34.0) Mean Corpuscular Hemoglobin Concent 32.9 % (32.0-36.0) Red Cell Distribution Width 14.8 % (11.6-17.2) Platelet Count 231 TH/MM3 (150-450) Mean Platelet Volume 8.7 FL (7.0-11.0) Neutrophils (%) (Auto) 83.0 % (16.0-70.0) Lymphocytes (%) (Auto) 5.3 % (9.0-44.0) Monocytes (%) (Auto) 7.2 % (0.0-8.0) Eosinophils (%) (Auto) 4.2 % (0.0-4.0) Basophils (%) (Auto) 0.3 % (0.0-2.0) Neutrophils # (Auto) 10.5 TH/MM3 (1.8-7.7) Lymphocytes # (Auto) 0.7 TH/MM3 (1.0-4.8) Monocytes # (Auto) 0.9 TH/MM3 (0-0.9) Eosinophils # (Auto) 0.5 TH/MM3 (0-0.4) Basophils # (Auto) 0.0 TH/MM3 (0-0.2) CBC Comment DIFF FINAL Differential Comment Blood Urea Nitrogen 11 MG/DL (7-18) Creatinine 0.40 MG/DL (0.50-1.00) Random Glucose 104 MG/DL (74-106) Total Protein 5.3 GM/DL (6.4-8.2) Albumin 2.9 GM/DL (3.4-5.0) Calcium Level 7.6 MG/DL (8.5-10.1) Phosphorus Level 2.5 MG/DL (2.5-4.9) Magnesium Level 2.2 MG/DL (1.5-2.5) Alkaline Phosphatase 72 U/L (45-117) Aspartate Amino Transf (AST/SGOT) 35 U/L (15-37) Alanine Aminotransferase (ALT/SGPT) 21 U/L (10-53) Total Bilirubin 0.5 MG/DL (0.2-1.0) Sodium Level 144 MEQ/L (136-145) Potassium Level 3.3 MEQ/L (3.5-5.1) Chloride Level 113 MEQ/L (98-107) Carbon Dioxide Level 21.2 MEQ/L (21.0-32.0) Anion Gap 10 MEQ/L (5-15) Estimat Glomerular Filtration Rate 152 ML/MIN (>89) Digoxin Level 0.7 NG/ML (0.8-2.0) Test 06/19/17 16:20 06/20/17 02:00 06/20/17 04:15 06/20/17 05:25 Activated Partial Thromboplast Time 35.1 SEC (24.3-30.1) GREATER THAN 277.5 SEC 132.6 SEC (24.3-30.1) White Blood Count 11.0 TH/MM3 (4.0-11.0) Red Blood Count 3.56 MIL/MM3 (4.00-5.30) Hemoglobin 10.6 GM/DL (11.6-15.3) Hematocrit 32.1 % (35.0-46.0) Mean Corpuscular Volume 90.2 FL (80.0-100.0) Mean Corpuscular Hemoglobin 29.8 PG (27.0-34.0) Mean Corpuscular Hemoglobin Concent 33.0 % (32.0-36.0) Red Cell Distribution Width 14.8 % (11.6-17.2) Platelet Count 278 TH/MM3 (150-450) Mean Platelet Volume 7.7 FL (7.0-11.0) Neutrophils (%) (Auto) 72.1 % (16.0-70.0) Lymphocytes (%) (Auto) 11.0 % (9.0-44.0) Monocytes (%) (Auto) 9.8 % (0.0-8.0) Eosinophils (%) (Auto) 6.5 % (0.0-4.0) Basophils (%) (Auto) 0.6 % (0.0-2.0) Neutrophils # (Auto) 7.9 TH/MM3 (1.8-7.7) Lymphocytes # (Auto) 1.2 TH/MM3 (1.0-4.8) Monocytes # (Auto) 1.1 TH/MM3 (0-0.9) Eosinophils # (Auto) 0.7 TH/MM3 (0-0.4) Basophils # (Auto) 0.1 TH/MM3 (0-0.2) CBC Comment AUTO DIFF Differential Comment AUTO DIFF CONFIRMED Blood Urea Nitrogen 8 MG/DL (7-18) Creatinine 0.38 MG/DL (0.50-1.00) Random Glucose 108 MG/DL (74-106) Calcium Level 7.5 MG/DL (8.5-10.1) Phosphorus Level 2.2 MG/DL (2.5-4.9) Magnesium Level 2.3 MG/DL (1.5-2.5) Sodium Level 147 MEQ/L (136-145) Potassium Level 3.4 MEQ/L (3.5-5.1) Chloride Level 118 MEQ/L (98-107) Carbon Dioxide Level 22.2 MEQ/L (21.0-32.0) Anion Gap 7 MEQ/L (5-15) Estimat Glomerular Filtration Rate 161 ML/MIN (>89) Blood Gas Puncture Site ART LINE Blood Gas Patient Temperature 98.6 Blood Gas HCO3 17 mmol/L (22-26) Blood Gas Base Excess -6.5 mmol/L (-2-2) Blood Gas Oxygen Saturation 94 % (90-100) Arterial Blood pH 7.48 (7.380-7.420) Arterial Blood Partial Pressure CO2 22 mmHg (38-42) Arterial Blood Partial Pressure O2 76 mmHg (61-120) Arterial Blood Oxygen Content 13.7 Vol % (12.0-20.0) Arterial Blood Carboxyhemoglobin 1.3 % (0-4) Arterial Blood Methemoglobin 1.0 % (0-2) Blood Gas Hemoglobin 10.3 G/DL (12.0-16.0) Oxygen Delivery Device VENTILATOR Blood Gas Ventilator Setting PRVCAC Test 06/20/17 06:15 06/20/17 10:20 06/20/17 12:05 06/20/17 15:15 Activated Partial Thromboplast Time 51.2 SEC (24.3-30.1) 107.4 SEC (24.3-30.1) 48.6 SEC (24.3-30.1) Vancomycin Level Trough 15.2 MCG/ML (5.0-10.0) Test 06/20/17 18:38 06/21/17 03:20 06/21/17 06:24 06/21/17 12:17 Activated Partial Thromboplast Time 71.6 SEC (24.3-30.1) 98.9 SEC (24.3-30.1) 49.5 SEC (24.3-30.1) 50.1 SEC (24.3-30.1) White Blood Count 7.8 TH/MM3 (4.0-11.0) Red Blood Count 3.38 MIL/MM3 (4.00-5.30) Hemoglobin 10.1 GM/DL (11.6-15.3) Hematocrit 30.7 % (35.0-46.0) Mean Corpuscular Volume 90.9 FL (80.0-100.0) Mean Corpuscular Hemoglobin 30.0 PG (27.0-34.0) Mean Corpuscular Hemoglobin Concent 33.0 % (32.0-36.0) Red Cell Distribution Width 15.0 % (11.6-17.2) Platelet Count 242 TH/MM3 (150-450) Mean Platelet Volume 8.1 FL (7.0-11.0) Neutrophils (%) (Auto) 71.4 % (16.0-70.0) Lymphocytes (%) (Auto) 13.5 % (9.0-44.0) Monocytes (%) (Auto) 11.0 % (0.0-8.0) Eosinophils (%) (Auto) 3.4 % (0.0-4.0) Basophils (%) (Auto) 0.7 % (0.0-2.0) Neutrophils # (Auto) 5.6 TH/MM3 (1.8-7.7) Lymphocytes # (Auto) 1.1 TH/MM3 (1.0-4.8) Monocytes # (Auto) 0.9 TH/MM3 (0-0.9) Eosinophils # (Auto) 0.3 TH/MM3 (0-0.4) Basophils # (Auto) 0.1 TH/MM3 (0-0.2) CBC Comment AUTO DIFF Differential Total Cells Counted 100 Neutrophils % (Manual) 75 % (16-70) Band Neutrophils % 3 % (0-6) Lymphocytes % 10 % (9-44) Monocytes % 8 % (0-8) Eosinophils % 1 % (0-4) Neutrophils # (Manual) 6.3 TH/MM3 (1.8-7.7) Metamyelocytes 1 % (0-1) Myelocytes 1 % (0-0) Promyelocytes 1 % (0-0) Differential Comment FINAL DIFF MANUAL Platelet Estimate NORMAL (NORMAL) Platelet Morphology Comment NORMAL (NORMAL) Ovalocytes 1+ (NORMAL) Acanthocytes OCC (NORMAL) Blood Urea Nitrogen 8 MG/DL (7-18) Creatinine 0.43 MG/DL (0.50-1.00) Random Glucose 103 MG/DL (74-106) Calcium Level 7.5 MG/DL (8.5-10.1) Phosphorus Level 2.6 MG/DL (2.5-4.9) Magnesium Level 2.1 MG/DL (1.5-2.5) Sodium Level 147 MEQ/L (136-145) Potassium Level 3.6 MEQ/L (3.5-5.1) Chloride Level 119 MEQ/L (98-107) Carbon Dioxide Level 22.7 MEQ/L (21.0-32.0) Anion Gap 5 MEQ/L (5-15) Estimat Glomerular Filtration Rate 140 ML/MIN (>89) . Result Diagram: 06/21/17 0320 06/21/17 0320 Microbiology Microbiology Date/Time Source Procedure Growth Status 06/19/17 04:40 Blood Peripheral Aerobic Blood Culture - Preliminary NO GROWTH IN 2 DAYS Resulted 06/19/17 04:40 Blood Peripheral Anaerobic Blood Culture - Preliminary NO GROWTH IN 2 DAYS Resulted 06/18/17 16:00 Urine Catheterized Urine Urine Culture - Final NO GROWTH IN 48 HOURS. Complete . Imaging Last 48 hours Impressions Chest X-Ray 06/21/17 0000 Signed Impressions: Service Date/Time: Wednesday, June 21, 2017 04:41 - CONCLUSION: 1. Cardiomegaly. Basilar airspace disease improved from June 19. Endotracheal tube and right central line unchanged. Delonte Roland MD . Procedures 06/15/17: central line placement right IJ : Discontinued arterial line. . Assessment and Plan Disease Oriented Problem List: (1) Hypokalemia (2) Aspiration pneumonia (3) Respiratory failure with hypoxia (4) History of stroke (5) Moderate protein malnutrition (6) Atrial fibrillation with RVR Symptom Scale: (1) Dyspnea (2) Encephalopathy (3) Pain (4) Dysphagia Pertinent Non-Medical Issues Psychosocial:, most recently resided at [facility] following month long hospital course at [facility]. Retired, has 3 adult children who live out of the area. Patient resides in [place] during the winter and [place] during the summer. 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 Retired since the . Spiritual:Alevism supported by transportation consultant known to family, also appreciative of hospital supervisor remelt Legal:Patient currently intubated and unable to participate in medical decision making. Patient has living will which designates as primary healthcare surrogate, son as a secondary if unable to serve. I reviewed this document with the family on their iPad device however was unable available for print at this time. Ethical issues impacting care: Important Contacts Spouse Jorge Alberto Basilio [phone] Terrance Praful [phone] / [phone] Son Jorge Alberto Basilio Daughter Sandhya . Prognosis This patient was admitted for acute respiratory distress, respiratory failure. She recently had prolonged hospitalization for significant MCA stroke with resulting deficits and dysphagia. She has had A. fib with RVR, which has been difficult to control in the ICU setting. She remains high risk for further complications and setbacks, and possible . She does survive current acute hospitalization she will likely remain dependent and require long-term care. Code Status: Alternative Code (intubation) Plan * Legal decision maker: Patient has living will which designates as primary healthcare surrogate, son as a secondary if unable to serve. I reviewed this document with the family on their iPad device however was unable available for print at this time. * AGGRESSIVE GOALS. Met with patient's , 3 adult children and granddaughter to clarify medical treatment goals. Family is considering ongoing aggressive interventions with tracheostomy versus transitioning to comfort focused care. Patient remains critically ill and intubated, unable to wean from mechanical ventilator. Infectious disease and cardiology following. Neurology has been reconsulted; repeat MRI and EEG pending. Patient may survive this hospitalization, however her overall prognosis remains poor. Given the patient's advanced age, multiple comorbid conditions including her recent CVA with no significant improvement in functional status and overall deconditioning, the patient remains high risk for ongoing setback/complications and 3 hospitalizations. Patient's children indicate she would not want to continue aggressive interventions, but the patient's is struggling with these decisions. * Discussed patient with bedside nurse (Ana M), Dr. Pacheco (neurology) and Dr. Manning * CODE STATUS: Alternate code-intubation only. Patient's previous alternate CODE STATUS included intubation and ACLS medications. After reviewing the process of cardiopulmonary resuscitation with the patient's family on 06/19/2017, they request the patient be INTUBATION ONLY. * SYMPTOMS: --Dyspnea-emergently intubated for respiratory distress by EMS; MRSA pneumonia. Patient remains intubated, unable to wean from mechanical ventilator. Follow-up chest x-ray shows cardiomegaly and basilar airspace disease improvement since --Dysphagia-patient with recent MCA stroke, status post PEG placement at another facility, noted as aspiration risk per rehabilitation documentation. + aspiration pneumonia. Expected to remain at risk for aspiration secondary to dysphagia. --Pain- Patient has been off sedation since this morning and remains relatively unresponsive. Patient restarted on fentanyl drip for pain. No reported pain syndromes per family, potential sources would include bedbound status, recent invasive procedures; currently appears comfortable will continue to evaluate --Encephalopathy-multifactorial: status post recent CVA, now with acute respiratory failure, A. fib RVR, severe sepsis with septic shock. Patient remains relatively unresponsive off sedation since this morning. No purposeful movement; patient withdraws to deep stimuli. Neurology reconsulted; repeat MRI and EEG pending. Family would like to speak with neurology to discuss repeat MRI/EEG and prognosis for neurological recovery. * Palliative care will continue to follow during hospital course as condition evolves, to assist patient/decision-maker with understanding of medical conditions, weighing benefits/burdens of treatment options, for clarification of goals of treatment. Additionally will assist with any symptoms of palliative concern . Attestation To help prompt me to consider important information that might be impacting today's encounter and assessment, information from prior notes written by myself or my colleagues may have been "brought forward" into today's note. My signature on this note, however, is an attestation that I personally performed the exam, history, and/or decision-making noted today, and, unless otherwise indicated, the interactions with patient, family, and staff as well as the review of records all occurred today. I also attest that the listed assessment and stated plan reflect my best clinical judgment today based on the combination of historical information, prior notes, and today's exam/ interactions. When time spent is documented, it refers only to time spent today by the signer, or if indicated, combined time spent today by collaborating physician/nurse practitioner. . Evette Garcia Jun 21, 2017 13:36
[2017-06-21] MEDS: fentaNYL DRIP 250 ML IV PRN (13:47)
--- NOTE | 2017-06-21 14:31 | HHI.PR ---
Addendum to Inpatient Note Additional Information pt seen around 1400 full note to follow pt remains on vent not weaning from vent off pressors off sedation not FC or purposefull Stilb RVR on monitor PEG in place BLE tight edema Doubt she is a cand fro ALVIN cont vancomycin elizabeth zaldivar RN dw palliative care team Chantal Garnica MD Jun 21, 2017 14:31
[2017-06-21] MEDS: VANCOMYCIN 1,500 MG/NS 500 ML IV SCH ×2 (15:22)
--- NOTE | 2017-06-21 15:36 | RADRPT ---
EXAM DATE/TIME: 06/21/2017 14:04 [facility] COMPARISON: CT THORAX W CONTRAST, June 15, 2017, 4:30. CHEST SINGLE AP, May 272016, 4:41. INDICATIONS : Decreased range of motion. MEDICAL HISTORY : Stroke SURGICAL HISTORY : None. ENCOUNTER: Subsequent ACUITY: 4 - 6 days PAIN SCORE: Non-responsive. LOCATION: Right Shoulder FINDINGS: Examination is severely limited. The I don't see an obvious dislocation or fracture. There is stron g clinical concern repeat CT scan of chest is suggested. Previous CT scan shows no obvious dislocati on however there is minimal widening of the right shoulder joint. ONCLUSION: Severely limited exam, negative for fracture or dislocation. Kaiden Fish MD FACR on June 21, 2017 at 15:32 Board Certified Radiologist. This report was verified electronically.
[2017-06-21] MEDS: DILTIAZEM HCL 90 MG TAB PO SCH ×2 (15:41→19:53)
--- NOTE | 2017-06-21 16:10 | MB ---
cc: BANDAR PÉREZ M.D. DATE OF 1930, 86 years old. DATE OF CONSULTATION 06/21/2017 REASON FOR CONSULTATION Stroke and prognosis. 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 Was treated at [facility]. Developed dysphasia status post PEG tube, history of hypertension, hyperlipidemia, CHF, severe mitral regurgitation post mitral valve replacement. Apparently she was discharged from [facility] transferred to [facility] and rehab June 01, 2017. She apparently developed some respiratory distress earlier the morning of admission. There is some concern for aspiration and she found to have some bibasilar densities on her chest x-ray. Then apparently the patient became worse, more congested. And they had called [facility] to bring her to the hospital. She had a GCS at that time of 7, was intubated at the scene, given Ativan 4 milligrams, etomidate 20 mg. She was suctioned, it looked like a large amount of secretions, it look like possible tube feedings such as Jevity. Upon arrival to the hospital she was in atrial fibrillation, RVR. She was given Cardizem. She had a white count elevation of 13.7, low grade temperature of 99.4, started on Cardizem drip. Currently her electrolytes are abnormal with hypernatremia, hypokalemia. Lactic acid 1.9. Neurology is consulted for prognosis. Since the hospitalization she does have as you know the left MCA stroke, some hemorrhagic conversion. She has had an EEG that showed slowing left more than the right on 06/15 but no seizure. MRI of the brain was done on 06/15 showing old right frontal posterior infarct, subacute left white matter infarct, left temporal, left parietal and possible right parietal subacute infarcts. She developed as you know aspiration pneumonia. Continue with atrial fibrillation. Found to have a right atrial thrombus. Also found to have some splenic infarcts. Developed some thrush. MRSA sputum positive. Coag negative staph bacteremia. She is currently off Diprivan, was placed on a little bit of fentanyl. She continues on heparin drip. PHYSICAL EXAMINATION VITAL SIGNS: On exam temperature is 98.8, heart rate 117, respiratory rate 20, blood pressure 95/57. NEUROLOGIC: She is intubated on ventilator. Minimal eye opening on the right not on the left. Her pupils are reactive. There is no gaze preference. She does not follow any commands. She does have a gag I am told. Some minimal withdrawal to pain, but no commands are being followed. She does not squeeze my hand or wiggle her toes, close her eyes, open her eyes, stick her tongue out for me. LABORATORY DATA Labs are reviewed. Today's white count is 7.8, hemoglobin 10.1, hematocrit 30.7. Her platelets are 242,000. PTT is 50.1. Chemistries sodium 147, chloride 119, creatinine 0.43, GFR 140, glucose 103, calcium 7.5. Blood culture 06/19/2017 no growth in 2 days aerobic and anaerobic. Urine culture no growth in 48 hours. IMAGING Chest x-ray today shows cardiomegaly, basilar air space disease, improved from June 19. Endotracheal tube and right central line are unchanged. Last MRI dated 06/15/2017 showing multiple subacute infarcts as described previously. IMPRESSION This is an 86-year-old woman with a history of subacute infarcts bilaterally, likely embolic with now a right atrial thrombus, splenic infarcts, aspiration pneumonia. Recommend continuing the heparin. She is undergoing an EEG as I am dictating. I will repeat an MRI of the brain. However, given the multitude of her problems and not following commands seems her prognosis for neurologic recovery seems to be poor given her other multiple medical issues at this time. I will go ahead and have the EEG interpreted as well as get the MRI of the brain repeat study to see if there is any change and further recommendations will be made accordingly. At this point in time her prognosis does see poor. MD IFTIKHAR Reynolds/KEREN /2:58 PM /3:42 PM
--- NOTE | 2017-06-21 17:38 | MG ---
cc: CESAR BAHENA Lab No: Date: 06/21/2017 Age: Sex: F Race: ELECTROENCEPHALOGRAM NUMBER [id number] An 86-year-old intubated. Diprivan off. Fentanyl. Some left-sided slowing on EEG in the past. Old left MCA infarct. Fentanyl. DESCRIPTION Bitemporal muscle artifact obscures the temporal leads. Some diffuse 5-6 Hz slowing is noted. I cannot say that there is anymore slowing on the left than the right here. No epileptiform or seizure activity is noted but there is a lot of muscle artifact over the bitemporal leads which makes interpretation difficult. Photic stimulation was performed without significant posterior driving. Hyperventilation not performed. IMPRESSION Some mild diffuse slowing consistent with a mild diffuse encephalopathy. No definite left hemisphere slowing or abnormalities although there are a lot of muscle artifact there. Clinical correlation is needed. MD DINH Leblanc/KK /4:57 PM /5:24 PM
--- NOTE | 2017-06-21 18:54 | RADRPT ---
EXAM DATE/TIME: 06/21/2017 18:09 [facility] COMPARISON: CT BRAIN W/O CONTRAST, June 15, 2017, 4:26. MRI BRAIN W/O CONTRAST, June 15, 2017, 20:50. INDICATIONS : Patient not responding after being off of sedation. MEDICAL HISTORY : None. SURGICAL HISTORY : Tonsillectomy. section. Heart valve replacement. G-tube placement. ENCOUNTER: Subsequent ACUITY: 1 week PAIN SCORE: Nonresponsive. LOCATION: head. TECHNIQUE: Multiplanar, multisequence MRI of the brain was performed without contrast. FINDINGS: CEREBRUM: The ventricles are normal for age. No evidence of midline shift, mass lesion, acute hemorrhage or ac [place] infarction. No extraaxial fluid collections are seen. The pituitary gland and suprasellar ciste rn are normal in configuration. There is an old right frontal lobe infarct again noted. WHITE MATTER: No significant signal abnormalities are seen in the white matter. POSTERIOR FOSSA: The cerebellum and brainstem are intact. The 4th ventricle is midline. The cerebellopontine angle is unremarkable. The cerebellar tonsils are normal in position. DIFFUSION IMAGING: Areas of restricted diffusion in the right parietal lobe and left periventricular white matter/basal ganglia are fainter/smaller in the interim. Reviously seen areas of restricted diffusion of the left parietal and temporal lobes have resolved. No new areas of restricted diffusion are demonstrated. I b elieve there may be some subacute blood products in the region of the left periventricular white hy[place] er/basal ganglia infarct. EXTRACRANIAL: The visualized portions of the orbits and paranasal sinuses are unremarkable. CONCLUSION: 1. Evolving subacute infarcts as above. 2. Possible small subacute parenchymal blood in the region of the left periventricular white matter/b mike ganglia infarct. 3. No new or acute infarct. No mass effect or midline shift. Darin Preston MD on June 21, 2017 at 18:48 Board Certified Radiologist. This report was verified electronically.
[2017-06-21] MEDS: DOCUSATE SODIUM 100 MG/10 ML UDC PO SCH (19:53)
[2017-06-21] MEDS: HEPARIN-D5W 25,000 U/250 ML 250 ML IV PRN (21:26)
--- NOTE | 2017-06-21 22:05 | HHI.IDPN ---
Subjective Subjective Remarks pt seen around 1400 delayed entry pt remains on vent not weaning from vent off pressors off sedation not FC or purposefull Still RVR Afib on monitor Antibiotics vancomycin azacam levaquine flagyl Allergies: Coded Allergies: penicillin G (Unverified Allergy, Severe, 05/09/17) shellfish derived (Verified Allergy, Unknown, 06/15/17) Objective . Vital Signs Date Time Temp Pulse Resp B/P (MAP) Pulse Ox O2 Delivery O2 Flow Rate FiO2 06/21/17 20:00 97.3 92 11 101/62 (75) 100 06/21/17 20:00 92 06/21/17 20:00 45 06/21/17 18:18 99 100 06/21/17 18:00 98 06/21/17 17:21 86 97/54 06/21/17 17:09 100 45 06/21/17 16:00 100.1 92 19 106/50 (68) 92 06/21/17 16:00 45 06/21/17 16:00 92 06/21/17 14:00 117 06/21/17 12:00 45 06/21/17 12:00 98.8 133 20 95/57 (70) 100 Arterial Line 06/21/17 12:00 133 06/21/17 11:28 99 45 06/21/17 10:12 79 116/44 06/21/17 10:00 45 06/21/17 10:00 117 06/21/17 08:00 99.0 124 19 144/65 (91) 99 06/21/17 08:00 45 06/21/17 08:00 124 06/21/17 07:28 100 45 06/21/17 06:00 127 06/21/17 04:00 45 06/21/17 04:00 161 06/21/17 04:00 98.4 161 18 116/69 (85) 100 161/77 (105) 06/21/17 03:59 100 45 06/21/17 02:00 120 06/21/17 01:50 100 45 06/21/17 00:00 45 06/21/17 00:00 98.8 117 18 146/69 (94) 100 06/21/17 00:00 117 06/20/17 22:47 100 45 06/20/17 22:00 99 9/06/21/17 06/22/17 15:00 23:00 07:00 Intake Total 200 ml 1770 ml Output Total 300 ml Balance 200 ml 1470 ml Intake IV Total 200 ml 935 ml Tube Irrigant 385 ml Other 450 ml Output Urine Total 300 ml # Bowel Movements 2 . Laboratory Tests Test 06/20/17 04:15 06/21/17 03:20 White Blood Count 11.0 TH/MM3 7.8 TH/MM3 Red Blood Count 3.56 MIL/MM3 3.38 MIL/MM3 Hemoglobin 10.6 GM/DL 10.1 GM/DL Hematocrit 32.1 % 30.7 % Mean Corpuscular Volume 90.2 FL 90.9 FL Mean Corpuscular Hemoglobin 29.8 PG 30.0 PG Mean Corpuscular Hemoglobin Concent 33.0 % 33.0 % Red Cell Distribution Width 14.8 % 15.0 % Platelet Count 278 TH/MM3 242 TH/MM3 Mean Platelet Volume 7.7 FL 8.1 FL Neutrophils (%) (Auto) 72.1 % 71.4 % Lymphocytes (%) (Auto) 11.0 % 13.5 % Monocytes (%) (Auto) 9.8 % 11.0 % Eosinophils (%) (Auto) 6.5 % 3.4 % Basophils (%) (Auto) 0.6 % 0.7 % Neutrophils # (Auto) 7.9 TH/MM3 5.6 TH/MM3 Lymphocytes # (Auto) 1.2 TH/MM3 1.1 TH/MM3 Monocytes # (Auto) 1.1 TH/MM3 0.9 TH/MM3 Eosinophils # (Auto) 0.7 TH/MM3 0.3 TH/MM3 Basophils # (Auto) 0.1 TH/MM3 0.1 TH/MM3 CBC Comment AUTO DIFF AUTO DIFF Differential Comment AUTO DIFF CONFIRMED FINAL DIFF MANUAL Differential Total Cells Counted 100 Neutrophils % (Manual) 75 % Band Neutrophils % 3 % Lymphocytes % 10 % Monocytes % 8 % Eosinophils % 1 % Neutrophils # (Manual) 6.3 TH/MM3 Metamyelocytes 1 % Myelocytes 1 % Promyelocytes 1 % Platelet Estimate NORMAL Platelet Morphology Comment NORMAL Ovalocytes 1+ Acanthocytes OCC Laboratory Tests Test 06/20/17 04:15 06/21/17 03:20 Blood Urea Nitrogen 8 MG/DL 8 MG/DL Creatinine 0.38 MG/DL 0.43 MG/DL Random Glucose 108 MG/DL 103 MG/DL Calcium Level 7.5 MG/DL 7.5 MG/DL Phosphorus Level 2.2 MG/DL 2.6 MG/DL Magnesium Level 2.3 MG/DL 2.1 MG/DL Sodium Level 147 MEQ/L 147 MEQ/L Potassium Level 3.4 MEQ/L 3.6 MEQ/L Chloride Level 118 MEQ/L 119 MEQ/L Carbon Dioxide Level 22.2 MEQ/L 22.7 MEQ/L Anion Gap 7 MEQ/L 5 MEQ/L Estimat Glomerular Filtration Rate 161 ML/MIN 140 ML/MIN Microbiology Date/Time Source Procedure Growth Status 06/19/17 04:40 Blood Peripheral Aerobic Blood Culture - Preliminary NO GROWTH IN 2 DAYS Resulted 06/19/17 04:40 Blood Peripheral Anaerobic Blood Culture - Preliminary NO GROWTH IN 2 DAYS Resulted Imaging Last Impressions Chest X-Ray 06/21/17 0000 Signed Impressions: Service Date/Time: Wednesday, June 21, 2017 04:41 - CONCLUSION: 1. Cardiomegaly. Basilar airspace disease improved from June 19. Endotracheal tube and right central line unchanged. Delonte Roland MD Brain MRI 06/21/17 0000 Signed Impressions: Service Date/Time: Wednesday, June 21, 2017 18:09 - CONCLUSION: 1. Evolving subacute infarcts as above. 2. Possible small subacute parenchymal blood in the region of the left periventricular white matter/basal ganglia infarct. 3. No new or acute infarct. No mass effect or midline shift. Darin Preston MD Abdomen X-Ray 06/19/17 0600 Signed Impressions: Service Date/Time: Monday, June 19, 2017 02:56 - CONCLUSION: 1. Stable to slight improvement in gaseous distention of the colon. Delonte Roland MD Abdomen/Pelvis CT 06/18/17 0000 Signed Impressions: Service Date/Time: Sunday, June 18, 2017 10:29 - CONCLUSION: 1. Persistent wedge-shaped areas of hypoenhancement within the spleen likely representing infarcts. There is questionable area of hypoenhancement the lower pole the right kidney as well which could also represent infarct. Suggest attention to these a followup imaging. 2. There is a small volume of free fluid in the abdomen and pelvis along with a trace bilateral pleural fluid effusions and anasarca. 3. Cardiomegaly with 2 stable nodular areas in the right atrium representing either thrombus or mass. These measure up to 2 cm. 4. Otherwise, as above. Darin Pederson MD Upper Extremity Ultrasound 06/16/17 0000 Signed Impressions: Service Date/Time: Friday, June 16, 2017 11:00 - CONCLUSION: Normal examination. No evidence of DVT Shoaib Pastor MD Head CT 06/15/17 0000 Signed Impressions: Service Date/Time: May 04:26 - CONCLUSION: 1. No acute intracranial abnormality. 2. Chronic small vessel ischemic change more pronounced on the left. 3. Right frontal lobe encephalomalacia. 4. Atrophy Blu Mayfield Jr., MD Chest CT 06/15/17 0000 Signed Impressions: Service Date/Time: May 04:30 - CONCLUSION: 1. 2 focal rounded filling defects involving an enlarged right atrium. I'm concerned this represents mural thrombus. 2. Significant cardiomegaly. 3. Bibasilar infiltrates. Blu Mayfield Jr., MD Physical Exam CONSTITUTIONAL/GENERAL: This is an adequately nourished patient, in no apparent distress. TUBES/LINES/DRAINS: SKIN: No jaundice, rashes, or lesions. Skin temperature appropriate. Not diaphoretic. EYES: Pupils equal and round and reactive. No scleral icterus. No injection or drainage. Fundi not examined. ENT: Visible oral mucosae moist Dentition in fair condition Orally intubated CARDIOVASCULAR: Irregular rate and rhythm without murmurs, gallops, or rubs. No JVD. Signs of poor perfusion with delayed refill RESPIRATORY/CHEST: Symmetric, unlabored respirations. Rhonchi to auscultation. Breath sounds equal bilaterally. No wheezes, rales, or rhonchi. GASTROINTESTINAL: Abdomen soft, no re action to palpation, moderately distended. . Bowel sounds diminished PEG in place LUQ GENITOURINARY: Without palpable bladder distension. Camilo catheter in place with cloudy chyna urine MUSCULOSKELETAL: Extremities without clubbing,,BLE tight edema no cyanosis No joint tenderness or effusion noted. No calf tenderness. + mottling of feet LYMPHATICS: No palpable cervical or supraclavicular adenopathy. 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), mitral High grade presumably coag neg staph bacteremia in the settings of mitral valve repair with ring - however, different morphology is present - splenic infacts is a concern for underlying L sided endocarditis - evolving subacute brain infartcts also support dx f endocarditis 2 D echo negative - repeat BC negative so far pcn ALLERGY CONT s Doubt she is a candidate for ALVIN or surgery cont vancomycin add rifampin gentamycin is posing a very high risk for renal failure and I would avoid it unless recurrent bacteremia elizabeth zaldivar RN dw palliative care team dw family @ b/s Chantal Garnica MD Jun 21, 2017 22:05
[2017-06-21] MEDS: RIFAMPIN INJ 300 MG in SODIUM CHLORIDE 0.9% INJ 100 ML IV SCH (23:34)
[2017-06-22] VITALS (72 sets, daily range): BP systolic 73–154; BP diastolic 35–87; PULSE 78–140; RESP 10–29; TEMP 97.5; O2SAT 94–100
[2017-06-22] MEDS: ESMOLOL DRIP INJ PREMIX 250 ML IV PRN ×3 (01:00→18:19)
[2017-06-22] MEDS: DILTIAZEM HCL 90 MG TAB PO SCH ×4 (03:00→21:19)
[2017-06-22] MEDS: CHLORHEXIDINE GLUCONATE 2 % 1 PACK (2 CLOTHS) TOP SCH (03:17)
[2017-06-22] MEDS: RESP: ALBUTEROL 2.5 MG/IPRATROPIUM 0.5 MG NEB (SCH) INH ×4 (03:31→20:30)
[2017-06-22] MEDS: PHENYLEPHRINE INJ 160 MG in DEXTROSE 5% IN WATE 500 ML INJ 484 ML IV PRN ×2 (04:32)
[2017-06-22] MEDS: INSULIN NovoLIN REGULAR SUPPLEMENTAL SCALE SQ SCH ×3 (05:22→18:00)
[2017-06-22] MEDS: PANTOPRAZOLE SODIUM 40 MG VIAL IV PUSH SCH ×2 (05:22→18:18)
[2017-06-22] MEDS: ARTIFICIAL TEARS OPTH SOLN 15 ML BTL EACH EYE SCH ×3 (05:22→21:19)
[2017-06-22] MEDS: FREE WATER G-TUBE SCH ×3 (05:22→21:19)
--- NOTE | 2017-06-22 05:57 | RADRPT ---
EXAM DATE/TIME: 06/22/2017 04:51 [facility] COMPARISON: CHEST SINGLE AP, June 21, 2017, 4:41. INDICATIONS : Respiratory failure. MEDICAL HISTORY : Cerebrovascular disease. Cardiovascular disease. Hypertension. SURGICAL HISTORY : CABG. ENCOUNTER: Subsequent ACUITY: 1 week PAIN SCORE: Non-responsive. LOCATION: Bilateral chest FINDINGS: A single view of the chest demonstrates endotracheal tube in good position. Right central line overli es superior vena cava. Cardiomegaly with previous mitral valve surgery. Persistent dense consolidatio n left lung base with mild consolidation right lung base and small pleural effusions similar to Septe mber 27. CONCLUSION: 1. Support apparatus unchanged. Persistent dense consolidation at the left base. Small effusions. Delonte Roland MD on June 22, 2017 at 5:55 Board Certified Radiologist. This report was verified electronically.
[2017-06-22 06:51] LABS: AUTOMATED NEUTROPHIL # 9.4 TH/MM3 (1.8-7.7); BASOPHIL # 0.1 TH/MM3 (0-0.2); BASOPHIL % 0.5 % (0.0-2.0); EOSINOPHIL # 0.3 TH/MM3 (0-0.4); EOSINOPHIL % 2.2 % (0.0-4.0); HEMATOCRIT 30.8 % (35.0-46.0); LYMPH % 9.8 % (9.0-44.0); LYMPHOCYTE # 1.2 TH/MM3 (1.0-4.8); MEAN CELL VOLUME 90.9 FL (80.0-100.0); MEAN CORPUSCULAR HEMOGLOBIN 29.1 PG (27.0-34.0); MONO % 11.1 % (0.0-8.0); NEUT % 76.4 % (16.0-70.0); PLATELET COUNT 325 TH/MM3 (150-450); RED BLOOD COUNT 3.38 MIL/MM3 (4.00-5.30); RED CELL DISTRIBUTION WIDTH 15.7 % (11.6-17.2); WHITE BLOOD COUNT 12.2 TH/MM3 (4.0-11.0)
[2017-06-22 06:58] LABS: HEMO FLAGS AUTO DIFF
[2017-06-22 07:12] LABS: ALKALINE PHOSPHATASE 76 U/L (45-117); ALT (GPT) 19 U/L (10-53); ANION GAP 5 MEQ/L (5-15); AST (GOT) 21 U/L (15-37); BICARBONATE 23.5 MEQ/L (21.0-32.0); BLOOD UREA NITROGEN 9 MG/DL (7-18); CHLORIDE 118 MEQ/L (98-107); DIGOXIN 1.2 NG/ML (0.8-2.0); GLOMERULAR FILTRATION RATE 148 ML/MIN (>89); MAGNESIUM 1.9 MG/DL (1.5-2.5); SODIUM (NA) 146 MEQ/L (136-145); TOTAL BILIRUBIN ADULT 0.6 MG/DL (0.2-1.0)
--- NOTE | 2017-06-22 07:52 | HHI.CCPN ---
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 She was discharged from [facility] and transferred to [facility] and rehabilitation 06/01/17. She reportedly had rhonchi, cough, and respiratory distress early this morning and there was concern for aspiration. Chest x-ray had been obtained and there were small bibasilar densities that were felt to be consistent with atelectasis. When the registered radiographer nurse came in she noted that patient had significantly worsening congestion and increased work of breathing. EVAC was summoned and when EVAC arrived she was reportedly GCS 7 ([id number]) and was intubated at the scene after administration of Ativan 4 mg IV and Etomidate 20 mg IV. Upon intubation EVAC reportedly suctioned out large amount of secretions that looked like Jevity tube feeds from the ETT. Jevity tube feeds were running via PEG and these were placed on hold per EVAC. Upon arrival she was in atrial fibrillation with RVR with rate in the 160s. She was given cardizem 20 mg IV and started on cardizem drip at 5 mg/hr. with white blood cell count 13.7. She was normotensive blood pressure 120-140 systolic. Temperature 99.4. She is hypernatremic with sodium of 154, potassium 2.8. Protein corrected calcium 7.9. Magnesium is normal. Troponin is 0.18, BNP 674. Lactic acid is 1.9 She received 2.5 L of fluid in the emergency department. Chest x-ray demonstrates endotracheal tube approximately 1.8 cm above the sury. OG tube is in place in the stomach. There is left basilar opacity, right basilar atelectasis. Patient is intubated and remainder review of systems cannot be obtained. Aztreonam, metronidazole, levofloxacin were ordered per ED. Blood cultures have been obtained. No noted diarrhea. Unknown if patient had experienced vomiting 06/15 : Discussed with Jorge Alberto at bedside. Request alternate CODE STATUS. ACLS drugs and intubation only. Currently on esmolol and Cardizem drips for rate control. Phenylephrine drip initiated due to hypotension. Patient does withdrawal to left upper extremity and actually made attempt to self extubate with left upper extremity while placing central line while hypotensive. Moving bilateral lower extremities spontaneously. Plan is MRI brain if able/stable overnight otherwise will repeat CT head in a.m. 06/16 Echocardiogram still not read as of 1719. Heparin drip initiated due to likely mural thrombus and high risk of CVA. Initial CT brain 06/15 showed no signs of acute hemorrhage. 06/16: Afebrile. MRI brain results as below. Heparin drip currently on hold secondary to elevated PTT. Tube feeding to be initiated today. Remains on Cardizem, esmolol in phenylephrine drips 06/17: Afebrile. Off the diltiazem, esmolol and phenylephrine drips. Currently on propofol drip at 20 mics grams per kilo per minute. Attempt sedation vacation today. No bowel movement. Tube feeds currently at 30 cc an hour 06/18: Afebrile. A. fib with RVR overnight restarted on diltiazem drip currently at 5 mg an hour. Per report 1 large bloody bowel movement currently brown in color. KUB revealed abdominal distention with cecum at 11.[address] evidence/pelvis pending. Heparin discontinued. Noted thrombus in right atrium. On echocardiogram. Not on vasopressors. 06/19 PAtient is sedated with Diprivan, Neosyn started overnight for hypotension and Cardizem drip stopped. Off Heparin drip for Colonoscopy today. Afebrile. 06/20 No events overnight. Sedated with Diprivan and intubated. On Neosyn 50 mics. Afebrile. s/p EGD and colonoscopy yesterday with no signs of bleeding. Back on Heparin drip. Subjective 06/21: Patient started on his knowledge of T2 tachycardia. Pulse 0.25 mg digoxin IV 1. Potassium is currently been replaced. Continues on heparin drip. No active bleeding. 06/22: Remains intubated not on sedation, critically ill. Placed on Avel- Synephrine for hypotension currently on 40 mcg/m. Localizes with left upper extremity. MRI yesterday shows evolving subacute infarctions possible small amount of subacute parenchymal blood in the left basal ganglia infarct region. Per Dr. Sánchez, heparin is to be continued. Repeat CT imaging today. Objective Vital Signs Date Time Temp Pulse Resp B/P (MAP) Pulse Ox O2 Delivery O2 Flow Rate FiO2 9/28/17 06:00 95 06/22/17 04:48 99 40 06/22/17 04:32 87/51 06/22/17 04:00 97.5 11 Intake and Output 06/22/17 06/22/17 06/23/17 08:00 16:00 00:00 Intake Total 1006 ml Output Total 300 ml Balance 706 ml Result Diagram: 06/22/17 0615 06/22/17 0615 Imaging Last Impressions Chest X-Ray 06/21/17 0000 Signed Impressions: Service Date/Time: Wednesday, June 21, 2017 04:41 - CONCLUSION: 1. Cardiomegaly. Basilar airspace disease improved from June 19. Endotracheal tube and right central line unchanged. Delonte Roland MD Abdomen X-Ray 06/19/17 0600 Signed Impressions: Service Date/Time: Monday, June 19, 2017 02:56 - CONCLUSION: 1. Stable to slight improvement in gaseous distention of the colon. Delonte Roland MD Abdomen/Pelvis CT 06/18/17 0000 Signed Impressions: Service Date/Time: Sunday, June 18, 2017 10:29 - CONCLUSION: 1. Persistent wedge-shaped areas of hypoenhancement within the spleen likely representing infarcts. There is questionable area of hypoenhancement the lower pole the right kidney as well which could also represent infarct. Suggest attention to these a followup imaging. 2. There is a small volume of free fluid in the abdomen and pelvis along with a trace bilateral pleural fluid effusions and anasarca. 3. Cardiomegaly with 2 stable nodular areas in the right atrium representing either thrombus or mass. These measure up to 2 cm. 4. Otherwise, as above. Darin Pederson MD Upper Extremity Ultrasound 06/16/17 0000 Signed Impressions: Service Date/Time: Friday, June 16, 2017 11:00 - CONCLUSION: Normal examination. No evidence of DVT Shoaib Pastor MD Head CT 06/15/17 0000 Signed Impressions: Service Date/Time: May 04:26 - CONCLUSION: 1. No acute intracranial abnormality. 2. Chronic small vessel ischemic change more pronounced on the left. 3. Right frontal lobe encephalomalacia. 4. Atrophy Blu Mayfield Jr., MD Chest CT 06/15/17 0000 Signed Impressions: Service Date/Time: May 04:30 - CONCLUSION: 1. 2 focal rounded filling defects involving an enlarged right atrium. I'm concerned this represents mural thrombus. 2. Significant cardiomegaly. 3. Bibasilar infiltrates. Blu Mayfield Jr., MD Brain MRI 06/15/17 0000 Signed Impressions: Service Date/Time: May 20:50 - CONCLUSION: 1. Multiple subacute infarcts are demonstrated. Please see above. 2. There is an old infarct posteriorly of the right frontal lobe as well. 3. No mass, mass effect or midline shift. No bleed. Darin Preston MD Objective Remarks GENERAL: 86-year-old female, critically ill currently orotracheally intubated SKIN: Warm and dry. Great toes bilaterally are currently dusky. Right upper extremity with ecchymoses large HEAD: Atraumatic. Normocephalic. EYES: Pupils round, 3 to 4 mm and sluggishly reactive bilaterally. No scleral icterus. No injection or drainage. ENT: No nasal bleeding or discharge. Orotracheally intubated. Thrush noted on admission NECK: Trachea midline. No JVD. Right IJ 5 lm catheter is clean dry and intact CARDIOVASCULAR: Prior sternotomy scar noted. Well-healed. S1, S2 no S4. Without murmur. Hypotensive on avel-synephrine RESPIRATORY: Coarse rhonchi appreciated bilaterally. Symmetrical excursion. GASTROINTESTINAL: Abdomen less distended. Hyperactive bowel sounds are appreciated. No high-pitched sounds appreciated. PEG tube in place without erythema/skin breakdown. Tolerating tube feeding : Camilo in place with yellow urine output. MUSCULOSKELETAL: Right upper extremity edema noted greater than left upper extremity NEUROLOGICAL: Positive gag. Positive corneal reflex. Withdrawing to pain.localizes with LUE. Upward toes Not following commands Date of Insertion: Jun 15, 2017 Line: Central Venous Catheter Side: Right Location: Internal, Jugular A/P Problem List: (1) Respiratory failure with hypoxia ICD Code: J96.91 - Respiratory failure, unspecified with hypoxia Status: Acute (2) Aspiration pneumonia ICD Code: J69.0 - Pneumonitis due to inhalation of food and vomit Status: Acute (3) Hypokalemia ICD Code: E87.6 - Hypokalemia Status: Acute (4) Dysphagia ICD Code: R13.10 - Dysphagia, unspecified Status: Chronic (5) Respiratory failure, acute ICD Code: J96.00 - Acute respiratory failure, unspecified whether with hypoxia or hypercapnia (6) History of stroke ICD Code: Z86.73 - Personal history of transient ischemic attack (TIA), and cerebral infarction without residual deficits (7) Moderate protein malnutrition ICD Code: E44.0 - Moderate protein-calorie malnutrition Status: Chronic Assessment and Plan NEURO/Psych: Recent history of L MCA stroke 05/21/17 -left periventricular white matter, left temporal, left parietal and right parietal Residual R hemiparesis, dysphagia, inability to ambulate. R frontal encephalomalacia Patient had "small hemorrhagic conversion" noted on MRI at outside hospital. Neurology consulted on 06/[address] on 06/07 and if no worsening hemorrhage, can start Eliquis and d/c ASA. MRI brain 06/15 revealed old right frontal posterior infarct, subacute left parametric white matter 17 x 52 mm, left temporal 19 x 32 mm, left parietal 16 mm and cluster right parietal areas of subacute EEG 06/15 revealed bilateral abnormalities slowing rhythms more left. No ictal/ discharge is noted Currently on heparin drip MRI 06/21 with evolving subacute infarcts, possible small amount of blood in the left basal ganglia infarct region. Per Dr. Sánchez continuing heparin. Repeat CT head at 4 PM today Currently off all sedation RESP: Acute respiratory failure Aspiration Pneumonia PRVC 10/500/09/29/. Continue with vent support keep sat >92% Hemodynamic instability and altered mentation will not permit Spontaneous breathing trials Albuterol/ipratropium aerosols every 6 hours with albuterol aerosols every 2 hours as needed Dyspnea CXR 06/19 Stable basilar airspace disease and effusions CT thorax 06/15- bibasilar opacities. ?R atrial mural thrombus. CV: Atrial fibrillation with [id number] Right Atrial thrombus H/o mitral valve replacement Hyperlipidemia Currently on diltiazem at 60 mg every 6 hours and esmolol drip for atrial fibrillation On digoxin 0.125 mg by PEG daily. Digoxin level 0.7 06/19, given additional 0.25 mg IV 1 now Pravastatin 40mg daily for dyslipidemia 2-D echo: EF45- 50%. No RWMA. LA, RA severely dilated. Mitral valve annuloplasty ring is present. Moderate thickening of the mitral valve leaflets. [id number] mitral valve regurgitation. Diffuse calcification of the aortic valve. [id number] aortic valve regurgitation. No aortic valve stenosis. Aortic valve area is 1.4cm. PASP is 41.8 mmHg. Echo 06/18 revealed 1.35 x 1.38 cm right atrial thrombus/mass Continue with Heparin drip GI: Constipation Cholelithiasis Splenic infarct Chronic moderate protein energy malnutrition Hypoalbuminemia Diverticulosis Colonic polyp - pathology pending TF (vital 1.5 goal 45 cc an hour) via PEG tube. s/p EGD and colonoscopy 06/18: Mild gastritis, small ulceration next to PEG tube site with no evidence of bleeding, colon polyp and Diverticulosis. CT abd/pelvis revealed spleen abnormalities suggest splenic infarct. Laceration felt to be less likely. No hematoma. No recent injury reported. Docusate sodium/Senokot/twice daily and polyethylene glycol 17 g daily for bowel regimen KUB 06/18 revealed gaseous distention of the colon cecum 11.5 cm. Repeat KUB improved FEN/RENAL: Hypernatremia Monitor renal function, I/O's, electrolytes replacement per protocol. NA 146 Free water 250 ml Q8 ID: Aspiration pneumonia/MRSA in sputum Thrush Coag negative staph bacteremia Continue abx per ID (Vanco, Azactam, Flagyl) monitor for signs of infections ( Fever, WBC) Might need ALVIN per ID once clinically stable Influenza negative 06/19 BC: NGTD Sputum 06/16 MRSA, 06/15 BC: Coag negative staph Infectious disease following HEME: Leukocytosis Normocytic anemia Monitor CBC, coags- on heparin drip Previously on Apixaban Continue heparin drip for now until after ALVIN performed and transition back to factor Xa inhibitor. (F/U CT head today to evaluate ICH) ENDO: SSI with accuchecks TSH 0.546. T4 slightly elevated at 1.8 PROPH: Heparin drip will provide DVT prophylaxis Pantoprazole 40 mg IV twice a day for stress ulcer prophylaxis. ACCESS: Right IJ 5 lm catheter placed 06/15. Discontinued arterial line 06/21 Palliative care is following Continue Alternate code status. Intubation and ACLS drugs only. No shock. No CPR. Patient is hypotensive septic recent strokes. Now with multiorgan failure. Overall prognosis poor and recommend transition to comfort measures CCT 35 mins Problem Qualifiers (1) Respiratory failure with hypoxia: Qualified Codes: J96.01 - Acute respiratory failure with hypoxia Ashley Webster MD Jun 22, 2017 07:52
[2017-06-22] MEDS: DIGOXIN SOLUTION 0.125 MG/2.5 ML CUP PO SCH (07:57)
[2017-06-22] MEDS: PRAVASTATIN SOD 40 MG TAB OG-TUBE SCH (07:57)
[2017-06-22] MEDS: SENNOSIDES SYRUP 8.8 MG/5 ML CUP OG-TUBE SCH ×2 (07:57→20:54)
[2017-06-22] MEDS: POLYETHYLENE GLYCOL 17 GM PKG PO SCH (07:57)
[2017-06-22] MEDS: SODIUM CHLORIDE 0.9% FLUSH 10 ML FLUSH IV FLUSH SCH ×2 (07:57→21:19)
[2017-06-22] MEDS: DOCUSATE SODIUM 100 MG/10 ML UDC PO SCH ×2 (07:57→20:54)
[2017-06-22] MEDS: CHLORHEXIDINE 0.12% (ORAL KIT) 15 ML CUP MT SCH ×2 (07:58→20:02)
[2017-06-22 08:07] LABS: BANDS 7 % (0-6); EOSINOPHILS 2 % (0-4); METAMYELOCYTES 3 % (0-1); MYELOCYTES 3 % (0-0); NEUTROPHIL # MANUAL DIFF 10.2 TH/MM3 (1.8-7.7); PLATELET ESTIMATE SMEAR NORMAL (NORMAL); PLATELET MORPHOLOGY NORMAL (NORMAL); POLYS (SEG NEUTROPHILS) 71 % (16-70); SCAN/DIFF FINAL DIFF MANUAL; WBC DIFF SAMPLE 100
[2017-06-22 08:08] LABS: OVALOCYTES 1+ (NORMAL)
[2017-06-22] MEDS: SODIUM CHLORIDE 0.9% FLUSH 10 ML FLUSH IVF SCH (08:49)
[2017-06-22] MEDS: RIFAMPIN INJ 300 MG in SODIUM CHLORIDE 0.9% INJ 100 ML IV SCH ×2 (11:00→22:40)
--- NOTE | 2017-06-22 13:41 | HHI.HCPN ---
Reason for visit a. To assist with evaluation and management of symptoms including: Dyspnea, dysphagia, pain encephalopathy b. To assist medical decision maker(s) with: better understanding of current medical conditions; weighing benefits/burdens of medical treatment options; making medical treatment decisions. Subjective/Interval History Patient remains on mechanical ventilator in the intensive care unit. She was Esmolol drip and was started on Avel-Synephrine for hypotension. Withdrawing to pain; localizes with left upper extremity. Not following commands. + gag. + corneal reflex. MRI yesterday 06/22/17 shows evolving subacute infarctions possible small amount of subacute parenchymal blood in the left basal ganglia infarct region. Patient remains on heparin-okay per Dr. Pacheco. Repeat CT imaging today. Blood work today 06/22/17: * WBC: 12.2, hemoglobin 9.8, hematocrit 30.8, platelets 325, neutrophils 76.4% * Sodium: 146, potassium 4.0, chloride 118, carbon dioxide 23.5, calcium 7.7, phosphorus 2.0, magnesium 1.9 * BUN: 9, creatinine 0.41, GFR 148 * Bilirubin: 0.6, AST 21, ALT 19 * Alkaline phosphatase: 76 * Ammonia: 31 * Total protein: 5.1, albumin 2.2 Bacteremia with Staphylococcus epidermis, MRSA pneumonia, probable aspiration, possible bacterial endocarditis. Discussed with infectious disease. Patient is likely not a candidate for ALVIN. Will continue vancomycin and Flagyl., Discontinue Azactam. Family does NOT wish to de-escalate care. They would like to continue pressors and medications to control atrial fib with RVR. They will likely not proceed with tracheostomy if that is indicated in the future. . Advance Directives Living Will: Completed, but not made available Health Care Surrogate: Completed, but not made available Advance Directive Specifics Health Care Surrogate(s): Patient's is designated as the health care surrogate. . Documented care wishes: Living will has standard inverted detail if terminal or end-stage or persistent vegetative condition would not want heroic or artificial measures including no artificial feeding and would want comfort measures only for a peaceful . . Objective Vital Signs Date Time Temp Pulse Resp B/P (MAP) Pulse Ox O2 Delivery O2 Flow Rate FiO2 06/22/17 12:52 100 40 06/22/17 09:01 102 15 120/56 (77) 99 06/22/17 08:40 98 40 06/22/17 08:00 102 15 90/62 (71) 98 06/22/17 07:58 104 06/22/17 06:00 95 06/22/17 04:48 99 40 06/22/17 04:32 74 87/51 06/22/17 04:00 97.5 93 11 87/51 (63) 100 06/22/17 04:00 93 06/22/17 04:00 45 06/22/17 02:00 78 06/22/17 01:14 100 45 06/22/17 01:00 77 101/41 06/22/17 00:00 45 06/22/17 00:00 81 06/22/17 00:00 97.5 81 10 90/42 (58) 100 06/21/17 22:34 100 45 06/21/17 22:00 75 06/21/17 20:00 97.3 92 11 101/62 (75) 100 06/21/17 20:00 92 06/21/17 20:00 45 06/21/17 18:18 99 100 06/21/17 18:00 98 06/21/17 17:21 86 97/54 06/21/17 17:09 100 45 06/21/17 16:00 100.1 92 19 106/50 (68) 92 06/21/17 16:00 45 06/21/17 16:00 92 06/21/17 14:00 117 Intake & Output 06/22/17 06/22/17 07:00 19:00 Intake Total 1356 ml Output Total 300 ml Balance 1056 ml Intake IV Total 600 ml Tube Feeding 256 ml Other 500 ml Output Urine Total 300 ml # Bowel Movements 0 . Physical Exam CONSTITUTIONAL/GENERAL: This is an adequately nourished patient, critically ill in ICU, intubated on mechanical ventilator. TUBES/LINES/DRAINS: ET tube, PEG tube, Camilo catheter, bilateral wrist restraints, central line, peripheral IVs upper extremities SKIN: Generalized pallor, Ecchymoses on upper extremities, swelling in hands bilaterally CARDIOVASCULAR: Irregular rate and rhythm on esmolol drip. Prior sternotomy scar noted. No murmur RESPIRATORY/CHEST: Symmetric, unlabored respirations on mechanical ventilation. Coarse rhonchi appreciated bilaterally. GASTROINTESTINAL: Abdomen soft, obese, nondistended. Hypoactive bowel sounds PEG tube in place without erythema/skin breakdown. Tolerating tube feeding GENITOURINARY: Without palpable bladder distension. Camilo catheter in place. MUSCULOSKELETAL: Extremities without clubbing, cyanosis. Upper extremities swollen, right >left. NEUROLOGICAL: Withdrawing to pain; localizes with left upper extremity. Not following commands. Positive gag. Positive corneal reflex. PSYCHIATRIC: No obvious anxiety/depression--limited assessment due to clinical condition, on some sedation. . . Diagnostic Tests Laboratory Laboratory Tests Test 06/19/17 16:20 06/20/17 02:00 06/20/17 04:15 06/20/17 05:25 Activated Partial Thromboplast Time 35.1 SEC (24.3-30.1) GREATER THAN 277.5 SEC 132.6 SEC (24.3-30.1) White Blood Count 11.0 TH/MM3 (4.0-11.0) Red Blood Count 3.56 MIL/MM3 (4.00-5.30) Hemoglobin 10.6 GM/DL (11.6-15.3) Hematocrit 32.1 % (35.0-46.0) Mean Corpuscular Volume 90.2 FL (80.0-100.0) Mean Corpuscular Hemoglobin 29.8 PG (27.0-34.0) Mean Corpuscular Hemoglobin Concent 33.0 % (32.0-36.0) Red Cell Distribution Width 14.8 % (11.6-17.2) Platelet Count 278 TH/MM3 (150-450) Mean Platelet Volume 7.7 FL (7.0-11.0) Neutrophils (%) (Auto) 72.1 % (16.0-70.0) Lymphocytes (%) (Auto) 11.0 % (9.0-44.0) Monocytes (%) (Auto) 9.8 % (0.0-8.0) Eosinophils (%) (Auto) 6.5 % (0.0-4.0) Basophils (%) (Auto) 0.6 % (0.0-2.0) Neutrophils # (Auto) 7.9 TH/MM3 (1.8-7.7) Lymphocytes # (Auto) 1.2 TH/MM3 (1.0-4.8) Monocytes # (Auto) 1.1 TH/MM3 (0-0.9) Eosinophils # (Auto) 0.7 TH/MM3 (0-0.4) Basophils # (Auto) 0.1 TH/MM3 (0-0.2) CBC Comment AUTO DIFF Differential Comment AUTO DIFF CONFIRMED Blood Urea Nitrogen 8 MG/DL (7-18) Creatinine 0.38 MG/DL (0.50-1.00) Random Glucose 108 MG/DL (74-106) Calcium Level 7.5 MG/DL (8.5-10.1) Phosphorus Level 2.2 MG/DL (2.5-4.9) Magnesium Level 2.3 MG/DL (1.5-2.5) Sodium Level 147 MEQ/L (136-145) Potassium Level 3.4 MEQ/L (3.5-5.1) Chloride Level 118 MEQ/L (98-107) Carbon Dioxide Level 22.2 MEQ/L (21.0-32.0) Anion Gap 7 MEQ/L (5-15) Estimat Glomerular Filtration Rate 161 ML/MIN (>89) Blood Gas Puncture Site ART LINE Blood Gas Patient Temperature 98.6 Blood Gas HCO3 17 mmol/L (22-26) Blood Gas Base Excess -6.5 mmol/L (-2-2) Blood Gas Oxygen Saturation 94 % (90-100) Arterial Blood pH 7.48 (7.380-7.420) Arterial Blood Partial Pressure CO2 22 mmHg (38-42) Arterial Blood Partial Pressure O2 76 mmHg (61-120) Arterial Blood Oxygen Content 13.7 Vol % (12.0-20.0) Arterial Blood Carboxyhemoglobin 1.3 % (0-4) Arterial Blood Methemoglobin 1.0 % (0-2) Blood Gas Hemoglobin 10.3 G/DL (12.0-16.0) Oxygen Delivery Device VENTILATOR Blood Gas Ventilator Setting PRVCAC Test 06/20/17 06:15 06/20/17 10:20 06/20/17 12:05 06/20/17 15:15 Activated Partial Thromboplast Time 51.2 SEC (24.3-30.1) 107.4 SEC (24.3-30.1) 48.6 SEC (24.3-30.1) Vancomycin Level Trough 15.2 MCG/ML (5.0-10.0) Test 06/20/17 18:38 06/21/17 03:20 06/21/17 06:24 06/21/17 12:17 Activated Partial Thromboplast Time 71.6 SEC (24.3-30.1) 98.9 SEC (24.3-30.1) 49.5 SEC (24.3-30.1) 50.1 SEC (24.3-30.1) White Blood Count 7.8 TH/MM3 (4.0-11.0) Red Blood Count 3.38 MIL/MM3 (4.00-5.30) Hemoglobin 10.1 GM/DL (11.6-15.3) Hematocrit 30.7 % (35.0-46.0) Mean Corpuscular Volume 90.9 FL (80.0-100.0) Mean Corpuscular Hemoglobin 30.0 PG (27.0-34.0) Mean Corpuscular Hemoglobin Concent 33.0 % (32.0-36.0) Red Cell Distribution Width 15.0 % (11.6-17.2) Platelet Count 242 TH/MM3 (150-450) Mean Platelet Volume 8.1 FL (7.0-11.0) Neutrophils (%) (Auto) 71.4 % (16.0-70.0) Lymphocytes (%) (Auto) 13.5 % (9.0-44.0) Monocytes (%) (Auto) 11.0 % (0.0-8.0) Eosinophils (%) (Auto) 3.4 % (0.0-4.0) Basophils (%) (Auto) 0.7 % (0.0-2.0) Neutrophils # (Auto) 5.6 TH/MM3 (1.8-7.7) Lymphocytes # (Auto) 1.1 TH/MM3 (1.0-4.8) Monocytes # (Auto) 0.9 TH/MM3 (0-0.9) Eosinophils # (Auto) 0.3 TH/MM3 (0-0.4) Basophils # (Auto) 0.1 TH/MM3 (0-0.2) CBC Comment AUTO DIFF Differential Total Cells Counted 100 Neutrophils % (Manual) 75 % (16-70) Band Neutrophils % 3 % (0-6) Lymphocytes % 10 % (9-44) Monocytes % 8 % (0-8) Eosinophils % 1 % (0-4) Neutrophils # (Manual) 6.3 TH/MM3 (1.8-7.7) Metamyelocytes 1 % (0-1) Myelocytes 1 % (0-0) Promyelocytes 1 % (0-0) Differential Comment FINAL DIFF MANUAL Platelet Estimate NORMAL (NORMAL) Platelet Morphology Comment NORMAL (NORMAL) Ovalocytes 1+ (NORMAL) Acanthocytes OCC (NORMAL) Blood Urea Nitrogen 8 MG/DL (7-18) Creatinine 0.43 MG/DL (0.50-1.00) Random Glucose 103 MG/DL (74-106) Calcium Level 7.5 MG/DL (8.5-10.1) Phosphorus Level 2.6 MG/DL (2.5-4.9) Magnesium Level 2.1 MG/DL (1.5-2.5) Sodium Level 147 MEQ/L (136-145) Potassium Level 3.6 MEQ/L (3.5-5.1) Chloride Level 119 MEQ/L (98-107) Carbon Dioxide Level 22.7 MEQ/L (21.0-32.0) Anion Gap 5 MEQ/L (5-15) Estimat Glomerular Filtration Rate 140 ML/MIN (>89) Test 06/22/17 06:15 White Blood Count 12.2 TH/MM3 (4.0-11.0) Red Blood Count 3.38 MIL/MM3 (4.00-5.30) Hemoglobin 9.8 GM/DL (11.6-15.3) Hematocrit 30.8 % (35.0-46.0) Mean Corpuscular Volume 90.9 FL (80.0-100.0) Mean Corpuscular Hemoglobin 29.1 PG (27.0-34.0) Mean Corpuscular Hemoglobin Concent 32.0 % (32.0-36.0) Red Cell Distribution Width 15.7 % (11.6-17.2) Platelet Count 325 TH/MM3 (150-450) Mean Platelet Volume 7.6 FL (7.0-11.0) Neutrophils (%) (Auto) 76.4 % (16.0-70.0) Lymphocytes (%) (Auto) 9.8 % (9.0-44.0) Monocytes (%) (Auto) 11.1 % (0.0-8.0) Eosinophils (%) (Auto) 2.2 % (0.0-4.0) Basophils (%) (Auto) 0.5 % (0.0-2.0) Neutrophils # (Auto) 9.4 TH/MM3 (1.8-7.7) Lymphocytes # (Auto) 1.2 TH/MM3 (1.0-4.8) Monocytes # (Auto) 1.4 TH/MM3 (0-0.9) Eosinophils # (Auto) 0.3 TH/MM3 (0-0.4) Basophils # (Auto) 0.1 TH/MM3 (0-0.2) CBC Comment AUTO DIFF Differential Total Cells Counted 100 Neutrophils % (Manual) 71 % (16-70) Band Neutrophils % 7 % (0-6) Lymphocytes % 5 % (9-44) Monocytes % 9 % (0-8) Eosinophils % 2 % (0-4) Neutrophils # (Manual) 10.2 TH/MM3 (1.8-7.7) Metamyelocytes 3 % (0-1) Myelocytes 3 % (0-0) Differential Comment FINAL DIFF MANUAL Platelet Estimate NORMAL (NORMAL) Platelet Morphology Comment NORMAL (NORMAL) Ovalocytes 1+ (NORMAL) Activated Partial Thromboplast Time 49.0 SEC (24.3-30.1) Blood Urea Nitrogen 9 MG/DL (7-18) Creatinine 0.41 MG/DL (0.50-1.00) Random Glucose 124 MG/DL (74-106) Total Protein 5.1 GM/DL (6.4-8.2) Albumin 2.2 GM/DL (3.4-5.0) Calcium Level 7.7 MG/DL (8.5-10.1) Phosphorus Level 2.0 MG/DL (2.5-4.9) Magnesium Level 1.9 MG/DL (1.5-2.5) Alkaline Phosphatase 76 U/L (45-117) Aspartate Amino Transf (AST/SGOT) 21 U/L (15-37) Alanine Aminotransferase (ALT/SGPT) 19 U/L (10-53) Total Bilirubin 0.6 MG/DL (0.2-1.0) Sodium Level 146 MEQ/L (136-145) Potassium Level 4.0 MEQ/L (3.5-5.1) Chloride Level 118 MEQ/L (98-107) Carbon Dioxide Level 23.5 MEQ/L (21.0-32.0) Anion Gap 5 MEQ/L (5-15) Estimat Glomerular Filtration Rate 148 ML/MIN (>89) Ammonia 31 MCMOL/L (11-32) Digoxin Level 1.2 NG/ML (0.8-2.0) Result Diagram: 06/22/17 0615 06/22/17 0615 Imaging Last 72 hours Impressions Chest X-Ray 06/22/17 0600 Signed Impressions: Service Date/Time: May 04:51 - CONCLUSION: 1. Support apparatus unchanged. Persistent dense consolidation at the left base. Small effusions. Delonte Roland MD Chest X-Ray 06/21/17 0000 Signed Impressions: Service Date/Time: Wednesday, June 21, 2017 04:41 - CONCLUSION: 1. Cardiomegaly. Basilar airspace disease improved from June 19. Endotracheal tube and right central line unchanged. Delonte Roland MD Brain MRI 06/21/17 0000 Signed Impressions: Service Date/Time: Wednesday, June 21, 2017 18:09 - CONCLUSION: 1. Evolving subacute infarcts as above. 2. Possible small subacute parenchymal blood in the region of the left periventricular white matter/basal ganglia infarct. 3. No new or acute infarct. No mass effect or midline shift. Darin Preston MD . Procedures 06/15/17: central line placement right IJ : Discontinued arterial line. . Assessment and Plan Disease Oriented Problem List: (1) Hypokalemia (2) Aspiration pneumonia (3) Respiratory failure with hypoxia (4) History of stroke (5) Moderate protein malnutrition (6) Atrial fibrillation with RVR Symptom Scale: (1) Dyspnea (2) Encephalopathy (3) Pain (4) Dysphagia Pertinent Non-Medical Issues Psychosocial:, most recently resided at [facility] and rehabilitation following month long hospital course at [facility]. Retired, has 3 adult children who live out of the area. Patient resides in [place] during the winter and [place] during the summer. 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 Retired since the . Spiritual:Sabianism supported by director financial planning known to family, also appreciative of [facility] [place] Legal:Patient currently intubated and unable to participate in medical decision making. Patient has living will which designates as primary healthcare surrogate, son as a secondary if unable to serve. I reviewed this document with the family on their iPad device however was unable available for print at this time. Ethical issues impacting care: No known ethical issues impacting care. . Important Contacts Spouse Jorge Alberto Basliio [phone] Terrance Basilio [phone] / [phone] Son Jorge Alberto Basilio Daughter; Sandhya: [phone] . Prognosis This patient was admitted for acute respiratory distress, respiratory failure. She recently had prolonged hospitalization for significant MCA stroke with resulting deficits and dysphagia. She has had A. fib with RVR, which has been difficult to control in the ICU setting. She remains high risk for further complications and setbacks, and possible . She does survive current acute hospitalization she will likely remain dependent and require long-term care. Code Status: Alternative Code (intubation) Plan * Legal decision maker: Patient has living will which designates as primary healthcare surrogate, son as a secondary if unable to serve. I reviewed this document with the family on their iPad device however was unable available for print at this time. * AGGRESSIVE GOALS * Family does NOT wish to de-escalate care. They would like to continue pressors and medications to control atrial fib with RVR. They will likely not proceed with tracheostomy if that is indicated in the future. * Discussed patient with bedside nurse (Ana M), Dr. Pacheco (neurology) and Dr. Manning * CODE STATUS: Alternate code-intubation only. Patient's previous alternate CODE STATUS included intubation and ACLS medications. After reviewing the process of cardiopulmonary resuscitation with the patient's family on 06/19/2017, they request the patient be INTUBATION ONLY. * Discussed patient with Dr. Webster and bedside nurse, Melissa. * SYMPTOMS: --Dyspnea-emergently intubated for respiratory distress by EMS; MRSA pneumonia. Patient remains intubated, unable to wean from mechanical ventilator. Follow-up chest x-ray shows cardiomegaly and basilar airspace disease improvement since --Dysphagia-patient with recent MCA stroke, status post PEG placement at another facility, noted as aspiration risk per rehabilitation documentation. + aspiration pneumonia. Expected to remain at risk for aspiration secondary to dysphagia. --Pain- Patient has been off sedation since this morning and remains relatively unresponsive. Patient restarted on fentanyl drip for pain. No reported pain syndromes per family, potential sources would include bedbound status, recent invasive procedures; currently appears comfortable will continue to evaluate --Encephalopathy-multifactorial: status post recent CVA, now with acute respiratory failure, A. fib RVR, severe sepsis with septic shock. Withdrawing to pain; localizes with left upper extremity. Not following commands. + gag. + corneal reflex. MRI yesterday 06/22/17 shows evolving subacute infarctions possible small amount of subacute parenchymal blood in the left basal ganglia infarct region. Patient remains on heparin-okay per Dr. Pacheco. Repeat CT imaging today. * Palliative care will continue to follow during hospital course as condition evolves, to assist patient/decision-maker with understanding of medical conditions, weighing benefits/burdens of treatment options, for clarification of goals of treatment. Additionally will assist with any symptoms of palliative concern . Attestation To help prompt me to consider important information that might be impacting today's encounter and assessment, information from prior notes written by myself or my colleagues may have been "brought forward" into today's note. My signature on this note, however, is an attestation that I personally performed the exam, history, and/or decision-making noted today, and, unless otherwise indicated, the interactions with patient, family, and staff as well as the review of records all occurred today. I also attest that the listed assessment and stated plan reflect my best clinical judgment today based on the combination of historical information, prior notes, and today's exam/ interactions. When time spent is documented, it refers only to time spent today by the signer, or if indicated, combined time spent today by collaborating physician/nurse practitioner. . Evette Garcia Jun 22, 2017 1:41 pm
[2017-06-22] MEDS: VANCOMYCIN 1,500 MG/NS 500 ML IV SCH ×2 (13:59)
--- NOTE | 2017-06-22 15:51 | PD.WCN.NOT ---
Wound Consult Description: Received consult from Doctor Ashley Webster for wound management of buttock area. Communicated with: Gallito Torres [facility] floor [facility] and Call placed to Doctor Ashley Webster for orders Recommendation: 1.Please cleanse buttock area with soap and water gently and pat dry before applying thick layer of Calazime barrier cream BID over wound and bilateral buttock area and leave open to air. Ok to layer barrier cream and not remove all the way the cleaning. DO NOT scrub barrier cream off patient. 2. Please continue to turn patient every 2 hours Additional Information: Patient seen on 5th floor [facility] for wound management of buttock area. Patient assessed with GALLITO Torres IMLeroy at bedside. GALLITO Torres and insurance underwriter turned patient to L side to reveal R buttock partial thickness wound. Wound presents with 100% pink vascular tissue and minimal sanguinous drainage Cleansed wound with normal saline. Patient is having constant loose stools that occur every time patient is repositioned per GALLITO Torres. Will leave wound open to air for now and apply Calazime barrier cream BID and PRN. Wound is a stage 2 pressure injury with mixed etiology of moisture and pressure.with even defined wound margins. Wound has an oval shape and measures ~2cm x ~3cm x~<0.1cm.Andreea Cooper [facility] Jun 22, 2017 15:51
--- NOTE | 2017-06-22 16:13 | HHI.PR ---
Addendum to Inpatient Note Additional Information Pt seen today around 1430 full note to follow Chantal Garnica MD Jun 22, 2017 16:13
--- NOTE | 2017-06-22 16:56 | RADRPT ---
EXAM DATE/TIME: 06/22/2017 16:36 [facility] COMPARISON: CT ABDOMEN & PELVIS W CONTRAST, June 18, 2017, 10:29. INDICATIONS : Intracranial hemorrhage. RADIATION DOSE: 56.35 CTDIvol (mGy) MEDICAL HISTORY : Stroke. SURGICAL HISTORY : None. ENCOUNTER: Subsequent ACUITY: 1 week PAIN SCALE: Non-responsive LOCATION: cranial TECHNIQUE: Multiple contiguous axial images were obtained of the head. Using automated exposure control and adj ustment of the mA and/or kV according to patient size, radiation dose was kept as low as reasonably a chievable to obtain optimal diagnostic quality images. DICOM format image data is available electro nically for review and comparison. FINDINGS: The examination demonstrates areas of old cortical infarct involving the left caudate nucleus, the or bital frontal portion of the left frontal lobe and the watershed distribution anteriorly on the right . These areas appear as encephalomalacic. There is no acute intracranial hemorrhage seen. No mass lesion is identified. No abnormal extra-axial fluid collections are present. The appearance of the posterior fossa is unremarkable. CONCLUSION: 1. Old areas of cortical infarct as above. 2. No acute intracranial hemorrhage. Juan Pablo Fish MD on June 22, 2017 at 16:54 Board Certified Radiologist. This report was verified electronically.
--- NOTE | 2017-06-22 22:36 | HHI.IDPN ---
Subjective Subjective Remarks delayed entry Pt seen today around 1430 pt remains on vent not weaning from vent off pressors family declined trach off sedation not FC or purposefull Still RVR Afib on monitor Antibiotics vancomycin rifampin Allergies: Coded Allergies: penicillin G (Unverified Allergy, Severe, 05/09/17) shellfish derived (Verified Allergy, Unknown, 06/15/17) Objective . Vital Signs Date Time Temp Pulse Resp B/P (MAP) Pulse Ox O2 Delivery O2 Flow Rate FiO2 06/22/17 21:46 99.5 107 17 129/87 (101) 98 06/22/17 21:45 99.5 124 14 99 06/22/17 21:44 99.5 123 12 84/44 (57) 99 06/22/17 21:30 99.5 115 16 79/48 (58) 100 06/22/17 21:19 99.5 137 17 88/46 (60) 100 06/22/17 21:16 99.5 112 15 79/36 (50) 100 06/22/17 21:15 99.5 108 16 100 06/22/17 21:01 99.5 114 14 142/51 (81) 100 06/22/17 21:00 99.5 120 16 100 06/22/17 20:46 99.5 116 14 123/57 (79) 100 06/22/17 20:45 99.5 116 14 100 06/22/17 20:31 99 40 06/22/17 20:30 99.5 125 17 99 06/22/17 20:15 111 14 82/43 (56) 99 06/22/17 20:00 40 06/22/17 20:00 103 06/22/17 20:00 104 15 87/56 (66) 100 06/22/17 19:45 117 15 85/47 (60) 100 06/22/17 19:30 120 13 130/59 (82) 98 06/22/17 19:16 140 17 136/53 (80) 99 06/22/17 19:15 124 18 99 06/22/17 19:01 105 15 129/59 (82) 100 06/22/17 19:00 114 14 100 06/22/17 18:30 118 06/22/17 18:19 132 06/22/17 18:15 106 06/22/17 18:00 103 06/22/17 17:01 97 20 115/70 (85) 100 06/22/17 17:01 97 06/22/17 16:58 128 06/22/17 16:58 128 20 73/54 (60) 100 06/22/17 16:45 102 25 113/53 (73) 100 06/22/17 16:45 102 06/22/17 16:30 109 06/22/17 16:30 109 23 129/84 (99) 94 06/22/17 16:15 98 100 06/22/17 16:15 104 17 98/64 (75) 100 06/22/17 16:15 104 06/22/17 16:07 104 06/22/17 16:07 104 18 95/66 (76) 99 06/22/17 16:00 88 18 06/22/17 16:00 88 06/22/17 16:00 40 06/22/17 15:25 99 40 06/22/17 14:00 110 06/22/17 13:46 111 29 98/39 (58) 99 06/22/17 13:46 111 06/22/17 13:30 109 06/22/17 13:30 109 18 122/56 (78) 100 06/22/17 13:16 118 06/22/17 13:16 118 14 135/61 (85) 100 06/22/17 13:01 118 16 138/72 (94) 100 06/22/17 13:01 118 06/22/17 12:52 100 40 06/22/17 12:46 106 20 154/70 (98) 100 06/22/17 12:46 106 06/22/17 12:30 110 06/22/17 12:30 110 18 125/62 (83) 100 06/22/17 12:15 123 06/22/17 12:15 123 16 121/80 (94) 100 06/22/17 12:00 40 06/22/17 12:00 107 06/22/17 12:00 107 17 114/72 (86) 100 06/22/17 11:45 111 06/22/17 11:30 105 06/22/17 11:16 107 06/22/17 11:00 111 06/22/17 10:45 109 06/22/17 10:30 109 06/22/17 10:16 104 06/22/17 10:01 105 06/22/17 10:00 100 06/22/17 09:01 102 06/22/17 09:01 102 15 120/56 (77) 99 06/22/17 08:40 98 40 06/22/17 08:00 40 06/22/17 08:00 102 15 90/62 (71) 98 06/22/17 08:00 102 06/22/17 07:58 104 06/22/17 06:00 95 06/22/17 04:48 99 40 06/22/17 04:32 74 87/51 06/22/17 04:00 97.5 93 11 87/51 (63) 100 06/22/17 04:00 93 06/22/17 04:00 45 06/22/17 02:00 78 06/22/17 01:14 100 45 06/22/17 01:00 77 101/41 06/22/17 00:00 45 06/22/17 00:00 81 06/22/17 00:00 97.5 81 10 90/42 (58) 100 06/21/17 22:34 100 45 06/22/17 06/22/17 06/23/17 14:59 22:59 06:59 Intake Total 648 ml Output Total 550 ml Balance 98 ml Tube Feeding 398 ml Other 250 ml Output Urine Total 550 ml # Bowel Movements 6 . Laboratory Tests Test 06/21/17 03:20 06/22/17 06:15 White Blood Count 7.8 TH/MM3 12.2 TH/MM3 Red Blood Count 3.38 MIL/MM3 3.38 MIL/MM3 Hemoglobin 10.1 GM/DL 9.8 GM/DL Hematocrit 30.7 % 30.8 % Mean Corpuscular Volume 90.9 FL 90.9 FL Mean Corpuscular Hemoglobin 30.0 PG 29.1 PG Mean Corpuscular Hemoglobin Concent 33.0 % 32.0 % Red Cell Distribution Width 15.0 % 15.7 % Platelet Count 242 TH/MM3 325 TH/MM3 Mean Platelet Volume 8.1 FL 7.6 FL Neutrophils (%) (Auto) 71.4 % 76.4 % Lymphocytes (%) (Auto) 13.5 % 9.8 % Monocytes (%) (Auto) 11.0 % 11.1 % Eosinophils (%) (Auto) 3.4 % 2.2 % Basophils (%) (Auto) 0.7 % 0.5 % Neutrophils # (Auto) 5.6 TH/MM3 9.4 TH/MM3 Lymphocytes # (Auto) 1.1 TH/MM3 1.2 TH/MM3 Monocytes # (Auto) 0.9 TH/MM3 1.4 TH/MM3 Eosinophils # (Auto) 0.3 TH/MM3 0.3 TH/MM3 Basophils # (Auto) 0.1 TH/MM3 0.1 TH/MM3 CBC Comment AUTO DIFF AUTO DIFF Differential Total Cells Counted 100 100 Neutrophils % (Manual) 75 % 71 % Band Neutrophils % 3 % 7 % Lymphocytes % 10 % 5 % Monocytes % 8 % 9 % Eosinophils % 1 % 2 % Neutrophils # (Manual) 6.3 TH/MM3 10.2 TH/MM3 Metamyelocytes 1 % 3 % Myelocytes 1 % 3 % Promyelocytes 1 % Differential Comment FINAL DIFF MANUAL FINAL DIFF MANUAL Platelet Estimate NORMAL NORMAL Platelet Morphology Comment NORMAL NORMAL Ovalocytes 1+ 1+ Acanthocytes OCC Laboratory Tests Test 06/21/17 03:20 06/22/17 06:15 Blood Urea Nitrogen 8 MG/DL 9 MG/DL Creatinine 0.43 MG/DL 0.41 MG/DL Random Glucose 103 MG/DL 124 MG/DL Calcium Level 7.5 MG/DL 7.7 MG/DL Phosphorus Level 2.6 MG/DL 2.0 MG/DL Magnesium Level 2.1 MG/DL 1.9 MG/DL Sodium Level 147 MEQ/L 146 MEQ/L Potassium Level 3.6 MEQ/L 4.0 MEQ/L Chloride Level 119 MEQ/L 118 MEQ/L Carbon Dioxide Level 22.7 MEQ/L 23.5 MEQ/L Anion Gap 5 MEQ/L 5 MEQ/L Estimat Glomerular Filtration Rate 140 ML/MIN 148 ML/MIN Total Protein 5.1 GM/DL Albumin 2.2 GM/DL Alkaline Phosphatase 76 U/L Aspartate Amino Transf (AST/SGOT) 21 U/L Alanine Aminotransferase (ALT/SGPT) 19 U/L Total Bilirubin 0.6 MG/DL Ammonia 31 MCMOL/L Imaging Last Impressions Head CT 06/22/17 1600 Signed Impressions: Service Date/Time: May 16:36 - CONCLUSION: 1. Old areas of cortical infarct as above. 2. No acute intracranial hemorrhage. Juan Pablo Fish MD Chest X-Ray 06/22/17 0600 Signed Impressions: Service Date/Time: May 04:51 - CONCLUSION: 1. Support apparatus unchanged. Persistent dense consolidation at the left base. Small effusions. Delonte Roland MD Brain MRI 06/21/17 0000 Signed Impressions: Service Date/Time: Wednesday, June 21, 2017 18:09 - CONCLUSION: 1. Evolving subacute infarcts as above. 2. Possible small subacute parenchymal blood in the region of the left periventricular white matter/basal ganglia infarct. 3. No new or acute infarct. No mass effect or midline shift. Darin Preston MD Abdomen X-Ray 06/19/17599 Signed Impressions: Service Date/Time: Monday, June 19, 2017 02:56 - CONCLUSION: 1. Stable to slight improvement in gaseous distention of the colon. Delonte Roland MD Abdomen/Pelvis CT 06/18/17 0000 Signed Impressions: Service Date/Time: Sunday, June 18, 2017 10:29 - CONCLUSION: 1. Persistent wedge-shaped areas of hypoenhancement within the spleen likely representing infarcts. There is questionable area of hypoenhancement the lower pole the right kidney as well which could also represent infarct. Suggest attention to these a followup imaging. 2. There is a small volume of free fluid in the abdomen and pelvis along with a trace bilateral pleural fluid effusions and anasarca. 3. Cardiomegaly with 2 stable nodular areas in the right atrium representing either thrombus or mass. These measure up to 2 cm. 4. Otherwise, as above. Darin Pederson MD Upper Extremity Ultrasound 06/16/17 0000 Signed Impressions: Service Date/Time: Friday, June 16, 2017 11:00 - CONCLUSION: Normal examination. No evidence of DVT Shoaib Pastor MD Chest CT 06/15/17 0000 Signed Impressions: Service Date/Time: May 04:30 - CONCLUSION: 1. 2 focal rounded filling defects involving an enlarged right atrium. I'm concerned this represents mural thrombus. 2. Significant cardiomegaly. 3. Bibasilar infiltrates. Blu Mayfield Jr., MD Physical Exam CONSTITUTIONAL/GENERAL: This is an adequately nourished patient, in no apparent distress. TUBES/LINES/DRAINS: SKIN: No jaundice, rashes, or lesions. Skin temperature appropriate. Not diaphoretic. EYES: Pupils equal and round and reactive. No scleral icterus. No injection or drainage. Fundi not examined. ENT: Visible oral mucosae moist Dentition in fair condition Orally intubated CARDIOVASCULAR: Irregular rate and rhythm without murmurs, gallops, or rubs. No JVD. Signs of poor perfusion with delayed refill RESPIRATORY/CHEST: Symmetric, unlabored respirations. Rhonchi to auscultation. Breath sounds equal bilaterally. No wheezes, rales, or rhonchi. GASTROINTESTINAL: Abdomen soft, no re action to palpation, moderately distended. . Bowel sounds diminished PEG in place LUQ GENITOURINARY: Without palpable bladder distension. Camilo catheter in place with cloudy chyna urine MUSCULOSKELETAL: Extremities without clubbing,,BLE tight edema no cyanosis No joint tenderness or effusion noted. No calf tenderness. + mottling of feet LYMPHATICS: No palpable cervical or supraclavicular adenopathy. 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
[2017-06-23] VITALS (99 sets, daily range): BP systolic 38–177; BP diastolic 15–87; PULSE 102–162; RESP 12–42; TEMP 100.8–102.2; O2SAT 79–100
[2017-06-23] MEDS: NOREPINEPHRINE 4 MG/D5W 250 ML IV PRN ×4 (00:30→21:00)
[2017-06-23] MEDS ORDERED: NOREPINEPHRINE-DEXTROSE DRIP 250 ML IV ONE (00:34)
[2017-06-23] MEDS: ESMOLOL DRIP INJ PREMIX 250 ML IV PRN ×2 (03:00→09:23)
[2017-06-23] MEDS: RESP: ALBUTEROL 2.5 MG/IPRATROPIUM 0.5 MG NEB (SCH) INH ×5 (03:08→21:04)
[2017-06-23] MEDS: ACETAMINOPHEN 650 MG/20.3 ML UDC OG-TUBE PRN ×2 (03:47→09:53)
[2017-06-23] MEDS: DILTIAZEM HCL 90 MG TAB PO SCH (03:47)
[2017-06-23] MEDS: CHLORHEXIDINE GLUCONATE 2 % 1 PACK (2 CLOTHS) TOP SCH (04:00)
[2017-06-23 05:29] LABS: AUTOMATED NEUTROPHIL # 11.9 TH/MM3 (1.8-7.7); BASOPHIL # 0.1 TH/MM3 (0-0.2); BASOPHIL % 0.8 % (0.0-2.0); EOSINOPHIL # 0.2 TH/MM3 (0-0.4); EOSINOPHIL % 1.5 % (0.0-4.0); HEMATOCRIT 33.9 % (35.0-46.0); LYMPH % 11.3 % (9.0-44.0); LYMPHOCYTE # 1.7 TH/MM3 (1.0-4.8); MEAN CELL VOLUME 92.1 FL (80.0-100.0); MEAN CORPUSCULAR HGB CONC 31.5 % (32.0-36.0); MONO % 9.4 % (0.0-8.0); PLATELET COUNT 427 TH/MM3 (150-450); RED BLOOD COUNT 3.69 MIL/MM3 (4.00-5.30); RED CELL DISTRIBUTION WIDTH 15.9 % (11.6-17.2); WHITE BLOOD COUNT 15.4 TH/MM3 (4.0-11.0)
[2017-06-23] MEDS: FREE WATER G-TUBE SCH ×3 (05:41→20:22)
[2017-06-23] MEDS: ARTIFICIAL TEARS OPTH SOLN 15 ML BTL EACH EYE SCH ×3 (05:41→20:22)
[2017-06-23] MEDS: PANTOPRAZOLE SODIUM 40 MG VIAL IV PUSH SCH ×2 (05:41→18:29)
[2017-06-23 05:45] LABS: ANION GAP 9 MEQ/L (5-15); AST (GOT) 25 U/L (15-37); BICARBONATE 21.5 MEQ/L (21.0-32.0); BLOOD UREA NITROGEN 8 MG/DL (7-18); CHLORIDE 113 MEQ/L (98-107); GLOMERULAR FILTRATION RATE 115 ML/MIN (>89); POTASSIUM 3.8 MEQ/L (3.5-5.1); SODIUM (NA) 143 MEQ/L (136-145)
[2017-06-23 05:46] LABS: ALT (GPT) 20 U/L (10-53)
[2017-06-23 05:48] LABS: ALKALINE PHOSPHATASE 81 U/L (45-117); TOTAL BILIRUBIN ADULT 0.8 MG/DL (0.2-1.0)
[2017-06-23 05:52] LABS: HEMO FLAGS AUTO DIFF
[2017-06-23] MEDS: INSULIN NovoLIN REGULAR SUPPLEMENTAL SCALE SQ SCH ×4 (06:00→18:00)
--- NOTE | 2017-06-23 07:04 | HHI.CCPN ---
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 She was discharged from [facility] and transferred to [facility] and rehabilitation 06/01/17. She reportedly had rhonchi, cough, and respiratory distress early this morning and there was concern for aspiration. Chest x-ray had been obtained and there were small bibasilar densities that were felt to be consistent with atelectasis. When the legal financial specialist nurse came in she noted that patient had significantly worsening congestion and increased work of breathing. EVAC was summoned and when EVAC arrived she was reportedly GCS 7 ([id number]) and was intubated at the scene after administration of Ativan 4 mg IV and Etomidate 20 mg IV. Upon intubation EVAC reportedly suctioned out large amount of secretions that looked like Jevity tube feeds from the ETT. Jevity tube feeds were running via PEG and these were placed on hold per EVAC. Upon arrival she was in atrial fibrillation with RVR with rate in the 160s. She was given cardizem 20 mg IV and started on cardizem drip at 5 mg/hr. with white blood cell count 13.7. She was normotensive blood pressure 120-140 systolic. Temperature 99.4. She is hypernatremic with sodium of 154, potassium 2.8. Protein corrected calcium 7.9. Magnesium is normal. Troponin is 0.18, BNP 674. Lactic acid is 1.9 She received 2.5 L of fluid in the emergency department. Chest x-ray demonstrates endotracheal tube approximately 1.8 cm above the sury. OG tube is in place in the stomach. There is left basilar opacity, right basilar atelectasis. Patient is intubated and remainder review of systems cannot be obtained. Aztreonam, metronidazole, levofloxacin were ordered per ED. Blood cultures have been obtained. No noted diarrhea. Unknown if patient had experienced vomiting 06/15 : Discussed with Jorge Alberto at bedside. Request alternate CODE STATUS. ACLS drugs and intubation only. Currently on esmolol and Cardizem drips for rate control. Phenylephrine drip initiated due to hypotension. Patient does withdrawal to left upper extremity and actually made attempt to self extubate with left upper extremity while placing central line while hypotensive. Moving bilateral lower extremities spontaneously. Plan is MRI brain if able/stable overnight otherwise will repeat CT head in a.m. 06/16 Echocardiogram still not read as of 1719. Heparin drip initiated due to likely mural thrombus and high risk of CVA. Initial CT brain 06/15 showed no signs of acute hemorrhage. 06/16: Afebrile. MRI brain results as below. Heparin drip currently on hold secondary to elevated PTT. Tube feeding to be initiated today. Remains on Cardizem, esmolol in phenylephrine drips 06/17: Afebrile. Off the diltiazem, esmolol and phenylephrine drips. Currently on propofol drip at 20 mics grams per kilo per minute. Attempt sedation vacation today. No bowel movement. Tube feeds currently at 30 cc an hour 06/18: Afebrile. A. fib with RVR overnight restarted on diltiazem drip currently at 5 mg an hour. Per report 1 large bloody bowel movement currently brown in color. KUB revealed abdominal distention with cecum at 11.[address] evidence/pelvis pending. Heparin discontinued. Noted thrombus in right atrium. On echocardiogram. Not on vasopressors. 06/19 PAtient is sedated with Diprivan, Neosyn started overnight for hypotension and Cardizem drip stopped. Off Heparin drip for Colonoscopy today. Afebrile. 06/20 No events overnight. Sedated with Diprivan and intubated. On Neosyn 50 mics. Afebrile. s/p EGD and colonoscopy yesterday with no signs of bleeding. Back on Heparin drip. Subjective 06/21: Patient started on his knowledge of T2 tachycardia. Pulse 0.25 mg digoxin IV 1. Potassium is currently been replaced. Continues on heparin drip. No active bleeding. 06/22: Remains intubated not on sedation, critically ill. Placed on Avel- Synephrine for hypotension currently on 40 mcg/m. Localizes with left upper extremity. MRI yesterday shows evolving subacute infarctions possible small amount of subacute parenchymal blood in the left basal ganglia infarct region. Per Dr. Sánchez, heparin is to be continued. Repeat CT imaging today. 06/23 Patient remains intubated on no sedation. Hypotensive overnight Neosyn increased 220 mics and Levophed 12 mics added. On Esmolol and Heparin drips. T: 100.4 Objective Vital Signs Date Time Temp Pulse Resp B/P (MAP) Pulse Ox O2 Delivery O2 Flow Rate FiO2 06/23/17 06:22 100.4 111 25 148/56 (86) 99 06/23/17 04:00 40 Intake and Output 06/23/17 06/23/17 06/24/17 08:00 16:00 00:00 Intake Total 352 ml Output Total 550 ml Balance -198 ml Result Diagram: 06/23/17 0350 06/23/17 0350 Other Results Laboratory Tests Test 06/23/17 03:50 06/23/17 04:21 White Blood Count 15.4 TH/MM3 Red Blood Count 3.69 MIL/MM3 Hemoglobin 10.7 GM/DL Hematocrit 33.9 % Mean Corpuscular Volume 92.1 FL Mean Corpuscular Hemoglobin 29.0 PG Mean Corpuscular Hemoglobin Concent 31.5 % Red Cell Distribution Width 15.9 % Platelet Count 427 TH/MM3 Mean Platelet Volume 8.1 FL Neutrophils (%) (Auto) 77.0 % Lymphocytes (%) (Auto) 11.3 % Monocytes (%) (Auto) 9.4 % Eosinophils (%) (Auto) 1.5 % Basophils (%) (Auto) 0.8 % Neutrophils # (Auto) 11.9 TH/MM3 Lymphocytes # (Auto) 1.7 TH/MM3 Monocytes # (Auto) 1.4 TH/MM3 Eosinophils # (Auto) 0.2 TH/MM3 Basophils # (Auto) 0.1 TH/MM3 CBC Comment AUTO DIFF Blood Urea Nitrogen 8 MG/DL Creatinine 0.51 MG/DL Random Glucose 188 MG/DL Total Protein 5.7 GM/DL Albumin 2.5 GM/DL Calcium Level 8.1 MG/DL Alkaline Phosphatase 81 U/L Aspartate Amino Transf (AST/SGOT) 25 U/L Alanine Aminotransferase (ALT/SGPT) 20 U/L Total Bilirubin 0.8 MG/DL Sodium Level 143 MEQ/L Potassium Level 3.8 MEQ/L Chloride Level 113 MEQ/L Carbon Dioxide Level 21.5 MEQ/L Anion Gap 9 MEQ/L Estimat Glomerular Filtration Rate 115 ML/MIN Activated Partial Thromboplast Time 46.0 SEC Imaging Last Impressions Head CT 9/28/17 1600 Signed Impressions: Service Date/Time: May 16:36 - CONCLUSION: 1. Old areas of cortical infarct as above. 2. No acute intracranial hemorrhage. Juan Pablo Fish MD Chest X-Ray 06/22/17 0600 Signed Impressions: Service Date/Time: May 04:51 - CONCLUSION: 1. Support apparatus unchanged. Persistent dense consolidation at the left base. Small effusions. Delonte Roland MD Brain MRI 06/21/17 0000 Signed Impressions: Service Date/Time: Wednesday, June 21, 2017 18:09 - CONCLUSION: 1. Evolving subacute infarcts as above. 2. Possible small subacute parenchymal blood in the region of the left periventricular white matter/basal ganglia infarct. 3. No new or acute infarct. No mass effect or midline shift. Darin Preston MD Abdomen X-Ray 06/19/17 0600 Signed Impressions: Service Date/Time: Monday, June 19, 2017 02:56 - CONCLUSION: 1. Stable to slight improvement in gaseous distention of the colon. Delonte Roland MD Abdomen/Pelvis CT 06/18/17 0000 Signed Impressions: Service Date/Time: Sunday, June 18, 2017 10:29 - CONCLUSION: 1. Persistent wedge-shaped areas of hypoenhancement within the spleen likely representing infarcts. There is questionable area of hypoenhancement the lower pole the right kidney as well which could also represent infarct. Suggest attention to these a followup imaging. 2. There is a small volume of free fluid in the abdomen and pelvis along with a trace bilateral pleural fluid effusions and anasarca. 3. Cardiomegaly with 2 stable nodular areas in the right atrium representing either thrombus or mass. These measure up to 2 cm. 4. Otherwise, as above. Darin Pederson MD Upper Extremity Ultrasound 06/16/17 0000 Signed Impressions: Service Date/Time: Friday, June 16, 2017 11:00 - CONCLUSION: Normal examination. No evidence of DVT Shoaib Pastor MD Chest CT 06/15/17 0000 Signed Impressions: Service Date/Time: May 04:30 - CONCLUSION: 1. 2 focal rounded filling defects involving an enlarged right atrium. I'm concerned this represents mural thrombus. 2. Significant cardiomegaly. 3. Bibasilar infiltrates. Blu Mayfield Jr., MD Objective Remarks GENERAL: 86-year-old female, critically ill currently orotracheally intubated SKIN: Warm and dry. Great toes bilaterally are currently dusky. Right upper extremity with ecchymoses large HEAD: Atraumatic. Normocephalic. EYES: Pupils round, 3 to 4 mm and sluggishly reactive bilaterally. No scleral icterus. No injection or drainage. ENT: No nasal bleeding or discharge. Orotracheally intubated. Thrush noted on admission NECK: Trachea midline. No JVD. Right IJ 5 lm catheter is clean dry and intact CARDIOVASCULAR: Prior sternotomy scar noted. Well-healed. S1, S2 no S4. Without murmur. Hypotensive on avel-synephrine RESPIRATORY: Coarse rhonchi appreciated bilaterally. Symmetrical excursion. GASTROINTESTINAL: Abdomen less distended. Hyperactive bowel sounds are appreciated. No high-pitched sounds appreciated. PEG tube in place without erythema/skin breakdown. Tolerating tube feeding : Camilo in place with yellow urine output. MUSCULOSKELETAL: Right upper extremity edema noted greater than left upper extremity NEUROLOGICAL: Positive gag. Positive corneal reflex. Withdrawing to pain.localizes with LUE. Upward toes Not following commands Date of Insertion: Jun 15, 2017 Line: Central Venous Catheter Side: Right Location: Internal, Jugular A/P Problem List: (1) Respiratory failure with hypoxia ICD Code: J96.91 - Respiratory failure, unspecified with hypoxia Status: Acute (2) Aspiration pneumonia ICD Code: J69.0 - Pneumonitis due to inhalation of food and vomit Status: Acute (3) Hypokalemia ICD Code: E87.6 - Hypokalemia Status: Acute (4) Dysphagia ICD Code: R13.10 - Dysphagia, unspecified Status: Chronic (5) Respiratory failure, acute ICD Code: J96.00 - Acute respiratory failure, unspecified whether with hypoxia or hypercapnia (6) History of stroke ICD Code: Z86.73 - Personal history of transient ischemic attack (TIA), and cerebral infarction without residual deficits (7) Moderate protein malnutrition ICD Code: E44.0 - Moderate protein-calorie malnutrition Status: Chronic Assessment and Plan NEURO/Psych: Recent history of L MCA stroke 05/21/17 -left periventricular white matter, left temporal, left parietal and right parietal Residual R hemiparesis, dysphagia, inability to ambulate. R frontal encephalomalacia 06/22 CT brain: Old areas of cortical infarct as above. No acute intracranial hemorrhage. 06/21 MRI brain: Evolving subacute infarcts as above. 2. Possible small subacute parenchymal blood in the region of the left periventricular white matter/basal ganglia infarct. No new or acute infarct. No mass effect or midline shift. Per Dr. Fullop: continue heparin. MRI brain 06/15 revealed old right frontal posterior infarct, subacute left parametric white matter 17 x 52 mm, left temporal 19 x 32 mm, left parietal 16 mm and cluster right parietal areas of subacute EEG 06/15 revealed bilateral abnormalities slowing rhythms more left. No ictal/ discharge is noted Currently off all sedation RESP: Acute respiratory failure Aspiration Pneumonia PRVC 10/09/29/44. Continue with vent support keep sat >92% Hemodynamic instability and altered mentation will not permit Spontaneous breathing trials Wean off Pressors ( On Neosyn, Levophed) keep MAP>65mmHg Albuterol/ipratropium aerosols every 6 hours with albuterol aerosols every 2 hours as needed Dyspnea CXR 06/22: Dense consolidation left base CT thorax 06/15- bibasilar opacities. ?R atrial mural thrombus. CV: Atrial fibrillation with [id number] 7 Right Atrial thrombus H/o mitral valve replacement Hyperlipidemia On Esmolol drip for atrial fibrillation. Hold Cardizem PO Wean off Pressors ( On Neosyn, Levo) keep MAP>65mmHg Place on stress dose steroids _ HC 50mg IV Q6 On digoxin 0.125 mg by PEG daily. Digoxin level 1.2 on 06/22 Pravastatin 40mg daily for dyslipidemia 2-D echo: EF45- 50%. No RWMA. LA, RA severely dilated. Mitral valve annuloplasty ring is present. Moderate thickening of the mitral valve leaflets. [id number] mitral valve regurgitation. Diffuse calcification of the aortic valve. [id number] aortic valve regurgitation. No aortic valve stenosis. Aortic valve area is 1.4cm. PASP is 41.8 mmHg. Echo 06/18 revealed 1.35 x 1.38 cm right atrial thrombus/mass Continue with Heparin drip GI: Constipation Cholelithiasis Splenic infarct Chronic moderate protein energy malnutrition Hypoalbuminemia Diverticulosis Colonic polyp - pathology pending TF (vital 1.5 goal 55 cc an hour) via PEG tube. s/p EGD and colonoscopy 06/18: Mild gastritis, small ulceration next to PEG tube site with no evidence of bleeding, colon polyp and Diverticulosis. CT abd/pelvis revealed spleen abnormalities suggest splenic infarct. Laceration felt to be less likely. No hematoma. No recent injury reported. Docusate sodium/Senokot/twice daily and polyethylene glycol 17 g daily for bowel regimen KUB 06/18 revealed gaseous distention of the colon cecum 11.5 cm. Repeat KUB improved FEN/RENAL: Hypernatremia Monitor renal function, I/O's, electrolytes replacement per protocol. Free water 250 ml Q8 ID: Aspiration pneumonia/MRSA in sputum Thrush Coag negative staph bacteremia Continue abx per ID (Vanco, Rifampin) monitor for signs of infections ( Fever, WBC) Might need ALVIN per ID once clinically stable Influenza negative 06/19 BC: NGTD Sputum 06/16 MRSA, 06/15 BC: Coag negative staph Infectious disease following HEME: Leukocytosis Normocytic anemia Monitor CBC, coags- on heparin drip Previously on Apixaban Continue heparin drip for now ENDO: SSI with accuchecks TSH 0.546. T4 slightly elevated at 1.8 PROPH: Heparin drip will provide DVT prophylaxis Pantoprazole 40 mg IV twice a day for stress ulcer prophylaxis. ACCESS: Right IJ 5 lm catheter placed 06/15. Discontinued arterial line 06/21 Palliative care is following Continue Alternate code status. Intubation and ACLS drugs only. No shock. No CPR. Patient is hypotensive on multiple pressors, septic recent strokes. Now with multiorgan failure. Overall prognosis poor and recommend transition to comfort measures CCT 35 mins Problem Qualifiers (1) Respiratory failure with hypoxia: Qualified Codes: J96.01 - Acute respiratory failure with hypoxia Marsha Bach MD Jun 23, 2017 07:04
[2017-06-23] MEDS: DOCUSATE SODIUM 100 MG/10 ML UDC PO SCH ×2 (09:00→20:22)
[2017-06-23] MEDS: SENNOSIDES SYRUP 8.8 MG/5 ML CUP OG-TUBE SCH ×2 (09:00→20:22)
[2017-06-23] MEDS: POLYETHYLENE GLYCOL 17 GM PKG PO SCH (09:00)
[2017-06-23] MEDS: CHLORHEXIDINE 0.12% (ORAL KIT) 15 ML CUP MT SCH ×2 (09:22→20:00)
[2017-06-23] MEDS: DIGOXIN SOLUTION 0.125 MG/2.5 ML CUP PO SCH (09:22)
[2017-06-23] MEDS: PHENYLEPHRINE INJ 160 MG in DEXTROSE 5% IN WATE 500 ML INJ 484 ML IV PRN ×4 (09:25→18:28)
[2017-06-23] MEDS: SODIUM CHLORIDE 0.9% FLUSH 10 ML FLUSH IV FLUSH SCH ×2 (09:26→20:22)
[2017-06-23] MEDS: PRAVASTATIN SOD 40 MG TAB OG-TUBE SCH (09:26)
[2017-06-23] MEDS: SODIUM CHLORIDE 0.9% FLUSH 10 ML FLUSH IVF SCH (09:26)
[2017-06-23] MEDS: HYDROCORTISONE SOD SUCCINATE 100 MG VIAL IV PUSH SCH ×3 (09:53→18:29)
[2017-06-23 10:57] LABS: BANDS 2 % (0-6); EOSINOPHILS 1 % (0-4); METAMYELOCYTES 1 % (0-1); NEUTROPHIL # MANUAL DIFF 12.5 TH/MM3 (1.8-7.7); PLATELET ESTIMATE SMEAR NORMAL (NORMAL); PLATELET MORPHOLOGY NORMAL (NORMAL); POLYS (SEG NEUTROPHILS) 78 % (16-70); WBC DIFF SAMPLE 100
[2017-06-23 10:58] LABS: OVALOCYTES 1+ (NORMAL); SCAN/DIFF FINAL DIFF MANUAL
[2017-06-23] MEDS: RIFAMPIN INJ 300 MG in SODIUM CHLORIDE 0.9% INJ 100 ML IV SCH ×2 (11:10→23:31)
--- NOTE | 2017-06-23 13:39 | HHI.PR ---
Subjective Remarks intubated on pressor unresponsive. Objective Vital Signs Date Time Temp Pulse Resp B/P (MAP) Pulse Ox O2 Delivery O2 Flow Rate FiO2 06/23/17 11:43 99 40 06/23/17 09:25 130 129/79 06/23/17 09:23 124 129/70 06/23/17 07:31 99 40 06/23/17 06:22 100.4 111 25 148/56 (86) 99 06/23/17 06:15 100.4 113 16 56/32 (40) 99 06/23/17 06:00 121 06/23/17 06:00 100.4 113 18 103/54 (70) 98 06/23/17 05:45 100.4 111 20 103/61 (75) 98 06/23/17 05:39 124 06/23/17 05:33 100.4 103 25 92/53 (66) 98 06/23/17 05:30 100.4 109 20 82/43 (56) 97 06/23/17 05:17 100.4 115 26 107/56 (73) 98 06/23/17 05:16 100.4 111 20 67/40 (49) 98 06/23/17 05:15 100.4 112 21 98 06/23/17 05:01 100.4 108 16 112/47 (68) 98 06/23/17 05:00 100.4 105 14 98 06/23/17 04:49 100.4 117 13 117/52 (73) 98 06/23/17 04:47 10 06/23/17 04:45 100.4 109 16 98 06/23/17 04:31 100.4 106 17 123/51 (75) 99 06/23/17 04:30 100.4 116 18 99 06/23/17 04:16 100.4 112 15 136/51 (79) 98 06/23/17 04:15 100.4 105 19 98 06/23/17 04:04 100.4 117 15 135/47 (76) 98 06/23/17 04:04 100.4 117 15 135/47 (76) 98 06/23/17 04:00 100.4 112 24 98 06/23/17 04:00 40 06/23/17 04:00 100.4 112 24 98 06/23/17 04:00 104 06/23/17 03:45 100.2 120 13 97/48 (64) 98 06/23/17 03:31 100.2 120 26 97/46 (63) 97 06/23/17 03:30 100.2 122 16 97 06/23/17 03:16 100.0 126 16 113/54 (73) 79 06/23/17 03:15 100.2 115 25 84 06/23/17 03:12 94 40 06/23/17 03:00 100.0 121 16 120/44 (69) 92 06/23/17 03:00 100.0 121 16 120/44 (69) 92 06/23/17 03:00 113 06/23/17 02:45 100.0 125 13 107/51 (69) 95 06/23/17 02:31 100.2 129 21 109/46 (67) 95 06/23/17 02:30 100.2 133 14 94 06/23/17 02:20 100.2 113 21 108/57 (74) 98 06/23/17 02:16 100.2 132 22 102/50 (67) 94 06/23/17 02:15 100.2 120 18 96 06/23/17 02:00 100.0 116 22 128/58 (81) 98 06/23/17 02:00 104 06/23/17 01:45 100.0 131 13 116/54 (74) 97 06/23/17 01:40 100.0 133 20 128/61 (83) 06/23/17 01:31 100.0 113 42 70/54 (59) 87 06/23/17 01:30 100.0 124 25 98 06/23/17 01:16 99.9 129 19 132/87 (102) 98 06/23/17 01:15 99.9 120 14 98 06/23/17 01:10 99.9 113 22 100/51 (67) 99 06/23/17 01:08 99.7 111 13 136/58 (84) 98 06/23/17 01:05 99.7 111 14 177/86 (116) 99 06/23/17 01:01 99.7 102 12 85/37 (53) 100 06/23/17 01:01 99.7 102 12 85/37 (53) 100 06/23/17 01:00 99.7 115 18 100 06/23/17 01:00 99.7 115 18 100 06/23/17 00:45 99.5 126 15 112/78 (89) 98 06/23/17 00:42 99.5 134 16 109/59 (76) 98 06/23/17 00:40 99.5 162 15 113/51 (71) 97 06/23/17 00:38 99.5 152 20 131/63 (85) 99 06/23/17 00:30 99.3 130 18 38/15 (23) 99 06/23/17 00:30 99.3 130 18 38/15 (23) 99 06/23/17 00:30 111 06/23/17 00:29 99.3 120 20 50/19 (29) 99 06/23/17 00:27 99.3 131 17 59/30 (40) 100 06/23/17 00:16 99.5 109 18 79/40 (53) 99 06/23/17 00:15 99.5 124 18 99 06/23/17 00:02 100 40 06/23/17 00:01 99.3 110 20 132/66 (88) 100 06/23/17 00:00 104 06/23/17 00:00 107 17 129/87 (101) 98 06/23/17 00:00 40 06/23/17 00:00 99.3 130 19 98 06/22/17 23:46 99.3 110 13 83/50 (61) 100 06/22/17 23:45 99.3 108 13 100 06/22/17 23:31 99.3 129 15 115/35 (61) 99 06/22/17 23:30 99.3 117 16 99 06/22/17 23:15 99.3 113 16 92/55 (67) 100 06/22/17 23:01 99.3 111 15 107/54 (71) 99 06/22/17 23:00 99.3 117 12 99 06/22/17 22:46 99.3 128 14 126/65 (85) 100 06/22/17 22:45 99.3 125 12 100 06/22/17 22:30 99.3 128 16 102/53 (69) 100 06/22/17 22:15 99.5 106 16 108/57 (74) 100 06/22/17 22:00 103 06/22/17 22:00 99.3 118 15 106/59 (75) 100 06/22/17 21:46 99.5 107 17 129/87 (101) 98 06/22/17 21:45 99.5 124 14 99 06/22/17 21:44 99.5 123 12 84/44 (57) 99 06/22/17 21:30 99.5 115 16 79/48 (58) 100 06/22/17 21:19 99.5 137 17 88/46 (60) 100 06/22/17 21:16 99.5 112 15 79/36 (50) 100 06/22/17 21:15 99.5 108 16 100 06/22/17 21:01 99.5 114 14 142/51 (81) 100 06/22/17 21:00 99.5 120 16 100 06/22/17 20:46 99.5 116 14 123/57 (79) 100 06/22/17 20:45 99.5 116 14 100 06/22/17 20:31 99 40 06/22/17 20:30 99.5 125 17 99 06/22/17 20:15 111 14 82/43 (56) 99 06/22/17 20:00 40 06/22/17 20:00 103 06/22/17 20:00 104 15 87/56 (66) 100 06/22/17 19:45 117 15 85/47 (60) 100 06/22/17 19:30 120 13 130/59 (82) 98 06/22/17 19:16 140 17 136/53 (80) 99 06/22/17 19:15 124 18 99 06/22/17 19:01 105 15 129/59 (82) 100 06/22/17 19:00 114 14 100 06/22/17 18:30 118 06/22/17 18:19 132 06/22/17 18:15 106 06/22/17 18:00 103 06/22/17 17:01 97 20 115/70 (85) 100 06/22/17 17:01 97 06/22/17 16:58 128 06/22/17 16:58 128 20 73/54 (60) 100 06/22/17 16:45 102 25 113/53 (73) 100 06/22/17 16:45 102 06/22/17 16:30 109 06/22/17 16:30 109 23 129/84 (99) 94 06/22/17 16:15 98 100 06/22/17 16:15 104 17 98/64 (75) 100 06/22/17 16:15 104 06/22/17 16:07 104 06/22/17 16:07 104 18 95/66 (76) 99 06/22/17 16:00 88 18 06/22/17 16:00 88 06/22/17 16:00 40 06/22/17 15:25 99 40 06/22/17 14:00 110 06/22/17 13:46 111 29 98/39 (58) 99 06/22/17 13:46 111 I/O 06/22/17 06/22/17 06/22/17 06/23/17 06/23/17 06/23/17 07:00 15:00 23:00 07:00 15:00 23:00 Intake Total 1106 ml 648 ml 352 ml Output Total 300 ml 550 ml 550 ml Balance 806 ml 98 ml -198 ml Intake IV Total 350 ml Tube Feeding 256 ml 398 ml 352 ml Other 500 ml 250 ml Output Urine Total 300 ml 550 ml 550 ml # Bowel Movements 0 6 3 Result Diagram: 06/23/17 0350 06/23/17 0350 Imaging mri c/w evoloving subac infarcts with possible left pv /bg blood ct last night no acute blood seen./old strokes. Objective Remarks intub/vent unresponsive does not follow perrla w/d right leg to stimuli and upgoing right toe Assessment and Plan Assessment and Plan bilat strokes -cont heparin f/u ct in am cont current medical care prognosis looks extremely poor in light of other medical issues besides strokes. cont wishes of family. Gladis Pacheco MD Jun 23, 2017 13:39
--- NOTE | 2017-06-23 14:07 | HHI.HCPN ---
Reason for visit a. To assist with evaluation and management of symptoms including: Dyspnea, pain, encephalopathy, hypotension. b. To assist medical decision maker(s) with: better understanding of current medical conditions; weighing benefits/burdens of medical treatment options; making medical treatment decisions. Subjective/Interval History Patient seen and examined in ICU. Discussed with Dr. Ratliff and nurse, Sarah. Patient remains off sedation in ICU on mechanical ventilation. Worsening hypotension overnight, currently on Avel-Synephrine 300 g, esmolol and Levophed 12 g. Despite pressor support, systolic BP remains low 70- 80. Patient with significant weeping edema and bruising bilateral upper extremities. Extremities cold to touch. Mottling bilateral lower extremities. Patient febrile 100.[address] Too unstable for repeat MRI. Patient appears to be declining. WBC increased from 12.2 to 15.4 due to bacteremia with Staphylococcus epidermis , MRSA pneumonia, probable aspiration, possible bacterial endocarditis. Infectious disease following. Otherwise labs relatively stable. . Family/friend interactions Spoke with , granddaughter and daughter at bedside. Advised patient appears to be declining reviewed increasing WBC, continued fever, worsening hypotension and increasing pressor support need. Spouse is appropriately tearful though does not want to engage in further conversation. He understands that she is declining, that the medical staff is doing everything they can. He and family are going to get lunch, as granddaughter is leaving for [place] this afternoon. Family seems to be accepting patients decline however does not seem ready to transition to de-escalation or comfort focused care at this time. Offered support. . Advance Directives Living Will: Completed, but not made available Health Care Surrogate: Completed, but not made available Advance Directive Specifics Health Care Surrogate(s): Patient's is designated as the health care surrogate. . Documented care wishes: Living will has standard inverted detail if terminal or end-stage or persistent vegetative condition would not want heroic or artificial measures including no artificial feeding and would want comfort measures only for a peaceful . . Significant change in goals: Alternate code: intubation and ACLS only. Goals remain aggressive short of alternate code status at this time. Spouse does not appear to be ready to transition to comfort focused care at this time, though understands her continued decline despite continued aggressive measures. . Objective Vital Signs Date Time Temp Pulse Resp B/P (MAP) Pulse Ox O2 Delivery O2 Flow Rate FiO2 06/23/17 11:43 99 40 06/23/17 09:25 130 129/79 06/23/17 09:23 124 129/70 06/23/17 07:31 99 40 06/23/17 06:22 100.4 111 25 148/56 (86) 99 06/23/17 06:15 100.4 113 16 56/32 (40) 99 06/23/17 06:00 121 06/23/17 06:00 100.4 113 18 103/54 (70) 98 06/23/17 05:45 100.4 111 20 103/61 (75) 98 06/23/17 05:39 124 06/23/17 05:33 100.4 103 25 92/53 (66) 98 06/23/17 05:30 100.4 109 20 82/43 (56) 97 06/23/17 05:17 100.4 115 26 107/56 (73) 98 06/23/17 05:16 100.4 111 20 67/40 (49) 98 06/23/17 05:15 100.4 112 21 98 06/23/17 05:01 100.4 108 16 112/47 (68) 98 06/23/17 05:00 100.4 105 14 98 06/23/17 04:49 100.4 117 13 117/52 (73) 98 06/23/17 04:47 10 06/23/17 04:45 100.4 109 16 98 06/23/17 04:31 100.4 106 17 123/51 (75) 99 06/23/17 04:30 100.4 116 18 99 06/23/17 04:16 100.4 112 15 136/51 (79) 98 06/23/17 04:15 100.4 105 19 98 06/23/17 04:04 100.4 117 15 135/47 (76) 98 06/23/17 04:04 100.4 117 15 135/47 (76) 98 06/23/17 04:00 100.4 112 24 98 06/23/17 04:00 40 06/23/17 04:00 100.4 112 24 98 06/23/17 04:00 104 06/23/17 03:45 100.2 120 13 97/48 (64) 98 06/23/17 03:31 100.2 120 26 97/46 (63) 97 06/23/17 03:30 100.2 122 16 97 06/23/17 03:16 100.0 126 16 113/54 (73) 79 06/23/17 03:15 100.2 115 25 84 06/23/17 03:12 94 40 06/23/17 03:00 100.0 121 16 120/44 (69) 92 06/23/17 03:00 100.0 121 16 120/44 (69) 92 06/23/17 03:00 113 06/23/17 02:45 100.0 125 13 107/51 (69) 95 06/23/17 02:31 100.2 129 21 109/46 (67) 95 06/23/17 02:30 100.2 133 14 94 06/23/17 02:20 100.2 113 21 108/57 (74) 98 06/23/17 02:16 100.2 132 22 102/50 (67) 94 06/23/17 02:15 100.2 120 18 96 06/23/17 02:00 100.0 116 22 128/58 (81) 98 06/23/17 02:00 104 06/23/17 01:45 100.0 131 13 116/54 (74) 97 06/23/17 01:40 100.0 133 20 128/61 (83) 06/23/17 01:31 100.0 113 42 70/54 (59) 87 06/23/17 01:30 100.0 124 25 98 06/23/17 01:16 99.9 129 19 132/87 (102) 98 06/23/17 01:15 99.9 120 14 98 06/23/17 01:10 99.9 113 22 100/51 (67) 99 06/23/17 01:08 99.7 111 13 136/58 (84) 98 06/23/17 01:05 99.7 111 14 177/86 (116) 99 06/23/17 01:01 99.7 102 12 85/37 (53) 100 06/23/17 01:01 99.7 102 12 85/37 (53) 100 06/23/17 01:00 99.7 115 18 100 06/23/17 01:00 99.7 115 18 100 06/23/17 00:45 99.5 126 15 112/78 (89) 98 06/23/17 00:42 99.5 134 16 109/59 (76) 98 06/23/17 00:40 99.5 162 15 113/51 (71) 97 06/23/17 00:38 99.5 152 20 131/63 (85) 99 06/23/17 00:30 99.3 130 18 38/15 (23) 99 06/23/17 00:30 99.3 130 18 38/15 (23) 99 06/23/17 00:30 111 06/23/17 00:29 99.3 120 20 50/19 (29) 99 06/23/17 00:27 99.3 131 17 59/30 (40) 100 06/23/17 00:16 99.5 109 18 79/40 (53) 99 06/23/17 00:15 99.5 124 18 99 06/23/17 00:02 100 40 06/23/17 00:01 99.3 110 20 132/66 (88) 100 06/23/17 00:00 104 06/23/17 00:00 107 17 129/87 (101) 98 06/23/17 00:00 40 06/23/17 00:00 99.3 130 19 98 06/22/17 23:46 99.3 110 13 83/50 (61) 100 06/22/17 23:45 99.3 108 13 100 06/22/17 23:31 99.3 129 15 115/35 (61) 99 06/22/17 23:30 99.3 117 16 99 06/22/17 23:15 99.3 113 16 92/55 (67) 100 06/22/17 23:01 99.3 111 15 107/54 (71) 99 06/22/17 23:00 99.3 117 12 99 06/22/17 22:46 99.3 128 14 126/65 (85) 100 06/22/17 22:45 99.3 125 12 100 06/22/17 22:30 99.3 128 16 102/53 (69) 100 06/22/17 22:15 99.5 106 16 108/57 (74) 100 06/22/17 22:00 103 06/22/17 22:00 99.3 118 15 106/59 (75) 100 06/22/17 21:46 99.5 107 17 129/87 (101) 98 06/22/17 21:45 99.5 124 14 99 06/22/17 21:44 99.5 123 12 84/44 (57) 99 06/22/17 21:30 99.5 115 16 79/48 (58) 100 06/22/17 21:19 99.5 137 17 88/46 (60) 100 06/22/17 21:16 99.5 112 15 79/36 (50) 100 06/22/17 21:15 99.5 108 16 100 06/22/17 21:01 99.5 114 14 142/51 (81) 100 06/22/17 21:00 99.5 120 16 100 06/22/17 20:46 99.5 116 14 123/57 (79) 100 06/22/17 20:45 99.5 116 14 100 06/22/17 20:31 99 40 06/22/17 20:30 99.5 125 17 99 06/22/17 20:15 111 14 82/43 (56) 99 06/22/17 20:00 40 06/22/17 20:00 103 06/22/17 20:00 104 15 87/56 (66) 100 06/22/17 19:45 117 15 85/47 (60) 100 06/22/17 19:30 120 13 130/59 (82) 98 06/22/17 19:16 140 17 136/53 (80) 99 06/22/17 19:15 124 18 99 06/22/17 19:01 105 15 129/59 (82) 100 06/22/17 19:00 114 14 100 06/22/17 18:30 118 06/22/17 18:19 132 06/22/17 18:15 106 06/22/17 18:00 103 06/22/17 17:01 97 20 115/70 (85) 100 06/22/17 17:01 97 06/22/17 16:58 128 06/22/17 16:58 128 20 73/54 (60) 100 06/22/17 16:45 102 25 113/53 (73) 100 06/22/17 16:45 102 06/22/17 16:30 109 06/22/17 16:30 109 23 129/84 (99) 94 06/22/17 16:15 98 100 06/22/17 16:15 104 17 98/64 (75) 100 06/22/17 16:15 104 06/22/17 16:07 104 06/22/17 16:07 104 18 95/66 (76) 99 06/22/17 16:00 88 18 06/22/17 16:00 88 06/22/17 16:00 40 06/22/17 15:25 99 40 06/22/17 14:00 110 Intake & Output 06/23/17 06/23/17 07:00 19:00 Intake Total 352 ml Output Total 550 ml Balance -198 ml Tube Feeding 352 ml Output Urine Total 550 ml # Bowel Movements 3 Physical Exam CONSTITUTIONAL/GENERAL: This is an adequately nourished patient, critically ill in ICU, intubated on mechanical ventilator. TUBES/LINES/DRAINS: ET tube, PEG tube, Camilo catheter, bilateral wrist restraints, central line, peripheral IVs upper extremities SKIN: Generalized pallor, Ecchymoses on upper extremities. Mottling bilateral lower extremities, extremities cold to touch. Febrile. CARDIOVASCULAR: Irregular rate and rhythm on esmolol drip. Prior sternotomy scar noted. RESPIRATORY/CHEST: Symmetric, unlabored respirations on mechanical ventilation. Coarse rhonchi appreciated bilaterally. GASTROINTESTINAL: Abdomen soft, obese, nondistended. Hypoactive bowel sounds, PEG tube in place, tolerating tube feedings. GENITOURINARY: Without palpable bladder distension. Camilo catheter in place. MUSCULOSKELETAL: Extremities without clubbing, cyanosis. Bilateral upper extremity weeping edema and ecchymosis. NEUROLOGICAL: Withdrawing to pain; localizes with left upper extremity. Not following commands. PSYCHIATRIC: Unable to asses due to clinical condition. Off sedation. . Diagnostic Tests Laboratory Laboratory Tests Test 06/20/17 15:15 06/20/17 18:38 06/21/17 03:20 06/21/17 06:24 Vancomycin Level Trough 15.2 MCG/ML (5.0-10.0) Activated Partial Thromboplast Time 71.6 SEC (24.3-30.1) 98.9 SEC (24.3-30.1) 49.5 SEC (24.3-30.1) White Blood Count 7.8 TH/MM3 (4.0-11.0) Red Blood Count 3.38 MIL/MM3 (4.00-5.30) Hemoglobin 10.1 GM/DL (11.6-15.3) Hematocrit 30.7 % (35.0-46.0) Mean Corpuscular Volume 90.9 FL (80.0-100.0) Mean Corpuscular Hemoglobin 30.0 PG (27.0-34.0) Mean Corpuscular Hemoglobin Concent 33.0 % (32.0-36.0) Red Cell Distribution Width 15.0 % (11.6-17.2) Platelet Count 242 TH/MM3 (150-450) Mean Platelet Volume 8.1 FL (7.0-11.0) Neutrophils (%) (Auto) 71.4 % (16.0-70.0) Lymphocytes (%) (Auto) 13.5 % (9.0-44.0) Monocytes (%) (Auto) 11.0 % (0.0-8.0) Eosinophils (%) (Auto) 3.4 % (0.0-4.0) Basophils (%) (Auto) 0.7 % (0.0-2.0) Neutrophils # (Auto) 5.6 TH/MM3 (1.8-7.7) Lymphocytes # (Auto) 1.1 TH/MM3 (1.0-4.8) Monocytes # (Auto) 0.9 TH/MM3 (0-0.9) Eosinophils # (Auto) 0.3 TH/MM3 (0-0.4) Basophils # (Auto) 0.1 TH/MM3 (0-0.2) CBC Comment AUTO DIFF Differential Total Cells Counted 100 Neutrophils % (Manual) 75 % (16-70) Band Neutrophils % 3 % (0-6) Lymphocytes % 10 % (9-44) Monocytes % 8 % (0-8) Eosinophils % 1 % (0-4) Neutrophils # (Manual) 6.3 TH/MM3 (1.8-7.7) Metamyelocytes 1 % (0-1) Myelocytes 1 % (0-0) Promyelocytes 1 % (0-0) Differential Comment FINAL DIFF MANUAL Platelet Estimate NORMAL (NORMAL) Platelet Morphology Comment NORMAL (NORMAL) Ovalocytes 1+ (NORMAL) Acanthocytes OCC (NORMAL) Blood Urea Nitrogen 8 MG/DL (7-18) Creatinine 0.43 MG/DL (0.50-1.00) Random Glucose 103 MG/DL (74-106) Calcium Level 7.5 MG/DL (8.5-10.1) Phosphorus Level 2.6 MG/DL (2.5-4.9) Magnesium Level 2.1 MG/DL (1.5-2.5) Sodium Level 147 MEQ/L (136-145) Potassium Level 3.6 MEQ/L (3.5-5.1) Chloride Level 119 MEQ/L (98-107) Carbon Dioxide Level 22.7 MEQ/L (21.0-32.0) Anion Gap 5 MEQ/L (5-15) Estimat Glomerular Filtration Rate 140 ML/MIN (>89) Test 06/21/17 12:17 06/22/17 06:15 06/23/17 03:50 06/23/17 04:21 Activated Partial Thromboplast Time 50.1 SEC (24.3-30.1) 49.0 SEC (24.3-30.1) 46.0 SEC (24.3-30.1) White Blood Count 12.2 TH/MM3 (4.0-11.0) 15.4 TH/MM3 (4.0-11.0) Red Blood Count 3.38 MIL/MM3 (4.00-5.30) 3.69 MIL/MM3 (4.00-5.30) Hemoglobin 9.8 GM/DL (11.6-15.3) 10.7 GM/DL (11.6-15.3) Hematocrit 30.8 % (35.0-46.0) 33.9 % (35.0-46.0) Mean Corpuscular Volume 90.9 FL (80.0-100.0) 92.1 FL (80.0-100.0) Mean Corpuscular Hemoglobin 29.1 PG (27.0-34.0) 29.0 PG (27.0-34.0) Mean Corpuscular Hemoglobin Concent 32.0 % (32.0-36.0) 31.5 % (32.0-36.0) Red Cell Distribution Width 15.7 % (11.6-17.2) 15.9 % (11.6-17.2) Platelet Count 325 TH/MM3 (150-450) 427 TH/MM3 (150-450) Mean Platelet Volume 7.6 FL (7.0-11.0) 8.1 FL (7.0-11.0) Neutrophils (%) (Auto) 76.4 % (16.0-70.0) 77.0 % (16.0-70.0) Lymphocytes (%) (Auto) 9.8 % (9.0-44.0) 11.3 % (9.0-44.0) Monocytes (%) (Auto) 11.1 % (0.0-8.0) 9.4 % (0.0-8.0) Eosinophils (%) (Auto) 2.2 % (0.0-4.0) 1.5 % (0.0-4.0) Basophils (%) (Auto) 0.5 % (0.0-2.0) 0.8 % (0.0-2.0) Neutrophils # (Auto) 9.4 TH/MM3 (1.8-7.7) 11.9 TH/MM3 (1.8-7.7) Lymphocytes # (Auto) 1.2 TH/MM3 (1.0-4.8) 1.7 TH/MM3 (1.0-4.8) Monocytes # (Auto) 1.4 TH/MM3 (0-0.9) 1.4 TH/MM3 (0-0.9) Eosinophils # (Auto) 0.3 TH/MM3 (0-0.4) 0.2 TH/MM3 (0-0.4) Basophils # (Auto) 0.1 TH/MM3 (0-0.2) 0.1 TH/MM3 (0-0.2) CBC Comment AUTO DIFF AUTO DIFF Differential Total Cells Counted 100 100 Neutrophils % (Manual) 71 % (16-70) 78 % (16-70) Band Neutrophils % 7 % (0-6) 2 % (0-6) Lymphocytes % 5 % (9-44) 10 % (9-44) Monocytes % 9 % (0-8) 8 % (0-8) Eosinophils % 2 % (0-4) 1 % (0-4) Neutrophils # (Manual) 10.2 TH/MM3 (1.8-7.7) 12.5 TH/MM3 (1.8-7.7) Metamyelocytes 3 % (0-1) 1 % (0-1) Myelocytes 3 % (0-0) Differential Comment FINAL DIFF MANUAL FINAL DIFF MANUAL Platelet Estimate NORMAL (NORMAL) NORMAL (NORMAL) Platelet Morphology Comment NORMAL (NORMAL) NORMAL (NORMAL) Ovalocytes 1+ (NORMAL) 1+ (NORMAL) Blood Urea Nitrogen 9 MG/DL (7-18) 8 MG/DL (7-18) Creatinine 0.41 MG/DL (0.50-1.00) 0.51 MG/DL (0.50-1.00) Random Glucose 124 MG/DL (74-106) 188 MG/DL (74-106) Total Protein 5.1 GM/DL (6.4-8.2) 5.7 GM/DL (6.4-8.2) Albumin 2.2 GM/DL (3.4-5.0) 2.5 GM/DL (3.4-5.0) Calcium Level 7.7 MG/DL (8.5-10.1) 8.1 MG/DL (8.5-10.1) Phosphorus Level 2.0 MG/DL (2.5-4.9) Magnesium Level 1.9 MG/DL (1.5-2.5) Alkaline Phosphatase 76 U/L (45-117) 81 U/L (45-117) Aspartate Amino Transf (AST/SGOT) 21 U/L (15-37) 25 U/L (15-37) Alanine Aminotransferase (ALT/SGPT) 19 U/L (10-53) 20 U/L (10-53) Total Bilirubin 0.6 MG/DL (0.2-1.0) 0.8 MG/DL (0.2-1.0) Sodium Level 146 MEQ/L (136-145) 143 MEQ/L (136-145) Potassium Level 4.0 MEQ/L (3.5-5.1) 3.8 MEQ/L (3.5-5.1) Chloride Level 118 MEQ/L (98-107) 113 MEQ/L (98-107) Carbon Dioxide Level 23.5 MEQ/L (21.0-32.0) 21.5 MEQ/L (21.0-32.0) Anion Gap 5 MEQ/L (5-15) 9 MEQ/L (5-15) Estimat Glomerular Filtration Rate 148 ML/MIN (>89) 115 ML/MIN (>89) Ammonia 31 MCMOL/L (11-32) Digoxin Level 1.2 NG/ML (0.8-2.0) Result Diagram: 06/23/17 0350 06/23/17 0350 Microbiology Microbiology Date/Time Source Procedure Growth Status 06/19/17 04:40 Blood Peripheral Aerobic Blood Culture - Preliminary NO GROWTH IN 4 DAYS Resulted 06/19/17 04:40 Blood Peripheral Anaerobic Blood Culture - Preliminary NO GROWTH IN 4 DAYS Resulted 06/18/17 04:06 Stool Stool Stool Occult Blood (KAYLAN) - Final HEMOCCULT POSITIVE Complete 06/16/17 03:45 Sputum Endotracheal Gram Stain - Final Complete 06/16/17 03:45 Sputum Culture - Final S. Aureus Mrsa Complete 06/18/17 16:00 Urine Catheterized Urine Urine Culture - Final NO GROWTH IN 48 HOURS. Complete . Imaging Last Impressions Head CT 06/22/17 1600 Signed Impressions: Service Date/Time: May 16:36 - CONCLUSION: 1. Old areas of cortical infarct as above. 2. No acute intracranial hemorrhage. Juan Pablo Fish MD Chest X-Ray 06/22/17 0600 Signed Impressions: Service Date/Time: May 04:51 - CONCLUSION: 1. Support apparatus unchanged. Persistent dense consolidation at the left base. Small effusions. Delonte Roland MD Brain MRI 06/21/17 0000 Signed Impressions: Service Date/Time: Wednesday, June 21, 2017 18:09 - CONCLUSION: 1. Evolving subacute infarcts as above. 2. Possible small subacute parenchymal blood in the region of the left periventricular white matter/basal ganglia infarct. 3. No new or acute infarct. No mass effect or midline shift. Darin Preston MD Abdomen X-Ray 06/19/17 0600 Signed Impressions: Service Date/Time: Monday, June 19, 2017 02:56 - CONCLUSION: 1. Stable to slight improvement in gaseous distention of the colon. Delonte Roland MD Abdomen/Pelvis CT 06/18/17 0000 Signed Impressions: Service Date/Time: Sunday, June 18, 2017 10:29 - CONCLUSION: 1. Persistent wedge-shaped areas of hypoenhancement within the spleen likely representing infarcts. There is questionable area of hypoenhancement the lower pole the right kidney as well which could also represent infarct. Suggest attention to these a followup imaging. 2. There is a small volume of free fluid in the abdomen and pelvis along with a trace bilateral pleural fluid effusions and anasarca. 3. Cardiomegaly with 2 stable nodular areas in the right atrium representing either thrombus or mass. These measure up to 2 cm. 4. Otherwise, as above. Darin Pederson MD Upper Extremity Ultrasound 06/16/17 0000 Signed Impressions: Service Date/Time: Friday, June 16, 2017 11:00 - CONCLUSION: Normal examination. No evidence of DVT Shoaib Pastor MD Chest CT 06/15/17 0000 Signed Impressions: Service Date/Time: May 04:30 - CONCLUSION: 1. 2 focal rounded filling defects involving an enlarged right atrium. I'm concerned this represents mural thrombus. 2. Significant cardiomegaly. 3. Bibasilar infiltrates. Blu Mayfield Jr., MD Procedures 06/15/17: central line placement right IJ : Discontinued arterial line. . Assessment and Plan Disease Oriented Problem List: (1) Hypokalemia (2) Aspiration pneumonia (3) Respiratory failure with hypoxia (4) History of stroke (5) Moderate protein malnutrition (6) Atrial fibrillation with RVR Symptom Scale: (1) Dyspnea 0-10 Scale: Unable to quantify (2) Encephalopathy 0-10 Scale: Unable to quantify (3) Pain (4) Dysphagia Pertinent Non-Medical Issues Psychosocial:, most recently resided at [facility] and rehabilitation following month long hospital course at [facility]. Retired, has 3 adult children who live out of the area. Patient resides in [place] during the winter and [place] during the summer. 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 Retired since the . Spiritual:Christianity supported by rn picu known to family, also appreciative of hospital computer typesetter keyliner Legal:Patient currently intubated and unable to participate in medical decision making. Patient has living will which designates as primary healthcare surrogate, son as a secondary if unable to serve. I reviewed this document with the family on their iPad device however was unable available for print at this time. Ethical issues impacting care: No known ethical issues impacting care. . Important Contacts Spouse Jorge Alberto Basilio [phone] Terrance Basilio [phone] / [phone] Son Jorge Alberto Basilio Daughter; Sandhya: [phone] . Prognosis This patient was admitted for acute respiratory distress, respiratory failure. She recently had prolonged hospitalization for significant MCA stroke with resulting deficits and dysphagia. She has had A. fib with RVR, which has been difficult to control in the ICU setting. She remains high risk for further complications and setbacks, and possible . She does survive current acute hospitalization she will likely remain dependent and require long-term care. Code Status: Alternative Code (intubation Only) Plan * Legal decision maker: Patient has living will which designates as primary healthcare surrogate, son as a secondary if unable to serve. I reviewed this document with the family on their iPad device however was unable available for print at this time. * Goals remain aggressive short of alternate code status. Spouse understands patient continues to decline. He is not ready to de-escalate care or transition to comfort measures at this time. Family does not want tracheostomy if that is indicated in the future. * Discussed with Dr. Ratliff and nurse, Sarah. * CODE STATUS: Alternate code-intubation only. * SYMPTOMS: --Dyspnea-emergently intubated for respiratory distress by EMS; MRSA pneumonia. Patient remains intubated, unable to wean from mechanical ventilator. Follow-up chest x-ray shows cardiomegaly and basilar airspace disease improvement since --Dysphagia-patient with recent MCA stroke, status post PEG placement at another facility, noted as aspiration risk per rehabilitation documentation. + aspiration pneumonia. Expected to remain at risk for aspiration secondary to dysphagia. --Pain- Patient has been off sedation since this morning and remains relatively unresponsive. Patient restarted on fentanyl drip for pain. No reported pain syndromes per family, potential sources would include bedbound status, recent invasive procedures; currently appears comfortable will continue to evaluate --Encephalopathy-multifactorial: status post recent CVA, now with acute respiratory failure, A. fib RVR, severe sepsis with septic shock. Withdrawing to pain; localizes with left upper extremity. Not following commands. + gag. + corneal reflex. MRI yesterday 06/22/17 shows evolving subacute infarctions possible small amount of subacute parenchymal blood in the left basal ganglia infarct region. Patient remains on heparin-okay per Dr. Pacheco. Repeat CT imaging today. * Palliative care will continue to follow during hospital course as condition evolves, to assist patient/decision-maker with understanding of medical conditions, weighing benefits/burdens of treatment options, for clarification of goals of treatment. Additionally will assist with any symptoms of palliative concern . Carito Capps Jun 23, 2017 14:07
[2017-06-23] MEDS: VANCOMYCIN 1,500 MG/NS 500 ML IV SCH ×2 (15:00)
[2017-06-24] VITALS (39 sets, daily range): BP systolic 40–127; BP diastolic 21–70; PULSE 133–170; RESP 24–44; TEMP 99.8–100.2; O2SAT 93–100
[2017-06-24] MEDS: NOREPINEPHRINE 4 MG/D5W 250 ML IV PRN ×5 (02:00→23:27)
[2017-06-24] MEDS: ACETAMINOPHEN 650 MG/20.3 ML UDC OG-TUBE PRN (02:06)
[2017-06-24] MEDS: RESP: ALBUTEROL 2.5 MG/IPRATROPIUM 0.5 MG NEB (SCH) INH ×4 (03:14→21:42)
[2017-06-24 03:48] LABS: C. DIFF EPI 027 PRESUMPTIVE NEGATIVE (NEGATIVE)
[2017-06-24] MEDS: CHLORHEXIDINE GLUCONATE 2 % 1 PACK (2 CLOTHS) TOP SCH (04:00)
[2017-06-24] MEDS: PHENYLEPHRINE INJ 160 MG in DEXTROSE 5% IN WATE 500 ML INJ 484 ML IV PRN ×6 (04:47→23:25)
[2017-06-24] MEDS: FREE WATER G-TUBE SCH ×2 (06:00→13:22)
[2017-06-24] MEDS: HYDROCORTISONE SOD SUCCINATE 100 MG VIAL IV PUSH SCH ×4 (06:00→17:47)
[2017-06-24] MEDS: PANTOPRAZOLE SODIUM 40 MG VIAL IV PUSH SCH ×2 (06:00→17:48)
[2017-06-24] MEDS: INSULIN NovoLIN REGULAR SUPPLEMENTAL SCALE SQ SCH ×4 (06:00→18:00)
[2017-06-24] MEDS: ARTIFICIAL TEARS OPTH SOLN 15 ML BTL EACH EYE SCH ×2 (06:00→07:51)
[2017-06-24 06:05] LABS: AUTOMATED NEUTROPHIL # 18.6 TH/MM3 (1.8-7.7); BASOPHIL # 0.1 TH/MM3 (0-0.2); BASOPHIL % 0.5 % (0.0-2.0); HEMATOCRIT 33.6 % (35.0-46.0); LYMPH % 7.3 % (9.0-44.0); LYMPHOCYTE # 1.7 TH/MM3 (1.0-4.8); MEAN CELL VOLUME 92.3 FL (80.0-100.0); MEAN CORPUSCULAR HEMOGLOBIN 28.8 PG (27.0-34.0); MEAN CORPUSCULAR HGB CONC 31.2 % (32.0-36.0); MONO % 10.8 % (0.0-8.0); NEUT % 81.4 % (16.0-70.0); PLATELET COUNT 390 TH/MM3 (150-450); RED BLOOD COUNT 3.64 MIL/MM3 (4.00-5.30); RED CELL DISTRIBUTION WIDTH 15.9 % (11.6-17.2); WHITE BLOOD COUNT 22.8 TH/MM3 (4.0-11.0)
[2017-06-24 06:14] LABS: APTT (PATIENT) 48.8 SEC (24.3-30.1)
[2017-06-24 06:18] LABS: HEMO FLAGS AUTO DIFF
[2017-06-24 06:30] LABS: BICARBONATE 18.3 MEQ/L (21.0-32.0); MAGNESIUM 1.8 MG/DL (1.5-2.5); POTASSIUM 3.6 MEQ/L (3.5-5.1)
--- NOTE | 2017-06-24 07:18 | HHI.CCPN ---
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 She was discharged from [facility] and transferred to [facility] 06/01/17. She reportedly had rhonchi, cough, and respiratory distress early this morning and there was concern for aspiration. Chest x-ray had been obtained and there were small bibasilar densities that were felt to be consistent with atelectasis. When the shift supervisor rn nurse came in she noted that patient had significantly worsening congestion and increased work of breathing. EVAC was summoned and when EVAC arrived she was reportedly GCS 7 ([id number]) and was intubated at the scene after administration of Ativan 4 mg IV and Etomidate 20 mg IV. Upon intubation EVAC reportedly suctioned out large amount of secretions that looked like Jevity tube feeds from the ETT. Jevity tube feeds were running via PEG and these were placed on hold per EVAC. Upon arrival she was in atrial fibrillation with RVR with rate in the 160s. She was given cardizem 20 mg IV and started on cardizem drip at 5 mg/hr. with white blood cell count 13.7. She was normotensive blood pressure 120-140 systolic. Temperature 99.4. She is hypernatremic with sodium of 154, potassium 2.8. Protein corrected calcium 7.9. Magnesium is normal. Troponin is 0.18, BNP 674. Lactic acid is 1.9 She received 2.5 L of fluid in the emergency department. Chest x-ray demonstrates endotracheal tube approximately 1.8 cm above the sury. OG tube is in place in the stomach. There is left basilar opacity, right basilar atelectasis. Patient is intubated and remainder review of systems cannot be obtained. Aztreonam, metronidazole, levofloxacin were ordered per ED. Blood cultures have been obtained. No noted diarrhea. Unknown if patient had experienced vomiting 06/15 : Discussed with Jorge Alberto at bedside. Request alternate CODE STATUS. ACLS drugs and intubation only. Currently on esmolol and Cardizem drips for rate control. Phenylephrine drip initiated due to hypotension. Patient does withdrawal to left upper extremity and actually made attempt to self extubate with left upper extremity while placing central line while hypotensive. Moving bilateral lower extremities spontaneously. Plan is MRI brain if able/stable overnight otherwise will repeat CT head in a.m. 06/16 Echocardiogram still not read as of 1719. Heparin drip initiated due to likely mural thrombus and high risk of CVA. Initial CT brain 06/15 showed no signs of acute hemorrhage. 06/16: Afebrile. MRI brain results as below. Heparin drip currently on hold secondary to elevated PTT. Tube feeding to be initiated today. Remains on Cardizem, esmolol in phenylephrine drips 06/17: Afebrile. Off the diltiazem, esmolol and phenylephrine drips. Currently on propofol drip at 20 mics grams per kilo per minute. Attempt sedation vacation today. No bowel movement. Tube feeds currently at 30 cc an hour 06/18: Afebrile. A. fib with RVR overnight restarted on diltiazem drip currently at 5 mg an hour. Per report 1 large bloody bowel movement currently brown in color. KUB revealed abdominal distention with cecum at 11.[address] evidence/pelvis pending. Heparin discontinued. Noted thrombus in right atrium. On echocardiogram. Not on vasopressors. 06/19 PAtient is sedated with Diprivan, Neosyn started overnight for hypotension and Cardizem drip stopped. Off Heparin drip for Colonoscopy today. Afebrile. 06/20 No events overnight. Sedated with Diprivan and intubated. On Neosyn 50 mics. Afebrile. s/p EGD and colonoscopy yesterday with no signs of bleeding. Back on Heparin drip. Subjective 06/21: Patient started on his knowledge of T2 tachycardia. Pulse 0.25 mg digoxin IV 1. Potassium is currently been replaced. Continues on heparin drip. No active bleeding. 06/22: Remains intubated not on sedation, critically ill. Placed on Avel- Synephrine for hypotension currently on 40 mcg/m. Localizes with left upper extremity. MRI yesterday shows evolving subacute infarctions possible small amount of subacute parenchymal blood in the left basal ganglia infarct region. Per Dr. Sánchez, heparin is to be continued. Repeat CT imaging today. 06/23 Patient remains intubated on no sedation. Hypotensive overnight Neosyn increased 220 mics and Levophed 12 mics added. On Esmolol and Heparin drips. T: 100.4 06/24 Patient is intubated maxed out on Neosyn and Levophed. T;101.1, on Heparin drip. Objective Vital Signs Date Time Temp Pulse Resp B/P (MAP) Pulse Ox O2 Delivery O2 Flow Rate FiO2 06/24/17 06:00 150 06/24/17 04:30 100.4 26 50/21 (31) 100 06/24/17 04:00 40 Intake and Output 06/24/17 06/24/17 06/25/17 08:00 16:00 00:00 Intake Total 704 ml Output Total 275 ml Balance 429 ml Result Diagram: 06/24/1752906/24/17529 Other Results Laboratory Tests Test 06/24/17 01:15 06/24/17 05:30 Stool C. difficile Toxin (PCR) NEGATIVE Stl C. difficile Toxin Epiderm 027 PRESUMPTIVE NEGATIVE White Blood Count 22.8 TH/MM3 Red Blood Count 3.64 MIL/MM3 Hemoglobin 10.5 GM/DL Hematocrit 33.6 % Mean Corpuscular Volume 92.3 FL Mean Corpuscular Hemoglobin 28.8 PG Mean Corpuscular Hemoglobin Concent 31.2 % Red Cell Distribution Width 15.9 % Platelet Count 390 TH/MM3 Mean Platelet Volume 8.2 FL Neutrophils (%) (Auto) 81.4 % Lymphocytes (%) (Auto) 7.3 % Monocytes (%) (Auto) 10.8 % Eosinophils (%) (Auto) 0.0 % Basophils (%) (Auto) 0.5 % Neutrophils # (Auto) 18.6 TH/MM3 Lymphocytes # (Auto) 1.7 TH/MM3 Monocytes # (Auto) 2.5 TH/MM3 Eosinophils # (Auto) 0.0 TH/MM3 Basophils # (Auto) 0.1 TH/MM3 CBC Comment AUTO DIFF Activated Partial Thromboplast Time 48.8 SEC Blood Urea Nitrogen 16 MG/DL Creatinine 0.85 MG/DL Random Glucose 231 MG/DL Calcium Level 7.9 MG/DL Phosphorus Level 2.0 MG/DL Magnesium Level 1.8 MG/DL Sodium Level 137 MEQ/L Potassium Level 3.6 MEQ/L Chloride Level 107 MEQ/L Carbon Dioxide Level 18.3 MEQ/L Anion Gap 12 MEQ/L Estimat Glomerular Filtration Rate 64 ML/MIN Imaging Last Impressions Head CT 06/22/17 1600 Signed Impressions: Service Date/Time: May 16:36 - CONCLUSION: 1. Old areas of cortical infarct as above. 2. No acute intracranial hemorrhage. Juan Pablo Fish MD Chest X-Ray 06/22/17 0600 Signed Impressions: Service Date/Time: May 04:51 - CONCLUSION: 1. Support apparatus unchanged. Persistent dense consolidation at the left base. Small effusions. Delonte Roland MD Brain MRI 06/21/17 0000 Signed Impressions: Service Date/Time: Wednesday, June 21, 2017 18:09 - CONCLUSION: 1. Evolving subacute infarcts as above. 2. Possible small subacute parenchymal blood in the region of the left periventricular white matter/basal ganglia infarct. 3. No new or acute infarct. No mass effect or midline shift. Darin Preston MD Abdomen X-Ray 06/19/17 0600 Signed Impressions: Service Date/Time: Monday, June 19, 2017 02:56 - CONCLUSION: 1. Stable to slight improvement in gaseous distention of the colon. Delonte Roland MD Abdomen/Pelvis CT 06/18/17 0000 Signed Impressions: Service Date/Time: Sunday, June 18, 2017 10:29 - CONCLUSION: 1. Persistent wedge-shaped areas of hypoenhancement within the spleen likely representing infarcts. There is questionable area of hypoenhancement the lower pole the right kidney as well which could also represent infarct. Suggest attention to these a followup imaging. 2. There is a small volume of free fluid in the abdomen and pelvis along with a trace bilateral pleural fluid effusions and anasarca. 3. Cardiomegaly with 2 stable nodular areas in the right atrium representing either thrombus or mass. These measure up to 2 cm. 4. Otherwise, as above. Darin Pederson MD Upper Extremity Ultrasound 06/16/17 0000 Signed Impressions: Service Date/Time: Friday, June 16, 2017 11:00 - CONCLUSION: Normal examination. No evidence of DVT Shoaib Pastor MD Chest CT 06/15/17 0000 Signed Impressions: Service Date/Time: May 04:30 - CONCLUSION: 1. 2 focal rounded filling defects involving an enlarged right atrium. I'm concerned this represents mural thrombus. 2. Significant cardiomegaly. 3. Bibasilar infiltrates. Blu Mayfield Jr., MD Objective Remarks GENERAL: 86-year-old female, critically ill currently orotracheally intubated SKIN: Warm and dry. Great toes bilaterally are currently dusky. Right upper extremity with ecchymoses large HEAD: Atraumatic. Normocephalic. EYES: Pupils round, 3 to 4 mm and sluggishly reactive bilaterally. No scleral icterus. No injection or drainage. ENT: No nasal bleeding or discharge. Orotracheally intubated. Thrush noted on admission NECK: Trachea midline. No JVD. Right IJ 5 lm catheter is clean dry and intact CARDIOVASCULAR: Prior sternotomy scar noted. Well-healed. S1, S2 no S4. Without murmur. Hypotensive on avel-synephrine RESPIRATORY: Coarse rhonchi appreciated bilaterally. Symmetrical excursion. GASTROINTESTINAL: Abdomen less distended. Hyperactive bowel sounds are appreciated. No high-pitched sounds appreciated. PEG tube in place without erythema/skin breakdown. Tolerating tube feeding : Camilo in place with yellow urine output. MUSCULOSKELETAL: Right upper extremity edema noted greater than left upper extremity NEUROLOGICAL: Positive gag. Positive corneal reflex. Withdrawing to pain.localizes with LUE. Upward toes Not following commands Date of Insertion: Jun 15, 2017 Line: Central Venous Catheter Side: Right Location: Internal, Jugular A/P Problem List: (1) Respiratory failure with hypoxia ICD Code: J96.91 - Respiratory failure, unspecified with hypoxia Status: Acute (2) Aspiration pneumonia ICD Code: J69.0 - Pneumonitis due to inhalation of food and vomit Status: Acute (3) Hypokalemia ICD Code: E87.6 - Hypokalemia Status: Acute (4) Dysphagia ICD Code: R13.10 - Dysphagia, unspecified Status: Chronic (5) Respiratory failure, acute ICD Code: J96.00 - Acute respiratory failure, unspecified whether with hypoxia or hypercapnia (6) History of stroke ICD Code: Z86.73 - Personal history of transient ischemic attack (TIA), and cerebral infarction without residual deficits (7) Moderate protein malnutrition ICD Code: E44.0 - Moderate protein-calorie malnutrition Status: Chronic Assessment and Plan NEURO/Psych: Recent history of L MCA stroke 05/21/17 -left periventricular white matter, left temporal, left parietal and right parietal Residual R hemiparesis, dysphagia, inability to ambulate. R frontal encephalomalacia 06/22 CT brain: Old areas of cortical infarct as above. No acute intracranial hemorrhage. 06/21 MRI brain: Evolving subacute infarcts as above. 2. Possible small subacute parenchymal blood in the region of the left periventricular white matter/basal ganglia infarct. No new or acute infarct. No mass effect or midline shift. Per Dr. Fullop: continue heparin. MRI brain 06/15 revealed old right frontal posterior infarct, subacute left parametric white matter 17 x 52 mm, left temporal 19 x 32 mm, left parietal 16 mm and cluster right parietal areas of subacute EEG 06/15 revealed bilateral abnormalities slowing rhythms more left. No ictal/ discharge is noted Currently off all sedation RESP: Acute respiratory failure Aspiration Pneumonia PRVC 10/09/29/44. Continue with vent support keep sat >92% Hemodynamic instability and altered mentation will not permit Spontaneous breathing trials Albuterol/ipratropium aerosols every 6 hours with albuterol aerosols every 2 hours as needed Dyspnea CXR 06/22: Dense consolidation left base CT thorax 06/15- bibasilar opacities. ?R atrial mural thrombus. CV: Atrial fibrillation with [id number] 7 Right Atrial thrombus H/o mitral valve replacement Hyperlipidemia Continue with Pressors ( On Neosyn, Levophed) keep MAP>65mmHg On stress dose steroids _ HC 50mg IV Q6 Hold Digoxin 0.125 mg by PEG daily. Digoxin level 1.2 on 06/22 Pravastatin 40mg daily for dyslipidemia 2-D echo: EF45- 50%. No RWMA. LA, RA severely dilated. Mitral valve annuloplasty ring is present. Moderate thickening of the mitral valve leaflets. [id number] mitral valve regurgitation. Diffuse calcification of the aortic valve. [id number] aortic valve regurgitation. No aortic valve stenosis. Aortic valve area is 1.4cm. PASP is 41.8 mmHg. Echo 06/18 revealed 1.35 x 1.38 cm right atrial thrombus/mass Continue with Heparin drip GI: Constipation Cholelithiasis Splenic infarct Chronic moderate protein energy malnutrition Hypoalbuminemia Diverticulosis Colonic polyp - pathology pending TF (vital 1.5 goal 55 cc an hour) via PEG tube. s/p EGD and colonoscopy 06/18: Mild gastritis, small ulceration next to PEG tube site with no evidence of bleeding, colon polyp and Diverticulosis. CT abd/pelvis revealed spleen abnormalities suggest splenic infarct. Laceration felt to be less likely. No hematoma. No recent injury reported. Docusate sodium/Senokot/twice daily and polyethylene glycol 17 g daily for bowel regimen KUB 06/18 revealed gaseous distention of the colon cecum 11.5 cm. Repeat KUB improved FEN/RENAL: Hypernatremia Monitor renal function, I/O's, electrolytes replacement per protocol. Free water 250 ml Q8 ID: Aspiration pneumonia/MRSA in sputum Thrush Coag negative staph bacteremia Continue abx per ID (Vanco, Rifampin) monitor for signs of infections ( Fever, WBC) Might need ALVIN per ID once clinically stable Influenza negative 06/19 BC: NGTD Sputum 06/16 MRSA, 06/15 BC: Coag negative staph Infectious disease following HEME: Leukocytosis Normocytic anemia Monitor CBC, coags- on heparin drip Previously on Apixaban Continue heparin drip for now ENDO: SSI with accuchecks TSH 0.546. T4 slightly elevated at 1.8 PROPH: Heparin drip will provide DVT prophylaxis Pantoprazole 40 mg IV twice a day for stress ulcer prophylaxis. ACCESS: Right IJ 5 lm catheter placed 06/15. Discontinued arterial line 06/21 Palliative care is following Continue Alternate code status. Intubation and ACLS drugs only. No shock. No CPR. Patient is hypotensive on multiple pressors, septic recent strokes. Now with multiorgan failure. Overall prognosis poor and recommend transition to comfort measures CCT 30 mins Problem Qualifiers (1) Respiratory failure with hypoxia: Qualified Codes: J96.01 - Acute respiratory failure with hypoxia Marsha Bach MD Jun 24, 2017 07:18
[2017-06-24 07:44] LABS: BANDS 12 % (0-6); CORRECTED NUCLEATED RBC 1 /100 WBC (0-0); MYELOCYTES 3 % (0-0); NEUTROPHIL # MANUAL DIFF 19.4 TH/MM3 (1.8-7.7); POLYS (SEG NEUTROPHILS) 70 % (16-70); WBC DIFF SAMPLE 100
[2017-06-24 07:46] LABS: OVALOCYTES 1+ (NORMAL); PLATELET ESTIMATE SMEAR NORMAL (NORMAL); PLATELET MORPHOLOGY NORMAL (NORMAL); SCAN/DIFF FINAL DIFF MANUAL; TOXIC GRANULATION 1+ (NORMAL)
[2017-06-24] MEDS: fentaNYL DRIP 250 ML IV PRN (07:51)
[2017-06-24] MEDS: PRAVASTATIN SOD 40 MG TAB OG-TUBE SCH (07:51)
[2017-06-24] MEDS: SENNOSIDES SYRUP 8.8 MG/5 ML CUP OG-TUBE SCH ×2 (07:52→21:00)
[2017-06-24] MEDS: POLYETHYLENE GLYCOL 17 GM PKG PO SCH (07:52)
[2017-06-24] MEDS: DOCUSATE SODIUM 100 MG/10 ML UDC PO SCH ×2 (07:52→21:00)
[2017-06-24] MEDS: CHLORHEXIDINE 0.12% (ORAL KIT) 15 ML CUP MT SCH (07:53)
[2017-06-24] MEDS: SODIUM CHLORIDE 0.9% FLUSH 10 ML FLUSH IVF SCH (07:53)
[2017-06-24] MEDS: SODIUM CHLORIDE 0.9% FLUSH 10 ML FLUSH IV FLUSH SCH ×2 (07:53→21:00)
[2017-06-24] MEDS ORDERED: VASOPRESSIN 20 UNITS/ML VIAL (IVTITR) ONE (09:46)
[2017-06-24] MEDS: RIFAMPIN INJ 300 MG in SODIUM CHLORIDE 0.9% INJ 100 ML IV SCH (11:01)
[2017-06-24] MEDS: VANCOMYCIN 1,500 MG/NS 500 ML IV SCH ×2 (16:26)
[2017-06-24] MEDS: HEPARIN-D5W 25,000 U/250 ML 250 ML IV PRN (17:52)
[2017-06-24] MEDS: VASOPRESSIN INJ 40 UNITS in DEXTROSE 5% IN WATER 100ML INJ 98 ML IV SCH ×2 (23:49)
[2017-06-25] VITALS (19 sets, daily range): BP systolic 39–118; BP diastolic 12–56; PULSE 132–166; RESP 18–24; TEMP 98.4–99.9; O2SAT 75–100
[2017-06-25] MEDS: RIFAMPIN INJ 300 MG in SODIUM CHLORIDE 0.9% INJ 100 ML IV SCH ×3 (01:50→23:00)
[2017-06-25] MEDS: HYDROCORTISONE SOD SUCCINATE 100 MG VIAL IV PUSH SCH ×4 (01:50→16:54)
[2017-06-25] MEDS: INSULIN NovoLIN REGULAR SUPPLEMENTAL SCALE SQ SCH ×4 (01:51→17:35)
[2017-06-25] MEDS: NOREPINEPHRINE 4 MG/D5W 250 ML IV PRN ×4 (03:23→21:54)
[2017-06-25] MEDS: RESP: ALBUTEROL 2.5 MG/IPRATROPIUM 0.5 MG NEB (SCH) INH ×2 (03:37→07:58)
[2017-06-25 05:51] LABS: APTT (PATIENT) 45.7 SEC (24.3-30.1)
[2017-06-25] MEDS: FREE WATER G-TUBE SCH ×2 (06:00→13:15)
[2017-06-25] MEDS: PANTOPRAZOLE SODIUM 40 MG VIAL IV PUSH SCH ×2 (07:37→16:53)
[2017-06-25] MEDS: CHLORHEXIDINE 0.12% (ORAL KIT) 15 ML CUP MT SCH ×3 (08:00→21:56)
[2017-06-25] MEDS: ARTIFICIAL TEARS OPTH SOLN 15 ML BTL EACH EYE SCH ×4 (08:33→21:55)
[2017-06-25] MEDS: PHENYLEPHRINE INJ 160 MG in DEXTROSE 5% IN WATE 500 ML INJ 484 ML IV PRN ×4 (08:33→18:48)
[2017-06-25] MEDS: SENNOSIDES SYRUP 8.8 MG/5 ML CUP OG-TUBE SCH ×2 (08:35→21:00)
[2017-06-25] MEDS: SODIUM CHLORIDE 0.9% FLUSH 10 ML FLUSH IV FLUSH SCH ×2 (08:35→21:55)
[2017-06-25] MEDS: SODIUM CHLORIDE 0.9% FLUSH 10 ML FLUSH IVF SCH (08:35)
[2017-06-25] MEDS: PRAVASTATIN SOD 40 MG TAB OG-TUBE SCH (08:35)
[2017-06-25] MEDS: POLYETHYLENE GLYCOL 17 GM PKG PO SCH (08:36)
[2017-06-25] MEDS: DOCUSATE SODIUM 100 MG/10 ML UDC PO SCH ×2 (08:36→21:00)
--- NOTE | 2017-06-25 08:40 | HHI.CCPN ---
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 She was discharged from [facility] and transferred to [facility] and rehabilitation 06/01/17. She reportedly had rhonchi, cough, and respiratory distress early this morning and there was concern for aspiration. Chest x-ray had been obtained and there were small bibasilar densities that were felt to be consistent with atelectasis. When the shift supervisor rn nurse came in she noted that patient had significantly worsening congestion and increased work of breathing. EVAC was summoned and when EVAC arrived she was reportedly GCS 7 ([id number]) and was intubated at the scene after administration of Ativan 4 mg IV and Etomidate 20 mg IV. Upon intubation EVAC reportedly suctioned out large amount of secretions that looked like Jevity tube feeds from the ETT. Jevity tube feeds were running via PEG and these were placed on hold per EVAC. Upon arrival she was in atrial fibrillation with RVR with rate in the 160s. She was given cardizem 20 mg IV and started on cardizem drip at 5 mg/hr. with white blood cell count 13.7. She was normotensive blood pressure 120-140 systolic. Temperature 99.4. She is hypernatremic with sodium of 154, potassium 2.8. Protein corrected calcium 7.9. Magnesium is normal. Troponin is 0.18, BNP 674. Lactic acid is 1.9 She received 2.5 L of fluid in the emergency department. Chest x-ray demonstrates endotracheal tube approximately 1.8 cm above the sury. OG tube is in place in the stomach. There is left basilar opacity, right basilar atelectasis. Patient is intubated and remainder review of systems cannot be obtained. Aztreonam, metronidazole, levofloxacin were ordered per ED. Blood cultures have been obtained. No noted diarrhea. Unknown if patient had experienced vomiting 06/15 : Discussed with Jorge Alberto at bedside. Request alternate CODE STATUS. ACLS drugs and intubation only. Currently on esmolol and Cardizem drips for rate control. Phenylephrine drip initiated due to hypotension. Patient does withdrawal to left upper extremity and actually made attempt to self extubate with left upper extremity while placing central line while hypotensive. Moving bilateral lower extremities spontaneously. Plan is MRI brain if able/stable overnight otherwise will repeat CT head in a.m. 06/16 Echocardiogram still not read as of 1719. Heparin drip initiated due to likely mural thrombus and high risk of CVA. Initial CT brain 06/15 showed no signs of acute hemorrhage. 06/16: Afebrile. MRI brain results as below. Heparin drip currently on hold secondary to elevated PTT. Tube feeding to be initiated today. Remains on Cardizem, esmolol in phenylephrine drips 06/17: Afebrile. Off the diltiazem, esmolol and phenylephrine drips. Currently on propofol drip at 20 mics grams per kilo per minute. Attempt sedation vacation today. No bowel movement. Tube feeds currently at 30 cc an hour 06/18: Afebrile. A. fib with RVR overnight restarted on diltiazem drip currently at 5 mg an hour. Per report 1 large bloody bowel movement currently brown in color. KUB revealed abdominal distention with cecum at 11.[address] evidence/pelvis pending. Heparin discontinued. Noted thrombus in right atrium. On echocardiogram. Not on vasopressors. 06/19 PAtient is sedated with Diprivan, Neosyn started overnight for hypotension and Cardizem drip stopped. Off Heparin drip for Colonoscopy today. Afebrile. 06/20 No events overnight. Sedated with Diprivan and intubated. On Neosyn 50 mics. Afebrile. s/p EGD and colonoscopy yesterday with no signs of bleeding. Back on Heparin drip. Subjective 06/21: Patient started on his knowledge of T2 tachycardia. Pulse 0.25 mg digoxin IV 1. Potassium is currently been replaced. Continues on heparin drip. No active bleeding. 06/22: Remains intubated not on sedation, critically ill. Placed on Avel- Synephrine for hypotension currently on 40 mcg/m. Localizes with left upper extremity. MRI yesterday shows evolving subacute infarctions possible small amount of subacute parenchymal blood in the left basal ganglia infarct region. Per Dr. Sánchez, heparin is to be continued. Repeat CT imaging today. 06/23 Patient remains intubated on no sedation. Hypotensive overnight Neosyn increased 220 mics and Levophed 12 mics added. On Esmolol and Heparin drips. T: 100.4 06/24 Patient is intubated maxed out on Neosyn and Levophed. T;101.1, on Heparin drip. 06/25 Patient remains on multiple pressors ( Neosyn 300 mics, Levophed 12 mics, Vasopressin 0.04). On Heparin drip and Fentanyl infusion. T:99.8 Objective Vital Signs Date Time Temp Pulse Resp B/P (MAP) Pulse Ox O2 Delivery O2 Flow Rate FiO2 06/25/17 07:55 98 40 06/25/17 06:00 160 06/25/17 04:00 99.6 18 71/30 (44) Intake and Output 06/25/17 06/25/17 06/26/17 08:00 16:00 00:00 Intake Total 6435 ml Output Total 30 ml Balance 6405 ml Result Diagram: 06/24/17 0530 06/24/17 0530 Other Results Laboratory Tests Test 06/25/17 04:50 Activated Partial Thromboplast Time 45.7 SEC Phosphorus Level 6.2 MG/DL Imaging Last Impressions Head CT 06/22/17 1600 Signed Impressions: Service Date/Time: May 16:36 - CONCLUSION: 1. Old areas of cortical infarct as above. 2. No acute intracranial hemorrhage. Juan Pablo Fish MD Chest X-Ray 06/22/17 0600 Signed Impressions: Service Date/Time: May 04:51 - CONCLUSION: 1. Support apparatus unchanged. Persistent dense consolidation at the left base. Small effusions. Delonte Roland MD Brain MRI 06/21/17 0000 Signed Impressions: Service Date/Time: Wednesday, June 21, 2017 18:09 - CONCLUSION: 1. Evolving subacute infarcts as above. 2. Possible small subacute parenchymal blood in the region of the left periventricular white matter/basal ganglia infarct. 3. No new or acute infarct. No mass effect or midline shift. Darin Preston MD Abdomen X-Ray 06/19/17 0600 Signed Impressions: Service Date/Time: Monday, June 19, 2017 02:56 - CONCLUSION: 1. Stable to slight improvement in gaseous distention of the colon. Delonte Roland MD Abdomen/Pelvis CT 06/18/17 0000 Signed Impressions: Service Date/Time: Sunday, June 18, 2017 10:29 - CONCLUSION: 1. Persistent wedge-shaped areas of hypoenhancement within the spleen likely representing infarcts. There is questionable area of hypoenhancement the lower pole the right kidney as well which could also represent infarct. Suggest attention to these a followup imaging. 2. There is a small volume of free fluid in the abdomen and pelvis along with a trace bilateral pleural fluid effusions and anasarca. 3. Cardiomegaly with 2 stable nodular areas in the right atrium representing either thrombus or mass. These measure up to 2 cm. 4. Otherwise, as above. Darin Pederson MD Upper Extremity Ultrasound 06/16/17 0000 Signed Impressions: Service Date/Time: Friday, June 16, 2017 11:00 - CONCLUSION: Normal examination. No evidence of DVT Shoaib Pastor MD Chest CT 06/15/17 0000 Signed Impressions: Service Date/Time: May 04:30 - CONCLUSION: 1. 2 focal rounded filling defects involving an enlarged right atrium. I'm concerned this represents mural thrombus. 2. Significant cardiomegaly. 3. Bibasilar infiltrates. Blu Mayfield Jr., MD Objective Remarks GENERAL: 86-year-old female, critically ill currently orotracheally intubated SKIN: Warm and dry. Great toes bilaterally are currently dusky. Right upper extremity with ecchymoses large HEAD: Atraumatic. Normocephalic. EYES: Pupils round, 3 to 4 mm and sluggishly reactive bilaterally. No scleral icterus. No injection or drainage. ENT: No nasal bleeding or discharge. Orotracheally intubated. Thrush noted on admission NECK: Trachea midline. No JVD. Right IJ 5 lm catheter is clean dry and intact CARDIOVASCULAR: Prior sternotomy scar noted. Well-healed. S1, S2 no S4. Without murmur. Hypotensive on avel-synephrine RESPIRATORY: Coarse rhonchi appreciated bilaterally. Symmetrical excursion. GASTROINTESTINAL: Abdomen less distended. Hyperactive bowel sounds are appreciated. No high-pitched sounds appreciated. PEG tube in place without erythema/skin breakdown. Tolerating tube feeding : Camilo in place with yellow urine output. MUSCULOSKELETAL: Right upper extremity edema noted greater than left upper extremity NEUROLOGICAL: Positive gag. Positive corneal reflex. Withdrawing to pain.localizes with LUE. Upward toes Not following commands Date of Insertion: Jun 15, 2017 Line: Central Venous Catheter Side: Right Location: Internal, Jugular A/P Problem List: (1) Respiratory failure with hypoxia ICD Code: J96.91 - Respiratory failure, unspecified with hypoxia Status: Acute (2) Aspiration pneumonia ICD Code: J69.0 - Pneumonitis due to inhalation of food and vomit Status: Acute (3) Hypokalemia ICD Code: E87.6 - Hypokalemia Status: Acute (4) Dysphagia ICD Code: R13.10 - Dysphagia, unspecified Status: Chronic (5) Respiratory failure, acute ICD Code: J96.00 - Acute respiratory failure, unspecified whether with hypoxia or hypercapnia (6) History of stroke ICD Code: Z86.73 - Personal history of transient ischemic attack (TIA), and cerebral infarction without residual deficits (7) Moderate protein malnutrition ICD Code: E44.0 - Moderate protein-calorie malnutrition Status: Chronic Assessment and Plan NEURO/Psych: Recent history of L MCA stroke 05/21/17 -left periventricular white matter, left temporal, left parietal and right parietal Residual R hemiparesis, dysphagia, inability to ambulate. R frontal encephalomalacia On Fentanyl infusion for sedation and vent synchrony 06/22 CT brain: Old areas of cortical infarct as above. No acute intracranial hemorrhage. 06/21 MRI brain: Evolving subacute infarcts as above. 2. Possible small subacute parenchymal blood in the region of the left periventricular white matter/basal ganglia infarct. No new or acute infarct. No mass effect or midline shift. Per Dr. Bernalop: continue heparin. MRI brain 06/15 revealed old right frontal posterior infarct, subacute left parametric white matter 17 x 52 mm, left temporal 19 x 32 mm, left parietal 16 mm and cluster right parietal areas of subacute EEG 06/15 revealed bilateral abnormalities slowing rhythms more left. No ictal/ discharge is noted Currently off all sedation RESP: Acute respiratory failure Aspiration Pneumonia PRVC 10//09/29/44. Continue with vent support keep sat >92% Hemodynamic instability and altered mentation will not permit Spontaneous breathing trials Albuterol/ipratropium aerosols every 6 hours with albuterol aerosols every 2 hours as needed Dyspnea CXR 06/22: Dense consolidation left base CT thorax 06/15- bibasilar opacities. ?R atrial mural thrombus. CV: Atrial fibrillation with [id number] 7 Right Atrial thrombus H/o mitral valve replacement Hyperlipidemia Continue with Pressors ( On Neosyn, Levophed, Vasopressin) keep MAP>65mmHg On stress dose steroids _ HC 50mg IV Q6 Hold Digoxin 0.125 mg by PEG daily. Digoxin level 1.2 on 06/22 Pravastatin 40mg daily for dyslipidemia 2-D echo: EF45- 50%. No RWMA. LA, RA severely dilated. Mitral valve annuloplasty ring is present. Moderate thickening of the mitral valve leaflets. Eara-np-evtefilp mitral valve regurgitation. Diffuse calcification of the aortic valve. Sruh-dz-mdaueggr aortic valve regurgitation. No aortic valve stenosis. Aortic valve area is 1.4cm. PASP is 41.8 mmHg. Echo 06/18 revealed 1.35 x 1.38 cm right atrial thrombus/mass Continue with Heparin drip GI: Constipation Cholelithiasis Splenic infarct Chronic moderate protein energy malnutrition Hypoalbuminemia Diverticulosis Colonic polyp - pathology pending TF (vital 1.5 goal 55 cc an hour) via PEG tube. s/p EGD and colonoscopy 06/18: Mild gastritis, small ulceration next to PEG tube site with no evidence of bleeding, colon polyp and Diverticulosis. CT abd/pelvis revealed spleen abnormalities suggest splenic infarct. Laceration felt to be less likely. No hematoma. No recent injury reported. Docusate sodium/Senokot/twice daily and polyethylene glycol 17 g daily for bowel regimen KUB 06/18 revealed gaseous distention of the colon cecum 11.5 cm. Repeat KUB improved FEN/RENAL: Hypernatremia Monitor renal function, I/O's, electrolytes replacement per protocol. Free water 250 ml Q8 ID: Aspiration pneumonia/MRSA in sputum Thrush Coag negative staph bacteremia Continue abx per ID (Vanco, Rifampin) monitor for signs of infections ( Fever, WBC) Might need ALVIN per ID once clinically stable Influenza negative 06/19 BC: NGTD Sputum 06/16 MRSA, 06/15 BC: Coag negative staph Infectious disease following HEME: Leukocytosis Normocytic anemia Monitor CBC, coags- on heparin drip Previously on Apixaban Continue heparin drip for now ENDO: SSI with accuchecks TSH 0.546. T4 slightly elevated at 1.8 PROPH: Heparin drip will provide DVT prophylaxis Pantoprazole 40 mg IV twice a day for stress ulcer prophylaxis. ACCESS: Right IJ 5 lm catheter placed 06/15. Discontinued arterial line 06/21 Palliative care is following Continue Alternate code status. Intubation and ACLS drugs only. No shock. No CPR. Patient is hypotensive on multiple pressors, septic recent strokes, multiorgan failure. Overall prognosis poor and recommend transition to comfort measures CCT 30 mins Problem Qualifiers (1) Respiratory failure with hypoxia: Qualified Codes: J96.01 - Acute respiratory failure with hypoxia Marsha Bach MD Jun 25, 2017 08:40
[2017-06-25 10:31] LABS: AUTOMATED NEUTROPHIL # 35.4 TH/MM3 (1.8-7.7); BASOPHIL # 0.2 TH/MM3 (0-0.2); BASOPHIL % 0.4 % (0.0-2.0); HEMATOCRIT 34.4 % (35.0-46.0); LYMPH % 2.5 % (9.0-44.0); MEAN CELL VOLUME 94.4 FL (80.0-100.0); MEAN CORPUSCULAR HEMOGLOBIN 29.7 PG (27.0-34.0); MEAN CORPUSCULAR HGB CONC 31.5 % (32.0-36.0); MONO % 10.9 % (0.0-8.0); NEUT % 86.2 % (16.0-70.0); PLATELET COUNT 300 TH/MM3 (150-450); RED BLOOD COUNT 3.64 MIL/MM3 (4.00-5.30); RED CELL DISTRIBUTION WIDTH 16.6 % (11.6-17.2); WHITE BLOOD COUNT 41.1 TH/MM3 (4.0-11.0)
[2017-06-25 10:32] LABS: HEMO FLAGS AUTO DIFF
[2017-06-25 11:05] LABS: BICARBONATE 13.4 MEQ/L (21.0-32.0); POTASSIUM 4.5 MEQ/L (3.5-5.1)
[2017-06-25 11:24] LABS: BANDS 5 % (0-6); METAMYELOCYTES 1 % (0-1); POLYS (SEG NEUTROPHILS) 84 % (16-70); WBC DIFF SAMPLE 100
[2017-06-25 11:25] LABS: OVALOCYTES 1+ (NORMAL); PLATELET ESTIMATE SMEAR NORMAL (NORMAL); PLATELET MORPHOLOGY NORMAL (NORMAL); SCAN/DIFF FINAL DIFF MANUAL
--- NOTE | 2017-06-25 14:30 | HHI.IDPN ---
Subjective Subjective Remarks Doing extremely poorly, but pt's spouse wants to be agrresive pt remains on vent Maxed out on pressors wth BP still very low 40s/20s off sedation not FC or purposefull Still RVR Afib on monitor WBC went to 41K dwvelopped diarrhea 4-9 BMs./day, C.diff negativge Antibiotics vancomycin rifampin Allergies: Coded Allergies: penicillin G (Unverified Allergy, Severe, 05/09/17) shellfish derived (Verified Allergy, Unknown, 06/15/17) Objective . Vital Signs Date Time Temp Pulse Resp B/P (MAP) Pulse Ox O2 Delivery O2 Flow Rate FiO2 06/25/17 11:54 98 40 06/25/17 10:00 159 06/25/17 08:33 154 48/16 06/25/17 08:33 150 48/16 06/25/17 08:00 40 06/25/17 08:00 99.9 153 24 73/21 (38) 98 06/25/17 08:00 153 06/25/17 07:55 98 40 06/25/17 06:00 160 06/25/17 04:00 40 06/25/17 04:00 160 06/25/17 04:00 99.6 166 18 71/30 (44) 96 06/25/17 03:33 100 40 06/25/17 03:23 145 65/30 06/25/17 02:00 150 06/25/17 00:04 97 40 06/25/17 00:00 159 06/25/17 00:00 99.8 155 24 118/56 (76) 96 06/25/17 00:00 40 06/24/17 23:49 151 68/42 06/24/17 23:27 135 108/58 06/24/17 23:25 135 108/58 06/24/17 22:00 168 06/24/17 20:00 168 06/24/17 20:00 99.8 168 24 81/46 (58) 96 06/24/17 20:00 168 81/46 06/24/17 20:00 40 06/24/17 19:39 93 40 06/24/17 18:00 170 06/24/17 17:48 176 105/59 06/24/17 16:51 95 40 06/24/17 16:00 162 06/24/17 16:00 99.3 162 25 93/70 (78) 94 06/24/17 16:00 40 . Laboratory Tests Test 06/24/17 05:30 06/25/17 10:00 White Blood Count 22.8 TH/MM3 41.1 TH/MM3 Red Blood Count 3.64 MIL/MM3 3.64 MIL/MM3 Hemoglobin 10.5 GM/DL 10.8 GM/DL Hematocrit 33.6 % 34.4 % Mean Corpuscular Volume 92.3 FL 94.4 FL Mean Corpuscular Hemoglobin 28.8 PG 29.7 PG Mean Corpuscular Hemoglobin Concent 31.2 % 31.5 % Red Cell Distribution Width 15.9 % 16.6 % Platelet Count 390 TH/MM3 300 TH/MM3 Mean Platelet Volume 8.2 FL 9.2 FL Neutrophils (%) (Auto) 81.4 % 86.2 % Lymphocytes (%) (Auto) 7.3 % 2.5 % Monocytes (%) (Auto) 10.8 % 10.9 % Eosinophils (%) (Auto) 0.0 % 0.0 % Basophils (%) (Auto) 0.5 % 0.4 % Neutrophils # (Auto) 18.6 TH/MM3 35.4 TH/MM3 Lymphocytes # (Auto) 1.7 TH/MM3 1.0 TH/MM3 Monocytes # (Auto) 2.5 TH/MM3 4.5 TH/MM3 Eosinophils # (Auto) 0.0 TH/MM3 0.0 TH/MM3 Basophils # (Auto) 0.1 TH/MM3 0.2 TH/MM3 CBC Comment AUTO DIFF AUTO DIFF Differential Total Cells Counted 100 100 Neutrophils % (Manual) 70 % 84 % Band Neutrophils % 12 % 5 % Lymphocytes % 6 % 2 % Monocytes % 9 % 8 % Neutrophils # (Manual) 19.4 TH/MM3 37.0 TH/MM3 Myelocytes 3 % Nucleated Red Blood Cells 1 /100 WBC Differential Comment FINAL DIFF MANUAL FINAL DIFF MANUAL Toxic Granulation 1+ Platelet Estimate NORMAL NORMAL Platelet Morphology Comment NORMAL NORMAL Polychromasia 2.0 % Ovalocytes 1+ 1+ Metamyelocytes 1 % Laboratory Tests Test 06/24/17 05:30 06/25/17 04:50 06/25/17 10:00 Blood Urea Nitrogen 16 MG/DL 22 MG/DL Creatinine 0.85 MG/DL 1.43 MG/DL Random Glucose 231 MG/DL 172 MG/DL Calcium Level 7.9 MG/DL 7.5 MG/DL Phosphorus Level 2.0 MG/DL 6.2 MG/DL Magnesium Level 1.8 MG/DL Sodium Level 137 MEQ/L 131 MEQ/L Potassium Level 3.6 MEQ/L 4.5 MEQ/L Chloride Level 107 MEQ/L 100 MEQ/L Carbon Dioxide Level 18.3 MEQ/L 13.4 MEQ/L Anion Gap 12 MEQ/L 18 MEQ/L Estimat Glomerular Filtration Rate 64 ML/MIN 35 ML/MIN Imaging Last Impressions Head CT 06/22/17 1600 Signed Impressions: Service Date/Time: May 16:36 - CONCLUSION: 1. Old areas of cortical infarct as above. 2. No acute intracranial hemorrhage. Juan Pablo Fish MD Chest X-Ray 06/22/17 0600 Signed Impressions: Service Date/Time: May 04:51 - CONCLUSION: 1. Support apparatus unchanged. Persistent dense consolidation at the left base. Small effusions. Delonte Roland MD Brain MRI 06/21/17 0000 Signed Impressions: Service Date/Time: Wednesday, June 21, 2017 18:09 - CONCLUSION: 1. Evolving subacute infarcts as above. 2. Possible small subacute parenchymal blood in the region of the left periventricular white matter/basal ganglia infarct. 3. No new or acute infarct. No mass effect or midline shift. Darin Preston MD Abdomen X-Ray 06/19/17 0600 Signed Impressions: Service Date/Time: Monday, June 19, 2017 02:56 - CONCLUSION: 1. Stable to slight improvement in gaseous distention of the colon. Delonte Roland MD Abdomen/Pelvis CT 06/18/17 0000 Signed Impressions: Service Date/Time: Sunday, June 18, 2017 10:29 - CONCLUSION: 1. Persistent wedge-shaped areas of hypoenhancement within the spleen likely representing infarcts. There is questionable area of hypoenhancement the lower pole the right kidney as well which could also represent infarct. Suggest attention to these a followup imaging. 2. There is a small volume of free fluid in the abdomen and pelvis along with a trace bilateral pleural fluid effusions and anasarca. 3. Cardiomegaly with 2 stable nodular areas in the right atrium representing either thrombus or mass. These measure up to 2 cm. 4. Otherwise, as above. Darin Pederson MD Upper Extremity Ultrasound 06/16/17 0000 Signed Impressions: Service Date/Time: Friday, June 16, 2017 11:00 - CONCLUSION: Normal examination. No evidence of DVT Shoabi Pastor MD Chest CT 06/15/17 0000 Signed Impressions: Service Date/Time: May 04:30 - CONCLUSION: 1. 2 focal rounded filling defects involving an enlarged right atrium. I'm concerned this represents mural thrombus. 2. Significant cardiomegaly. 3. Bibasilar infiltrates. Blu Mayfield Jr., MD Physical Exam CONSTITUTIONAL/GENERAL: This is an adequately nourished patient, very tachypmneic TUBES/LINES/DRAINS: SKIN: No jaundice, rashes, or lesions. EYES: Pupils equal and round and reactive. No scleral icterus. No injection or drainage. Fundi not examined. ENT: Visible oral mucosae moist Orally intubated CARDIOVASCULAR: Irregular rate and rhythm without murmurs, gallops, or rubs. No JVD. Signs of poor perfusion with delayed refill RESPIRATORY/CHEST: Symmetric, unlabored respirations. Rhonchi to auscultation. Breath sounds equal bilaterally. No wheezes, rales, or rhonchi. GASTROINTESTINAL: Abdomen tense no re action to palpation, moderately distended. . Bowel sounds diminished PEG in place LUQ GENITOURINARY: Without palpable bladder distension. Camilo catheter in place with cloudy chyna urine MUSCULOSKELETAL: Extremities without clubbing,,BLE tight edema 4+ + prominent cyanosis No joint tenderness or effusion noted. No calf tenderness. + mottling of feet and hands LYMPHATICS: No palpable cervical or supraclavicular adenopathy. 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), mitral High grade presumably coag neg staph bacteremia in the settings of mitral valve repair with ring - however, different morphology is present - splenic infacts is a concern for underlying L sided endocarditis - evolving subacute brain infartcts also support dx f endocarditis 2 D echo negative - repeat BC negative so far pcn ALLERGY Worsening leukocytosis, sepsis Pt has ecxtremely poor prognosis and is in terminal condition; survival is not expected CONT s Doubt she is a candidate for ALVIN or surgery cont vancomycin contrifampin will add cefepime and flagyl Chantal Quach RN, Dr, MD Jun 25, 2017 14:30
[2017-06-25] MEDS: CEFEPIME INJ 1,000 MG in SODIUM CHLORIDE 0.9% INJ 100 ML IV SCH ×2 (16:54→21:54)
[2017-06-25] MEDS: VASOPRESSIN INJ 40 UNITS in DEXTROSE 5% IN WATER 100ML INJ 98 ML IV SCH ×2 (16:55)
[2017-06-25] MEDS: fentaNYL DRIP 250 ML IV PRN (16:56)
[2017-06-25] MEDS: metroNIDAZOLE 500 MG INJ 100 ML IV SCH ×2 (17:00→21:54)
[2017-06-26] VITALS (10 sets, daily range): BP systolic 43–59; BP diastolic 16–42; PULSE 101–154; RESP 19–23; TEMP 98.6–99; O2SAT 36–89
[2017-06-26] MEDS: HYDROCORTISONE SOD SUCCINATE 100 MG VIAL IV PUSH SCH ×2 (00:12→05:35)
[2017-06-26] MEDS: PANTOPRAZOLE SODIUM 40 MG VIAL IV PUSH SCH (05:36)
[2017-06-26] MEDS: NOREPINEPHRINE 4 MG/D5W 250 ML IV PRN ×2 (05:36→06:51)
[2017-06-26] MEDS: metroNIDAZOLE 500 MG INJ 100 ML IV SCH (05:37)
[2017-06-26] MEDS: PHENYLEPHRINE INJ 160 MG in DEXTROSE 5% IN WATE 500 ML INJ 484 ML IV PRN ×2 (05:38)
[2017-06-26] MEDS: HEPARIN-D5W 25,000 U/250 ML 250 ML IV PRN (05:41)
[2017-06-26] MEDS: CEFEPIME INJ 1,000 MG in SODIUM CHLORIDE 0.9% INJ 100 ML IV SCH (05:55)
[2017-06-26 06:05] LABS: AUTOMATED NEUTROPHIL # 51.3 TH/MM3 (1.8-7.7); BASOPHIL # 0.2 TH/MM3 (0-0.2); BASOPHIL % 0.4 % (0.0-2.0); EOSINOPHIL # 0.1 TH/MM3 (0-0.4); EOSINOPHIL % 0.1 % (0.0-4.0); HEMATOCRIT 34.2 % (35.0-46.0); LYMPH % 1.1 % (9.0-44.0); LYMPHOCYTE # 0.6 TH/MM3 (1.0-4.8); MEAN CELL VOLUME 97.8 FL (80.0-100.0); MEAN CORPUSCULAR HEMOGLOBIN 29.2 PG (27.0-34.0); MONO % 3.5 % (0.0-8.0); NEUT % 94.9 % (16.0-70.0); PLATELET COUNT 194 TH/MM3 (150-450); RED CELL DISTRIBUTION WIDTH 16.4 % (11.6-17.2); WHITE BLOOD COUNT 54.1 TH/MM3 (4.0-11.0)
[2017-06-26 06:15] LABS: BICARBONATE 10.5 MEQ/L (21.0-32.0); HEMO FLAGS AUTO DIFF; MEAN CORPUSCULAR HGB CONC 29.9 % (32.0-36.0)
[2017-06-26 06:34] LABS: CALCIUM-PROTEIN CORRECTED 7.8 MG/DL (8.5-10.1)
--- NOTE | 2017-06-26 07:08 | HHI.CCPN ---
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 She was discharged from [facility] and transferred to [facility] rehabilitation 06/01/17. She reportedly had rhonchi, cough, and respiratory distress early this morning and there was concern for aspiration. Chest x-ray had been obtained and there were small bibasilar densities that were felt to be consistent with atelectasis. When the retail shift supervisor nurse came in she noted that patient had significantly worsening congestion and increased work of breathing. EVAC was summoned and when EVAC arrived she was reportedly GCS 7 ([id number]) and was intubated at the scene after administration of Ativan 4 mg IV and Etomidate 20 mg IV. Upon intubation EVAC reportedly suctioned out large amount of secretions that looked like Jevity tube feeds from the ETT. Jevity tube feeds were running via PEG and these were placed on hold per EVAC. Upon arrival she was in atrial fibrillation with RVR with rate in the 160s. She was given cardizem 20 mg IV and started on cardizem drip at 5 mg/hr. with white blood cell count 13.7. She was normotensive blood pressure 120-140 systolic. Temperature 99.4. She is hypernatremic with sodium of 154, potassium 2.8. Protein corrected calcium 7.9. Magnesium is normal. Troponin is 0.18, BNP 674. Lactic acid is 1.9 She received 2.5 L of fluid in the emergency department. Chest x-ray demonstrates endotracheal tube approximately 1.8 cm above the sury. OG tube is in place in the stomach. There is left basilar opacity, right basilar atelectasis. Patient is intubated and remainder review of systems cannot be obtained. Aztreonam, metronidazole, levofloxacin were ordered per ED. Blood cultures have been obtained. No noted diarrhea. Unknown if patient had experienced vomiting 06/15 : Discussed with Jorge Alberto at bedside. Request alternate CODE STATUS. ACLS drugs and intubation only. Currently on esmolol and Cardizem drips for rate control. Phenylephrine drip initiated due to hypotension. Patient does withdrawal to left upper extremity and actually made attempt to self extubate with left upper extremity while placing central line while hypotensive. Moving bilateral lower extremities spontaneously. Plan is MRI brain if able/stable overnight otherwise will repeat CT head in a.m. 06/16 Echocardiogram still not read as of 1719. Heparin drip initiated due to likely mural thrombus and high risk of CVA. Initial CT brain 06/15 showed no signs of acute hemorrhage. 06/16: Afebrile. MRI brain results as below. Heparin drip currently on hold secondary to elevated PTT. Tube feeding to be initiated today. Remains on Cardizem, esmolol in phenylephrine drips 06/17: Afebrile. Off the diltiazem, esmolol and phenylephrine drips. Currently on propofol drip at 20 mics grams per kilo per minute. Attempt sedation vacation today. No bowel movement. Tube feeds currently at 30 cc an hour 06/18: Afebrile. A. fib with RVR overnight restarted on diltiazem drip currently at 5 mg an hour. Per report 1 large bloody bowel movement currently brown in color. KUB revealed abdominal distention with cecum at 11.[address] evidence/pelvis pending. Heparin discontinued. Noted thrombus in right atrium. On echocardiogram. Not on vasopressors. 06/19 PAtient is sedated with Diprivan, Neosyn started overnight for hypotension and Cardizem drip stopped. Off Heparin drip for Colonoscopy today. Afebrile. 06/20 No events overnight. Sedated with Diprivan and intubated. On Neosyn 50 mics. Afebrile. s/p EGD and colonoscopy yesterday with no signs of bleeding. Back on Heparin drip. Subjective 06/21: Patient started on his knowledge of T2 tachycardia. Pulse 0.25 mg digoxin IV 1. Potassium is currently been replaced. Continues on heparin drip. No active bleeding. 06/22: Remains intubated not on sedation, critically ill. Placed on Avel- Synephrine for hypotension currently on 40 mcg/m. Localizes with left upper extremity. MRI yesterday shows evolving subacute infarctions possible small amount of subacute parenchymal blood in the left basal ganglia infarct region. Per Dr. Sánchez, heparin is to be continued. Repeat CT imaging today. 06/23 Patient remains intubated on no sedation. Hypotensive overnight Neosyn increased 220 mics and Levophed 12 mics added. On Esmolol and Heparin drips. T: 100.4 06/24 Patient is intubated maxed out on Neosyn and Levophed. T;101.1, on Heparin drip. 06/25 Patient remains on multiple pressors ( Neosyn 300 mics, Levophed 12 mics, Vasopressin 0.04). On Heparin drip and Fentanyl infusion. T:99.8 06/26 Patient maxed out on 3 pressors(Levo, Vaso and Neosyn). On Heparin and Fentanyl drips. Objective Vital Signs Date Time Temp Pulse Resp B/P (MAP) Pulse Ox O2 Delivery O2 Flow Rate FiO2 06/26/17 06:51 138 59/42 06/26/17 04:13 36 40 06/26/17 00:00 99.0 23 Intake and Output 06/26/17 06/26/17 06/27/17 08:00 16:00 00:00 Intake Total 2537 ml Balance 2537 ml Result Diagram: 06/26/17 0435 06/26/17 0435 Other Results Laboratory Tests Test 06/25/17 10:00 06/26/17 04:35 White Blood Count 41.1 TH/MM3 54.1 TH/MM3 Red Blood Count 3.64 MIL/MM3 3.50 MIL/MM3 Hemoglobin 10.8 GM/DL 10.2 GM/DL Hematocrit 34.4 % 34.2 % Mean Corpuscular Volume 94.4 FL 97.8 FL Mean Corpuscular Hemoglobin 29.7 PG 29.2 PG Mean Corpuscular Hemoglobin Concent 31.5 % 29.9 % Red Cell Distribution Width 16.6 % 16.4 % Platelet Count 300 TH/MM3 194 TH/MM3 Mean Platelet Volume 9.2 FL 9.5 FL Neutrophils (%) (Auto) 86.2 % 94.9 % Lymphocytes (%) (Auto) 2.5 % 1.1 % Monocytes (%) (Auto) 10.9 % 3.5 % Eosinophils (%) (Auto) 0.0 % 0.1 % Basophils (%) (Auto) 0.4 % 0.4 % Neutrophils # (Auto) 35.4 TH/MM3 51.3 TH/MM3 Lymphocytes # (Auto) 1.0 TH/MM3 0.6 TH/MM3 Monocytes # (Auto) 4.5 TH/MM3 1.9 TH/MM3 Eosinophils # (Auto) 0.0 TH/MM3 0.1 TH/MM3 Basophils # (Auto) 0.2 TH/MM3 0.2 TH/MM3 CBC Comment AUTO DIFF AUTO DIFF Differential Total Cells Counted 100 Neutrophils % (Manual) 84 % Band Neutrophils % 5 % Lymphocytes % 2 % Monocytes % 8 % Neutrophils # (Manual) 37.0 TH/MM3 Metamyelocytes 1 % Differential Comment FINAL DIFF MANUAL Platelet Estimate NORMAL Platelet Morphology Comment NORMAL Ovalocytes 1+ Blood Urea Nitrogen 22 MG/DL 27 MG/DL Creatinine 1.43 MG/DL 1.93 MG/DL Random Glucose 172 MG/DL 57 MG/DL Calcium Level 7.5 MG/DL 6.7 MG/DL Sodium Level 131 MEQ/L 127 MEQ/L Potassium Level 4.5 MEQ/L 5.0 MEQ/L Chloride Level 100 MEQ/L 97 MEQ/L Carbon Dioxide Level 13.4 MEQ/L 10.5 MEQ/L Anion Gap 18 MEQ/L 20 MEQ/L Estimat Glomerular Filtration Rate 35 ML/MIN 25 ML/MIN Total Protein 4.9 GM/DL Protein Corrected Calcium 7.8 MG/DL Random Vancomycin Level 20.4 COMMENT Imaging Last Impressions Head CT 06/22/17 1600 Signed Impressions: Service Date/Time: May 16:36 - CONCLUSION: 1. Old areas of cortical infarct as above. 2. No acute intracranial hemorrhage. Juan Pablo Fish MD Chest X-Ray 06/22/17 0600 Signed Impressions: Service Date/Time: May 04:51 - CONCLUSION: 1. Support apparatus unchanged. Persistent dense consolidation at the left base. Small effusions. Delonte Roland MD Brain MRI 06/21/17 0000 Signed Impressions: Service Date/Time: Wednesday, June 21, 2017 18:09 - CONCLUSION: 1. Evolving subacute infarcts as above. 2. Possible small subacute parenchymal blood in the region of the left periventricular white matter/basal ganglia infarct. 3. No new or acute infarct. No mass effect or midline shift. Darin Preston MD Abdomen X-Ray 06/19/17 0600 Signed Impressions: Service Date/Time: Monday, June 19, 2017 02:56 - CONCLUSION: 1. Stable to slight improvement in gaseous distention of the colon. Delonte Roland MD Abdomen/Pelvis CT 06/18/17 0000 Signed Impressions: Service Date/Time: Sunday, June 18, 2017 10:29 - CONCLUSION: 1. Persistent wedge-shaped areas of hypoenhancement within the spleen likely representing infarcts. There is questionable area of hypoenhancement the lower pole the right kidney as well which could also represent infarct. Suggest attention to these a followup imaging. 2. There is a small volume of free fluid in the abdomen and pelvis along with a trace bilateral pleural fluid effusions and anasarca. 3. Cardiomegaly with 2 stable nodular areas in the right atrium representing either thrombus or mass. These measure up to 2 cm. 4. Otherwise, as above. Darin Pederson MD Upper Extremity Ultrasound 06/16/17 0000 Signed Impressions: Service Date/Time: Friday, June 16, 2017 11:00 - CONCLUSION: Normal examination. No evidence of DVT Shoaib Pastor MD Chest CT 06/15/17 0000 Signed Impressions: Service Date/Time: May 04:30 - CONCLUSION: 1. 2 focal rounded filling defects involving an enlarged right atrium. I'm concerned this represents mural thrombus. 2. Significant cardiomegaly. 3. Bibasilar infiltrates. Blu Mayfield Jr., MD Objective Remarks GENERAL: 86-year-old female, critically ill currently orotracheally intubated SKIN: Warm and dry. Great toes bilaterally are currently dusky. Right upper extremity with ecchymoses large HEAD: Atraumatic. Normocephalic. EYES: Pupils round, 3 to 4 mm and sluggishly reactive bilaterally. No scleral icterus. No injection or drainage. ENT: No nasal bleeding or discharge. Orotracheally intubated. Thrush noted on admission NECK: Trachea midline. No JVD. Right IJ 5 lm catheter is clean dry and intact CARDIOVASCULAR: Prior sternotomy scar noted. Well-healed. S1, S2 no S4. Without murmur. Hypotensive on avel-synephrine RESPIRATORY: Coarse rhonchi appreciated bilaterally. Symmetrical excursion. GASTROINTESTINAL: Abdomen less distended. Hyperactive bowel sounds are appreciated. No high-pitched sounds appreciated. PEG tube in place without erythema/skin breakdown. Tolerating tube feeding : Camilo in place with yellow urine output. MUSCULOSKELETAL: Right upper extremity edema noted greater than left upper extremity NEUROLOGICAL: Positive gag. Positive corneal reflex. Withdrawing to pain.localizes with LUE. Upward toes Not following commands Date of Insertion: Jun 15, 2017 Line: Central Venous Catheter Side: Right Location: Internal, Jugular A/P Problem List: (1) Respiratory failure with hypoxia ICD Code: J96.91 - Respiratory failure, unspecified with hypoxia Status: Acute (2) Aspiration pneumonia ICD Code: J69.0 - Pneumonitis due to inhalation of food and vomit Status: Acute (3) Hypokalemia ICD Code: E87.6 - Hypokalemia Status: Acute (4) Dysphagia ICD Code: R13.10 - Dysphagia, unspecified Status: Chronic (5) Respiratory failure, acute ICD Code: J96.00 - Acute respiratory failure, unspecified whether with hypoxia or hypercapnia (6) History of stroke ICD Code: Z86.73 - Personal history of transient ischemic attack (TIA), and cerebral infarction without residual deficits (7) Moderate protein malnutrition ICD Code: E44.0 - Moderate protein-calorie malnutrition Status: Chronic Assessment and Plan NEURO/Psych: Recent history of L MCA stroke 05/21/17 -left periventricular white matter, left temporal, left parietal and right parietal Residual R hemiparesis, dysphagia, inability to ambulate. R frontal encephalomalacia On Fentanyl infusion for sedation and vent synchrony 06/22 CT brain: Old areas of cortical infarct as above. No acute intracranial hemorrhage. 06/21 MRI brain: Evolving subacute infarcts as above. 2. Possible small subacute parenchymal blood in the region of the left periventricular white matter/basal ganglia infarct. No new or acute infarct. No mass effect or midline shift. Per Dr. Bernalop: continue heparin. MRI brain 06/15 revealed old right frontal posterior infarct, subacute left parametric white matter 17 x 52 mm, left temporal 19 x 32 mm, left parietal 16 mm and cluster right parietal areas of subacute EEG 06/15 revealed bilateral abnormalities slowing rhythms more left. No ictal/ discharge is noted Currently off all sedation RESP: Acute respiratory failure Aspiration Pneumonia PRVC 10/500/0.8/5/100%. Continue with vent support keep sat >92% Hemodynamic instability and altered mentation will not permit Spontaneous breathing trials Albuterol/ipratropium aerosols every 6 hours with albuterol aerosols every 2 hours as needed Dyspnea CXR 06/22: Dense consolidation left base CT thorax 06/15- bibasilar opacities. ?R atrial mural thrombus. CV: Atrial fibrillation with [id number] Right Atrial thrombus H/o mitral valve replacement Hyperlipidemia Continue with Pressors ( On Neosyn, Levophed, Vasopressin) keep MAP>65mmHg On stress dose steroids _ HC 50mg IV Q6 Digoxin 0.125 mg on hold. Digoxin level 1.2 on 06/22 Pravastatin 40mg daily for dyslipidemia 2-D echo: EF45- 50%. No RWMA. LA, RA severely dilated. Mitral valve annuloplasty ring is present. Moderate thickening of the mitral valve leaflets. [id number] mitral valve regurgitation. Diffuse calcification of the aortic valve. [id number] aortic valve regurgitation. No aortic valve stenosis. Aortic valve area is 1.4cm. PASP is 41.8 mmHg. Echo 06/18 revealed 1.35 x 1.38 cm right atrial thrombus/mass Continue with Heparin drip GI: Constipation Cholelithiasis Splenic infarct Chronic moderate protein energy malnutrition Hypoalbuminemia Diverticulosis Colonic polyp - pathology pending TF (vital 1.5 goal 55 cc an hour) via PEG tube. s/p EGD and colonoscopy 06/18: Mild gastritis, small ulceration next to PEG tube site with no evidence of bleeding, colon polyp and Diverticulosis. CT abd/pelvis revealed spleen abnormalities suggest splenic infarct. Laceration felt to be less likely. No hematoma. No recent injury reported. Docusate sodium/Senokot/twice daily and polyethylene glycol 17 g daily for bowel regimen KUB 06/18 revealed gaseous distention of the colon cecum 11.5 cm. Repeat KUB improved FEN/RENAL: Hypernatremia Monitor renal function, I/O's, electrolytes replacement per protocol. ID: Aspiration pneumonia/MRSA in sputum Thrush Coag negative staph bacteremia Continue abx per ID (Vanco, Rifampin, Cefepime, Flagyl) monitor for signs of infections ( Fever, WBC) Might need ALVIN per ID once clinically stable Influenza negative 06/19 BC: NGTD Sputum 06/16 MRSA, 06/15 BC: Coag negative staph Infectious disease following HEME: Leukocytosis Normocytic anemia Monitor CBC, coags- on heparin drip Previously on Apixaban Continue heparin drip for now ENDO: SSI with accuchecks TSH 0.546. T4 slightly elevated at 1.8 PROPH: Heparin drip will provide DVT prophylaxis Pantoprazole 40 mg IV twice a day for stress ulcer prophylaxis. ACCESS: Right IJ 5 lm catheter placed 06/15. Discontinued arterial line 06/21 Palliative care is following Continue Alternate code status. Intubation and ACLS drugs only. No shock. No CPR. Patient is hypotensive on multiple pressors, septic recent strokes, multiorgan failure. Overall prognosis poor and recommend transition to comfort measures. Discussed with patient's family at bedside yesterday and updated them on her condition. Very poor prognosis. CCT 30 mins Problem Qualifiers (1) Respiratory failure with hypoxia: Qualified Codes: J96.01 - Acute respiratory failure with hypoxia Marsha Bach MD Jun 26, 2017 07:07
[2017-06-26] MEDS ORDERED: DEXT 5%-NACL 0.9% 1000 ML INJ 1,000 ML IV SCH (07:30)
[2017-06-26] MEDS: ARTIFICIAL TEARS OPTH SOLN 15 ML BTL EACH EYE SCH (07:35)
[2017-06-26] MEDS: PRAVASTATIN SOD 40 MG TAB OG-TUBE SCH (07:35)
[2017-06-26] MEDS: INSULIN NovoLIN REGULAR SUPPLEMENTAL SCALE SQ SCH ×2 (07:35)
[2017-06-26] MEDS: SODIUM CHLORIDE 0.9% FLUSH 10 ML FLUSH IV FLUSH SCH (07:36)
[2017-06-26] MEDS: SODIUM CHLORIDE 0.9% FLUSH 10 ML FLUSH IVF SCH (07:36)
[2017-06-26] MEDS: DOCUSATE SODIUM 100 MG/10 ML UDC PO SCH (07:40)
[2017-06-26] MEDS: CHLORHEXIDINE 0.12% (ORAL KIT) 15 ML CUP MT SCH (07:40)
[2017-06-26] MEDS: SENNOSIDES SYRUP 8.8 MG/5 ML CUP OG-TUBE SCH (07:40)
[2017-06-26] MEDS: POLYETHYLENE GLYCOL 17 GM PKG PO SCH (07:40)
[2017-06-26 07:41] LABS: BANDS 27 % (0-6); CORRECTED NUCLEATED RBC 1 /100 WBC (0-0); METAMYELOCYTES 3 % (0-1); NEUTROPHIL # MANUAL DIFF 51.4 TH/MM3 (1.8-7.7); PLATELET ESTIMATE SMEAR NORMAL (NORMAL); PLATELET MORPHOLOGY NORMAL (NORMAL); POLYS (SEG NEUTROPHILS) 65 % (16-70); SCAN/DIFF FINAL DIFF MANUAL; TOXIC GRANULATION 1+ (NORMAL); TOXIC VACUOLATION PRESENT (NONE SEEN); WBC DIFF SAMPLE 100
[2017-06-26 07:42] LABS: BURR CELLS 1+ (NORMAL); OVALOCYTES 1+ (NORMAL); POLYCHROMASIA 2.3 % (0.0-1.9)
[2017-06-26] MEDS ORDERED: VANCOMYCIN 1,500 MG/NS 500 ML IV ONE ×2 (12:00)
[2017-06-26] MEDS ORDERED: PHARMACY ORDERED LAB ONE (14:45)
--- NOTE | 2017-06-27 21:23 | MD ---
cc: GINI FISHER M.D. ADMISSION DATE: 06/15/2017 EXPIRATION DATE: 06/26/2017 DATE OF : 1930 BRIEF HISTORY: The patient is an 86 year-old female with past medical history of atrial fibrillation, recent ischemic left MCA stroke on May 21 with hemorrhagic conversion and residual right hemiplegia, treated at [facility], dysphagia with previous PEG tube placement, hypertension, hyperlipidemia, CHF, severe MR status post mitral valve replacement. She was discharged from [facility], and transferred to [facility] on June 01. She was transferred to [facility] ED for respiratory failure, altered mental status. The patient was subsequently intubated with Ativan, etomidate. On arrival she was in A-fib with RVR. In addition the patient had low grade fever and was hypernatremic and hypokalemia. Her initial lactic acid level was 1.9. She had a CT scan of the brain which showed old areas of cortical infarct. No acute intracranial hemorrhage. The patient also had MRI of the brain which showed evolving subacute infarct. She was on fentanyl infusion for sedation and vent synchrony. The patient was seen by Dr. Pacheco from neurology service and was on heparin drip. EEG showed slowing rhythm. No ictal discharges seen. She remained on mechanical ventilation and maintained saturation above 92%. The patient was on bronchodilator treatment. She had a CT scan of the thorax on June 15 which showed bibasilar opacities and possible right atrial mural thrombus. An echocardiogram was performed which showed an EF of 45 to 50%. Right atrium severely dilated, mild to moderate MR. The echocardiogram from June 18 showed 1.35 x 1.38 cm right atrial thrombus, hence the patient was on heparin drip. Nutritional support was provided with tube feeds, 1.5 through the PEG tube. She had a CT of the abdomen and pelvis which showed splenic infarct. The patient underwent upper endoscopy and colonoscopy on June 18 which showed mild gastritis and small ulceration next to the PEG tube site without any evidence of bleeding, colon polyps and diverticulosis. Broad-spectrum antibiotic was initiated on arrival and on June 16, her sputum culture was positive for MRSA and blood culture from June 15 showed gram coag negative staph bacteremia. Infectious Disease was following. The patient also was treated with sliding scale insulin for glycemic control and Protonix for GI prophylaxis. She had right IJ central line placed and arterial line placed which was discontinued on June 21. Palliative care was following along and the patient was initially made alternative code status, intubation and ACLS drugs only. No shock or CPR. Her hospital course was complicated by septic shock requiring multiple pressors and multiorgan failure. Medical team recommended to transition the patient to comfort care. She was found in asystole on June 26, 2017. The patient was DNR. Family members were at the bedside. MD FAHAD Lozano/JACK /2:05 PM /9:04 PM
== END 2017-06-26 09:00 | disposition expired | DRG 207 ==
LOC: NEPC 00:10 → NEDA 02:02 → HIMW 04:45
PROVIDERS: ADMIT Emergency Medicine; ATTEND Emergency Medicine
PROC: 5A1955Z Respiratory Ventilation, Greater than 96 Consecutive Hours (ICD-10-PCS; principal; 2017-06-15)
PROC: 04HY32Z Insertion of Monitoring Device into Lower Artery, Percutaneous Approach (ICD-10-PCS; 2017-06-15)
PROC: 0T2BX0Z Change Drainage Device in Bladder, External Approach (ICD-10-PCS; 2017-06-15)
PROC: 05HM33Z Insertion of Infusion Device into Right Internal Jugular Vein, Percutaneous Approach (ICD-10-PCS; 2017-06-15)
PROC: 4A133B1 Monitoring of Arterial Pressure, Peripheral, Percutaneous Approach (ICD-10-PCS; 2017-06-15)
PROC: 4A133J1 Monitoring of Arterial Pulse, Peripheral, Percutaneous Approach (ICD-10-PCS; 2017-06-15)
PROC: 0D9670Z Drainage of Stomach with Drainage Device, Via Natural or Artificial Opening (ICD-10-PCS; 2017-06-15)
PROC: 0DBE8ZZ Excision of Large Intestine, Via Natural or Artificial Opening Endoscopic (ICD-10-PCS; 2017-06-19)
PROC: 0DJ08ZZ Inspection of Upper Intestinal Tract, Via Natural or Artificial Opening Endoscopic (ICD-10-PCS; 2017-06-19)
DX: J96.01 Acute respiratory failure with hypoxia (principal); J69.0 Pneumonitis due to inhalation of food and vomit; R65.21 Severe sepsis with septic shock; I33.0 Acute and subacute infective endocarditis; J15.212 Pneumonia due to Methicillin resistant Staphylococcus aureus; G93.40 Encephalopathy, unspecified; A41.9 Sepsis, unspecified organism; N17.9 Acute kidney failure, unspecified; E44.0 Moderate protein-calorie malnutrition; Z99.11 Dependence on respirator [ventilator] status; E87.0 Hyperosmolality and hypernatremia; I13.0 Hypertensive heart and chronic kidney disease with heart failure and stage 1 through stage 4 chronic kidney disease, or unspecified chronic kidney disease; I69.351 Hemiplegia and hemiparesis following cerebral infarction affecting right dominant side; J98.11 Atelectasis; K92.1 Melena; I48.2 Chronic atrial fibrillation; K25.9 Gastric ulcer, unspecified as acute or chronic, without hemorrhage or perforation; R13.10 Dysphagia, unspecified; E11.22 Type 2 diabetes mellitus with diabetic chronic kidney disease; I50.9 Heart failure, unspecified; G93.89 Other specified disorders of brain; I51.3 Intracardiac thrombosis, not elsewhere classified; E78.5 Hyperlipidemia, unspecified; E87.6 Hypokalemia; N18.9 Chronic kidney disease, unspecified; D73.5 Infarction of spleen; Z74.01 Bed confinement status; B37.9 Candidiasis, unspecified; I25.10 Atherosclerotic heart disease of native coronary artery without angina pectoris; G25.0 Essential tremor; Z51.5 Encounter for palliative care; Z66 Do not resuscitate; K63.5 Polyp of colon; K20.9 Esophagitis, unspecified; K57.90 Diverticulosis of intestine, part unspecified, without perforation or abscess without bleeding; Z95.2 Presence of prosthetic heart valve; Z85.828 Personal history of other malignant neoplasm of skin; Z95.1 Presence of aortocoronary bypass graft; Z88.0 Allergy status to penicillin; Z93.1 Gastrostomy status; K59.00 Constipation, unspecified; K80.20 Calculus of gallbladder without cholecystitis without obstruction; E83.39 Other disorders of phosphorus metabolism; E83.51 Hypocalcemia; I08.3 Combined rheumatic disorders of mitral, aortic and tricuspid valves; K29.70 Gastritis, unspecified, without bleeding; R47.02 Dysphasia; B95.7 Other staphylococcus as the cause of diseases classified elsewhere; B96.89 Other specified bacterial agents as the cause of diseases classified elsewhere; D64.89 Other specified anemias; E66.9 Obesity, unspecified; Z78.1 Physical restraint status
CPT/HCPCS: 36556; 36600; 43753; 70450; 70551; 71010; 71260; 73030; 74000; 74177; 76937; 80048; 80053; 80162; 80202; 81001; 82140; 82150; 82272; 82550; 82805; 82948; 83605; 83690; 83735; 83880; 84100; 84132; 84155; 84439; 84443; 84484; 85007; 85014; 85018; 85025; 85027; 85384; 85610; 85730; 86403; 86850; 86900; 86901; 87040; 87070; 87086; 87147; 87186; 87205; 87493; 87641; 87804; 93005; 93306; 93308; 93971; 94002; 94003; 94640; 94664; 95819; 96365; 96375; C9113; J0692; J1160; J1644; J1720; J1956; J2020; J2212; J2370; J3010; J3370; J3480; J7030; J7040; J7042; J7050; J7060; J7070; J7120; P9047; Q9967